=== PATIENT | female | born 1965 | race Caucasian/White ===

== ENCOUNTER 2022-12-09 16:34 | Inpatient (IN) | payer MEDICAID ==
[~2022-12-09] VITALS: Ht 157.5 cm; Wt 103.0 kg
[2022-12-09] MEDS ORDERED: ALBUTEROL SULF 2.5 MG/0.5ML(0.5%) NEB SOLN NEB ONE (17:00)
[2022-12-09] MEDS ORDERED: MAGNESIUM SULFATE 1GM/100ML 100 ML IV ONE (17:00)
[2022-12-09] MEDS ORDERED: IPRATROPIUM BROM 0.5 MG/2.5ML INH SOL NEB ONE (17:00)
[2022-12-09] MEDS ORDERED: methylPREDNISolone SOD SUCC 125 MG/2 ML VL IV ONE (17:00)
[2022-12-09 17:30] LABS: Basophils # (auto) 0 10 ^3/uL (0-0.2); Basophils % (auto) 0.6 % (0.0-2.0); Eosinophils # (auto) 0 10 ^3/uL (0-0.8); Hematocrit 46.2 % (36.0-46.0); Hemoglobin 15.2 g/dL (12.2-16.2); Lymphocytes # (auto) 0.4 10 ^3/uL (0.4-5.4); Lymphocytes % (auto) 6.1 % (10.0-50.0); Mean Corpuscular Hemoglobin 30.5 pg (28.0-32.0); Mean Corpuscular Hgb Conc. 32.9 g/dL (32.0-36.0); Mean Corpuscular Volume 92.5 fL (80.0-100.0); Monocytes # (auto) 0.6 10 ^3/uL (0-1.3); Monocytes % (auto) 10.3 % (0.0-12.0); Neutrophils # (auto) 5.2 10 ^3/uL (1.6-8.6); Red Cell Distribution Width 16.1 % (11.8-14.3); White Blood Cell 6.2 10^3/uL (4.4-10.8)
[2022-12-09 17:55] LABS: Albumin 3.5 g/dL (3.4-5.0); Magnesium 2.6 mg/dL (1.6-2.6); Potassium 3.8 mmol/L (3.5-5.1)
[2022-12-09 17:59] LABS: BUN/Creatinine Ratio 16.5; Bilirubin, Total 0.4 mg/dL (0.2-1.0); Total Protein 6.9 g/dL (6.4-8.2)
[2022-12-09] MEDS ORDERED: ACETAMINOPHEN 325 MG TAB PO ONE (19:15)
[2022-12-09] MEDS ORDERED: TEMAZEPAM 15 MG CAP PO PRN (19:30)
[2022-12-09] MEDS ORDERED: MAALOX PLUS or MAALOX 30 ML PO PRN (19:30)
[2022-12-09] MEDS ORDERED: NICOTINE 14 MG/24HR TOPICAL PATCH TD ONE (19:30)
[2022-12-09] MEDS ORDERED: DOCUSATE SOD 100 MG CAP PO PRN (19:30)
[2022-12-09] MEDS ORDERED: ONDANSETRON HCL 4 MG/2 ML VIAL IV PRN (19:30)
[2022-12-09 19:32] VITALS: BP 123/54
[2022-12-09] MEDS: cefTRIAXone 1GM/50ML D5W 50 ML IV SCH (20:25)
[2022-12-09] MEDS: SODIUM CHLORIDE 0.9% 1,000 ML IV SCH (20:25)
[2022-12-09 22:54] VITALS: BP 99/39
[2022-12-09] MEDS: methylPREDNISolone SOD SUCC 40 MG/ML VL IV SCH (23:42)
[2022-12-09] MEDS: AZITHROMYCIN 500MG/ 250ML 250 ML IV SCH (23:53)
[2022-12-10] MEDS ORDERED: SODIUM CHLORIDE 0.9% 500 ML IV ONE
[2022-12-10 00:12] VITALS: BP 99/50
[2022-12-10] MEDS: NOREPINEPHRINE 8 MG/250ML KIT 250 ML IV SCH (02:02)
[2022-12-10 02:08] VITALS: BP 74/37
[2022-12-10] MEDS: ALBUTEROL SULF 2.5 MG/0.5ML(0.5%) NEB SOLN NEB SCH ×3 (06:00→19:04)
[2022-12-10] MEDS ORDERED: ALBUTEROL MEDNEB 2.5 mg/3ml NEB ONE ×3 (06:03→17:48)
[2022-12-10 06:07] LABS: Basophils # (auto) 0 10 ^3/uL (0-0.2); Basophils % (auto) 0.1 % (0.0-2.0); Eosinophils # (auto) 0 10 ^3/uL (0-0.8); Hematocrit 48.1 % (36.0-46.0); Hemoglobin 15.7 g/dL (12.2-16.2); Lymphocytes # (auto) 0.2 10 ^3/uL (0.4-5.4); Lymphocytes % (auto) 1.8 % (10.0-50.0); Mean Corpuscular Hemoglobin 30.5 pg (28.0-32.0); Mean Corpuscular Hgb Conc. 32.5 g/dL (32.0-36.0); Mean Corpuscular Volume 93.9 fL (80.0-100.0); Monocytes # (auto) 0.4 10 ^3/uL (0-1.3); Monocytes % (auto) 4.1 % (0.0-12.0); Neutrophils # (auto) 8.8 10 ^3/uL (1.6-8.6); Red Blood Cells 5.13 10^6/uL (4.0-5.20); White Blood Cell 9.4 10^3/uL (4.4-10.8)
[2022-12-10] MEDS: IPRATROPIUM BROM 0.5 MG/2.5ML INH SOL NEB SCH ×3 (06:35→19:04)
[2022-12-10 06:54] LABS: Potassium 3.9 mmol/L (3.5-5.1)
[2022-12-10 07:03] LABS: Calcium 8.1 mg/dL (8.5-10.1)
[2022-12-10 09:03] LABS: Urine Bacteria FEW /hpf (None Seen); Urine Blood Negative /uL (Negative); Urine Hyaline Cast MANY /lpf (0 - 2); Urine Specific Gravity 1.018 (1.001-1.035); Urine WBC 7 /hpf (0 - 5)
[2022-12-10 09:04] LABS: Alcohol, Urine < 3.0 mg/dL (0-10); Amphetamine Screen, Urine POSITIVE (NEGATIVE); Barbiturate Scree,Urine NEGATIVE (NEGATIVE); Benzodiazephine Screen, Urine NEGATIVE (NEGATIVE); Cannabinoid Screen, Urine POSITIVE (NEGATIVE); Opiate Scree,Urine NEGATIVE (NEGATIVE); Phencyclidine Screen, Urine NEGATIVE (NEGATIVE)
[2022-12-10 09:12] LABS: Cocaine Screen, Urine NEGATIVE (NEGATIVE)
[2022-12-10] MEDS: methylPREDNISolone SOD SUCC 40 MG/ML VL IV SCH ×2 (10:42→21:48)
[2022-12-10] MEDS: cefTRIAXone 1GM/50ML D5W 50 ML IV SCH (10:43)
[2022-12-10] MEDS: AZITHROMYCIN 500MG/ 250ML 250 ML IV SCH (10:43)
[2022-12-10] MEDS: LORazepam 0.5 MG TAB PO PRN (11:51)
[2022-12-10] MEDS: SODIUM CHLORIDE 0.9% 1,000 ML IV SCH (12:10)
[2022-12-10] MEDS: ACETAMINOPHEN 325 MG TAB PO PRN (17:46)
[2022-12-10 22:45] VITALS: BP 108/63
[2022-12-11] VITALS (37 sets, daily range): BP systolic 93–136; BP diastolic 45–84
[2022-12-11] MEDS: NOREPINEPHRINE 8 MG/250ML KIT 250 ML IV SCH (01:30)
[2022-12-11] MEDS: SODIUM CHLORIDE 0.9% 1,000 ML IV SCH ×2 (02:58→23:36)
[2022-12-11] MEDS: LORazepam 0.5 MG TAB PO PRN ×3 (05:33→19:58)
[2022-12-11] MEDS: methylPREDNISolone SOD SUCC 40 MG/ML VL IV SCH ×3 (05:34→21:58)
[2022-12-11] MEDS ORDERED: ALBUTEROL MEDNEB 2.5 mg/3ml NEB ONE ×3 (06:05→18:10)
[2022-12-11] MEDS: IPRATROPIUM BROM 0.5 MG/2.5ML INH SOL NEB SCH ×3 (06:20→18:29)
[2022-12-11] MEDS: ALBUTEROL SULF 2.5 MG/0.5ML(0.5%) NEB SOLN NEB SCH ×3 (06:20→18:29)
[2022-12-11] MEDS: cefTRIAXone 1GM/50ML D5W 50 ML IV SCH (09:44)
[2022-12-11] MEDS: AZITHROMYCIN 500MG/ 250ML 250 ML IV SCH (09:44)
[2022-12-12] VITALS (14 sets, daily range): BP systolic 102–134; BP diastolic 53–79
[2022-12-12] MEDS: NOREPINEPHRINE 8 MG/250ML KIT 250 ML IV SCH (01:30)
[2022-12-12] MEDS: LORazepam 0.5 MG TAB PO PRN ×2 (05:41→17:57)
[2022-12-12] MEDS ORDERED: ALBUTEROL MEDNEB 2.5 mg/3ml NEB ONE ×3 (06:07→18:05)
[2022-12-12] MEDS: ALBUTEROL SULF 2.5 MG/0.5ML(0.5%) NEB SOLN NEB SCH ×3 (06:14→18:27)
[2022-12-12] MEDS: IPRATROPIUM BROM 0.5 MG/2.5ML INH SOL NEB SCH ×3 (06:14→18:27)
[2022-12-12] MEDS: ACETAMINOPHEN 325 MG TAB PO PRN (08:13)
[2022-12-12] MEDS: AZITHROMYCIN 500MG/ 250ML 250 ML IV SCH (09:19)
[2022-12-12] MEDS: cefTRIAXone 1GM/50ML D5W 50 ML IV SCH (09:19)
[2022-12-12] MEDS: methylPREDNISolone SOD SUCC 40 MG/ML VL IV SCH ×2 (14:00→22:15)
[2022-12-12] MEDS: SODIUM CHLORIDE 0.9% 1,000 ML IV SCH (14:10)
[2022-12-13] MEDS ORDERED: ALBUTEROL MEDNEB 2.5 mg/3ml NEB ONE ×4 (02:59→18:47)
[2022-12-13] MEDS: LORazepam 0.5 MG TAB PO PRN ×3 (03:12→17:55)
[2022-12-13] MEDS ORDERED: ALBUTEROL SULF 2.5 MG/0.5ML(0.5%) NEB SOLN NEB PRN (03:15)
[2022-12-13] MEDS ORDERED: IPRATROPIUM BROM 0.5 MG/2.5ML INH SOL NEB PRN (03:15)
[2022-12-13] MEDS: SODIUM CHLORIDE 0.9% 1,000 ML IV SCH ×2 (03:32→23:30)
[2022-12-13 05:00] VITALS: BP 147/78
[2022-12-13] MEDS: methylPREDNISolone SOD SUCC 40 MG/ML VL IV SCH ×3 (06:34→21:30)
[2022-12-13] MEDS: ALBUTEROL SULF 2.5 MG/0.5ML(0.5%) NEB SOLN NEB SCH ×3 (06:34→18:55)
[2022-12-13] MEDS: IPRATROPIUM BROM 0.5 MG/2.5ML INH SOL NEB SCH ×3 (06:34→18:55)
[2022-12-13 08:51] LABS: Basophils # (auto) 0 10 ^3/uL (0-0.2); Basophils % (auto) 0.1 % (0.0-2.0); Eosinophils # (auto) 0 10 ^3/uL (0-0.8); Hematocrit 42.3 % (36.0-46.0); Hemoglobin 13.5 g/dL (12.2-16.2); Lymphocytes # (auto) 0.2 10 ^3/uL (0.4-5.4); Lymphocytes % (auto) 7.8 % (10.0-50.0); Mean Corpuscular Volume 93.6 fL (80.0-100.0); Monocytes # (auto) 0.2 10 ^3/uL (0-1.3); Monocytes % (auto) 5.9 % (0.0-12.0); Neutrophils # (auto) 2.3 10 ^3/uL (1.6-8.6); Neutrophils % (auto) 86.2 % (37.0-80.0); Red Blood Cells 4.51 10^6/uL (4.0-5.20); Red Cell Distribution Width 15.4 % (11.8-14.3); White Blood Cell 2.7 10^3/uL (4.4-10.8)
[2022-12-13 09:00] VITALS: BP 134/90
[2022-12-13 09:06] LABS: BUN/Creatinine Ratio 29.3; Calcium 8.1 mg/dL (8.5-10.1); Magnesium 2.7 mg/dL (1.6-2.6); Potassium 4.3 mmol/L (3.5-5.1)
[2022-12-13] MEDS: cefTRIAXone 1GM/50ML D5W 50 ML IV SCH (09:39)
[2022-12-13] MEDS: AZITHROMYCIN 500MG/ 250ML 250 ML IV SCH (10:30)
[2022-12-13 13:00] VITALS: BP 158/88
[2022-12-13] MEDS ORDERED: NICOTINE 21MG/24 HR TOPICAL PATCH TD ONE (14:30)
[2022-12-13 16:52] VITALS: BP 159/94
[2022-12-13 22:00] VITALS: BP 119/54
[2022-12-14 05:00] VITALS: BP 140/69
[2022-12-14] MEDS ORDERED: ALBUTEROL MEDNEB 2.5 mg/3ml NEB ONE ×2 (05:45→11:40)
[2022-12-14] MEDS: methylPREDNISolone SOD SUCC 40 MG/ML VL IV SCH ×2 (05:49→14:36)
[2022-12-14] MEDS: IPRATROPIUM BROM 0.5 MG/2.5ML INH SOL NEB SCH ×2 (07:23→12:37)
[2022-12-14] MEDS: ALBUTEROL SULF 2.5 MG/0.5ML(0.5%) NEB SOLN NEB SCH ×2 (07:23→12:37)
[2022-12-14] MEDS ORDERED: LEV100T PO (07:58)
[2022-12-14] MEDS ORDERED: HYDR25TA4 PO (07:58)
[2022-12-14] MEDS ORDERED: LISI20TA28 PO (07:58)
[2022-12-14] MEDS ORDERED: LEVOTHYROXINE SODIUM 100 MCG TAB PO ONE (08:00)
[2022-12-14 08:58] VITALS: BP 139/71
[2022-12-14] MEDS: LORazepam 0.5 MG TAB PO PRN ×2 (09:48→16:00)
[2022-12-14] MEDS ORDERED: NICOTINE 21MG/24 HR TOPICAL PATCH TD SCH (10:00)
[2022-12-14] MEDS ORDERED: LISINOPRIL 20 MG TAB PO SCH (10:00)
[2022-12-14] MEDS: cefTRIAXone 1GM/50ML D5W 50 ML IV SCH (11:20)
[2022-12-14] MEDS: AZITHROMYCIN 500MG/ 250ML 250 ML IV SCH (12:00)
[2022-12-14 13:00] VITALS: BP 143/73
[2022-12-14] MEDS: SODIUM CHLORIDE 0.9% 1,000 ML IV SCH (16:10)
[2022-12-14 16:53] VITALS: BP 146/79
[2022-12-14] MEDS ORDERED: METH4PAK PO (17:00)
[2022-12-14] MEDS ORDERED: ALBUAER3 IN (17:00)
[2022-12-14] MEDS ORDERED: DOXY-338 PO (17:00)
[2022-12-14 18:15] VITALS: BP 146/79
[2022-12-15] MEDS ORDERED: LEVOTHYROXINE SODIUM 100 MCG TAB PO SCH (07:00)
== END 2022-12-14 18:38 | disposition home or self-care (01) | DRG 133 ==
LOC: ER 16:35 → OVERFLOW 19:41 → DOU IN ICU 12-10 23:31 → TELE-WESTW 12-12 10:45
PROVIDERS: ADMIT Hospitalist; ATTEND Internal Medicine
PROC: 5A09357 Assistance with Respiratory Ventilation, Less than 24 Consecutive Hours, Continuous Positive Airway Pressure (ICD-10-PCS; principal; 2022-12-10)
PROC: 5A09357 Assistance with Respiratory Ventilation, Less than 24 Consecutive Hours, Continuous Positive Airway Pressure (ICD-10-PCS; 2022-12-11)
PROC: 5A09357 Assistance with Respiratory Ventilation, Less than 24 Consecutive Hours, Continuous Positive Airway Pressure (ICD-10-PCS; 2022-12-12)
PROC: 5A09357 Assistance with Respiratory Ventilation, Less than 24 Consecutive Hours, Continuous Positive Airway Pressure (ICD-10-PCS; 2022-12-13)
PROC: 5A09357 Assistance with Respiratory Ventilation, Less than 24 Consecutive Hours, Continuous Positive Airway Pressure (ICD-10-PCS; 2022-12-14)
DX: J96.21 Acute and chronic respiratory failure with hypoxia (principal); J44.0 Chronic obstructive pulmonary disease with (acute) lower respiratory infection; I95.9 Hypotension, unspecified; J18.9 Pneumonia, unspecified organism; E87.1 Hypo-osmolality and hyponatremia; J44.1 Chronic obstructive pulmonary disease with (acute) exacerbation; J45.901 Unspecified asthma with (acute) exacerbation; J20.9 Acute bronchitis, unspecified; E03.9 Hypothyroidism, unspecified; Z20.822 Contact with and (suspected) exposure to COVID-19; I10 Essential (primary) hypertension; E66.9 Obesity, unspecified; F15.10 Other stimulant abuse, uncomplicated; J98.11 Atelectasis; F12.90 Cannabis use, unspecified, uncomplicated; Z90.49 Acquired absence of other specified parts of digestive tract; Z88.5 Allergy status to narcotic agent; Z88.6 Allergy status to analgesic agent; Z72.0 Tobacco use; Z68.41 Body mass index [BMI] 40.0-44.9, adult
CPT/HCPCS: 36415; 36600; 71045; 80048; 80053; 80307; 81001; 82805; 83605; 83735; 83880; 84484; 85025; 87081; 87426; 87804; 93005; 93306; 94640; 94660; 97110; 97116; 97163; 97530; G0378; J0696

== ENCOUNTER 2024-07-31 15:07 | Inpatient (IN) | payer MEDICAID ==
[~2024-07-31] VITALS: Ht 149.9 cm; Wt 100.6 kg
[~2024-07-31 15:07] MED LIST: ALBUAER3 IN; DOXY1CAP58 PO; HYDR25TA4 PO; LEVO-849 PO; LISI20TA56 PO; METH4PAK PO
--- NOTE | 2024-07-31 15:26 | ED.PDOC ---
SOB-HPI HPI Comments HPI: Poor Historian. History obtained from EMS and the patient. 59-year-old female presents to the emergency department by ambulance for evaluation of cough and shortness of breath progressively getting worse in the last three days. Patient pulse ox at home was in the high 80s per EMS. Patient states she is compliant with all her medications. She gave herself a breathing treatment before she goes to sleep. Patient also received a DuoNeb treatment in route by EMS. Vital signs were otherwise unremarkable per EMS. Past Medcial History: COPD on 2 L nasal cannula, CHF, hyperlipidemia, obesity Past Surgical History: Appendectomy, REVIEW OF SYSTEMS: CONSTITUTIONAL: Denies acute: fever, diaphoresis, chills, HEAD: Denies acute: headache, photophobia Eyes: Denies acute: Double vision, vision loss, eye pain, eye discharge. EARS: Denies acute: tinnitus, hearing loss, ear discharge, ear pain, THROAT: Denies acute: sore throat, swelling, difficulty swallowing , pain with swallowing, change in voice. NECK: Denies acute: neck pain, neck swelling, stiff neck. HEART: Denies acute : chest pain, palpitations, LUNGS: Denies acute: wheezing, hemoptysis ABDOMEN: Denies acute: abdominal pain, Nausea, Vomiting, diarrhea, melena , hematemesis, hematochezia SKIN: Denies acute: rash, redness, lesions, itchiness. EXTREMITIES: Denies acute: calf pain, numbness, tingling, weakness, denies pain in extremity. Denies acute: Low back pain. Neuro: Denies acute: focal neurological deficit, motor or sensory focal neurological deficit, tremors, seizure like activity, confusion, dizziness, change in mental status, loss of bowel or bladder function, cauda equina like symptoms. : Denies acute: dysuria, hematuria, flank pain, increase in urinary frequency. PSYCH: Denies acute: hallucination, suicidal ideation, homicidal ideation. FEMALE: Denies acute: abnormal vaginal bleeding, foul odor, unusual discharge. PHYSICAL EXAM: General: no acute distress, awake and alert. Head: normocephalic, atraumatic. Neck: supple, trachea is midline, no swelling. Throat: Normal phonation. Eyes:, no erythema, no purulent discharge, no proptosis, no icterus. Heart: regular rate, regular rhythm, no significant murmur appreciated. Lungs: no apparent respiratory distress, Minimal bilateral wheezing, no rhonchi, no crackles. No stridors Clear to auscultation bilaterally. Abdomen: non tender to palpation, non distended, soft, no guarding, no rebound, + bowel sounds. Morbidly obese. Neuro: Awake, Alert, oriented to name, self, situation, follows commands GCS=15. Speech is normal. Skin: no petechia, no purpura, no cyanosis, non-pale, not jaundice. Lower extremities: --trace bilateral - Pitting edema no deformity, no focal swelling, no calf TTP. Makes eye contact. moves all four extremities. Face: no apparent facial droop. Time Seen by MD: 15:12 Primary Care Provider: UNKNOWN Reviewed notes: Nurses Notes, Medications, Allergies Information Source: Patient, Emergency Med Personnel Past Medical History PAST MEDICAL HISTORY: Asthma, COPD, Depression, High Lipids, HTN, Thyroid Surgical History: Appendectomy, Family History Family History: Reviewed,noncontributory to illness Social History Smoker: Cigarettes Alcohol: Denies ETOH Use Drugs: Denies Drug Use Lives In: Home Was a procedure done? Was a procedure done?: No Differential Dx Differential Diagnosis: Other (DDx include ACS, unstable angina, anxiety, PE, pneumothroax, neoplasm, cardiac ischemia, COPD, asthma, CHF, pleural effusion, tobacco abuse, pneumonia, hypoxia, hypercapnia, anemia., infection/sepsis., pulmonary edema. Asthma, Cardiac tamponade, infection.) X-Ray, Labs, Meds, VS Vital Signs Date Time Temp Pulse Resp B/P (MAP) Pulse Ox O2 Delivery O2 Flow Rate FiO2 07/31/24 22:00 81 24 144/70 (94) 93 07/31/24 21:35 82 105/51 92 Facial BiPAP Mask 50 07/31/24 20:00 84 07/31/24 19:38 82 142/70 91 Facial BiPAP Mask 50 07/31/24 19:28 84 23 92 Bi-Pap+ 50 50 07/31/24 19:28 98.3 84 23 142/70 (94) 92 98.3 07/31/24 18:59 98.0 80 25 131/54 (79) 93 98.0 07/31/24 18:02 80 132/66 92 Facial BiPAP Mask 50 07/31/24 17:20 98.0 88 18 106/76 (86) 94 07/31/24 16:55 79 117/58 Facial BiPAP Mask 50 07/31/24 16:40 117/58 07/31/24 15:51 86 24 97 Nasal Cannula* 2 28 07/31/24 15:49 98.3 86 24 109/57 (74) 97 98.3 07/31/24 15:38 22 93 Nasal Cannula* 2 28 Lab Test 07/31/24 19:57 07/31/24 19:01 07/31/24 18:10 07/31/24 17:27 Range/Units Blood Gas Specimen Type Arterial Arterial Blood Gas Sample Site Left radial Left radial Blood Gas Patient Temperature 37.0 37.0 Arterial Blood Date Drawn [id number] Arterial Blood pH 7.353 7.346 L 7.350-7.450 Arterial Blood Partial Pressure CO2 86.7 *H 87.3 *H 32.0-45.0 mmHg Arterial Blood Partial Pressure O2 77.6 L 76.5 L 83.0-108.0 mmHg Arterial Blood HCO3 47.1 H 46.7 H 21.0-28.0 mmol/L Arterial Blood Oxygen Saturation 96.0 95.6 94.0-98.0 % Arterial Blood Base Excess 16.7 H 16.1 H -2.0-3.0 mmol/L Arterial Blood Oxyhemoglobin 91.0 L 91.0 L 94.0-98.0 % Arterial Blood Carboxyhemoglobin 4.7 H 4.4 H 0.5-1.5 % Arterial Blood Methemoglobin 0.5 0.4 0.0-1.5 % Dago Test Yes Yes Blood Gas Total Hemoglobin 14.70 14.70 12.0-16.0 g/dL Blood Gas Set Respiration Rate 12.0 12.0 Blood Gas Modality Mask - bipap Mask - bipap FiO2 % 50.0 50.0 Blood Gas EPAP 5 5 Blood Gas IPAP 18 15 Blood Gas Critical Value Read Back Yes Yes Blood Gas Notified Whom Dr. kory velasquez Blood Gas Notified Time [id number] Blood Gas Notified By Rehabilitation Construction Specialist yung brice Rehabilitation Construction Specialist yung brice Troponin I High Sensitivity 5 </=34 ng/L Urine Color Colorless Yellow Urine Clarity Clear Clear Urine pH 6.5 5.0-9.0 Urine Specific [place] 1.008 1.001-1.035 Urine Protein Negative Negative Urine Ketones Negative Negative Urine Blood Negative Negative /uL Urine Nitrite Negative Negative Urine Bilirubin Negative Negative Urine Urobilinogen Normal Negative mg/dL Urine Leukocyte Esterase Negative Negative /uL Urine RBC 1 0 - 4 /hpf Urine WBC <1 0 - 5 /hpf Urine Squamous Epithelial Cells None seen <5 /hpf Urine Bacteria None seen None Seen /hpf Urine Mucus Few None Seen Urine Glucose Normal Normal mg/dL Test 07/31/24 17:12 07/31/24 16:47 07/31/24 15:46 Range/Units Troponin I High Sensitivity 4 4 </=34 ng/L Thyroid Stimulating Hormone (TSH) 1.57 0.55-4.78 uIU/mL Blood Gas Specimen Type Arterial Blood Gas Sample Site Right radial Blood Gas Patient Temperature 37.0 Arterial Blood Date Drawn [id number] Arterial Blood pH 7.346 L 7.350-7.450 Arterial Blood Partial Pressure CO2 87.6 *H 32.0-45.0 mmHg Arterial Blood Partial Pressure O2 52.9 *L 83.0-108.0 mmHg Arterial Blood HCO3 46.8 H 21.0-28.0 mmol/L Arterial Blood Oxygen Saturation 88.3 L 94.0-98.0 % Arterial Blood Base Excess 16.4 H -2.0-3.0 mmol/L Arterial Blood Oxyhemoglobin 83.8 L 94.0-98.0 % Arterial Blood Carboxyhemoglobin 4.7 H 0.5-1.5 % Arterial Blood Methemoglobin 0.4 0.0-1.5 % Dago Test Yes Blood Gas Total Hemoglobin 14.30 12.0-16.0 g/dL Blood Gas Liter Flow 2.00 Blood Gas Modality Nasal cannula FiO2 % 28.0 Blood Gas Critical Value Read Back Yes Blood Gas Notified Whom jc Velasquez md Blood Gas Notified Time [id number] Blood Gas Notified By Refugio vicente rrt White Blood Count 7.3 4.4-10.8 10^3/uL Red Blood Count 4.54 4.0-5.20 10^6/uL Hemoglobin 13.8 12.2-16.2 g/dL Hematocrit 42.5 36.0-46.0 % Mean Corpuscular Volume 93.6 80.0-100.0 fL Mean Corpuscular Hemoglobin 30.4 28.0-32.0 pg Mean Corpuscular Hemoglobin Concent 32.5 32.0-36.0 g/dL Red Cell Distribution Width 14.3 11.8-14.3 % Platelet Count 178 140-450 10^3/uL Mean Platelet Volume 8.6 6.9-10.8 fL Neutrophils (%) (Auto) 79.0 37.0-80.0 % Lymphocytes (%) (Auto) 11.2 10.0-50.0 % Monocytes (%) (Auto) 6.7 0.0-12.0 % Eosinophils (%) (Auto) 2.7 0.0-7.0 % Basophils (%) (Auto) 0.4 0.0-2.0 % Neutrophils # (Auto) 5.7 1.6-8.6 10 ^3/uL Lymphocytes # (Auto) 0.8 0.4-5.4 10 ^3/uL Monocytes # (Auto) 0.5 0-1.3 10 ^3/uL Eosinophils # (Auto) 0.2 0-0.8 10 ^3/uL Basophils # (Auto) 0 0-0.2 10 ^3/uL Nucleated Red Blood Cells 0.1 % Sodium Level 139 136-145 mmol/L Potassium Level 3.8 3.5-5.1 mmol/L Chloride Level 95 L 98-107 mmol/L Carbon Dioxide Level > 40 *H 20-31 mmol/L Anion Gap 3.67361 L 5-15 Blood Urea Nitrogen 10 9-23 mg/dL Creatinine 0.79 0.550-1.02 mg/dL Glomerular Filtration Rate Calc 87 >90 mL/min BUN/Creatinine Ratio 12.7 10.0-20.0 Serum Glucose 86 74-106 mg/dL Lactic Acid Level 0.9 0.4-2.0 mmol/L Calcium Level 9.5 8.7-10.4 mg/dL Total Bilirubin 0.6 0.2-1.0 mg/dL Aspartate Amino Transferase (AST) 36 13-40 U/L Alanine Aminotransferase (ALT) 65 H 7-40 U/L Alkaline Phosphatase 124 H 46-116 U/L B-Type Natriuretic Peptide 40.62 0-100 pg/mL Total Protein 7.1 5.7-8.2 g/dL Albumin 4.4 3.2-4.8 g/dL Time of 1ST Reevaluation: 01:15 (Patient was reassessed and she is improving. Although her CO2 is elevated, patient is mentating well with stable vital signs. Patient continues to be on a BiPAP.) Reevaluation 1ST: Improved Patient Education/Counseling: Diagnosis, Treatment Family Education/Counseling: No Family Present Comments Patient presented with the above HPI.--dyspnea---workup was initiated. patient was found with the above mentioned diagnosis. Patient was given DuoNeb treatment, Solu-Medrol, Lasix. Patient was placed on a BiPAP. Patient ED course and VS have been stabilized. Patient has been reassessed in the ED and remained in a stable condition. Pertinent incidental findings were discussed with the patient and/or family. Patient/family voices understanding and is agreeable with plan. Patient has been observed in the ED adequate length of time to insure improvement/stability. patient was admitted to the medicine team for further evaluation and treatment of their presentation. Multiple ABGs were obtained. All the reports of any imaging studies that were ordered by myself were reviewed by myself. Departure 1 Departure Time of Disposition: 16:55 Impression: Primary Impression: Dyspnea Additional Impressions: Hypercapnia COPD exacerbation Disposition: ADMITTED INPATIENT Condition: Guarded Discharged With: Self Critical Care Note Critical Care Time?: Yes (45 min-critical care time only) Heart Score Heart Score: Heart Score Response (Comments) Value History Slightly Suspicious 0 EKG Normal 0 Age 45-64 1 Risk Factors >3 or Hx ASHD 2 Troponin Normal limit 0 Total 3 JOEY VELASQUEZ DO Jul 31, 2024 15:26
[2024-07-31] MEDS: ALBUTEROL SULF 2.5 MG/0.5ML(0.5%) NEB SOLN NEB ONE (15:38)
[2024-07-31] MEDS: IPRATROPIUM BROM 0.5 MG/2.5ML INH SOL NEB ONE (15:38)
[2024-07-31 15:51] VITALS: PULSE 86; RESP 24; O2SAT 97
[2024-07-31 16:02] LABS: Basophils # (auto) 0 10 ^3/uL (0-0.2); Basophils % (auto) 0.4 % (0.0-2.0); Eosinophils # (auto) 0.2 10 ^3/uL (0-0.8); Eosinophils % (auto) 2.7 % (0.0-7.0); Hematocrit 42.5 % (36.0-46.0); Hemoglobin 13.8 g/dL (12.2-16.2); Lymphocytes # (auto) 0.8 10 ^3/uL (0.4-5.4); Lymphocytes % (auto) 11.2 % (10.0-50.0); Mean Corpuscular Hemoglobin 30.4 pg (28.0-32.0); Mean Corpuscular Hgb Conc. 32.5 g/dL (32.0-36.0); Mean Corpuscular Volume 93.6 fL (80.0-100.0); Monocytes # (auto) 0.5 10 ^3/uL (0-1.3); Monocytes % (auto) 6.7 % (0.0-12.0); Neutrophils # (auto) 5.7 10 ^3/uL (1.6-8.6); Nucleated Red Blood Cells % 0.1 %; Platelet Count (auto) 178 10^3/uL (140-450); Red Blood Cells 4.54 10^6/uL (4.0-5.20); Red Cell Distribution Width 14.3 % (11.8-14.3); White Blood Cell 7.3 10^3/uL (4.4-10.8)
--- NOTE | 2024-07-31 16:21 | DVH ---
CHEST RADIOGRAPH Indication:sob Technique: Single frontal view of the chest was obtained Comparison: CHEST PORTABLE on DOS: 12/09/22, CXRP on DOS: 12/09/22 FINDINGS: Lines and Tubes: None Lungs: No focal consolidation. Left hemithorax interstitial prominence. Bilateral lower lung zone ray ear densities. Pleura: No effusion. No pneumothorax. Cardiomediastinal contours: Unremarkable Bones: No acute osseous abnormality. IMPRESSION: Bilateral lower lung zone atelectasis/ scarring with mild left hemithorax interstitial prominence.
[2024-07-31 16:24] LABS: Alanine Aminotransferase 65 U/L (7-40); Albumin 4.4 g/dL (3.2-4.8); Alkaline Phosphatase 124 U/L (46-116); Aspartate Aminotransferase 36 U/L (13-40); BUN/Creatinine Ratio 12.7 (10.0-20.0); Blood Urea Nitrogen 10 mg/dL (9-23); Calcium 9.5 mg/dL (8.7-10.4); Chloride 95 mmol/L (98-107); Glucose 86 mg/dL (74-106); Potassium 3.8 mmol/L (3.5-5.1); Sodium 139 mmol/L (136-145); Total Protein 7.1 g/dL (5.7-8.2)
[2024-07-31 16:25] LABS: Bilirubin, Total 0.6 mg/dL (0.2-1.0)
[2024-07-31 16:34] LABS: Anion Gap 3.99999 (5-15); Carbon Dioxide > 40 mmol/L (20-31)
[2024-07-31] MEDS: methylPREDNISolone SOD SUCC 125 MG/2 ML VL IV ONE (16:39)
[2024-07-31] MEDS: FUROSEMIDE 40 MG/4 ML VIAL IV ONE (16:40)
[2024-07-31 16:55] LABS: Base Excess 16.4 mmol/L (-2.0-3.0)
[2024-07-31 17:41] LABS: Urine Bacteria None Seen /hpf (None Seen)
[2024-07-31 18:02] VITALS: BP 132/66; PULSE 80; O2SAT 92
[2024-07-31 18:15] LABS: Urine Blood Negative /uL (Negative); Urine Clarity Clear (Clear); Urine Color Colorless (Yellow); Urine Mucus FEW (None Seen); Urine Protein, UAD Negative (Negative); Urine Specific Gravity 1.008 (1.001-1.035); Urine Urobilinogen Normal (Negative); Urine WBC <1 /hpf (0 - 5); Urine pH 6.5 (5.0-9.0)
[2024-07-31 18:16] LABS: Base Excess 16.1 mmol/L (-2.0-3.0)
[2024-07-31 19:28] VITALS: PULSE 84; RESP 23; O2SAT 92
[2024-07-31 19:38] VITALS: BP 142/70; PULSE 82; O2SAT 91
[2024-07-31 20:04] LABS: Base Excess 16.7 mmol/L (-2.0-3.0)
[2024-07-31 21:35] VITALS: BP 105/51; PULSE 82; O2SAT 92
[2024-07-31] MEDS ORDERED: IPRATROPIUM BROM 0.5 MG/2.5ML INH SOL NEB PRN (22:15)
[2024-07-31] MEDS ORDERED: DOCUSATE SOD 100 MG CAP PO PRN (22:15)
[2024-07-31] MEDS ORDERED: ALBUTEROL SULF 2.5 MG/0.5ML(0.5%) NEB SOLN NEB PRN (22:15)
[2024-07-31] MEDS ORDERED: ONDANSETRON HCL 4 MG/2 ML VIAL IV PRN (22:15)
--- NOTE | 2024-07-31 22:34 | DVHHP2 ---
History of Present Illness Reason for Visit: COPD with acute exacerbation History of Present Illness Patient is a 59-year-old female with multiple past medical history including COPD, CHF, hyperlipidemia and morbid obesity who presented to [facility] complaint shortness of breaths. Patient reports symptoms progressively get worse with cough, hypoxia with O2 saturation in the 80s, getting worse that prompted this visit. Patient was seen and evaluated in the ED, laboratory data shows WBC 7.3, platelets 178, sodium 139, potassium 3.8, BUN 10, creatinine 0.79, glucose 86, troponin four, AST 36, ALT 65, BNP 40.62, blood pressure 144/70, heart rate 82, temperature 98.3 F, O2 saturation 93% on BiPAP. Chest x- ray revealing bilateral lower lung zone atelectasis/scarring with mild left hemithorax interstitial prominence. Please see medication orders section in the computer. On my assessment, patient denied chest pain, no headache, no dizziness, no diaphoresis, currently on BiPAP, no nausea, no vomiting, no fever, no chills. Patient was admitted for further evaluation and medical management. Past Medical History Obesity, Asthma, COPD, Depression, High Lipids, HTN, Thyroid Past Surgical History Appendectomy, Family History Reviewed, noncontributory to the management of this case. Past Social History The patient lives at home, smokes cigarettes, denies alcohol or illicit drugs abuse. Review of Systems Constitutional: No: Fever, Chills, Sweats, Weakness, Malaise, Other Eyes: No: Pain, Vision change, Conjunctivae inflammation, Eyelid inflammation, Other, Redness ENT: No: Ear pain, Ear discharge, Nose pain, Nose discharge, Nose congestion, Mouth pain, Mouth swelling, Throat pain, Throat swelling, Other Respiratory: Cough, Shortness of breath, SOB with excertion, Other (SOB at rest); No: Dry, Wheezing, Hemoptysis, Pleuritic Pain, Sputum, Wheezing Cardiovascular: No: Chest Pain, Palpitations, Orthopnea, Paroxysmal Noc. Dyspnea, Edema, Lt Headedness, Other Gastrointestinal: No: Nausea, Vomiting, Abdominal Pain, Diarrhea, Constipation, Melena, Hematochezia, Other Genitourinary: No Dysuria, No Frequency, No Incontinence, No Hematuria, No Retention, No Other Musculoskeletal: No: other, neck pain, shoulder pain, arm pain, back pain, hand pain, leg pain, foot pain Skin: No: Rash, Lesions, Jaundice, Bruising, Other Neurological: No: Weakness, Numbness, Incoordination, Change in speech, Confusion, Seizures, Other Allergies: Coded Allergies: Aspirin (Verified Allergy, Unknown, 10/31/14) Bupropion (Verified Allergy, Unknown, 10/31/14) Codeine (Verified Allergy, Unknown, 10/31/14) RASH Ibuprofen (Verified Allergy, Unknown, 10/31/14) Morphine (Verified Allergy, Unknown, 03/06/14) "I HAVE AN ALLERGY TO MORPHINE IN PILL FORM" Uncoded Allergies: DARVOCET (Allergy, Unknown, 03/06/14) Medications Current Medications Medications Dose Ordered Sig/Jorge Route Start Time Stop Time Status Last Admin Dose Admin Methylprednisolone Sodium Succinate 40 mg Q8HR IV 08/01/24 06:00 Famotidine 20 mg Q12HR IV 08/01/24 10:00 Albuterol 2.5 mg Q4HPRN PRN NEB 07/31/24 22:15 Ipratropium [place] 0.5 mg Q4HPRN PRN NEB 07/31/24 22:15 Lisinopril 20 mg DAILY PO 08/01/24 10:00 Levothyroxine Sodium 100 mcg QAM@0600 PO 08/01/24 06:00 Hydralazine HCl 10 mg Q6HP PRN IV 07/31/24 22:15 Sodium Chloride 1,000 ml @ 60 mls/hr [id number] IV 07/31/24 22:15 Ondansetron HCl 4 mg Q4HP PRN IV 07/31/24 22:15 Docusate Sodium 100 mg BIDPRN PRN PO 07/31/24 22:15 Acetaminophen 650 mg Q6HP PRN PO 07/31/24 22:15 Exam Vital Signs Vital Signs Date Time Temp Pulse Resp B/P (MAP) Pulse Ox O2 Delivery O2 Flow Rate FiO2 07/31/24 22:00 81 24 144/70 (94) 93 07/31/24 19:38 Facial BiPAP Mask 50 07/31/24 19:28 98.3 98.3 07/31/24 15:51 2 General Appearance: Alert, Oriented X3, Cooperative, No acute distress HEENT: Atraumatic, EOMI, Mucous membr. moist/pink Respiratory: Normal air movement, Other (Diminished breath sounds) Cardiovascular: Regular rate, Normal S1, Normal S2, No murmurs Abdominal: Normal bowel sounds, Soft, No tenderness, No hepatospenomegaly, No masses Extremities: No clubbing, No cyanosis, No edema, Normal pulses, No tenderness/swelling Skin: No rashes, No breakdown, No significant lesion Neuro: Normal speech, Normal tone, Sensation intact, Cranial nerves 3-12 NL, Reflexes 2+, Other (Generalized weakness) Psych/Mental Status: Mental status NL, Mood NL Labs/Xrays Labs Test 07/31/24 19:57 07/31/24 19:01 07/31/24 17:27 07/31/24 17:12 Range/Units Blood Gas Specimen Type Arterial Blood Gas Sample Site Left radial Blood Gas Patient Temperature 37.0 Arterial Blood Date Drawn [id number] Arterial Blood pH 7.353 7.350-7.450 Arterial Blood Partial Pressure CO2 86.7 *H 32.0-45.0 mmHg Arterial Blood Partial Pressure O2 77.6 L 83.0-108.0 mmHg Arterial Blood HCO3 47.1 H 21.0-28.0 mmol/L Arterial Blood Oxygen Saturation 96.0 94.0-98.0 % Arterial Blood Base Excess 16.7 H -2.0-3.0 mmol/L Arterial Blood Oxyhemoglobin 91.0 L 94.0-98.0 % Arterial Blood Carboxyhemoglobin 4.7 H 0.5-1.5 % Arterial Blood Methemoglobin 0.5 0.0-1.5 % Dago Test Yes Blood Gas Total Hemoglobin 14.70 12.0-16.0 g/dL Blood Gas Set Respiration Rate 12.0 Blood Gas Modality Mask - bipap FiO2 % 50.0 Blood Gas EPAP 5 Blood Gas IPAP 18 Blood Gas Critical Value Read Back Yes Blood Gas Notified Whom Dr. velasquez Blood Gas Notified Time [id number] Blood Gas Notified By Parsa brice Troponin I High Sensitivity 5 </=34 ng/L Urine Color Colorless Yellow Urine Clarity Clear Clear Urine pH 6.5 5.0-9.0 Urine Specific [place] 1.008 1.001-1.035 Urine Protein Negative Negative Urine Ketones Negative Negative Urine Blood Negative Negative /uL Urine Nitrite Negative Negative Urine Bilirubin Negative Negative Urine Urobilinogen Normal Negative mg/dL Urine Leukocyte Esterase Negative Negative /uL Urine RBC 1 0 - 4 /hpf Urine WBC <1 0 - 5 /hpf Urine Squamous Epithelial Cells None seen <5 /hpf Urine Bacteria None seen None Seen /hpf Urine Mucus Few None Seen Urine Glucose Normal Normal mg/dL Test 07/31/24 16:47 07/31/24 15:46 Range/Units Blood Gas Liter Flow 2.00 White Blood Count 7.3 4.4-10.8 10^3/uL Red Blood Count 4.54 4.0-5.20 10^6/uL Hemoglobin 13.8 12.2-16.2 g/dL Hematocrit 42.5 36.0-46.0 % Mean Corpuscular Volume 93.6 80.0-100.0 fL Mean Corpuscular Hemoglobin 30.4 28.0-32.0 pg Mean Corpuscular Hemoglobin Concent 32.5 32.0-36.0 g/dL Red Cell Distribution Width 14.3 11.8-14.3 % Platelet Count 178 140-450 10^3/uL Mean Platelet Volume 8.6 6.9-10.8 fL Neutrophils (%) (Auto) 79.0 37.0-80.0 % Lymphocytes (%) (Auto) 11.2 10.0-50.0 % Monocytes (%) (Auto) 6.7 0.0-12.0 % Eosinophils (%) (Auto) 2.7 0.0-7.0 % Basophils (%) (Auto) 0.4 0.0-2.0 % Neutrophils # (Auto) 5.7 1.6-8.6 10 ^3/uL Lymphocytes # (Auto) 0.8 0.4-5.4 10 ^3/uL Monocytes # (Auto) 0.5 0-1.3 10 ^3/uL Eosinophils # (Auto) 0.2 0-0.8 10 ^3/uL Basophils # (Auto) 0 0-0.2 10 ^3/uL Nucleated Red Blood Cells 0.1 % Sodium Level 139 136-145 mmol/L Potassium Level 3.8 3.5-5.1 mmol/L Chloride Level 95 L 98-107 mmol/L Carbon Dioxide Level > 40 *H 20-31 mmol/L Anion Gap 3.95657 L 5-15 Blood Urea Nitrogen 10 9-23 mg/dL Creatinine 0.79 0.550-1.02 mg/dL Glomerular Filtration Rate Calc 87 >90 mL/min BUN/Creatinine Ratio 12.7 10.0-20.0 Serum Glucose 86 74-106 mg/dL Lactic Acid Level 0.9 0.4-2.0 mmol/L Calcium Level 9.5 8.7-10.4 mg/dL Total Bilirubin 0.6 0.2-1.0 mg/dL Aspartate Amino Transferase (AST) 36 13-40 U/L Alanine Aminotransferase (ALT) 65 H 7-40 U/L Alkaline Phosphatase 124 H 46-116 U/L B-Type Natriuretic Peptide 40.62 0-100 pg/mL Total Protein 7.1 5.7-8.2 g/dL Albumin 4.4 3.2-4.8 g/dL PATIENT: CARMELO HARDIN ACCT: [id number] UNIT: [id number] : 1965 LOC: ER ROOM / BED: / AGE / SEX: 59 / F ADM STATUS: REG ER SERVICE [id number] ORDERING PHYSICIAN: JOEY VELASQUEZ DO PROCEDURE(s): CXRP - CHEST PORTABLE REASON: sob ORDER NUMBER(s): [id number], ACCESSION NUMBER(s): [id number] CHEST RADIOGRAPH Indication:sob Technique: Single frontal view of the chest was obtained Comparison: CHEST PORTABLE on DOS: 12/09/22, CXRP on DOS: 12/09/22 FINDINGS: Lines and Tubes: None Lungs: No focal consolidation. Left hemithorax interstitial prominence. Bilateral lower lung zone linear densities. Pleura: No effusion. No pneumothorax. Cardiomediastinal contours: Unremarkable Bones: No acute osseous abnormality. IMPRESSION: Bilateral lower lung zone atelectasis/ scarring with mild left hemithorax interstitial prominence. Assessment/Plan Assessment/Plan Dyspnea Generalized weakness Hypercapnia COPD with acute exacerbation Plan 1. Admit to telemetry unit 2. Breathing treatment 3. Pain control management 4. Management of fluids and electrolytes 5. Consultation for hospitalist 6. Diagnostic tests chest x-ray 7. DVT prophylaxis-on aspirin 8. Repeat labs CBC, CMP in a.m. 9. Continue with current medical management 10. Treatment plan discussed with patient and RN. Patient verbalized understanding. Plan discussed with: Patient, Other (RN) My Orders Orders - OKPAN,AZUCENA O DNP Procedure Category Date Status Time Methylprednisolone PHA 08/01/24 In Process Sod Succ (Solu Medrol 06:00 Famotidine Injection PHA 08/01/24 In Process (Pepcid Injection) 10:00 Albuterol Medneb PHA 07/31/24 In Process (Ventolin Medneb) 22:15 Ipratropium Medneb PHA 07/31/24 In Process (Atrovent Medneb) 22:15 Lisinopril Tablet PHA 08/01/24 In Process (Zestril Tablet) 10:00 Levothyroxine Tablet PHA 08/01/24 In Process (Synthroid Tablet) 06:00 Thyroid Stimulating LAB 07/31/24 In Process Hormone 22:12 Hydralazine Injection PHA 07/31/24 In Process (Apresoline Inject 22:15 Allergies ZULEIKA 07/31/24 In Process 22:12 Code Status CODE 07/31/24 Transmitted 22:12 Sodium Chloride 0.9% PHA 07/31/24 In Process 22:15 Oxygen Per Hour RT 07/31/24 Transmitted 22:12 Ondansetron Hcl PHA 07/31/24 In Process (Zofran) 22:15 Docusate Sodium PHA 07/31/24 In Process Capsule (Colace 22:15 Complete Blood Count LAB 08/01/24 Verified 04:00 Comprehensive LAB 08/01/24 Verified Metabolic Panel 04:00 Cardiac DIET 08/01/24 Transmitted Diet-2gna,Lofat,Lochol Breakfast Condition: Serious ZULEIKA 07/31/24 In Process 22:12 Acetaminophen Tablet PHA 07/31/24 In Process (Tylenol Tablet) 22:15 Bedrest With Bathroom ZULEIKA 07/31/24 In Process Privileg 22:12 Sequential ZULEIKA 07/31/24 In Process Compression Device Admit ADMIT 07/31/24 Verified 22:33 Nitroglycerin PHA 07/31/24 Verified Sublingual (Ntrostat 22:45 Notify Of Changes ZULEIKA 07/31/24 Verified From Base 22:33 Visual Journalist For ZULEIKA 07/31/24 Verified 24 Hours 22:33 Emergency Dysrhythmia ZULEIKA 07/31/24 Verified Protocol 22:33 Rhythm Strips Once ZULEIKA 07/31/24 Verified Every Shift 22:33 Oxygen By Nasal RT 07/31/24 Verified Cannula 22:33 Problem List: (1) Dyspnea (2) Generalized weakness (3) Hypercapnia (4) COPD with acute exacerbation Date of Service: Jul 31, 2024 Billing Provider: AZUCENA CAZARES DNP Common Visit Codes: [id number] INP/OBS CARE (HIGH) AZUCENA CAZARES DNP Jul 31, 2024 22:34
[2024-07-31] MEDS ORDERED: NITROGLYCERIN 0.4 MG SL TAB SL PRN (22:45)
[2024-07-31] MEDS: SODIUM CHLORIDE 0.9% 1,000 ML IV SCH (22:45)
[2024-07-31 23:15] VITALS: BP 144/70; PULSE 81; RESP 18; O2SAT 93
[2024-08-01] VITALS (39 sets, daily range): BP systolic 85–139; BP diastolic 45–91; PULSE 83–101; RESP 20–24; TEMP 98.4–99.9; O2SAT 91–100
[2024-08-01] MEDS: methylPREDNISolone SOD SUCC 40 MG/ML VL IV SCH (05:56)
[2024-08-01] MEDS: LEVOTHYROXINE SODIUM 100 MCG TAB PO SCH (05:56)
[2024-08-01 06:12] LABS: Hematocrit 43.8 % (36.0-46.0); Hemoglobin 14.3 g/dL (12.2-16.2); Mean Corpuscular Hemoglobin 30.8 pg (28.0-32.0); Mean Corpuscular Hgb Conc. 32.6 g/dL (32.0-36.0); Mean Corpuscular Volume 94.3 fL (80.0-100.0); Platelet Count (auto) 197 10^3/uL (140-450); Red Blood Cells 4.64 10^6/uL (4.0-5.20)
[2024-08-01 06:16] LABS: Band Neutrophils % (manual) 0; Basophils % (manual) 0 (0.0-2.0); Blast Cells 0; Eosinophils % (manual) 0 (0-7); Metamyelocytes % 0; Myelocytes % 0; Promyelocytes % 0; Reactive Lymphocytes 0
[2024-08-01 06:17] LABS: Alanine Aminotransferase 50 U/L (7-40); Albumin 4.5 g/dL (3.2-4.8); Alkaline Phosphatase 121 U/L (46-116); Anion Gap 5 (5-15); Aspartate Aminotransferase 21 U/L (13-40); BUN/Creatinine Ratio 17.8 (10.0-20.0); Blood Urea Nitrogen 13 mg/dL (9-23); Calcium 9.5 mg/dL (8.7-10.4); Carbon Dioxide 39 mmol/L (20-31); Chloride 95 mmol/L (98-107); Glucose 138 mg/dL (74-106); Potassium 4.3 mmol/L (3.5-5.1); Sodium 139 mmol/L (136-145)
[2024-08-01 06:18] LABS: Bilirubin, Total 0.5 mg/dL (0.2-1.0); Total Protein 7.3 g/dL (5.7-8.2)
[2024-08-01 06:47] LABS: Lymphocytes % (manual) 4 (10.0-50.0); Monocytes % (manual) 2 (0-12); Platelet Estimate Adequate
[2024-08-01] MEDS: LISINOPRIL 20 MG TAB PO SCH (10:00)
[2024-08-01] MEDS: FAMOTIDINE (10MG/ML) 2ML VL IV SCH (10:00)
[2024-08-01 11:21] LABS: Base Excess 19.9 mmol/L (-2.0-3.0)
[2024-08-01] MEDS ORDERED: ETOMIDATE (2MG/ML) 20ML VIAL IV ONE (13:30)
[2024-08-01] MEDS ORDERED: ROCURONIUM 10MG/ML 10ML VIAL IV ONE (13:30)
[2024-08-01] MEDS: fentaNYL Drip 2500mCg/250mlNS 250 ML IV SCH (13:30)
[2024-08-01] MEDS: MIDAZOLAM DRIP 50 mg/50mL 50 ML IV SCH (13:30)
--- NOTE | 2024-08-01 13:53 | DVHPN2 ---
Reviewed: Care Plan, H&P, Labs, Medications, Previous Orders, Radiology Changes from previous H/P or p: No Changes Eyes: No Pain, No Vision change, No Conjunctivae inflammation, No Eyelid inflammation, No Other, No Redness ENT: No Ear pain, No Ear discharge, No Nose pain, No Nose discharge, No Nose congestion, No Mouth pain, No Mouth swelling, No Throat pain, No Throat swelling, No Other Cardiovascular: No Chest Pain, No Palpitations, No Orthopnea, No Paroxysmal Noc. Dyspnea, No Edema, No Lt Headedness, No Other Respiratory: Cough, Shortness of breath, SOB with excertion, Other Gastrointestinal: No Nausea, No Vomiting, No Abdominal Pain, No Diarrhea, No Constipation, No Melena, No Hematochezia, No Other Genitourinary: No Dysuria, No Frequency, No Incontinence, No Hematuria, No Retention, No Other Musculoskeletal: No other, No neck pain, No shoulder pain, No arm pain, No back pain, No hand pain, No leg pain, No foot pain Skin: No Rash, No Lesions, No Jaundice, No Bruising, No Other Objective Vitals Vital Signs Date Time Temp Pulse Resp B/P (MAP) Pulse Ox O2 Delivery O2 Flow Rate FiO2 08/01/24 11:30 87 97 Facial BiPAP Mask 50 08/01/24 10:00 21 134/83 (100) 07/31/24 19:28 98.3 98.3 07/31/24 15:51 2 Intake/Output Intake and Output 08/01/24 07:00 Output Total 700 ml Balance -700 ml Output Urine Total 700 ml Medications Current Medications Medications Dose Ordered Sig/Jorge Route Start Time Stop Time Status Last Admin Dose Admin Methylprednisolone Sodium Succinate 40 mg Q8HR IV 08/01/24 06:00 08/01/24 05:56 40 MG Famotidine 20 mg Q12HR IV 08/01/24 10:00 08/01/24 10:00 20 MG Albuterol 2.5 mg Q4HPRN PRN NEB 07/31/24 22:15 Ipratropium [place] 0.5 mg Q4HPRN PRN NEB 07/31/24 22:15 Lisinopril 20 mg DAILY PO 08/01/24 10:00 08/01/24 10:00 20 MG Levothyroxine Sodium 100 mcg QAM@0600 PO 08/01/24 06:00 08/01/24 05:56 100 MCG Hydralazine HCl 10 mg Q6HP PRN IV 07/31/24 22:15 Sodium Chloride 1,000 ml @ 60 mls/hr [id number] IV 07/31/24 22:15 07/31/24 22:45 60 MLS/HR Ondansetron HCl 4 mg Q4HP PRN IV 07/31/24 22:15 Docusate Sodium 100 mg BIDPRN PRN PO 07/31/24 22:15 Acetaminophen 650 mg Q6HP PRN PO 07/31/24 22:15 Nitroglycerin 0.4 mg Q5MINP PRN SL 07/31/24 22:45 Midazolam HCl 50 ml @ 1 mls/hr Q24H IV 08/01/24 13:30 Fentanyl Citrate 250 ml @ 2.5 mls/hr Q24H IV 08/01/24 13:30 Laboratory Results Laboratory Tests 08/01/24 04:57 Chemistry Test 07/31/24 15:46 08/01/24 04:57 Albumin 4.4 g/dL (3.2-4.8) 4.5 g/dL (3.2-4.8) Calcium Level 9.5 mg/dL (8.7-10.4) 9.5 mg/dL (8.7-10.4) Total Protein 7.1 g/dL (5.7-8.2) 7.3 g/dL (5.7-8.2) Cardiac Markers Test 07/31/24 15:46 B-Type Natriuretic Peptide 40.62 pg/mL (0-100) LFT Test 07/31/24 15:46 08/01/24 04:57 Alanine Aminotransferase (ALT) 65 U/L (7-40) H 50 U/L (7-40) H Alkaline Phosphatase 124 U/L (46-116) H 121 U/L (46-116) H Aspartate Amino Transferase (AST) 36 U/L (13-40) 21 U/L (13-40) Total Bilirubin 0.6 mg/dL (0.2-1.0) 0.5 mg/dL (0.2-1.0) HgA1c, TSH Test 07/31/24 17:12 Thyroid Stimulating Hormone (TSH) 1.57 uIU/mL (0.55-4.78) Urinalysis Test 07/31/24 17:27 Urine Color Colorless (Yellow) Urine Clarity Clear (Clear) Urine pH 6.5 (5.0-9.0) Urine Specific [place] 1.008 (1.001-1.035) Urine Protein Negative (Negative) Urine Ketones Negative (Negative) Urine Blood Negative /uL (Negative) Urine Nitrite Negative (Negative) Urine Bilirubin Negative (Negative) Urine Urobilinogen Normal mg/dL (Negative) Urine Leukocyte Esterase Negative /uL (Negative) Urine RBC 1 /hpf (0 - 4) Urine WBC <1 /hpf (0 - 5) Urine Squamous Epithelial Cells None seen /hpf (<5) Urine Bacteria None seen /hpf (None Seen) Urine Mucus Few (None Seen) Urine Glucose Normal mg/dL (Normal) Blood Gas Results Test 07/31/24 16:47 07/31/24 18:10 07/31/24 19:57 08/01/24 11:05 Arterial Blood pH 7.346 (7.350-7.450) 7.346 (7.350-7.450) 7.353 (7.350-7.450) 7.249 (7.350-7.450) FiO2 % 28.0 50.0 50.0 65.0 Labs and/or images reviewed: Labs reviewed by me, Image(s) reviewed by me Assessment/Plan Assessment/Plan Acute severe hypoxic hypercarbic respiratory failure: Oxygen by BiPAP on 50 percent, consult for Dr. Lopez for possible intubation Acute metabolic encephalopathy Possible bilateral community-acquired pneumonia: Zosyn Acute COPD exacerbation: Albuterol Atrovent Solu-Medrol History of asthma Hypertension Hypercholesterolemia Hypothyroidism History of depression Morbid obesity Anxiety Time spent 70 minutes Patient is full code Advanced care planning 25 minutes Patient was advised that she may need intubation if her condition gets wporse D-dimer ordered ICU admission Patient seen in bed # 8.in ER Patient's sister at the bedside We will check flu test and COVID test Plan discussed with: Patient My Orders Orders - BRONWYN AMARO MD Procedure Category Date Status Time Abg W/ Co-Ox RT 08/01/24 Logged 11:08 D-Dimer LAB 08/01/24 Logged 13:33 *Consult CONS 08/01/24 Transmitted / 13:33 Date of Service: Aug 01, 2024 Billing Provider: BRONWYN AMARO MD Common Visit Codes: [id number] CARE 30-74 MIN BRONWYN AMARO MD Aug 01, 2024 13:53
[2024-08-01] MEDS: PIPERACILLIN-TAZOB 3.375GM 100 ML IV SCH (14:00)
[2024-08-01] MEDS: MIDAZOLAM DRIP 50 mg/50mL 0 ML IV ONE (14:14)
[2024-08-01 15:20] LABS: Base Excess 15.7 mmol/L (-2.0-3.0)
[2024-08-01 15:56] LABS: Base Excess 13.3 mmol/L (-2.0-3.0)
[2024-08-01] MEDS: ALBUTEROL SULF 2.5 MG/0.5ML(0.5%) NEB SOLN NEB ONE (16:15)
[2024-08-01] MEDS: ETOMIDATE (2MG/ML) 20ML VIAL IV ONE (16:43)
[2024-08-01] MEDS: ROCURONIUM 10MG/ML 10ML VIAL IV ONE (16:43)
--- NOTE | 2024-08-01 17:00 | DVHNC2 ---
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 Indication: Hypotension, CVP monitoring Room prepared for procedure: Yes Per Diem Interpreter performed hand hygien: Yes Maximal sterile barrier precau: Mask/Eye shield, Sterile gown Skin Preparation: Chlorhexidine gluconate, Providine iodine Skin preparation completely dr: Yes Insertion site: Right, Internal jugular Central line catheter type: Far-[id number]-[id number] dialysis Number of lumens: 3 Antiseptic ointment applied to: Yes Post Assessment: Chest X-Ray Date of Service: Aug 01, 2024 Billing Provider: MAGDA URBANO MD Common Visit Codes: [id number] INP/OBS CARE (HIGH) Secondary Visit Codes: [id number] STANDBY SERVICE Consultation Codes: [id number] CONSULT <45MIN Procedure Codes: [id number]-[id number] NON-TUNNEL CV CATH MAGDA URBANO MD Aug 01, 2024 17:00
--- NOTE | 2024-08-01 17:26 | DVH ---
EXAM: XY CHEST XRAY 1 VIEW CLINICAL HISTORY: S/P INTUBATION TECHNIQUE: Single APview of the chest WID: COMPARISON: XY CHEST PORTABLE on DOS: 07/31/24 FINDINGS: Lines and tubes: Endotracheal tube projects 7.1 cm above the ale. Right IJ central venous cathete r projects over the proximal to mid SVC. Chest: The heart size and pulmonary vasculature is within normal limits. No pleural effusion, pneumothorax, or consolidation. The osseous structures are grossly intact. Multilevel thoracic spondylosis IMPRESSION: 1. Endotracheal tube projects 7.1 cm above the ale . 2. Right IJ central venous catheter projects over the proximal SVC. No pneumothorax. 3. No acute cardiopulmonary abnormality.
[2024-08-01] MEDS: PROPOFOL 100 ML IV SCH (18:15)
[2024-08-01] MEDS: PROPOFOL 100 ML IV ONE (18:16)
[2024-08-01 19:45] LABS: Base Excess 8.7 mmol/L (-2.0-3.0)
[2024-08-01] MEDS ORDERED: ATOR10TA52 PO (19:47)
[2024-08-01] MEDS ORDERED: FURO40TA4 PO (19:47)
[2024-08-01] MEDS: IPRATROPIUM BROM 0.5 MG/2.5ML INH SOL NEB SCH (22:02)
[2024-08-01] MEDS: ALBUTEROL SULF 2.5 MG/0.5ML(0.5%) NEB SOLN NEB SCH (22:02)
[2024-08-02] VITALS (109 sets, daily range): BP systolic 83–141; BP diastolic 27–65; PULSE 66–91; RESP 16–25; TEMP 98.4–100.6; O2SAT 80–100
[2024-08-02] MEDS: NOREPINEPHRINE 8 MG/250ML KIT 250 ML IV ONE (01:12)
[2024-08-02] MEDS: NOREPINEPHRINE 8 MG/250ML KIT 250 ML IV SCH (01:13)
[2024-08-02] MEDS: ACETAMINOPHEN 325 MG TAB PO PRN (02:26)
[2024-08-02] MEDS: ALBUTEROL SULF 2.5 MG/0.5ML(0.5%) NEB SOLN NEB PRN (02:47)
[2024-08-02 03:48] LABS: Basophils # (auto) 0 10 ^3/uL (0-0.2); Basophils % (auto) 0.1 % (0.0-2.0); Eosinophils # (auto) 0 10 ^3/uL (0-0.8); Hematocrit 42.3 % (36.0-46.0); Hemoglobin 13.8 g/dL (12.2-16.2); Lymphocytes # (auto) 0.5 10 ^3/uL (0.4-5.4); Lymphocytes % (auto) 4.6 % (10.0-50.0); Mean Corpuscular Hemoglobin 30.6 pg (28.0-32.0); Mean Corpuscular Hgb Conc. 32.7 g/dL (32.0-36.0); Mean Corpuscular Volume 93.6 fL (80.0-100.0); Monocytes # (auto) 0.7 10 ^3/uL (0-1.3); Monocytes % (auto) 5.5 % (0.0-12.0); Neutrophils # (auto) 10.7 10 ^3/uL (1.6-8.6); Neutrophils % (auto) 89.8 % (37.0-80.0); Platelet Count (auto) 242 10^3/uL (140-450); Red Blood Cells 4.52 10^6/uL (4.0-5.20); White Blood Cell 11.9 10^3/uL (4.4-10.8)
[2024-08-02 03:51] LABS: Chloride 97 mmol/L (98-107); Potassium 4.1 mmol/L (3.5-5.1); Sodium 141 mmol/L (136-145)
[2024-08-02 03:52] LABS: Calcium 9.9 mg/dL (8.7-10.4)
[2024-08-02 03:57] LABS: Glucose 139 mg/dL (74-106)
[2024-08-02 03:58] LABS: Magnesium 2.2 mg/dL (1.6-2.6)
[2024-08-02 04:14] LABS: Anion Gap 3.99999 (5-15); Carbon Dioxide > 40 mmol/L (20-31)
[2024-08-02 04:44] LABS: BUN/Creatinine Ratio 27.6 (10.0-20.0); Blood Urea Nitrogen 24 mg/dL (9-23)
--- NOTE | 2024-08-02 06:00 | DVH ---
CHEST RADIOGRAPH Indication:INTUBATED Technique: Single frontal view of the chest was obtained COMPARISON: XY CHEST XRAY 1 VIEW on DOS: 08/01/24, XY CHEST PORTABLE on DOS: 07/31/24, CHEST PORTABLE o n DOS: 12/09/22 FINDINGS: Lines and Tubes: Endotracheal tube, enteric catheter right central venous catheter in satisfactory po sition. Lungs: Mild increased interstitial prominence, unchanged. Pleura: No effusion. No pneumothorax. Cardiomediastinal contours: Unremarkable Bones: Unremarkable IMPRESSION: Lines and tubes in satisfactory position. No significant interval change.
[2024-08-02 07:12] LABS: Base Excess 11.9 mmol/L (-2.0-3.0)
--- NOTE | 2024-08-02 08:30 | DVHPN2 ---
Reviewed: Care Plan, H&P, Labs, Medications, Previous Orders, Radiology Changes from previous H/P or p: No Changes Eyes: No Pain, No Vision change, No Conjunctivae inflammation, No Eyelid inflammation, No Other, No Redness ENT: No Ear pain, No Ear discharge, No Nose pain, No Nose discharge, No Nose congestion, No Mouth pain, No Mouth swelling, No Throat pain, No Throat swelling, No Other Cardiovascular: No Chest Pain, No Palpitations, No Orthopnea, No Paroxysmal Noc. Dyspnea, No Edema, No Lt Headedness, No Other Respiratory: Cough, Shortness of breath, SOB with excertion, Other Gastrointestinal: No Nausea, No Vomiting, No Abdominal Pain, No Diarrhea, No Constipation, No Melena, No Hematochezia, No Other Genitourinary: No Dysuria, No Frequency, No Incontinence, No Hematuria, No Retention, No Other Musculoskeletal: No other, No neck pain, No shoulder pain, No arm pain, No back pain, No hand pain, No leg pain, No foot pain Skin: No Rash, No Lesions, No Jaundice, No Bruising, No Other Objective Vitals Vital Signs Date Time Temp Pulse Resp B/P (MAP) Pulse Ox O2 Delivery O2 Flow Rate FiO2 08/02/24 08:00 87 08/02/24 07:41 24 94 Mechanical Ventilator+ 40 40 08/02/24 07:30 100.0 108/47 (67) 212.0 08/01/24 15:23 10 Intake/Output Intake and Output 08/02/24 07:00 Intake Total 2043.26 ml Output Total 250 ml Balance 1793.26 ml Intake IV Total 2043.26 ml Output Urine Total 250 ml Medications Current Medications Medications Dose Ordered Sig/Jorge Route Start Time Stop Time Status Last Admin Dose Admin Methylprednisolone Sodium Succinate 40 mg Q8HR IV 08/01/24 06:00 08/02/24 06:02 40 MG Famotidine 20 mg Q12HR IV 08/01/24 10:00 08/01/24 21:45 20 MG Lisinopril 20 mg DAILY PO 08/01/24 10:00 08/01/24 10:00 20 MG Levothyroxine Sodium 100 mcg QAM@0600 PO 08/01/24 06:00 08/02/24 06:02 100 MCG Hydralazine HCl 10 mg Q6HP PRN IV 07/31/24 22:15 Sodium Chloride 1,000 ml @ 60 mls/hr [id number] IV 07/31/24 22:15 08/01/24 22:01 60 MLS/HR Ondansetron HCl 4 mg Q4HP PRN IV 07/31/24 22:15 Docusate Sodium 100 mg BIDPRN PRN PO 07/31/24 22:15 Acetaminophen 650 mg Q6HP PRN PO 07/31/24 22:15 08/02/24 02:26 650 MG Nitroglycerin 0.4 mg Q5MINP PRN SL 07/31/24 22:45 Midazolam HCl 50 ml @ 1 mls/hr Q24H IV 08/01/24 13:30 08/02/24 07:23 15 MLS/HR Fentanyl Citrate 250 ml @ 2.5 mls/hr Q24H IV 08/01/24 13:30 08/02/24 06:04 35 MLS/HR Piperacillin Sod/ Tazobactam Sod 100 ml @ 25 mls/hr Q8HR IV 08/01/24 14:00 08/02/24 06:02 25 MLS/HR Propofol 100 ml @ 3.09 mls/hr Q24H IV 08/01/24 18:15 08/01/24 18:15 3.09 MLS/HR Albuterol 2.5 mg Q4HR NEB 08/01/24 22:00 08/02/24 06:12 2.5 MG Ipratropium [place] 0.5 mg Q4HR NEB 08/01/24 22:00 08/02/24 06:12 0.5 MG Albuterol 10 mg Q2HPRN PRN NEB 08/01/24 21:30 08/02/24 02:47 10 MG Norepinephrine Bitartrate 250 ml @ 3.75 mls/hr Q24H IV 08/02/24 01:15 08/02/24 01:13 3.75 MLS/HR Laboratory Results Laboratory Tests 08/02/24 03:13 Chemistry Test 08/02/24 03:13 Calcium Level 9.9 mg/dL (8.7-10.4) Magnesium Level 2.2 mg/dL (1.6-2.6) Coagulation Test 08/01/24 13:57 D-Dimer, Quantitative 0.43 mg/L FEU (0.0-0.49) Urinalysis Test 07/31/24 17:27 Urine Color Colorless (Yellow) Urine Clarity Clear (Clear) Urine pH 6.5 (5.0-9.0) Urine Specific [place] 1.008 (1.001-1.035) Urine Protein Negative (Negative) Urine Ketones Negative (Negative) Urine Blood Negative /uL (Negative) Urine Nitrite Negative (Negative) Urine Bilirubin Negative (Negative) Urine Urobilinogen Normal mg/dL (Negative) Urine Leukocyte Esterase Negative /uL (Negative) Urine RBC 1 /hpf (0 - 4) Urine WBC <1 /hpf (0 - 5) Urine Squamous Epithelial Cells None seen /hpf (<5) Urine Bacteria None seen /hpf (None Seen) Urine Mucus Few (None Seen) Urine Glucose Normal mg/dL (Normal) Blood Gas Results Test 08/01/24 11:05 08/01/24 13:27 08/01/24 15:10 08/01/24 19:20 Arterial Blood pH 7.249 (7.350-7.450) 7.266 (7.350-7.450) 7.280 (7.350-7.450) 7.344 (7.350-7.450) FiO2 % 65.0 50.0 50.0 65.0 Test 08/02/24 07:00 Arterial Blood pH 7.396 (7.350-7.450) FiO2 % 40.0 Labs and/or images reviewed: Labs reviewed by me, Image(s) reviewed by me Assessment/Plan Assessment/Plan Acute severe hypoxic hypercarbic respiratory failure: Status post intubated by Dr. Lopez on 08/01/2024, continue pressors and sedation, Dr. Lopez following Acute metabolic encephalopathy Bilateral community-acquired pneumonia: Continue Zosyn Acute COPD exacerbation: Albuterol Atrovent Solu-Medrol History of asthma Hypertension Hypercholesterolemia Hypothyroidism History of depression Morbid obesity Anxiety Time spent 68 minutes Patient is full code Advanced care planning 25 minutes D-dimer normal Flu test pending COVID test pending Condition guarded Patient seen in ICU Plan discussed with: Patient My Orders Orders - BRONWYN AMARO MD Procedure Category Date Status Time Abg W/ Co-Ox RT 08/01/24 Logged 11:08 *Consult CONS 08/01/24 Transmitted / 13:33 Piperacillin-Tazob PHA 08/01/24 In Process 3.375gm (Zosyn 3.375g 14:00 Covid19 Antigen Liset LAB 08/01/24 Logged Rapid Influenza A&B LAB 08/01/24 Logged 13:53 Communication Order ORDERS 08/01/24 Transmitted 14:36 Insert Midline ORDERS 08/01/24 Transmitted 16:29 Communication Order ORDERS 08/01/24 Transmitted 17:02 Communication Order ORDERS 08/01/24 Transmitted 17:03 Communication Order ORDERS 08/01/24 Transmitted 17:28 Propofol (Diprivan) PHA 08/01/24 In Process 18:15 Rass Sedation Scale ZULEIKA 08/01/24 In Process 18:09 Mrsa Screen KEELY 08/01/24 In Process 18:34 Urine Bacterial KEELY 08/01/24 In Process Culture 22:19 Blood Culture KEELY 08/02/24 In Process 01:15 Date of Service: Aug 02, 2024 Billing Provider: BRONWYN AMARO MD Common Visit Codes: [id number] CARE 30-74 MIN BRONWYN AMARO MD Aug 02, 2024 08:30
[2024-08-02] MEDS: ENOXAPARIN SOD 40 MG/0.4 ML SYRINGE SC SCH (09:34)
[2024-08-02 11:52] LABS: Rapid Influenza A Negative (Negative); Rapid Influenza B Negative (Negative)
[2024-08-02 11:53] LABS: COVID19 ANTIGEN SOFIA FIA NEGATIVE (NEGATIVE)
--- NOTE | 2024-08-02 18:19 | DVHINCON2 ---
Date of service: Aug 01, 2024 Referring Physician Mayank Lino NP Reason for Consultation Acute on chronic hypercarbic respiratory failure requiring mechanical ventilator and COPD exacerbation History of Present Illness Patient is a 59-year-old woman with multiple past medical history including COPD, CHF, hypertension, hyperlipidemia and morbid obesity who presented to the hospital on 07/31/24 with c/o shortness of breath. Patient reported symptoms progressively got worse with cough, hypoxia with O2 saturation in the 80s prompting visit to ED. Workup in ED showed WBC 7.3, platelets 178, sodium 139, potassium 3.8, BUN 10, creatinine 0.79, glucose 86, troponin four, AST 36, ALT 65, BNP 40.62. O2 saturation of 93% on BiPAP. Chest x-ray revealing bilateral lower lung zone atelectasis/scarring with mild left hemithorax interstitial prominence. Patient was admitted for further care. Pulmonary consultation is requested for evaluation and management of acute on chronic hypercarbic respiratory failure requiring mechanical ventilator and COPD exacerbation. Review of Systems: 14-point review of systems negative unless otherwise noted above. Past Medical History: Obesity, asthma, COPD, CHF, depression, hyperlipidemia, hypertension, thyroid Past Surgical History: Appendectomy, Medications: Reviewed. Allergies: Amoxicillin Aspirin Bupropion Codeine Ibuprofen Morphine Penicillins Darvocet Family History: No family history of premature CAD. No family history of lung disorders. Social History: Patient is a smoker. Denies alcohol or illicit drug use. Family History: Patient reports no known family medical history. Allergies: Coded Allergies: Amoxicillin (Verified Allergy, Unknown, 08/02/24) allergy, per the family. Aspirin (Verified Allergy, Unknown, 10/31/14) Bupropion (Verified Allergy, Unknown, 10/31/14) Codeine (Verified Allergy, Unknown, 10/31/14) RASH Ibuprofen (Verified Allergy, Unknown, 10/31/14) Morphine (Verified Allergy, Unknown, 03/06/14) "I HAVE AN ALLERGY TO MORPHINE IN PILL FORM" Penicillins (Verified Allergy, Unknown, 08/02/24) allergy, per the family. Uncoded Allergies: DARVOCET (Allergy, Unknown, 03/06/14) Home Meds Active Scripts Methylprednisolone (Medrol Dosepak) 4 Mg Miguelangel, 4 MG PO UD, #21 TAB UAD Prov:ARIEL REINA MD 12/14/22 Doxycycline (Monohydrate) (Doxycycline) 100 Mg Cap, 100 MG PO BID for 7 Days, #14 CAP Prov:ARIEL REINA MD 12/14/22 Albuterol Sulfate (VENTOLIN MDI) 90 Mcg Ih, 90 MCG IN Q6HPRN PRN, #1 INH Prov:ARIEL REINA MD 12/14/22 Reported Medications Celecoxib (Celebrex) 100 Mg Cap, 40 MG PO DAILY, % 08/02/24 Aripiprazole (Abilify) 20 Mg Tab, 20 MG PO DAILY, TAB 08/02/24 Furosemide (Furosemide) 40 Mg Tab, 40 MG PO 08/01/24 Atorvastatin Calcium (ATORVASTATIN CALCIUM) 10 Mg Tab, 1 TAB PO DAILY, TAB 08/01/24 Hydrochlorothiazide (Hydrochlorothiazide) 25 Mg Tab, 1 TAB PO DAILY, #30 TAB 5 Refills 12/14/22 Lisinopril (Lisinopril) 20 Mg Tab, 1 TAB PO DAILY, #30 TAB 5 Refills 12/14/22 Levothyroxine Sodium (SYNTHROID TABLET) 100 Mcg Tb, 1 TAB PO DAILY, #30 TAB 5 Refills 12/14/22 Current Medications Current Medications Medications (Trade) Dose Ordered Sig/Jorge Route PRN Reason Start Time Stop Time Status Last Admin Albuterol (Ventolin Medneb) 2.5 mg Q4HR NEB 08/01/24 22:00 08/02/24 18:00 Ipratropium [place] (Atrovent Medneb) 0.5 mg Q4HR NEB 08/01/24 22:00 08/02/24 18:00 Albuterol (Ventolin Medneb) 10 mg Q2HPRN PRN NEB SHORTNESS OF BREATH 08/01/24 21:30 08/02/24 02:47 Norepinephrine Bitartrate 250 ml @ 3.75 mls/hr Q24H IV 08/02/24 01:15 08/02/24 01:13 Enoxaparin Sodium (Lovenox) 40 mg DAILY SC 08/02/24 10:00 08/02/24 09:34 Mupirocin (Bactroban 2% Ointment) 1 applic BID EACHNOSTRI 08/02/24 22:00 08/07/24 21:59 Citalopram Hydrobromide (CeleXA TABLET) 40 mg DAILY PO 08/02/24 22:00 Vital Signs Vital Signs Date Time Temp Pulse Resp B/P (MAP) Pulse Ox O2 Delivery O2 Flow Rate FiO2 08/02/24 18:10 82 24 86/35 (52) 93 40 08/02/24 17:45 Mechanical Ventilator+ 08/02/24 17:45 99.5 211.1 08/01/24 15:23 10 Physical Exam Gen.: Patient lying in bed in medical ICU. Sedated, intubated on mechanical ventilator. Head: Normocephalic, atraumatic. Eyes: PERRLA. Ears: Normal external anatomy. Throat: Endotracheal tube and orogastric tube in place. Neck: Supple, trachea midline. Chest: Transmitted breath sounds bilaterally. Decreased air entry bilaterally. No wheezing. Bibasilar crackles. Cardiovascular: Positive S1, positive S2. Regular rate and rhythm. Abdomen: Positive bowel sounds in all 4 quadrants. Soft, nontender, nondistended. : Lima in place. Normal external genitalia. Rectal: Deferred. Skin: Warm, dry. Intact. Extremities: 2+ radial pulses bilaterally. No lower extremity edema. Neuro: Sedated. Labs/Diagnostic Data Labs Test 08/02/24 11:11 08/02/24 07:00 08/02/24 03:13 08/01/24 15:10 Range/Units Influenza Type A Antigen Negative Negative Influenza Type B Antigen Negative Negative SARS-CoV-2 Antigen (Rapid) Negative NEGATIVE Blood Gas Specimen Type Arterial Blood Gas Sample Site Right radial Blood Gas Patient Temperature 37.0 Arterial Blood Date Drawn [id number] Arterial Blood pH 7.396 7.350-7.450 Arterial Blood Partial Pressure CO2 66.4 *H 32.0-45.0 mmHg Arterial Blood Partial Pressure O2 63.5 L 83.0-108.0 mmHg Arterial Blood HCO3 39.8 H 21.0-28.0 mmol/L Arterial Blood Oxygen Saturation 92.5 L 94.0-98.0 % Arterial Blood Base Excess 11.9 H -2.0-3.0 mmol/L Arterial Blood Oxyhemoglobin 91.2 L 94.0-98.0 % Arterial Blood Carboxyhemoglobin 1.3 0.5-1.5 % Arterial Blood Methemoglobin 0.1 0.0-1.5 % Dago Test Modified Blood Gas Total Hemoglobin 14.40 12.0-16.0 g/dL Blood Gas Set Respiration Rate 24.0 Blood Gas Modality Vent - ac FiO2 % 40.0 Blood Gas Tidal Volume 400.0 Blood Gas PEEP or CPAP 8.0 Blood Gas Critical Value Read Back Yes Blood Gas Notified Whom Dr. zelaya Blood Gas Notified Time [id number] Blood Gas Notified By Kel garcia rrt White Blood Count 11.9 #H 4.4-10.8 10^3/uL Red Blood Count 4.52 4.0-5.20 10^6/uL Hemoglobin 13.8 12.2-16.2 g/dL Hematocrit 42.3 36.0-46.0 % Mean Corpuscular Volume 93.6 80.0-100.0 fL Mean Corpuscular Hemoglobin 30.6 28.0-32.0 pg Mean Corpuscular Hemoglobin Concent 32.7 32.0-36.0 g/dL Red Cell Distribution Width 14.0 11.8-14.3 % Platelet Count 242 140-450 10^3/uL Mean Platelet Volume 8.9 6.9-10.8 fL Neutrophils (%) (Auto) 89.8 H 37.0-80.0 % Lymphocytes (%) (Auto) 4.6 L 10.0-50.0 % Monocytes (%) (Auto) 5.5 0.0-12.0 % Eosinophils (%) (Auto) 0.0 0.0-7.0 % Basophils (%) (Auto) 0.1 0.0-2.0 % Neutrophils # (Auto) 10.7 H 1.6-8.6 10 ^3/uL Lymphocytes # (Auto) 0.5 0.4-5.4 10 ^3/uL Monocytes # (Auto) 0.7 0-1.3 10 ^3/uL Eosinophils # (Auto) 0 0-0.8 10 ^3/uL Basophils # (Auto) 0 0-0.2 10 ^3/uL Nucleated Red Blood Cells 0.0 % Sodium Level 141 136-145 mmol/L Potassium Level 4.1 3.5-5.1 mmol/L Chloride Level 97 L 98-107 mmol/L Carbon Dioxide Level > 40 *H 20-31 mmol/L Anion Gap 3.21783 L 5-15 Blood Urea Nitrogen 24 #H 9-23 mg/dL Creatinine 0.87 0.550-1.02 mg/dL Glomerular Filtration Rate Calc 77 >90 mL/min BUN/Creatinine Ratio 27.6 H 10.0-20.0 Serum Glucose 139 H 74-106 mg/dL Calcium Level 9.9 8.7-10.4 mg/dL Magnesium Level 2.2 1.6-2.6 mg/dL Blood Gas Spontaneous Rate 32 Blood Gas EPAP 5 Blood Gas IPAP 24 Test 08/01/24 13:57 08/01/24 04:57 07/31/24 19:01 07/31/24 17:27 Range/Units D-Dimer, Quantitative 0.43 0.0-0.49 mg/L FEU Differential Total Cells Counted 100.0 100 Neutrophils % (Manual) 94 H 37.0-80.0 Band Neutrophils % (Manual) 0 Lymphocytes % (Manual) 4 L 10.0-50.0 Monocytes % (Manual) 2 0-12 Eosinophils % (Manual) 0 0-7 Basophils % (Manual) 0 0.0-2.0 Metamyelocytes % (manual) 0 Myelocytes % (Manual) 0 Promyelocytes % (Manual) 0 Blast Cells % (Manual) 0 Reactive Lymphocytes 0 Platelet Estimate Adequate Total Bilirubin 0.5 0.2-1.0 mg/dL Aspartate Amino Transferase (AST) 21 13-40 U/L Alanine Aminotransferase (ALT) 50 H 7-40 U/L Alkaline Phosphatase 121 H 46-116 U/L Total Protein 7.3 5.7-8.2 g/dL Albumin 4.5 3.2-4.8 g/dL Troponin I High Sensitivity 5 </=34 ng/L Urine Color Colorless Yellow Urine Clarity Clear Clear Urine pH 6.5 5.0-9.0 Urine Specific [place] 1.008 1.001-1.035 Urine Protein Negative Negative Urine Ketones Negative Negative Urine Blood Negative Negative /uL Urine Nitrite Negative Negative Urine Bilirubin Negative Negative Urine Urobilinogen Normal Negative mg/dL Urine Leukocyte Esterase Negative Negative /uL Urine RBC 1 0 - 4 /hpf Urine WBC <1 0 - 5 /hpf Urine Squamous Epithelial Cells None seen <5 /hpf Urine Bacteria None seen None Seen /hpf Urine Mucus Few None Seen Urine Glucose Normal Normal mg/dL Test 07/31/24 17:12 07/31/24 16:47 07/31/24 15:46 Range/Units Thyroid Stimulating Hormone (TSH) 1.57 0.55-4.78 uIU/mL Blood Gas Liter Flow 2.00 Lactic Acid Level 0.9 0.4-2.0 mmol/L B-Type Natriuretic Peptide 40.62 0-100 pg/mL Microbiology Date/Time Source Procedure Growth Status 08/01/24 16:00 Sputum Gram Stain - Final Resulted 08/01/24 16:00 Sputum Respiratory Culture - Preliminary Resulted 08/01/24 00:00 Nose MRSA Screen - Final Methicillin Resistant S.aureus Complete Assessment Impression: Acute on chronic hypercarbic respiratory failure On mechanical ventilator COPD exacerbation Morbid obesity, BMI 50.9 Atelectasis Plan: S/p intubation on mechanical ventilator. CXR image and report reviewed. Devices in place. No pleural effusion, pneumothorax.or consolidation. ABG reviewed. Acidemia due to CO2 retention AC mode: RR 20, Vt 450, Peep 8, Fio2 100% Titrate FIO2 to keep O2 saturation above 90%. VAP bundle. Daily ABG and CXR while intubated Sedated for ventilator synchrony Bronchodilators. Antibiotics. F/u cultures. IV steroids Pressors as necessary for hemodynamic support Titrate to keep mean arterial pressure greater than 65 mmHg. Monitor renal function Monitor electrolytes. Supplement as necessary. Monitor ins and outs. Maintain euvolemia. GI prophylaxis. DVT prophylaxis. Prognosis: Poor given patient's multiple co-morbidities. Condition: Critical Rest of plan per hospitalist and other consultants. A total of 36 minutes of critical care time was spent reviewing the patient record, examining the patient, making a diagnostic and therapeutic plan, discussing this plan with the medical personnel, following up on diagnostic studies and following the patient for clinical stability excluding any and all procedures. At least 50% of this time was spent in direct, [id number] contact. Thank you, Mayank Lino NP, for allowing me to participate in this patient's care. Further recommendations will depend on the patient's clinical course. Please do not hesitate to contact me if you have any questions or concerns. This medical document was created using an electronic medical record system with [employer] system. Although these documentations are being carefully reviewed, there may still be some phonetic and typographical changes. The errors are purely typographical, due to imperfection on the software program, and do not reflect any compromise in the patient's medical care. Plan discussed with: Patient, Daughter, Other (TEE Brown MD) VIVIANE ARRIAGA MD Aug 02, 2024 18:19
[2024-08-02] MEDS ORDERED: ARIP20TA4 PO (18:36)
[2024-08-02] MEDS ORDERED: CELE100C82 PO (18:36)
[2024-08-02] MEDS: ROCURONIUM 10MG/ML 10ML VIAL IV ONE (20:30)
--- NOTE | 2024-08-02 21:15 | DVHPN2 ---
Progress Note - Dictate Date Seen: Aug 02, 2024 Medical Necessity Reason Pt with a Central, PICC or Fol: No Subjective Patient seen and examined at bedside. Sedated, intubated on mechanical ventilator. Overnight events reviewed. vital signs Vital Sign Date Time Temp Pulse Resp B/P (MAP) Pulse Ox O2 Delivery O2 Flow Rate FiO2 08/02/24 20:45 99.3 73 24 121/50 (73) 97 210.7 08/02/24 20:08 40 08/02/24 20:00 Mechanical Ventilator+ 08/01/24 15:23 10 Total Intake and Output 08/01/24 08/01/24 08/02/24 15:00 23:00 07:00 Intake Total 1093.54 ml 974.72 ml Output Total 250 ml Balance 1093.54 ml 724.72 ml medications Current Medications Medications Dose Ordered Sig/Jorge Route Start Time Stop Time Status Last Admin Dose Admin Methylprednisolone Sodium Succinate 40 mg Q8HR IV 08/01/24 06:00 08/02/24 14:04 40 MG Famotidine 20 mg Q12HR IV 08/01/24 10:00 08/02/24 09:34 20 MG Lisinopril 20 mg DAILY PO 08/01/24 10:00 08/01/24 10:00 20 MG Levothyroxine Sodium 100 mcg QAM@0600 PO 08/01/24 06:00 08/02/24 06:02 100 MCG Hydralazine HCl 10 mg Q6HP PRN IV 07/31/24 22:15 Sodium Chloride 1,000 ml @ 60 mls/hr [id number] IV 07/31/24 22:15 08/01/24 22:01 60 MLS/HR Ondansetron HCl 4 mg Q4HP PRN IV 07/31/24 22:15 Docusate Sodium 100 mg BIDPRN PRN PO 07/31/24 22:15 Acetaminophen 650 mg Q6HP PRN PO 07/31/24 22:15 08/02/24 08:35 650 MG Nitroglycerin 0.4 mg Q5MINP PRN SL 07/31/24 22:45 Midazolam HCl 50 ml @ 1 mls/hr Q24H IV 08/01/24 13:30 08/02/24 20:34 15 MLS/HR Fentanyl Citrate 250 ml @ 2.5 mls/hr Q24H IV 08/01/24 13:30 08/02/24 20:35 2.5 MLS/HR Piperacillin Sod/ Tazobactam Sod 100 ml @ 25 mls/hr Q8HR IV 08/01/24 14:00 08/02/24 14:04 25 MLS/HR Propofol 100 ml @ 3.09 mls/hr Q24H IV 08/01/24 18:15 08/02/24 14:19 3.09 MLS/HR Albuterol 2.5 mg Q4HR NEB 08/01/24 22:00 08/02/24 18:00 2.5 MG Ipratropium [place] 0.5 mg Q4HR NEB 08/01/24 22:00 08/02/24 18:00 0.5 MG Albuterol 10 mg Q2HPRN PRN NEB 08/01/24 21:30 08/02/24 20:28 10 MG Norepinephrine Bitartrate 250 ml @ 3.75 mls/hr Q24H IV 08/02/24 01:15 08/02/24 01:13 3.75 MLS/HR Enoxaparin Sodium 40 mg DAILY SC 08/02/24 10:00 08/02/24 09:34 40 MG Mupirocin 1 applic BID EACHNOSTRI 08/02/24 22:00 08/07/24 21:59 Citalopram Hydrobromide 40 mg DAILY PO 08/02/24 22:00 objective Gen.: Patient lying in bed in medical ICU. Sedated, intubated on mechanical ventilator. Head: Normocephalic, atraumatic. Eyes: PERRLA. Ears: Normal external anatomy. Throat: Endotracheal tube and orogastric tube in place. Neck: Supple, trachea midline. Chest: Transmitted breath sounds bilaterally. Decreased air entry bilaterally. No wheezing. Bibasilar crackles. Cardiovascular: Positive S1, positive S2. Regular rate and rhythm. Abdomen: Positive bowel sounds in all 4 quadrants. Soft, nontender, nondistended. : Lima in place. Normal external genitalia. Rectal: Deferred. Skin: Warm, dry. Intact. Extremities: 2+ radial pulses bilaterally. No lower extremity edema. Neuro: Sedated. laboratory and microbiology Laboratory Tests 08/02/24 03:13 Test 08/02/24 03:13 Range/Units Serum Glucose 139 H 74-106 mg/dL Assessment/Plan Impression: Acute on chronic hypercarbic respiratory failure On mechanical ventilator COPD exacerbation Morbid obesity, BMI 50.9 Atelectasis Events: Remains on vent support Sedated on Versed, Fentanyl, Propofol. Wheezing bilaterally, improving slowly On pressors for hemodynamic support On Levophed 2 mcg/min Titrate to keep mean arterial pressure greater than 65 mmHg. Taper sedation as tolerated CPAP trial in AM - PS 8, PEEP of 5. Labs and imaging reviewed. Rest of plan as noted below. Plan: S/p intubation on mechanical ventilator. CXR image and report reviewed. Devices in place. No pleural effusion, pneumothorax.or consolidation. ABG reviewed. Titrate FIO2 to keep O2 saturation above 90%. VAP bundle. Daily ABG and CXR while intubated Sedated for ventilator synchrony Bronchodilators. Antibiotics. F/u cultures. IV steroids Pressors as necessary for hemodynamic support Titrate to keep mean arterial pressure greater than 65 mmHg. Monitor renal function Monitor electrolytes. Supplement as necessary. Monitor ins and outs. Maintain euvolemia. GI prophylaxis. DVT prophylaxis. Prognosis: Poor given patient's multiple co-morbidities. Condition: Critical Rest of plan per hospitalist and other consultants. A total of 35 minutes of critical care time was spent reviewing the patient record, examining the patient, making a diagnostic and therapeutic plan, discussing this plan with the medical personnel, following up on diagnostic studies and following the patient for clinical stability excluding any and all procedures. At least 50% of this time was spent in direct, [id number] contact. Thank you, Mayank Lino NP, for allowing me to participate in this patient's care. Further recommendations will depend on the patient's clinical course. Please do not hesitate to contact me if you have any questions or concerns. This medical document was created using an electronic medical record system with [employer] dictation system. Although these documentations are being carefully reviewed, there may still be some phonetic and typographical changes. The errors are purely typographical, due to imperfection on the software program, and do not reflect any compromise in the patient's medical care. Plan discussed with: Other (TEE Brown) Critical Care Time(min): 35 VIVIANE ARRIAGA MD Aug 02, 2024 21:15
[2024-08-02 21:44] LABS: Base Excess 11.2 mmol/L (-2.0-3.0)
--- NOTE | 2024-08-02 21:48 | DVH ---
CHEST RADIOGRAPH Indication:LOW VOLUMES/VENTILATOR COMPLIANCE Technique: Single frontal view of the chest was obtained Comparison: XY CHEST PORTABLE on DOS: 08/02/24, XY CHEST XRAY 1 VIEW on DOS: 08/01/24, XY CHEST PORTABL E on DOS: 07/31/24, CHEST PORTABLE on DOS: 12/09/22, CXRP on DOS: 12/09/22 FINDINGS: Lines and Tubes: Endotracheal tube terminates 5.3 cm above the ale. Right IJ approach central michael ous catheter terminating over the proximal to mid SVC. Enteric tube is noted with the tip and side p ort not clearly visualized. Lungs: No focal consolidation. Mild diffuse interstitial prominence. Pleura: No effusion. No pneumothorax. Cardiomediastinal contours: Unremarkable Bones: No acute osseous abnormality. IMPRESSION: Endotracheal tube and right IJ approach central venous catheter in satisfactory position. Enteric tu be is visualized coursing below the diaphragm with the tip and side port not included in the image. No significant interval change in the mild interstitial prominence.
[2024-08-02] MEDS: MUPIROCIN 2% OINT 15gm or 22gm FOR MRSA NARES EACHNOSTRI SCH (22:39)
[2024-08-02] MEDS: CITALOPRAM HYDROBR 20 MG TAB PO SCH (22:44)
[2024-08-02 23:11] LABS: Base Excess 10.6 mmol/L (-2.0-3.0)
[2024-08-03] VITALS (113 sets, daily range): BP systolic 88–150; BP diastolic 42–74; PULSE 52–97; RESP 17–22; TEMP 97.3–98.4; O2SAT 92–100
[2024-08-03 04:21] LABS: Basophils # (auto) 0 10 ^3/uL (0-0.2); Eosinophils # (auto) 0 10 ^3/uL (0-0.8); Hematocrit 41.2 % (36.0-46.0); Hemoglobin 13.3 g/dL (12.2-16.2); Lymphocytes # (auto) 0.3 10 ^3/uL (0.4-5.4); Lymphocytes % (auto) 1.5 % (10.0-50.0); Mean Corpuscular Hgb Conc. 32.2 g/dL (32.0-36.0); Monocytes # (auto) 0.8 10 ^3/uL (0-1.3); Monocytes % (auto) 4.9 % (0.0-12.0); Neutrophils # (auto) 15.5 10 ^3/uL (1.6-8.6); Neutrophils % (auto) 93.6 % (37.0-80.0); Platelet Count (auto) 225 10^3/uL (140-450); Red Blood Cells 4.42 10^6/uL (4.0-5.20); Red Cell Distribution Width 14.5 % (11.8-14.3); White Blood Cell 16.6 10^3/uL (4.4-10.8)
[2024-08-03 04:36] LABS: Alanine Aminotransferase 26 U/L (7-40); Albumin 4.2 g/dL (3.2-4.8); Alkaline Phosphatase 93 U/L (46-116); Anion Gap 7 (5-15); Aspartate Aminotransferase 11 U/L (13-40); BUN/Creatinine Ratio 27.1 (10.0-20.0); Bilirubin, Total 0.4 mg/dL (0.2-1.0); Blood Urea Nitrogen 29 mg/dL (9-23); Calcium 9.5 mg/dL (8.7-10.4); Carbon Dioxide 35 mmol/L (20-31); Chloride 98 mmol/L (98-107); Glucose 168 mg/dL (74-106); Potassium 3.5 mmol/L (3.5-5.1); Sodium 140 mmol/L (136-145); Total Protein 6.8 g/dL (5.7-8.2)
--- NOTE | 2024-08-03 05:23 | DVH ---
CHEST RADIOGRAPH Indication:INTUBATED Technique: Single frontal view of the chest was obtained COMPARISON: XY CHEST PORTABLE on DOS: 08/02/24, XY CHEST PORTABLE on DOS: 08/02/24, XY CHEST XRAY 1 VIE W on DOS: 08/01/24 FINDINGS: Lines and Tubes: Endotracheal tube, enteric catheter and right central venous catheter in satisfactor y position. Lungs: Diffuse increased interstitial prominence. Pleura: No effusion. No pneumothorax. Cardiomediastinal contours: Unremarkable Bones: Unremarkable IMPRESSION: Lines and tubes in satisfactory position. No significant interval change.
[2024-08-03 07:24] LABS: Base Excess 11.8 mmol/L (-2.0-3.0)
--- NOTE | 2024-08-03 08:41 | DVHPN2 ---
Reviewed: Care Plan, H&P, Labs, Medications, Previous Orders, Radiology Changes from previous H/P or p: No Changes Eyes: No Pain, No Vision change, No Conjunctivae inflammation, No Eyelid inflammation, No Other, No Redness ENT: No Ear pain, No Ear discharge, No Nose pain, No Nose discharge, No Nose congestion, No Mouth pain, No Mouth swelling, No Throat pain, No Throat swelling, No Other Cardiovascular: No Chest Pain, No Palpitations, No Orthopnea, No Paroxysmal Noc. Dyspnea, No Edema, No Lt Headedness, No Other Respiratory: Cough, Shortness of breath, SOB with excertion, Other Gastrointestinal: No Nausea, No Vomiting, No Abdominal Pain, No Diarrhea, No Constipation, No Melena, No Hematochezia, No Other Genitourinary: No Dysuria, No Frequency, No Incontinence, No Hematuria, No Retention, No Other Musculoskeletal: No other, No neck pain, No shoulder pain, No arm pain, No back pain, No hand pain, No leg pain, No foot pain Skin: No Rash, No Lesions, No Jaundice, No Bruising, No Other Objective Vitals Vital Signs Date Time Temp Pulse Resp B/P (MAP) Pulse Ox O2 Delivery O2 Flow Rate FiO2 08/03/24 08:15 97.5 66 20 128/55 (79) 96 97.5 08/03/24 08:00 Mechanical Ventilator+ 40 40 08/01/24 15:23 10 Intake/Output Intake and Output 08/03/24 07:00 Intake Total 3226.57 ml Output Total 1075 ml Balance 2151.57 ml Intake Oral 60 ml IV Total 3166.57 ml Output Urine Total 1075 ml Medications Current Medications Medications Dose Ordered Sig/Jorge Route Start Time Stop Time Status Last Admin Dose Admin Methylprednisolone Sodium Succinate 40 mg Q8HR IV 08/01/24 06:00 08/03/24 05:21 40 MG Famotidine 20 mg Q12HR IV 08/01/24 10:00 08/02/24 22:38 20 MG Lisinopril 20 mg DAILY PO 08/01/24 10:00 08/01/24 10:00 20 MG Levothyroxine Sodium 100 mcg QAM@0600 PO 08/01/24 06:00 08/03/24 05:21 100 MCG Hydralazine HCl 10 mg Q6HP PRN IV 07/31/24 22:15 Sodium Chloride 1,000 ml @ 60 mls/hr [id number] IV 07/31/24 22:15 08/03/24 02:11 60 MLS/HR Ondansetron HCl 4 mg Q4HP PRN IV 07/31/24 22:15 Docusate Sodium 100 mg BIDPRN PRN PO 07/31/24 22:15 Acetaminophen 650 mg Q6HP PRN PO 07/31/24 22:15 08/02/24 08:35 650 MG Nitroglycerin 0.4 mg Q5MINP PRN SL 07/31/24 22:45 Midazolam HCl 50 ml @ 1 mls/hr Q24H IV 08/01/24 13:30 08/03/24 07:16 15 MLS/HR Fentanyl Citrate 250 ml @ 2.5 mls/hr Q24H IV 08/01/24 13:30 08/03/24 03:46 35 MLS/HR Piperacillin Sod/ Tazobactam Sod 100 ml @ 25 mls/hr Q8HR IV 08/01/24 14:00 08/03/24 05:21 25 MLS/HR Propofol 100 ml @ 3.09 mls/hr Q24H IV 08/01/24 18:15 08/03/24 08:05 30.9 MLS/HR Albuterol 2.5 mg Q4HR NEB 08/01/24 22:00 08/03/24 06:10 2.5 MG Ipratropium [place] 0.5 mg Q4HR NEB 08/01/24 22:00 08/03/24 06:10 0.5 MG Albuterol 10 mg Q2HPRN PRN NEB 08/01/24 21:30 08/03/24 01:59 10 MG Norepinephrine Bitartrate 250 ml @ 3.75 mls/hr Q24H IV 08/02/24 01:15 08/02/24 01:13 3.75 MLS/HR Enoxaparin Sodium 40 mg DAILY SC 08/02/24 10:00 08/02/24 09:34 40 MG Mupirocin 1 applic BID EACHNOSTRI 08/02/24 22:00 08/07/24 21:59 08/02/24 22:39 1 APPLIC Citalopram Hydrobromide 40 mg DAILY PO 08/02/24 22:00 08/02/24 22:44 40 MG Laboratory Results Laboratory Tests 08/03/24 03:24 Chemistry Test 08/03/24 03:24 Albumin 4.2 g/dL (3.2-4.8) Calcium Level 9.5 mg/dL (8.7-10.4) Total Protein 6.8 g/dL (5.7-8.2) LFT Test 08/03/24 03:24 Alanine Aminotransferase (ALT) 26 U/L (7-40) Alkaline Phosphatase 93 U/L (46-116) Aspartate Amino Transferase (AST) 11 U/L (13-40) L Total Bilirubin 0.4 mg/dL (0.2-1.0) Urinalysis Test 07/31/24 17:27 Urine Color Colorless (Yellow) Urine Clarity Clear (Clear) Urine pH 6.5 (5.0-9.0) Urine Specific [place] 1.008 (1.001-1.035) Urine Protein Negative (Negative) Urine Ketones Negative (Negative) Urine Blood Negative /uL (Negative) Urine Nitrite Negative (Negative) Urine Bilirubin Negative (Negative) Urine Urobilinogen Normal mg/dL (Negative) Urine Leukocyte Esterase Negative /uL (Negative) Urine RBC 1 /hpf (0 - 4) Urine WBC <1 /hpf (0 - 5) Urine Squamous Epithelial Cells None seen /hpf (<5) Urine Bacteria None seen /hpf (None Seen) Urine Mucus Few (None Seen) Urine Glucose Normal mg/dL (Normal) Blood Gas Results Test 08/02/24 21:32 08/02/24 23:00 08/03/24 07:11 Arterial Blood pH 7.399 (7.350-7.450) 7.443 (7.350-7.450) 7.461 (7.350-7.450) FiO2 % 40.0 40.0 40.0 Microbiology Microbiology Date/Time Source Procedure Growth Status 08/02/24 01:04 Blood Blood Culture - Preliminary NO GROWTH AFTER 24 HOURS OF INCUBATION. Resulted 08/01/24 16:00 Sputum Gram Stain - Final Resulted 08/01/24 16:00 Sputum Respiratory Culture - Preliminary Resulted 08/01/24 00:00 Nose MRSA Screen - Final Methicillin Resistant S.aureus Complete Labs and/or images reviewed: Labs reviewed by me, Image(s) reviewed by me Assessment/Plan Assessment/Plan Acute severe hypoxic hypercarbic respiratory failure: Status post intubated by Dr. Lopez on 08/01/2024, 40 percent FiO2 continue pressors and sedation, Dr. Lopez following Septic shock secondary to pneumonia, WBC increasing, add vancomycin to Zosyn Acute metabolic encephalopathy Bilateral community-acquired pneumonia: Continue Zosyn, add vancomycin Acute COPD exacerbation: Albuterol Atrovent Solu-Medrol History of asthma Hypertension Hypercholesterolemia Hypothyroidism History of depression Morbid obesity MRSA screen positive: Bactroban nasal ointment Anxiety Time spent 69 minutes Patient is full code Advanced care planning 25 minutes D-dimer normal Flu test negative COVID test negative Condition guarded Patient seen in ICU Plan discussed with: Patient My Orders Orders - BRONWYN AMARO MD Procedure Category Date Status Time Enoxaparin Sodium PHA 08/02/24 In Process (Lovenox) 10:00 Complete Blood Count LAB 08/04/24 Verified 05:00 Complete Blood Count LAB 08/05/24 Verified 05:00 Complete Blood Count LAB 08/06/24 Verified 05:00 Complete Blood Count LAB 08/07/24 Verified 05:00 Comprehensive LAB 08/04/24 Verified Metabolic Panel 05:00 Comprehensive LAB 08/05/24 Verified Metabolic Panel 05:00 Comprehensive LAB 08/06/24 Verified Metabolic Panel 05:00 Comprehensive LAB 08/07/24 Verified Metabolic Panel 05:00 Mupirocin 2% Oint PHA 08/02/24 In Process Mrsa Nares (Bactroban 22:00 Citalopram Tablet PHA 08/02/24 In Process (Celexa Tablet) 22:00 Date of Service: Aug 03, 2024 Billing Provider: BRONWYN AMARO MD Common Visit Codes: [id number] CARE 30-74 MIN BRONWYN AMARO MD Aug 03, 2024 08:41
[2024-08-03] MEDS ORDERED: VANCOMYCIN PER PHARMACY 0 MG IV SCH (08:45)
[2024-08-03] MEDS: VANCOMYCIN 1GM/200ML PREMIX 200 ML IV SCH (10:02)
--- NOTE | 2024-08-03 12:52 | DVHNC2 ---
Procedure - Procedure: Endotracheal Intubation INDICATION: Acute respiratory failure, accessory muscle usage Physician: Viviane Lopez MD Date 08/01/24 CONSENT: Emergent procedure. Implied. PROCEDURE SUMMARY: A time out was performed. My hands were washed immediately prior to the procedure. I wore a surgical cap, mask with protective eyewear, gown and gloves throughout the procedure. The patient was placed on a site monitor including continuous pulse oximetry. The patient received 16 mg Etomidate and 50mg rocuronium for induction. Cricoid pressure was maintained from time induction agent was given to time of cuff balloon inflation. Using a MAC 4 GlideScope and a size 8.0 endotracheal tube with stylet, the patient was intubated on the 1 attempt. The stylet was removed and cuff balloon was inflated. Appropriate endotracheal tube position was confirmed by direct visualization of vocal cord passage, fogging of the tube, CO2 colorimetric indicator and symmetric breath sounds. The tube was secured at 21 cm at the lips. Post intubation chest x-ray is demonstrates the ETT in place above the ale. CPT Code: 37404 VIVIANE LOPEZ MD Aug 03, 2024 12:52
--- NOTE | 2024-08-03 12:59 | DVHPN2 ---
Progress Note - Dictate Date Seen: Aug 03, 2024 Medical Necessity Reason Pt with a Central, PICC or Fol: Yes The following are medically ne: Central Line, Santiago Catheter Reason for santiago catheter: Strict I&O Subjective Patient seen and examined at bedside. Sedated, intubated on mechanical ventilator. Overnight events reviewed. vital signs Vital Sign Date Time Temp Pulse Resp B/P (MAP) Pulse Ox O2 Delivery O2 Flow Rate FiO2 08/03/24 12:25 97/42 08/03/24 12:00 40 08/03/24 12:00 20 94 Mechanical Ventilator+ 08/03/24 12:00 62 08/03/24 08:15 97.5 97.5 08/01/24 15:23 10 Total Intake and Output 08/02/24 08/02/24 08/03/24 15:00 23:00 07:00 Intake Total 1000.97 ml 915.90 ml 1309.70 ml Output Total 325 ml 750 ml Balance 1000.97 ml 590.90 ml 559.70 ml medications Current Medications Medications Dose Ordered Sig/Jorge Route Start Time Stop Time Status Last Admin Dose Admin Methylprednisolone Sodium Succinate 40 mg Q8HR IV 08/01/24 06:00 08/03/24 05:21 40 MG Famotidine 20 mg Q12HR IV 08/01/24 10:00 08/03/24 10:01 20 MG Lisinopril 20 mg DAILY PO 08/01/24 10:00 08/03/24 10:10 20 MG Levothyroxine Sodium 100 mcg QAM@0600 PO 08/01/24 06:00 08/03/24 05:21 100 MCG Hydralazine HCl 10 mg Q6HP PRN IV 07/31/24 22:15 Sodium Chloride 1,000 ml @ 60 mls/hr [id number] IV 07/31/24 22:15 08/03/24 02:11 60 MLS/HR Ondansetron HCl 4 mg Q4HP PRN IV 07/31/24 22:15 Docusate Sodium 100 mg BIDPRN PRN PO 07/31/24 22:15 Acetaminophen 650 mg Q6HP PRN PO 07/31/24 22:15 08/02/24 08:35 650 MG Nitroglycerin 0.4 mg Q5MINP PRN SL 07/31/24 22:45 Midazolam HCl 50 ml @ 1 mls/hr Q24H IV 08/01/24 13:30 08/03/24 07:16 15 MLS/HR Fentanyl Citrate 250 ml @ 2.5 mls/hr Q24H IV 08/01/24 13:30 08/03/24 11:25 35 MLS/HR Piperacillin Sod/ Tazobactam Sod 100 ml @ 25 mls/hr Q8HR IV 08/01/24 14:00 08/03/24 05:21 25 MLS/HR Propofol 100 ml @ 3.09 mls/hr Q24H IV 08/01/24 18:15 08/03/24 08:05 30.9 MLS/HR Albuterol 2.5 mg Q4HR NEB 08/01/24 22:00 08/03/24 10:14 2.5 MG Ipratropium [place] 0.5 mg Q4HR NEB 08/01/24 22:00 08/03/24 10:14 0.5 MG Albuterol 10 mg Q2HPRN PRN NEB 08/01/24 21:30 08/03/24 01:59 10 MG Norepinephrine Bitartrate 250 ml @ 3.75 mls/hr Q24H IV 08/02/24 01:15 08/02/24 01:13 3.75 MLS/HR Enoxaparin Sodium 40 mg DAILY SC 08/02/24 10:00 08/03/24 10:02 40 MG Mupirocin 1 applic BID EACHNOSTRI 08/02/24 22:00 08/07/24 21:59 08/03/24 10:02 1 APPLIC Citalopram Hydrobromide 40 mg DAILY PO 08/02/24 22:00 08/03/24 09:59 40 MG Vancomycin HCl 0 ml @ 0 mls/hr UD IV 08/03/24 08:45 objective Gen.: Patient lying in bed in medical ICU. Sedated, intubated on mechanical ventilator. Head: Normocephalic, atraumatic. Eyes: PERRLA. Ears: Normal external anatomy. Throat: Endotracheal tube and orogastric tube in place. Neck: Supple, trachea midline. Chest: Transmitted breath sounds bilaterally. Decreased air entry bilaterally. No wheezing. Bibasilar crackles. Cardiovascular: Positive S1, positive S2. Regular rate and rhythm. Abdomen: Positive bowel sounds in all 4 quadrants. Soft, nontender, nondistended. : Santiago in place. Normal external genitalia. Rectal: Deferred. Skin: Warm, dry. Intact. Extremities: 2+ radial pulses bilaterally. No lower extremity edema. Neuro: Sedated. laboratory and microbiology Laboratory Tests 08/03/24 03:24 Test 08/03/24 03:24 Range/Units Serum Glucose 168 H 74-106 mg/dL Assessment/Plan Impression: Acute on chronic hypercarbic respiratory failure On mechanical ventilator COPD exacerbation Morbid obesity, BMI 50.9 Atelectasis Events: Remains on vent support ABG reviewed. Alkalemia due to metabolic alkalosis. We will decrease respiratory rate to 18 breaths per minute. Wheezing bilaterally. Slowly improving. Continue IV steroids, bronchodilators. Sedated on Versed, Fentanyl, Propofol. Leukocytosis, trending up. Possibly reactive due to steroids. Blood cultures no growth after 24 hours. Continue abx, started vancomycin Creamy viscous secretions via ET tube. Obtain consent for bronchoscopy with bronchoalveolar lavage. Start micafungin for coverage. Will de-escalate as cultures become available. Remains On pressors for hemodynamic support Titrate to keep mean arterial pressure greater than 65 mmHg. Overnight events reviewed. Patient desaturated with turning. We will continue to monitor closely. If remains stable, we will consider CPAP trial in the morning. Labs and imaging reviewed. Rest of plan as noted below. Plan: S/p intubation on mechanical ventilator. CXR image and report reviewed. Devices in place. No pleural effusion, pneumothorax.or consolidation. ABG reviewed. Titrate FIO2 to keep O2 saturation above 90%. VAP bundle. Daily ABG and CXR while intubated Sedated for ventilator synchrony Bronchodilators. Antibiotics. F/u cultures. IV steroids Pressors as necessary for hemodynamic support Titrate to keep mean arterial pressure greater than 65 mmHg. Monitor renal function Monitor electrolytes. Supplement as necessary. Monitor ins and outs. Maintain euvolemia. GI prophylaxis. DVT prophylaxis. Prognosis: Poor given patient's multiple co-morbidities. Condition: Critical Rest of plan per hospitalist and other consultants. A total of 35 minutes of critical care time was spent reviewing the patient record, examining the patient, making a diagnostic and therapeutic plan, discussing this plan with the medical personnel, following up on diagnostic studies and following the patient for clinical stability excluding any and all procedures. At least 50% of this time was spent in direct, [id number] contact. Thank you, Mayank Lino NP, for allowing me to participate in this patient's care. Further recommendations will depend on the patient's clinical course. Please do not hesitate to contact me if you have any questions or concerns. This medical document was created using an electronic medical record system with [employer] computerized dictation system. Although these documentations are being carefully reviewed, there may still be some phonetic and typographical changes. The errors are purely typographical, due to imperfection on the software program, and do not reflect any compromise in the patient's medical care. Plan discussed with: Other (RN Ayse, RT, MD) Critical Care Time(min): 35 VIVIANE ARRIAGA MD Aug 03, 2024 12:59
[2024-08-03] MEDS: MICAFUNGIN SODIUM 100 MG in SODIUM CHL 0.9% 100 ML IV ONE (14:33)
[2024-08-03] MEDS: VANCOMYCIN 1.25GM/250ML 250 ML IV SCH (23:31)
[2024-08-04] VITALS (108 sets, daily range): BP systolic 85–143; BP diastolic 34–62; PULSE 56–76; RESP 11–22; TEMP 97.5–99.3; O2SAT 95–100
[2024-08-04 03:46] LABS: Basophils # (auto) 0 10 ^3/uL (0-0.2); Eosinophils # (auto) 0 10 ^3/uL (0-0.8); Hematocrit 40.2 % (36.0-46.0); Hemoglobin 12.8 g/dL (12.2-16.2); Lymphocytes # (auto) 0.2 10 ^3/uL (0.4-5.4); Lymphocytes % (auto) 1.5 % (10.0-50.0); Mean Corpuscular Hemoglobin 29.8 pg (28.0-32.0); Mean Corpuscular Hgb Conc. 31.7 g/dL (32.0-36.0); Mean Corpuscular Volume 93.8 fL (80.0-100.0); Monocytes # (auto) 0.8 10 ^3/uL (0-1.3); Monocytes % (auto) 5.4 % (0.0-12.0); Neutrophils # (auto) 13.8 10 ^3/uL (1.6-8.6); Neutrophils % (auto) 93.1 % (37.0-80.0); Nucleated Red Blood Cells % 0.1 %; Platelet Count (auto) 219 10^3/uL (140-450); Red Blood Cells 4.29 10^6/uL (4.0-5.20); Red Cell Distribution Width 15.2 % (11.8-14.3); White Blood Cell 14.8 10^3/uL (4.4-10.8)
[2024-08-04 04:15] LABS: Alanine Aminotransferase 19 U/L (7-40); Alkaline Phosphatase 75 U/L (46-116); Anion Gap 6 (5-15); Carbon Dioxide 34 mmol/L (20-31); Chloride 105 mmol/L (98-107); Potassium 3.7 mmol/L (3.5-5.1)
[2024-08-04 04:16] LABS: BUN/Creatinine Ratio 23.3 (10.0-20.0); Blood Urea Nitrogen 20 mg/dL (9-23); Glucose 119 mg/dL (74-106)
[2024-08-04 04:18] LABS: Albumin 3.9 g/dL (3.2-4.8); Aspartate Aminotransferase < 8 U/L (13-40); Bilirubin, Total 0.2 mg/dL (0.2-1.0); Total Protein 6.2 g/dL (5.7-8.2)
--- NOTE | 2024-08-04 04:41 | DVH ---
CHEST RADIOGRAPH Indication:INTUBATED Technique: Single frontal view of the chest was obtained COMPARISON: XY CHEST PORTABLE on DOS: 08/03/24, XY CHEST PORTABLE on DOS: 08/02/24, XY CHEST PORTABLE o n DOS: 08/02/24, XY CHEST PORTABLE on DOS: 08/03/24 FINDINGS: Lines and Tubes: Endotracheal tube, enteric catheter and right central venous catheter in satisfactor y position. Lungs: Diffuse increased interstitial prominence. Pleura: No effusion. No pneumothorax. Cardiomediastinal contours: Unremarkable Bones: Unremarkable IMPRESSION: Lines and tubes in satisfactory position. No significant interval change.
[2024-08-04 04:46] LABS: Sodium 145 mmol/L (136-145)
--- NOTE | 2024-08-04 06:49 | DVHNC2 ---
Procedure - Bronchoscopy procedure note: Indications: Bilateral lower lobe atelectasis, Possible mucous plugging. Copious secretions via ET tube. Medicines: See [employer] notes. Complications: None Procedure: Patient medications and allergies reviewed. The risks and benefits of the procedure and the sedation options and risk were discussed with the patient's healthcare proxy. All questions were answered and informed consent was obtained. Patient identification and proposed procedure were verified prior to the procedure by the physician, and a nurse, and the respiratory therapist in ICU room. The heart rate, respiratory rate, oxygen saturations, blood pressure, adequacy of pulmonary ventilation, and response to care were monitored throughout the procedure. The physical status of the patient was reassessed after the procedure. After obtaining informed consent, the bronchoscope was introduced through the endotracheal tube and advanced into the trachea bronchial tree of both lungs. The procedure was accomplished without difficulty. The patient tolerated the procedure well. Findings: The trachea is in normal caliber. The ale is sharp. 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 The tracheobronchial tree of the right lung was examined to at least the first subsegmental level. The bronchial mucosa and anatomy in the right lung are normal. There are no endobronchial lesions. There was copious frothy whitish secretions from right main stem bronchus onward throughout R1-R10. Right middle lobe (RML) Bronchoalveolar lavage (BAL) obtained. RML BAL sent for gram stain and culture, and fungal culture. The left upper lobe, lingula, and left lower lobe were examined to at least the first subsegmental level. Bronchial mucosa and anatomy in the left upper lobe and lingula are normal. There were no endobronchial lesions. There was copious whitish secretions from left main stem bronchus onward throughout L1-L10. Mucous plugging removed from L1-L10. There was no active bleeding at the completion of the procedure. Estimated blood loss: Less than 5 mL. Impression: Bilateral lower lobe atelectasis due to mucous plugging Mucous plugging from L1-L10 and R1-R10 RML BAL performed Recommendation: Follow-up RML BAL results. Procedure codes: 01079, bronchoscopy, rigid and flexible, including fluoroscopic guidance, one performed; with bronchial endobronchial broncho-alveolar lavage, single or multiple sites VIVIANE ARRIAGA MD Aug 04, 2024 06:49
[2024-08-04 08:17] LABS: Base Excess 1.2 mmol/L (-2.0-3.0)
--- NOTE | 2024-08-04 09:15 | DVHPN2 ---
Reviewed: Care Plan, H&P, Labs, Medications, Previous Orders, Radiology Changes from previous H/P or p: No Changes Eyes: No Pain, No Vision change, No Conjunctivae inflammation, No Eyelid inflammation, No Other, No Redness ENT: No Ear pain, No Ear discharge, No Nose pain, No Nose discharge, No Nose congestion, No Mouth pain, No Mouth swelling, No Throat pain, No Throat swelling, No Other Cardiovascular: No Chest Pain, No Palpitations, No Orthopnea, No Paroxysmal Noc. Dyspnea, No Edema, No Lt Headedness, No Other Respiratory: Cough, Shortness of breath, SOB with excertion, Other Gastrointestinal: No Nausea, No Vomiting, No Abdominal Pain, No Diarrhea, No Constipation, No Melena, No Hematochezia, No Other Genitourinary: No Dysuria, No Frequency, No Incontinence, No Hematuria, No Retention, No Other Musculoskeletal: No other, No neck pain, No shoulder pain, No arm pain, No back pain, No hand pain, No leg pain, No foot pain Skin: No Rash, No Lesions, No Jaundice, No Bruising, No Other Objective Vitals Vital Signs Date Time Temp Pulse Resp B/P (MAP) Pulse Ox O2 Delivery O2 Flow Rate FiO2 08/04/24 08:18 71 18 107/45 (65) 95 40 08/04/24 07:15 98.4 209.1 08/04/24 06:00 Mechanical Ventilator+ Intake/Output Intake and Output 08/04/24 07:00 Intake Total 4259.45 ml Output Total 2125 ml Balance 2134.45 ml Intake Oral 70 ml IV Total 4189.45 ml Output Urine Total 2125 ml Medications Current Medications Medications Dose Ordered Sig/Jorge Route Start Time Stop Time Status Last Admin Dose Admin Methylprednisolone Sodium Succinate 40 mg Q8HR IV 08/01/24 06:00 08/04/24 05:34 40 MG Famotidine 20 mg Q12HR IV 08/01/24 10:00 08/03/24 21:15 20 MG Lisinopril 20 mg DAILY PO 08/01/24 10:00 08/03/24 10:10 20 MG Levothyroxine Sodium 100 mcg QAM@0600 PO 08/01/24 06:00 08/04/24 05:34 100 MCG Hydralazine HCl 10 mg Q6HP PRN IV 07/31/24 22:15 Sodium Chloride 1,000 ml @ 60 mls/hr [id number] IV 07/31/24 22:15 08/04/24 02:32 60 MLS/HR Ondansetron HCl 4 mg Q4HP PRN IV 07/31/24 22:15 Docusate Sodium 100 mg BIDPRN PRN PO 07/31/24 22:15 Acetaminophen 650 mg Q6HP PRN PO 07/31/24 22:15 08/02/24 08:35 650 MG Nitroglycerin 0.4 mg Q5MINP PRN SL 07/31/24 22:45 Midazolam HCl 50 ml @ 1 mls/hr Q24H IV 08/01/24 13:30 08/04/24 07:09 14 MLS/HR Fentanyl Citrate 250 ml @ 2.5 mls/hr Q24H IV 08/01/24 13:30 08/04/24 06:46 35 MLS/HR Piperacillin Sod/ Tazobactam Sod 100 ml @ 25 mls/hr Q8HR IV 08/01/24 14:00 08/04/24 05:34 25 MLS/HR Propofol 100 ml @ 3.09 mls/hr Q24H IV 08/01/24 18:15 08/04/24 07:37 30.9 MLS/HR Albuterol 2.5 mg Q4HR NEB 08/01/24 22:00 08/04/24 06:03 2.5 MG Ipratropium [place] 0.5 mg Q4HR NEB 08/01/24 22:00 08/04/24 06:03 0.5 MG Albuterol 10 mg Q2HPRN PRN NEB 08/01/24 21:30 08/03/24 01:59 10 MG Norepinephrine Bitartrate 250 ml @ 3.75 mls/hr Q24H IV 08/02/24 01:15 08/03/24 17:04 3.75 MLS/HR Enoxaparin Sodium 40 mg DAILY SC 08/02/24 10:00 08/03/24 10:02 40 MG Mupirocin 1 applic BID EACHNOSTRI 08/02/24 22:00 08/07/24 21:59 08/03/24 21:15 1 APPLIC Citalopram Hydrobromide 40 mg DAILY PO 08/02/24 22:00 08/03/24 09:59 40 MG Vancomycin HCl 0 ml @ 0 mls/hr UD IV 08/03/24 08:45 Micafungin Sodium 100 mg/Sodium Chloride 100 ml @ 100 mls/hr DAILY IV 08/04/24 10:00 Vancomycin HCl 250 ml @ 200 mls/hr Q14H IV 08/04/24 00:00 08/03/24 23:31 200 MLS/HR Laboratory Results Laboratory Tests 08/04/24 03:09 Chemistry Test 08/04/24 03:09 Albumin 3.9 g/dL (3.2-4.8) Calcium Level 9.0 mg/dL (8.7-10.4) Total Protein 6.2 g/dL (5.7-8.2) LFT Test 08/04/24 03:09 Alanine Aminotransferase (ALT) 19 U/L (7-40) Alkaline Phosphatase 75 U/L (46-116) Aspartate Amino Transferase (AST) < 8 U/L (13-40) L Total Bilirubin 0.2 mg/dL (0.2-1.0) Urinalysis Test 07/31/24 17:27 Urine Color Colorless (Yellow) Urine Clarity Clear (Clear) Urine pH 6.5 (5.0-9.0) Urine Specific [place] 1.008 (1.001-1.035) Urine Protein Negative (Negative) Urine Ketones Negative (Negative) Urine Blood Negative /uL (Negative) Urine Nitrite Negative (Negative) Urine Bilirubin Negative (Negative) Urine Urobilinogen Normal mg/dL (Negative) Urine Leukocyte Esterase Negative /uL (Negative) Urine RBC 1 /hpf (0 - 4) Urine WBC <1 /hpf (0 - 5) Urine Squamous Epithelial Cells None seen /hpf (<5) Urine Bacteria None seen /hpf (None Seen) Urine Mucus Few (None Seen) Urine Glucose Normal mg/dL (Normal) Blood Gas Results Test 08/04/24 08:09 Arterial Blood pH 7.318 (7.350-7.450) FiO2 % 40.0 Microbiology Microbiology Date/Time Source Procedure Growth Status 08/04/24 06:48 Other Pending Resulted 08/04/24 06:48 Other Pending Resulted 08/04/24 06:48 Other Pending Resulted 08/04/24 06:48 Other Pending Resulted 08/04/24 06:48 Other - Final See Separate Report... Resulted 08/02/24 01:04 Blood Blood Culture - Preliminary NO GROWTH AFTER 48 HOURS OF INCUBATION. Resulted 08/01/24 20:15 Urine - Catheterized Urine Culture - Preliminary Resulted 08/01/24 16:00 Sputum Gram Stain - Final Resulted 08/01/24 16:00 Sputum Respiratory Culture - Preliminary Resulted Labs and/or images reviewed: Labs reviewed by me, Image(s) reviewed by me Assessment/Plan Assessment/Plan Acute severe hypoxic hypercarbic respiratory failure: Status post intubated by Dr. Lopez on 08/01/2024, 40 % FiO2 continue pressors and sedation, Dr. Lopez following Septic shock secondary to pneumonia, WBC increasing, add vancomycin to Zosyn Acute metabolic encephalopathy Bilateral community-acquired pneumonia: Continue Zosyn, add vancomycin Acute COPD exacerbation: Albuterol Atrovent Solu-Medrol History of asthma Hypertension Hypercholesterolemia Hypothyroidism History of depression Morbid obesity MRSA screen positive: Bactroban nasal ointment Anxiety Time spent 66 minutes Patient is full code Advanced care planning 25 minutes D-dimer normal Flu test negative COVID test negative Condition guarded Patient seen in ICU Plan discussed with: Patient My Orders Orders - BRONWYN AMARO MD Procedure Category Date Status Time Vancomycin PHA 08/04/24 In Process 1.25gm/250ml 00:00 Vancomycin Per ZULEIKA 08/05/24 In Process Pharmacy [facility] 04:00 Vancomycin,Trough LAB 08/05/24 Verified 03:00 Date of Service: Aug 04, 2024 Billing Provider: BRONWYN AMARO MD Common Visit Codes: [id number] CARE 30-74 MIN BRONWYN AMARO MD Aug 04, 2024 09:15
[2024-08-04] MEDS: MICAFUNGIN SODIUM 100 MG in SODIUM CHL 0.9% 100 ML IV SCH (09:47)
--- NOTE | 2024-08-04 19:30 | DVHPN2 ---
Progress Note - Dictate Date Seen: Aug 04, 2024 Medical Necessity Reason Pt with a Central, PICC or Fol: Yes The following are medically ne: Central Line, Santiago Catheter Reason for santiago catheter: Strict I&O Subjective Patient seen and examined at bedside. Sedated, intubated on mechanical ventilator. Overnight events reviewed. vital signs Vital Sign Date Time Temp Pulse Resp B/P (MAP) Pulse Ox O2 Delivery O2 Flow Rate FiO2 08/04/24 18:45 98.6 68 18 122/52 (75) 96 209.5 08/04/24 18:15 35 08/04/24 18:00 Mechanical Ventilator+ Total Intake and Output 08/03/24 08/03/24 08/04/24 15:00 23:00 07:00 Intake Total 1567.95 ml 1305.30 ml 1386.20 ml Output Total 925 ml 1200 ml Balance 1567.95 ml 380.30 ml 186.20 ml medications Current Medications Medications Dose Ordered Sig/Jorge Route Start Time Stop Time Status Last Admin Dose Admin Methylprednisolone Sodium Succinate 40 mg Q8HR IV 08/01/24 06:00 08/04/24 13:22 40 MG Famotidine 20 mg Q12HR IV 08/01/24 10:00 08/04/24 09:48 20 MG Lisinopril 20 mg DAILY PO 08/01/24 10:00 08/03/24 10:10 20 MG Levothyroxine Sodium 100 mcg QAM@0600 PO 08/01/24 06:00 08/04/24 05:34 100 MCG Hydralazine HCl 10 mg Q6HP PRN IV 07/31/24 22:15 Sodium Chloride 1,000 ml @ 60 mls/hr [id number] IV 07/31/24 22:15 08/04/24 02:32 60 MLS/HR Ondansetron HCl 4 mg Q4HP PRN IV 07/31/24 22:15 Docusate Sodium 100 mg BIDPRN PRN PO 07/31/24 22:15 Acetaminophen 650 mg Q6HP PRN PO 07/31/24 22:15 08/02/24 08:35 650 MG Nitroglycerin 0.4 mg Q5MINP PRN SL 07/31/24 22:45 Midazolam HCl 50 ml @ 1 mls/hr Q24H IV 08/01/24 13:30 08/04/24 18:02 14 MLS/HR Fentanyl Citrate 250 ml @ 2.5 mls/hr Q24H IV 08/01/24 13:30 08/04/24 15:54 35 MLS/HR Piperacillin Sod/ Tazobactam Sod 100 ml @ 25 mls/hr Q8HR IV 08/01/24 14:00 08/04/24 13:22 25 MLS/HR Propofol 100 ml @ 3.09 mls/hr Q24H IV 08/01/24 18:15 08/04/24 15:58 30.9 MLS/HR Albuterol 2.5 mg Q4HR NEB 08/01/24 22:00 08/04/24 18:15 2.5 MG Ipratropium [place] 0.5 mg Q4HR NEB 08/01/24 22:00 08/04/24 18:15 0.5 MG Albuterol 10 mg Q2HPRN PRN NEB 08/01/24 21:30 08/03/24 01:59 10 MG Norepinephrine Bitartrate 250 ml @ 3.75 mls/hr Q24H IV 08/02/24 01:15 08/03/24 17:04 3.75 MLS/HR Enoxaparin Sodium 40 mg DAILY SC 08/02/24 10:00 08/04/24 09:48 40 MG Mupirocin 1 applic BID EACHNOSTRI 08/02/24 22:00 08/07/24 21:59 08/04/24 09:59 1 APPLIC Citalopram Hydrobromide 40 mg DAILY PO 08/02/24 22:00 08/04/24 09:49 40 MG Vancomycin HCl 0 ml @ 0 mls/hr UD IV 08/03/24 08:45 Micafungin Sodium 100 mg/Sodium Chloride 100 ml @ 100 mls/hr DAILY IV 08/04/24 10:00 08/04/24 09:47 100 MLS/HR Vancomycin HCl 250 ml @ 200 mls/hr Q14H IV 08/04/24 00:00 08/04/24 14:10 200 MLS/HR objective Gen.: Patient lying in bed in medical ICU. Sedated, intubated on mechanical ventilator. Head: Normocephalic, atraumatic. Eyes: PERRLA. Ears: Normal external anatomy. Throat: Endotracheal tube and orogastric tube in place. Neck: Supple, trachea midline. Chest: Transmitted breath sounds bilaterally. Decreased air entry bilaterally. No wheezing. Bibasilar crackles. Cardiovascular: Positive S1, positive S2. Regular rate and rhythm. Abdomen: Positive bowel sounds in all 4 quadrants. Soft, nontender, nondistended. : Santiago in place. Normal external genitalia. Rectal: Deferred. Skin: Warm, dry. Intact. Extremities: 2+ radial pulses bilaterally. No lower extremity edema. Neuro: Sedated. laboratory and microbiology Laboratory Tests 08/04/24 03:09 Test 08/04/24 03:09 Range/Units Serum Glucose 119 H 74-106 mg/dL Assessment/Plan Impression: Acute on chronic hypercarbic respiratory failure On mechanical ventilator COPD exacerbation Morbid obesity, BMI 51.9 Atelectasis Events: Remains on vent support Vent settings; AC mode with RR 18, VT 450, PEEP of 8, FiO2 40% Reduce tidal volume to 400 mL. Sedated on Versed, Fentanyl, Propofol. ABG reviewed, notable for acidemia. Continue IV steroids, bronchodilators. Leukocytosis possibly reactive due to steroids., trending down - 14.8 K. Blood cultures no growth after 48 hours. Continue abx, vancomycin Creamy viscous secretions via ET tube. Patient is s/p bronchoscopy with bronchoalveolar lavage. Continue micafungin Remains on pressors for hemodynamic support On Levophed 4 mcg/min Titrate to keep mean arterial pressure greater than 65 mmHg. Patient desaturated with turning. We will continue to monitor closely. If remains stable, we will consider CPAP trial in the morning. Labs and imaging reviewed. Rest of plan as noted below. Plan: S/p intubation on mechanical ventilator. CXR image and report reviewed. Devices in place. No pleural effusion, pneumothorax.or consolidation. ABG reviewed. Titrate FIO2 to keep O2 saturation above 90%. VAP bundle. Daily ABG and CXR while intubated Sedated for ventilator synchrony Vent settings; AC mode with RR 18, VT 400, PEEP of 8, FiO2 40% Bronchodilators. Antibiotics. F/u cultures. IV steroids Pressors as necessary for hemodynamic support Titrate to keep mean arterial pressure greater than 65 mmHg. Monitor renal function Monitor electrolytes. Supplement as necessary. Monitor ins and outs. Maintain euvolemia. GI prophylaxis. DVT prophylaxis. Prognosis: Poor given patient's multiple co-morbidities. Condition: Critical Rest of plan per hospitalist and other consultants. A total of 35 minutes of critical care time was spent reviewing the patient record, examining the patient, making a diagnostic and therapeutic plan, discussing this plan with the medical personnel, following up on diagnostic studies and following the patient for clinical stability excluding any and all procedures. At least 50% of this time was spent in direct, [id number] contact. Thank you, Mayank Lino NP, for allowing me to participate in this patient's care. Further recommendations will depend on the patient's clinical course. Please do not hesitate to contact me if you have any questions or concerns. This medical document was created using an electronic medical record system with [employer] dictation system. Although these documentations are being carefully reviewed, there may still be some phonetic and typographical changes. The errors are purely typographical, due to imperfection on the software program, and do not reflect any compromise in the patient's medical care. Dietary Evaluation Review Comments: 1) If pt remain on vent, a TPN with clinimix plus a TPN per pharmacy to reach75% of her energy and protein needs, 2) If on TF, a combination of Clinimix plus jevity @30ml/hr will meet her goal 3) If pt can accept PO intake without swallowing difficulties after a ST eval, advance diet to cardiac 2 gNa, Lofat Lo Chol diet. 4) Monitor intake to meet 65-75% of her energy needs. Expected Outcomes/Goals: Gradual weight loss. Plan discussed with: Other (TEE Parsons) Critical Care Time(min): 35 VIVIANE ARRIAGA MD Aug 04, 2024 19:30
[2024-08-05] VITALS (108 sets, daily range): BP systolic 97–161; BP diastolic 36–79; PULSE 53–79; RESP 9–20; TEMP 97.3–98.8; O2SAT 90–100
[2024-08-05 03:46] LABS: Basophils # (auto) 0.1 10 ^3/uL (0-0.2); Basophils % (auto) 0.3 % (0.0-2.0); Eosinophils # (auto) 0 10 ^3/uL (0-0.8); Hematocrit 43.3 % (36.0-46.0); Hemoglobin 13.7 g/dL (12.2-16.2); Lymphocytes # (auto) 0.2 10 ^3/uL (0.4-5.4); Lymphocytes % (auto) 1.4 % (10.0-50.0); Mean Corpuscular Hemoglobin 29.9 pg (28.0-32.0); Mean Corpuscular Hgb Conc. 31.6 g/dL (32.0-36.0); Mean Corpuscular Volume 94.4 fL (80.0-100.0); Monocytes # (auto) 0.6 10 ^3/uL (0-1.3); Monocytes % (auto) 3.7 % (0.0-12.0); Neutrophils # (auto) 14.7 10 ^3/uL (1.6-8.6); Neutrophils % (auto) 94.6 % (37.0-80.0); Nucleated Red Blood Cells % 0.1 %; Platelet Count (auto) 204 10^3/uL (140-450); Red Blood Cells 4.58 10^6/uL (4.0-5.20); Red Cell Distribution Width 15.4 % (11.8-14.3); White Blood Cell 15.6 10^3/uL (4.4-10.8)
--- NOTE | 2024-08-05 05:18 | DVH ---
CHEST RADIOGRAPH Indication:INTUBATED Technique: Single frontal view of the chest was obtained Comparison: XY CHEST PORTABLE on DOS: 08/04/24, XY CHEST PORTABLE on DOS: 08/03/24, XY CHEST PORTABLE o n DOS: 08/02/24, XY CHEST PORTABLE on DOS: 08/02/24, XY CHEST XRAY 1 VIEW on DOS: 08/01/24, XY CHEST POR TABLE on DOS: 08/04/24 FINDINGS: Lines and Tubes: Endotracheal tube, enteric catheter and right central venous catheter in satisfactor y position. Lungs: Diffuse increased interstitial prominence. Pleura: No effusion. No pneumothorax. Cardiomediastinal contours: Unremarkable Bones: Unremarkable IMPRESSION: Lines and tubes in satisfactory position. No significant interval change.
[2024-08-05 06:50] LABS: Base Excess 5.8 mmol/L (-2.0-3.0)
--- NOTE | 2024-08-05 08:38 | DVHPN2 ---
Reviewed: Care Plan, H&P, Labs, Medications, Previous Orders, Radiology Changes from previous H/P or p: No Changes Eyes: No Pain, No Vision change, No Conjunctivae inflammation, No Eyelid inflammation, No Other, No Redness ENT: No Ear pain, No Ear discharge, No Nose pain, No Nose discharge, No Nose congestion, No Mouth pain, No Mouth swelling, No Throat pain, No Throat swelling, No Other Cardiovascular: No Chest Pain, No Palpitations, No Orthopnea, No Paroxysmal Noc. Dyspnea, No Edema, No Lt Headedness, No Other Respiratory: Cough, Shortness of breath, SOB with excertion, Other Gastrointestinal: No Nausea, No Vomiting, No Abdominal Pain, No Diarrhea, No Constipation, No Melena, No Hematochezia, No Other Genitourinary: No Dysuria, No Frequency, No Incontinence, No Hematuria, No Retention, No Other Musculoskeletal: No other, No neck pain, No shoulder pain, No arm pain, No back pain, No hand pain, No leg pain, No foot pain Skin: No Rash, No Lesions, No Jaundice, No Bruising, No Other Objective Vitals Vital Signs Date Time Temp Pulse Resp B/P (MAP) Pulse Ox O2 Delivery O2 Flow Rate FiO2 08/05/24 08:30 97.5 56 18 124/60 (81) 98 207.5 08/05/24 08:09 30 08/05/24 08:00 Mechanical Ventilator+ Intake/Output Intake and Output 08/05/24 06:59 Intake Total 4100.69 ml Output Total 1525 ml Balance 2575.69 ml Intake Oral 120 ml IV Total 3980.69 ml Output Urine Total 1525 ml Medications Current Medications Medications Dose Ordered Sig/Jorge Route Start Time Stop Time Status Last Admin Dose Admin Methylprednisolone Sodium Succinate 40 mg Q8HR IV 08/01/24 06:00 08/05/24 05:41 40 MG Famotidine 20 mg Q12HR IV 08/01/24 10:08/04/24 21:41 20 MG Lisinopril 20 mg DAILY PO 08/01/24 10:00 08/03/24 10:10 20 MG Levothyroxine Sodium 100 mcg QAM@0600 PO 08/01/24 06:00 08/05/24 05:42 100 MCG Hydralazine HCl 10 mg Q6HP PRN IV 07/31/24 22:15 Sodium Chloride 1,000 ml @ 60 mls/hr [id number] IV 07/31/24 22:15 08/05/24 03:32 60 MLS/HR Ondansetron HCl 4 mg Q4HP PRN IV 07/31/24 22:15 Docusate Sodium 100 mg BIDPRN PRN PO 07/31/24 22:15 Acetaminophen 650 mg Q6HP PRN PO 07/31/24 22:15 08/02/24 08:35 650 MG Nitroglycerin 0.4 mg Q5MINP PRN SL 07/31/24 22:45 Midazolam HCl 50 ml @ 1 mls/hr Q24H IV 08/01/24 13:30 08/05/24 05:58 14 MLS/HR Fentanyl Citrate 250 ml @ 2.5 mls/hr Q24H IV 08/01/24 13:30 08/05/24 06:00 35 MLS/HR Piperacillin Sod/ Tazobactam Sod 100 ml @ 25 mls/hr Q8HR IV 08/01/24 14:00 08/05/24 05:42 25 MLS/HR Propofol 100 ml @ 3.09 mls/hr Q24H IV 08/01/24 18:15 08/05/24 07:43 18.54 MLS/HR Albuterol 2.5 mg Q4HR NEB 08/01/24 22:00 08/05/24 06:02 2.5 MG Ipratropium [place] 0.5 mg Q4HR NEB 08/01/24 22:00 08/05/24 06:02 0.5 MG Albuterol 10 mg Q2HPRN PRN NEB 08/01/24 21:30 08/03/24 01:59 10 MG Norepinephrine Bitartrate 250 ml @ 3.75 mls/hr Q24H IV 08/02/24 01:15 08/05/24 05:42 3.75 MLS/HR Enoxaparin Sodium 40 mg DAILY SC 08/02/24 10:00 08/04/24 09:48 40 MG Mupirocin 1 applic BID EACHNOSTRI 08/02/24 22:00 08/07/24 21:59 08/04/24 21:39 1 APPLIC Citalopram Hydrobromide 40 mg DAILY PO 08/02/24 22:00 08/04/24 09:49 40 MG Vancomycin HCl 0 ml @ 0 mls/hr UD IV 08/03/24 08:45 Micafungin Sodium 100 mg/Sodium Chloride 100 ml @ 100 mls/hr DAILY IV 08/04/24 10:00 08/04/24 09:47 100 MLS/HR Vancomycin HCl 250 ml @ 200 mls/hr Q14H IV 08/04/24 00:00 08/05/24 04:19 200 MLS/HR Laboratory Results Laboratory Tests 08/04/24 03:09 08/05/24 03:22 Urinalysis Test 07/31/24 17:27 Urine Color Colorless (Yellow) Urine Clarity Clear (Clear) Urine pH 6.5 (5.0-9.0) Urine Specific [place] 1.008 (1.001-1.035) Urine Protein Negative (Negative) Urine Ketones Negative (Negative) Urine Blood Negative /uL (Negative) Urine Nitrite Negative (Negative) Urine Bilirubin Negative (Negative) Urine Urobilinogen Normal mg/dL (Negative) Urine Leukocyte Esterase Negative /uL (Negative) Urine RBC 1 /hpf (0 - 4) Urine WBC <1 /hpf (0 - 5) Urine Squamous Epithelial Cells None seen /hpf (<5) Urine Bacteria None seen /hpf (None Seen) Urine Mucus Few (None Seen) Urine Glucose Normal mg/dL (Normal) Blood Gas Results Test 08/05/24 06:42 Arterial Blood pH 7.340 (7.350-7.450) FiO2 % 30.0 Microbiology Microbiology Date/Time Source Procedure Growth Status 08/04/24 06:48 Other Pending Resulted 08/04/24 06:48 Other Pending Resulted 08/04/24 06:48 Other Pending Resulted 08/04/24 06:48 Other Pending Resulted 08/04/24 06:48 Other - Final See Separate Report... Resulted 08/02/24 01:04 Blood Blood Culture - Preliminary NO GROWTH AFTER 72 HOURS OF INCUBATION. Resulted 08/01/24 20:15 Urine - Catheterized Urine Culture - Final Complete 08/01/24 16:00 Sputum Gram Stain - Final Complete 08/01/24 16:00 Respiratory Culture - Final Methicillin Resistant S.aureus Complete Labs and/or images reviewed: Labs reviewed by me, Image(s) reviewed by me Assessment/Plan Assessment/Plan Acute severe hypoxic hypercarbic respiratory failure: Status post intubated by Dr. Lopez on 08/01/2024, 40 % FiO2 continue pressors and sedation, Dr. Lopez following Septic shock secondary to pneumonia, Acute metabolic encephalopathy Bilateral community-acquired pneumonia: Sputum cultures growing MRSA Continue Zosyn, vancomycin, micafungin added by Dr. Lopez Acute COPD exacerbation: Albuterol Atrovent Solu-Medrol History of asthma Hypertension Hypercholesterolemia Hypothyroidism History of depression Morbid obesity MRSA screen positive: Bactroban nasal ointment Anxiety Time spent 68 minutes Patient is full code Advanced care planning 25 minutes D-dimer normal Flu test negative COVID test negative Condition guarded Patient seen in ICU Plan discussed with: Patient My Orders Orders - BRONWYN AMARO MD Procedure Category Date Status Time * Dietary Consult CONS 08/04/24 Transmitted 09:21 Date of Service: Aug 05, 2024 Billing Provider: BRONWYN AMARO MD Common Visit Codes: 49283-[id number] CARE 30-74 MIN BRONWYN AMARO MD Aug 05, 2024 08:38
[2024-08-05 09:25] LABS: Alanine Aminotransferase 38 U/L (7-40); Albumin 4.1 g/dL (3.2-4.8); Alkaline Phosphatase 74 U/L (46-116); Anion Gap 8 (5-15); Aspartate Aminotransferase 22 U/L (13-40); BUN/Creatinine Ratio 26.9 (10.0-20.0); Blood Urea Nitrogen 21 mg/dL (9-23); Calcium 9.1 mg/dL (8.7-10.4); Carbon Dioxide 31 mmol/L (20-31); Chloride 107 mmol/L (98-107); Glucose 136 mg/dL (74-106); Potassium 4.2 mmol/L (3.5-5.1); Sodium 146 mmol/L (136-145)
[2024-08-05 09:26] LABS: Bilirubin, Total 0.3 mg/dL (0.2-1.0); Total Protein 6.7 g/dL (5.7-8.2)
[2024-08-05] MEDS: ACETYLCYSTEINE 20%(200MG/ML) SOL 4ML NEB SCH (13:56)
--- NOTE | 2024-08-05 19:14 | DVHPN2 ---
Progress Note - Dictate Date Seen: Aug 05, 2024 Medical Necessity Reason Pt with a Central, PICC or Fol: Yes The following are medically ne: Central Line, Santiago Catheter Reason for santiago catheter: Strict I&O Subjective Patient seen and examined at bedside. Sedated, intubated on mechanical ventilator. Overnight events reviewed. vital signs Vital Sign Date Time Temp Pulse Resp B/P (MAP) Pulse Ox O2 Delivery O2 Flow Rate FiO2 08/05/24 18:45 98.8 56 10 119/56 (77) 97 209.8 08/05/24 18:00 Mechanical Ventilator+ 30 30 Total Intake and Output 08/04/24 08/04/24 08/05/24 14:59 22:59 06:59 Intake Total 1151.2 ml 1545.20 ml 1404.29 ml Output Total 825 ml 700 ml Balance 1151.2 ml 720.20 ml 704.29 ml medications Current Medications Medications Dose Ordered Sig/Jorge Route Start Time Stop Time Status Last Admin Dose Admin Methylprednisolone Sodium Succinate 40 mg Q8HR IV 08/01/24 06:00 08/05/24 14:00 40 MG Famotidine 20 mg Q12HR IV 08/01/24 10:00 08/05/24 10:02 20 MG Lisinopril 20 mg DAILY PO 08/01/24 10:00 08/03/24 10:10 20 MG Levothyroxine Sodium 100 mcg QAM@0600 PO 08/01/24 06:00 08/05/24 05:42 100 MCG Hydralazine HCl 10 mg Q6HP PRN IV 07/31/24 22:15 Sodium Chloride 1,000 ml @ 60 mls/hr [id number] IV 07/31/24 22:15 08/05/24 03:32 60 MLS/HR Ondansetron HCl 4 mg Q4HP PRN IV 07/31/24 22:15 Docusate Sodium 100 mg BIDPRN PRN PO 07/31/24 22:15 Acetaminophen 650 mg Q6HP PRN PO 07/31/24 22:15 08/02/24 08:35 650 MG Nitroglycerin 0.4 mg Q5MINP PRN SL 07/31/24 22:45 Midazolam HCl 50 ml @ 1 mls/hr Q24H IV 08/01/24 13:30 08/05/24 17:37 12 MLS/HR Fentanyl Citrate 250 ml @ 2.5 mls/hr Q24H IV 08/01/24 13:30 08/05/24 13:41 35 MLS/HR Piperacillin Sod/ Tazobactam Sod 100 ml @ 25 mls/hr Q8HR IV 08/01/24 14:00 08/05/24 14:00 25 MLS/HR Propofol 100 ml @ 3.09 mls/hr Q24H IV 08/01/24 18:15 08/05/24 07:43 18.54 MLS/HR Albuterol 2.5 mg Q4HR NEB 08/01/24 22:00 08/05/24 19:04 2.5 MG Ipratropium [place] 0.5 mg Q4HR NEB 08/01/24 22:00 08/05/24 19:03 0.5 MG Albuterol 10 mg Q2HPRN PRN NEB 08/01/24 21:30 08/03/24 01:59 10 MG Norepinephrine Bitartrate 250 ml @ 3.75 mls/hr Q24H IV 08/02/24 01:15 08/05/24 05:42 3.75 MLS/HR Enoxaparin Sodium 40 mg DAILY SC 08/02/24 10:00 08/05/24 10:02 40 MG Mupirocin 1 applic BID EACHNOSTRI 08/02/24 22:00 08/07/24 21:59 08/05/24 10:04 1 APPLIC Citalopram Hydrobromide 40 mg DAILY PO 08/02/24 22:00 08/05/24 10:03 40 MG Vancomycin HCl 0 ml @ 0 mls/hr UD IV 08/03/24 08:45 Micafungin Sodium 100 mg/Sodium Chloride 100 ml @ 100 mls/hr DAILY IV 08/04/24 10:00 08/05/24 10:03 100 MLS/HR Vancomycin HCl 250 ml @ 200 mls/hr Q14H IV 08/04/24 00:00 08/05/24 18:00 200 MLS/HR Acetylcysteine 200 mg Q8HR NEB 08/05/24 14:00 08/08/24 13:59 08/05/24 13:56 200 MG objective Gen.: Patient lying in bed in medical ICU. Sedated, intubated on mechanical ventilator. Head: Normocephalic, atraumatic. Eyes: PERRLA. Ears: Normal external anatomy. Throat: Endotracheal tube and orogastric tube in place. Neck: Supple, trachea midline. Chest: Transmitted breath sounds bilaterally. Decreased air entry bilaterally. No wheezing. Bibasilar crackles. Cardiovascular: Positive S1, positive S2. Regular rate and rhythm. Abdomen: Positive bowel sounds in all 4 quadrants. Soft, nontender, nondistended. : Santiago in place. Normal external genitalia. Rectal: Deferred. Skin: Warm, dry. Intact. Extremities: 2+ radial pulses bilaterally. No lower extremity edema. Neuro: Sedated. laboratory and microbiology Laboratory Tests 08/05/24 03:22 08/05/24 03:11 Test 08/05/24 03:11 Range/Units Serum Glucose 136 H 74-106 mg/dL Assessment/Plan Impression: Acute on chronic hypercarbic respiratory failure On mechanical ventilator COPD exacerbation Morbid obesity, BMI 51.9 Atelectasis Events: Remains on vent support Vent settings; AC mode with RR 18, VT 400, PEEP of 8, FiO2 30% ABG reviewed, slight acidemia d/t CO2 retention. Sedated on Versed, Fentanyl, Propofol. WBC of 15.6 K CXR reviewed, demonstrated devices in place. Diffuse interstitial opacities. No pleural effusion. No pneumothorax. Blood cultures no growth after 72 hours. Sputum grew MRSA Awaiting fungal cultures. Continue antibiotics/antifungal Continue IV steroids, bronchodilators. Start Mucomyst Remains on pressors for hemodynamic support On Levophed Titrate to keep mean arterial pressure greater than 65 mmHg. Taper sedation OK to use Precedex. CPAP once awake. CPAP with PS 8, PEEP of 5. OK to increase PS to max 20 cmH2O to achieve VT between 400-450 mL. Patient is s/p bronchoscopy with bronchoalveolar lavage. Labs and imaging reviewed. Rest of plan as noted below. Plan: S/p intubation on mechanical ventilator. CXR image and report reviewed. Devices in place. No pleural effusion, pneumothorax.or consolidation. ABG reviewed. Titrate FIO2 to keep O2 saturation above 90%. VAP bundle. Daily ABG and CXR while intubated Sedated for ventilator synchrony Vent settings; AC mode with RR 18, VT 400, PEEP of 8, FiO2 30% Bronchodilators. Antibiotics. F/u cultures. IV steroids Pressors as necessary for hemodynamic support Titrate to keep mean arterial pressure greater than 65 mmHg. Monitor renal function Monitor electrolytes. Supplement as necessary. Monitor ins and outs. Maintain euvolemia. GI prophylaxis. DVT prophylaxis. Prognosis: Poor given patient's multiple co-morbidities. Condition: Critical Rest of plan per hospitalist and other consultants. A total of 35 minutes of critical care time was spent reviewing the patient record, examining the patient, making a diagnostic and therapeutic plan, discussing this plan with the medical personnel, following up on diagnostic studies and following the patient for clinical stability excluding any and all procedures. At least 50% of this time was spent in direct, [id number] contact. Thank you, Mayank Lino NP, for allowing me to participate in this patient's care. Further recommendations will depend on the patient's clinical course. Please do not hesitate to contact me if you have any questions or concerns. This medical document was created using an electronic medical record system with [employer] dictation system. Although these documentations are being carefully reviewed, there may still be some phonetic and typographical changes. The errors are purely typographical, due to imperfection on the software program, and do not reflect any compromise in the patient's medical care. Dietary Evaluation Review Comments: 1) If pt remain on vent, a TPN with clinimix plus a TPN per pharmacy to reach75% of her energy and protein needs, 2) If on TF, a combination of Clinimix plus jevity @30ml/hr will meet her goal 3) If pt can accept PO intake without swallowing difficulties after a ST eval, advance diet to cardiac 2 gNa, Lofat Lo Chol diet. 4) Monitor intake to meet 65-75% of her energy needs. Expected Outcomes/Goals: Gradual weight loss. Plan discussed with: Other (TEE Tavera) Critical Care Time(min): 35 VIVIANE ARRIAGA MD Aug 05, 2024 19:14
[2024-08-06] VITALS (108 sets, daily range): BP systolic 93–145; BP diastolic 42–76; PULSE 54–91; RESP 17–19; TEMP 98.4–99; O2SAT 88–100
--- NOTE | 2024-08-06 04:41 | DVH ---
CHEST RADIOGRAPH Indication:COPD EXACERBATION Technique: Single frontal view of the chest was obtained Comparison: XY CHEST PORTABLE on DOS: 08/05/24 FINDINGS: Lines and Tubes: The endotracheal tube terminates 5.6 cm above the ale. The right central venous c atheter and nasogastric tube is unchanged. Lungs: Pulmonary vascular congestion. Pleura: No effusion. No pneumothorax. Cardiomediastinal contours: Stable. Bones: No acute osseous abnormality. IMPRESSION: 1. Pulmonary vascular congestion.
[2024-08-06 07:39] LABS: Basophils # (auto) 0 10 ^3/uL (0-0.2); Eosinophils # (auto) 0 10 ^3/uL (0-0.8); Hematocrit 41.3 % (36.0-46.0); Hemoglobin 13.4 g/dL (12.2-16.2); Lymphocytes # (auto) 0.2 10 ^3/uL (0.4-5.4); Lymphocytes % (auto) 2.1 % (10.0-50.0); Mean Corpuscular Hemoglobin 30.8 pg (28.0-32.0); Mean Corpuscular Hgb Conc. 32.4 g/dL (32.0-36.0); Mean Corpuscular Volume 94.8 fL (80.0-100.0); Monocytes # (auto) 0.6 10 ^3/uL (0-1.3); Monocytes % (auto) 5.1 % (0.0-12.0); Neutrophils # (auto) 10.2 10 ^3/uL (1.6-8.6); Neutrophils % (auto) 92.8 % (37.0-80.0); Platelet Count (auto) 207 10^3/uL (140-450); Red Blood Cells 4.36 10^6/uL (4.0-5.20)
[2024-08-06 07:50] LABS: Alanine Aminotransferase 124 U/L (7-40); Alkaline Phosphatase 67 U/L (46-116); Calcium 9.1 mg/dL (8.7-10.4); Carbon Dioxide 35 mmol/L (20-31); Chloride 108 mmol/L (98-107); Glucose 124 mg/dL (74-106)
[2024-08-06 07:51] LABS: Anion Gap 4 (5-15); Aspartate Aminotransferase 73 U/L (13-40); BUN/Creatinine Ratio 36.8 (10.0-20.0); Bilirubin, Total 0.4 mg/dL (0.2-1.0); Blood Urea Nitrogen 28 mg/dL (9-23); Potassium 4.7 mmol/L (3.5-5.1); Sodium 147 mmol/L (136-145); Total Protein 6.4 g/dL (5.7-8.2)
[2024-08-06 08:09] LABS: Base Excess 5.4 mmol/L (-2.0-3.0)
--- NOTE | 2024-08-06 08:41 | DVHPN2 ---
Reviewed: Care Plan, H&P, Labs, Medications, Previous Orders, Radiology Changes from previous H/P or p: No Changes Eyes: No Pain, No Vision change, No Conjunctivae inflammation, No Eyelid inflammation, No Other, No Redness ENT: No Ear pain, No Ear discharge, No Nose pain, No Nose discharge, No Nose congestion, No Mouth pain, No Mouth swelling, No Throat pain, No Throat swelling, No Other Cardiovascular: No Chest Pain, No Palpitations, No Orthopnea, No Paroxysmal Noc. Dyspnea, No Edema, No Lt Headedness, No Other Respiratory: Cough, Shortness of breath, SOB with excertion, Other Gastrointestinal: No Nausea, No Vomiting, No Abdominal Pain, No Diarrhea, No Constipation, No Melena, No Hematochezia, No Other Genitourinary: No Dysuria, No Frequency, No Incontinence, No Hematuria, No Retention, No Other Musculoskeletal: No other, No neck pain, No shoulder pain, No arm pain, No back pain, No hand pain, No leg pain, No foot pain Skin: No Rash, No Lesions, No Jaundice, No Bruising, No Other Objective Vitals Vital Signs Date Time Temp Pulse Resp B/P (MAP) Pulse Ox O2 Delivery O2 Flow Rate FiO2 08/06/24 08:28 97/49 08/06/24 07:47 91 18 99 30 08/06/24 06:45 98.8 209.8 08/06/24 06:00 Mechanical Ventilator+ Intake/Output Intake and Output 08/06/24 07:00 Intake Total 3283.14 ml Output Total 1150 ml Balance 2133.14 ml Intake Oral 150 ml IV Total 3133.14 ml Output Urine Total 1150 ml Medications Current Medications Medications Dose Ordered Sig/Jorge Route Start Time Stop Time Status Last Admin Dose Admin Methylprednisolone Sodium Succinate 40 mg Q8HR IV 08/01/24 06:00 08/06/24 05:06 40 MG Famotidine 20 mg Q12HR IV 08/01/24 10:00 08/05/24 21:28 20 MG Lisinopril 20 mg DAILY PO 08/01/24 10:00 08/03/24 10:10 20 MG Levothyroxine Sodium 100 mcg QAM@0600 PO 08/01/24 06:00 08/06/24 05:06 100 MCG Hydralazine HCl 10 mg Q6HP PRN IV 07/31/24 22:15 Sodium Chloride 1,000 ml @ 60 mls/hr [id number] IV 07/31/24 22:15 08/05/24 03:32 60 MLS/HR Ondansetron HCl 4 mg Q4HP PRN IV 07/31/24 22:15 Docusate Sodium 100 mg BIDPRN PRN PO 07/31/24 22:15 Acetaminophen 650 mg Q6HP PRN PO 07/31/24 22:15 08/02/24 08:35 650 MG Nitroglycerin 0.4 mg Q5MINP PRN SL 07/31/24 22:45 Midazolam HCl 50 ml @ 1 mls/hr Q24H IV 08/01/24 13:30 08/06/24 08:28 12 MLS/HR Fentanyl Citrate 250 ml @ 2.5 mls/hr Q24H IV 08/01/24 13:30 08/06/24 04:57 30 MLS/HR Piperacillin Sod/ Tazobactam Sod 100 ml @ 25 mls/hr Q8HR IV 08/01/24 14:00 08/06/24 05:05 25 MLS/HR Propofol 100 ml @ 3.09 mls/hr Q24H IV 08/01/24 18:15 08/05/24 21:59 6.18 MLS/HR Albuterol 2.5 mg Q4HR NEB 08/01/24 22:00 08/06/24 02:32 2.5 MG Ipratropium [place] 0.5 mg Q4HR NEB 08/01/24 22:00 08/06/24 02:32 0.5 MG Albuterol 10 mg Q2HPRN PRN NEB 08/01/24 21:30 08/03/24 01:59 10 MG Norepinephrine Bitartrate 250 ml @ 3.75 mls/hr Q24H IV 08/02/24 01:15 08/05/24 05:42 3.75 MLS/HR Enoxaparin Sodium 40 mg DAILY SC 08/02/24 10:00 08/05/24 10:02 40 MG Mupirocin 1 applic BID EACHNOSTRI 08/02/24 22:00 08/07/24 21:59 08/05/24 21:28 1 APPLIC Citalopram Hydrobromide 40 mg DAILY PO 08/02/24 22:00 08/05/24 10:03 40 MG Vancomycin HCl 0 ml @ 0 mls/hr UD IV 08/03/24 08:45 Micafungin Sodium 100 mg/Sodium Chloride 100 ml @ 100 mls/hr DAILY IV 08/04/24 10:00 08/05/24 10:03 100 MLS/HR Vancomycin HCl 250 ml @ 200 mls/hr Q14H IV 08/04/24 00:00 08/06/24 07:37 200 MLS/HR Acetylcysteine 200 mg Q8HR NEB 08/05/24 14:00 08/08/24 13:59 08/05/24 22:44 200 MG Laboratory Results Laboratory Tests 08/06/24 06:50 Chemistry Test 08/06/24 06:50 Albumin 4.0 g/dL (3.2-4.8) Calcium Level 9.1 mg/dL (8.7-10.4) Total Protein 6.4 g/dL (5.7-8.2) LFT Test 08/06/24 06:50 Alanine Aminotransferase (ALT) 124 U/L (7-40) H Alkaline Phosphatase 67 U/L (46-116) Aspartate Amino Transferase (AST) 73 U/L (13-40) H Total Bilirubin 0.4 mg/dL (0.2-1.0) Urinalysis Test 07/31/24 17:27 Urine Color Colorless (Yellow) Urine Clarity Clear (Clear) Urine pH 6.5 (5.0-9.0) Urine Specific [place] 1.008 (1.001-1.035) Urine Protein Negative (Negative) Urine Ketones Negative (Negative) Urine Blood Negative /uL (Negative) Urine Nitrite Negative (Negative) Urine Bilirubin Negative (Negative) Urine Urobilinogen Normal mg/dL (Negative) Urine Leukocyte Esterase Negative /uL (Negative) Urine RBC 1 /hpf (0 - 4) Urine WBC <1 /hpf (0 - 5) Urine Squamous Epithelial Cells None seen /hpf (<5) Urine Bacteria None seen /hpf (None Seen) Urine Mucus Few (None Seen) Urine Glucose Normal mg/dL (Normal) Blood Gas Results Test 08/06/24 07:29 Arterial Blood pH 7.338 (7.350-7.450) FiO2 % 30.0 Microbiology Microbiology Date/Time Source Procedure Growth Status 08/04/24 06:48 Other Pending Resulted 08/04/24 06:48 Other Pending Resulted 08/04/24 06:48 Other Pending Resulted 08/04/24 06:48 Other Pending Resulted 08/04/24 06:48 Other - Final See Separate Report... Resulted 08/04/24 06:48 Sputum Gram Stain Pending Resulted 08/04/24 06:48 Sputum Respiratory Culture - Preliminary Resulted 08/02/24 01:04 Blood Blood Culture - Preliminary NO GROWTH AFTER 72 HOURS OF INCUBATION. Resulted 08/01/24 20:15 Urine - Catheterized Urine Culture - Final Complete Labs and/or images reviewed: Labs reviewed by me, Image(s) reviewed by me Assessment/Plan Assessment/Plan Acute severe hypoxic hypercarbic respiratory failure: Status post intubated by Dr. Lopez on 08/01/2024, 40 % FiO2 continue pressors and sedation, Dr. Lopez following Septic shock secondary to pneumonia, Acute metabolic encephalopathy Bilateral community-acquired pneumonia: Sputum cultures growing MRSA Continue Zosyn, vancomycin, micafungin added by Dr. Lopez Acute COPD exacerbation: Albuterol Atrovent Solu-Medrol History of asthma Hypertension Hypercholesterolemia Hypothyroidism History of depression Morbid obesity MRSA screen positive: Bactroban nasal ointment Anxiety Time spent 70 minutes Patient is full code D-dimer normal Flu test negative COVID test negative Condition guarded Patient seen in ICU Continue current management Plan discussed with: Patient Date of Service: Aug 06, 2024 Billing Provider: BRONWYN AMARO MD Common Visit Codes: [id number] CARE 30-74 MIN BRONWYN AMARO MD Aug 06, 2024 08:41
[2024-08-06] MEDS: NOREPINEPHRINE 8 MG/250ML KIT 250 ML IV SCH (10:15)
--- NOTE | 2024-08-06 20:19 | DVHPN2 ---
Progress Note - Dictate Date Seen: Aug 06, 2024 Medical Necessity Reason Pt with a Central, PICC or Fol: Yes The following are medically ne: Central Line, Santiago Catheter Reason for santiago catheter: Strict I&O Subjective Patient seen and examined at bedside. Sedated, intubated on mechanical ventilator. Overnight events reviewed. vital signs Vital Sign Date Time Temp Pulse Resp B/P (MAP) Pulse Ox O2 Delivery O2 Flow Rate FiO2 08/06/24 20:09 56 18 133/68 (89) 91 30 08/06/24 19:00 99.0 210.2 08/06/24 18:00 Mechanical Ventilator+ Total Intake and Output 08/05/24 08/05/24 08/06/24 15:00 23:00 07:00 Intake Total 1192.99 ml 1116.64 ml 1085.44 ml Output Total 625 ml 525 ml Balance 1192.99 ml 491.64 ml 560.44 ml medications Current Medications Medications Dose Ordered Sig/Jorge Route Start Time Stop Time Status Last Admin Dose Admin Methylprednisolone Sodium Succinate 40 mg Q8HR IV 08/01/24 06:00 08/06/24 13:10 40 MG Famotidine 20 mg Q12HR IV 08/01/24 10:00 08/06/24 09:39 20 MG Lisinopril 20 mg DAILY PO 08/01/24 10:00 08/03/24 10:10 20 MG Levothyroxine Sodium 100 mcg QAM@0600 PO 08/01/24 06:00 08/06/24 05:06 100 MCG Hydralazine HCl 10 mg Q6HP PRN IV 07/31/24 22:15 Sodium Chloride 1,000 ml @ 60 mls/hr [id number] IV 07/31/24 22:15 08/05/24 03:32 60 MLS/HR Ondansetron HCl 4 mg Q4HP PRN IV 07/31/24 22:15 Docusate Sodium 100 mg BIDPRN PRN PO 07/31/24 22:15 Acetaminophen 650 mg Q6HP PRN PO 07/31/24 22:15 08/02/24 08:35 650 MG Nitroglycerin 0.4 mg Q5MINP PRN SL 07/31/24 22:45 Midazolam HCl 50 ml @ 1 mls/hr Q24H IV 08/01/24 13:30 08/06/24 18:39 7 MLS/HR Fentanyl Citrate 250 ml @ 2.5 mls/hr Q24H IV 08/01/24 13:30 08/06/24 13:32 27.5 MLS/HR Piperacillin Sod/ Tazobactam Sod 100 ml @ 25 mls/hr Q8HR IV 08/01/24 14:00 08/06/24 13:11 25 MLS/HR Propofol 100 ml @ 3.09 mls/hr Q24H IV 08/01/24 18:15 08/06/24 16:52 6.18 MLS/HR Albuterol 2.5 mg Q4HR NEB 08/01/24 22:00 08/06/24 18:11 2.5 MG Ipratropium [place] 0.5 mg Q4HR NEB 08/01/24 22:00 08/06/24 18:11 0.5 MG Albuterol 10 mg Q2HPRN PRN NEB 08/01/24 21:30 08/03/24 01:59 10 MG Enoxaparin Sodium 40 mg DAILY SC 08/02/24 10:00 08/06/24 09:40 40 MG Mupirocin 1 applic BID EACHNOSTRI 08/02/24 22:00 08/07/24 21:59 08/05/24 21:28 1 APPLIC Citalopram Hydrobromide 40 mg DAILY PO 08/02/24 22:00 08/06/24 09:39 40 MG Vancomycin HCl 0 ml @ 0 mls/hr UD IV 08/03/24 08:45 Micafungin Sodium 100 mg/Sodium Chloride 100 ml @ 100 mls/hr DAILY IV 08/04/24 10:00 08/06/24 09:40 100 MLS/HR Vancomycin HCl 250 ml @ 200 mls/hr Q14H IV 08/04/24 00:00 08/06/24 07:37 200 MLS/HR Acetylcysteine 200 mg Q8HR NEB 08/05/24 14:00 08/08/24 13:59 08/06/24 14:35 200 MG Norepinephrine Bitartrate 250 ml @ 1.875 mls/ hr Q24H IV 08/06/24 10:15 objective Gen.: Patient lying in bed in medical ICU. Sedated, intubated on mechanical ventilator. Head: Normocephalic, atraumatic. Eyes: PERRLA. Ears: Normal external anatomy. Throat: Endotracheal tube and orogastric tube in place. Neck: Supple, trachea midline. Chest: Transmitted breath sounds bilaterally. Decreased air entry bilaterally. No wheezing. Bibasilar crackles. Cardiovascular: Positive S1, positive S2. Regular rate and rhythm. Abdomen: Positive bowel sounds in all 4 quadrants. Soft, nontender, nondistended. : Santiago in place. Normal external genitalia. Rectal: Deferred. Skin: Warm, dry. Intact. Extremities: 2+ radial pulses bilaterally. No lower extremity edema. Neuro: Sedated. laboratory and microbiology Laboratory Tests 08/06/24 06:50 Test 08/06/24 06:50 Range/Units Serum Glucose 124 H 74-106 mg/dL Assessment/Plan Impression: Acute on chronic hypercarbic respiratory failure On mechanical ventilator COPD exacerbation Morbid obesity, BMI 51.9 Atelectasis Events: Remains on vent support Vent settings; AC mode with RR 18, VT 400, PEEP of 8, FiO2 30% ABG reviewed, slight acidemia d/t CO2 retention. Sedated on Versed, Fentanyl, Propofol. WBC of 15.6 K CXR reviewed, demonstrated devices in place. Pulmonary vascular congestion. No pleural effusion. No pneumothorax. Continue antibiotics/antifungal Continue IV steroids, bronchodilators. Mucomyst Remains on pressors for hemodynamic support On Levophed 1 mcg/min. Titrate to keep mean arterial pressure greater than 65 mmHg. Taper sedation OK to use Precedex. CPAP once awake. CPAP with PS 8, PEEP of 5. OK to increase PS to max 20 cmH2O to achieve VT between 400-450 mL. Patient is s/p bronchoscopy with bronchoalveolar lavage. Labs and imaging reviewed. Rest of plan as noted below. Plan: S/p intubation on mechanical ventilator. CXR image and report reviewed. Devices in place. No pleural effusion, pneumothorax.or consolidation. ABG reviewed. Titrate FIO2 to keep O2 saturation above 90%. VAP bundle. Daily ABG and CXR while intubated Sedated for ventilator synchrony Vent settings; AC mode with RR 18, VT 400, PEEP of 8, FiO2 30% Bronchodilators. Antibiotics. F/u cultures. Blood cultures show no growth after 72 hours. Sputum grew MRSA Awaiting fungal cultures. IV steroids Pressors as necessary for hemodynamic support Titrate to keep mean arterial pressure greater than 65 mmHg. Monitor renal function Monitor electrolytes. Supplement as necessary. Monitor ins and outs. Maintain euvolemia. GI prophylaxis. DVT prophylaxis. Prognosis: Poor given patient's multiple co-morbidities. Condition: Critical Rest of plan per hospitalist and other consultants. A total of 35 minutes of critical care time was spent reviewing the patient record, examining the patient, making a diagnostic and therapeutic plan, discussing this plan with the medical personnel, following up on diagnostic studies and following the patient for clinical stability excluding any and all procedures. At least 50% of this time was spent in direct, [id number] contact. Thank you, Mayank Lino NP, for allowing me to participate in this patient's care. Further recommendations will depend on the patient's clinical course. Please do not hesitate to contact me if you have any questions or concerns. This medical document was created using an electronic medical record system with [email or web address] dictation system. Although these documentations are being carefully reviewed, there may still be some phonetic and typographical changes. The errors are purely typographical, due to imperfection on the software program, and do not reflect any compromise in the patient's medical care. Dietary Evaluation Review Comments: 1) If pt remain on vent, a TPN with clinimix plus a TPN per pharmacy to reach75% of her energy and protein needs, 2) If on TF, a combination of Clinimix plus jevity @30ml/hr will meet her goal 3) If pt can accept PO intake without swallowing difficulties after a ST eval, advance diet to cardiac 2 gNa, Lofat Lo Chol diet. 4) Monitor intake to meet 65-75% of her energy needs. Expected Outcomes/Goals: Gradual weight loss. Plan discussed with: Other (TEE Titus) Critical Care Time(min): 35 VIVIANE ARRIAGA MD Aug 06, 2024 20:19
[2024-08-07] VITALS (107 sets, daily range): BP systolic 103–152; BP diastolic 39–83; PULSE 54–76; RESP 11–21; TEMP 97.7–98.8; O2SAT 70–100
[2024-08-07 04:03] LABS: Basophils # (auto) 0 10 ^3/uL (0-0.2); Basophils % (auto) 0.1 % (0.0-2.0); Eosinophils # (auto) 0 10 ^3/uL (0-0.8); Eosinophils % (auto) 0.1 % (0.0-7.0); Hematocrit 39.9 % (36.0-46.0); Hemoglobin 12.8 g/dL (12.2-16.2); Lymphocytes # (auto) 0.2 10 ^3/uL (0.4-5.4); Lymphocytes % (auto) 2.4 % (10.0-50.0); Mean Corpuscular Hemoglobin 30.4 pg (28.0-32.0); Mean Corpuscular Hgb Conc. 32.1 g/dL (32.0-36.0); Mean Corpuscular Volume 94.7 fL (80.0-100.0); Monocytes # (auto) 0.4 10 ^3/uL (0-1.3); Monocytes % (auto) 5.6 % (0.0-12.0); Neutrophils # (auto) 6.4 10 ^3/uL (1.6-8.6); Neutrophils % (auto) 91.8 % (37.0-80.0); Platelet Count (auto) 171 10^3/uL (140-450); Red Blood Cells 4.21 10^6/uL (4.0-5.20); Red Cell Distribution Width 15.5 % (11.8-14.3); White Blood Cell 6.9 10^3/uL (4.4-10.8)
[2024-08-07 04:25] LABS: Alanine Aminotransferase 264 U/L (7-40); Albumin 3.6 g/dL (3.2-4.8); Alkaline Phosphatase 60 U/L (46-116); Anion Gap 4 (5-15); Aspartate Aminotransferase 142 U/L (13-40); Bilirubin, Total 0.5 mg/dL (0.2-1.0); Blood Urea Nitrogen 34 mg/dL (9-23); Calcium 8.9 mg/dL (8.7-10.4); Carbon Dioxide 34 mmol/L (20-31); Chloride 109 mmol/L (98-107); Glucose 112 mg/dL (74-106); Potassium 4.7 mmol/L (3.5-5.1); Sodium 147 mmol/L (136-145); Total Protein 5.9 g/dL (5.7-8.2)
--- NOTE | 2024-08-07 06:04 | DVH ---
CHEST RADIOGRAPH Indication:intubated Technique: Single frontal view of the chest was obtained Comparison: XY CHEST PORTABLE on DOS: 08/06/24 FINDINGS: Lines and Tubes: Right central venous catheter terminates in the superior vena cava. Endotracheal tu be terminates 4.4 cm above the ale. The enteric tube courses below the left hemidiaphragm and the tip extends outside the field of view. Lungs: Pulmonary vascular congestion is unchanged. Pleura: No effusion. No pneumothorax. Cardiomediastinal contours: Unremarkable Bones: No acute osseous abnormality. IMPRESSION: 1. No significant interval change.
[2024-08-07 08:53] LABS: Base Excess 4.7 mmol/L (-2.0-3.0)
--- NOTE | 2024-08-07 08:55 | DVHPN2 ---
Reviewed: Care Plan, H&P, Labs, Medications, Previous Orders, Radiology Changes from previous H/P or p: No Changes Eyes: No Pain, No Vision change, No Conjunctivae inflammation, No Eyelid inflammation, No Other, No Redness ENT: No Ear pain, No Ear discharge, No Nose pain, No Nose discharge, No Nose congestion, No Mouth pain, No Mouth swelling, No Throat pain, No Throat swelling, No Other Cardiovascular: No Chest Pain, No Palpitations, No Orthopnea, No Paroxysmal Noc. Dyspnea, No Edema, No Lt Headedness, No Other Respiratory: Cough, Shortness of breath, SOB with excertion, Other Gastrointestinal: No Nausea, No Vomiting, No Abdominal Pain, No Diarrhea, No Constipation, No Melena, No Hematochezia, No Other Genitourinary: No Dysuria, No Frequency, No Incontinence, No Hematuria, No Retention, No Other Musculoskeletal: No other, No neck pain, No shoulder pain, No arm pain, No back pain, No hand pain, No leg pain, No foot pain Skin: No Rash, No Lesions, No Jaundice, No Bruising, No Other Objective Vitals Vital Signs Date Time Temp Pulse Resp B/P (MAP) Pulse Ox O2 Delivery O2 Flow Rate FiO2 08/07/24 08:34 57 18 112/59 (76) 99 30 08/07/24 08:00 Mechanical Ventilator+ 08/07/24 04:30 97.9 208.2 Intake/Output Intake and Output 08/07/24 07:00 Intake Total 3169.39 ml Output Total 500 ml Balance 2669.39 ml Intake Oral 80 ml IV Total 3089.39 ml Output Urine Total 500 ml Medications Current Medications Medications Dose Ordered Sig/Jorge Route Start Time Stop Time Status Last Admin Dose Admin Methylprednisolone Sodium Succinate 40 mg Q8HR IV 08/01/24 06:00 08/07/24 05:30 40 MG Famotidine 20 mg Q12HR IV 08/01/24 10:00 08/06/24 21:09 20 MG Lisinopril 20 mg DAILY PO 08/01/24 10:00 08/03/24 10:10 20 MG Levothyroxine Sodium 100 mcg QAM@0600 PO 08/01/24 06:00 08/07/24 05:29 100 MCG Hydralazine HCl 10 mg Q6HP PRN IV 07/31/24 22:15 Sodium Chloride 1,000 ml @ 60 mls/hr [id number] IV 07/31/24 22:15 08/07/24 02:04 60 MLS/HR Ondansetron HCl 4 mg Q4HP PRN IV 07/31/24 22:15 Docusate Sodium 100 mg BIDPRN PRN PO 07/31/24 22:15 Acetaminophen 650 mg Q6HP PRN PO 07/31/24 22:15 08/02/24 08:35 650 MG Nitroglycerin 0.4 mg Q5MINP PRN SL 07/31/24 22:45 Midazolam HCl 50 ml @ 1 mls/hr Q24H IV 08/01/24 13:30 08/07/24 07:41 7 MLS/HR Fentanyl Citrate 250 ml @ 2.5 mls/hr Q24H IV 08/01/24 13:30 08/07/24 07:38 22.5 MLS/HR Piperacillin Sod/ Tazobactam Sod 100 ml @ 25 mls/hr Q8HR IV 08/01/24 14:00 08/07/24 05:29 25 MLS/HR Propofol 100 ml @ 3.09 mls/hr Q24H IV 08/01/24 18:15 08/07/24 05:38 6.18 MLS/HR Albuterol 2.5 mg Q4HR NEB 08/01/24 22:00 08/07/24 02:15 2.5 MG Ipratropium [place] 0.5 mg Q4HR NEB 08/01/24 22:00 08/07/24 02:15 0.5 MG Albuterol 10 mg Q2HPRN PRN NEB 08/01/24 21:30 08/03/24 01:59 10 MG Enoxaparin Sodium 40 mg DAILY SC 08/02/24 10:00 08/06/24 09:40 40 MG Mupirocin 1 applic BID EACHNOSTRI 08/02/24 22:00 08/07/24 21:59 08/06/24 21:09 1 APPLIC Citalopram Hydrobromide 40 mg DAILY PO 08/02/24 22:00 08/06/24 09:39 40 MG Vancomycin HCl 0 ml @ 0 mls/hr UD IV 08/03/24 08:45 Micafungin Sodium 100 mg/Sodium Chloride 100 ml @ 100 mls/hr DAILY IV 08/04/24 10:00 08/06/24 09:40 100 MLS/HR Vancomycin HCl 250 ml @ 200 mls/hr Q14H IV 08/04/24 00:00 08/06/24 23:57 200 MLS/HR Acetylcysteine 200 mg Q8HR NEB 08/05/24 14:00 08/08/24 13:59 08/06/24 22:04 200 MG Norepinephrine Bitartrate 250 ml @ 1.875 mls/ hr Q24H IV 08/06/24 10:15 Laboratory Results Laboratory Tests 08/07/24 03:25 Chemistry Test 08/07/24 03:25 Albumin 3.6 g/dL (3.2-4.8) Calcium Level 8.9 mg/dL (8.7-10.4) Total Protein 5.9 g/dL (5.7-8.2) LFT Test 08/07/24 03:25 Alanine Aminotransferase (ALT) 264 U/L (7-40) H Alkaline Phosphatase 60 U/L (46-116) Aspartate Amino Transferase (AST) 142 U/L (13-40) H Total Bilirubin 0.5 mg/dL (0.2-1.0) Urinalysis Test 07/31/24 17:27 Urine Color Colorless (Yellow) Urine Clarity Clear (Clear) Urine pH 6.5 (5.0-9.0) Urine Specific [place] 1.008 (1.001-1.035) Urine Protein Negative (Negative) Urine Ketones Negative (Negative) Urine Blood Negative /uL (Negative) Urine Nitrite Negative (Negative) Urine Bilirubin Negative (Negative) Urine Urobilinogen Normal mg/dL (Negative) Urine Leukocyte Esterase Negative /uL (Negative) Urine RBC 1 /hpf (0 - 4) Urine WBC <1 /hpf (0 - 5) Urine Squamous Epithelial Cells None seen /hpf (<5) Urine Bacteria None seen /hpf (None Seen) Urine Mucus Few (None Seen) Urine Glucose Normal mg/dL (Normal) Blood Gas Results Test 08/07/24 08:12 Arterial Blood pH 7.310 (7.350-7.450) FiO2 % 30.0 Microbiology Microbiology Date/Time Source Procedure Growth Status 08/04/24 06:48 Other Pending Resulted 08/04/24 06:48 Other Pending Resulted 08/04/24 06:48 Other Pending Resulted 08/04/24 06:48 Other Pending Resulted 08/04/24 06:48 Other - Final See Separate Report... Resulted 08/04/24 06:48 Sputum Gram Stain - Final Complete 08/04/24 06:48 Respiratory Culture - Final Methicillin Resistant S.aureus Complete 08/02/24 01:04 Blood Blood Culture - Final NO GROWTH AFTER 5 DAYS OF INCUBATION. Complete 08/01/24 20:15 Urine - Catheterized Urine Culture - Final Complete Labs and/or images reviewed: Labs reviewed by me, Image(s) reviewed by me Assessment/Plan Assessment/Plan Acute severe hypoxic hypercarbic respiratory failure: Status post intubated by Dr. Lopez on 08/01/2024, 30 % FiO2 continue pressors and sedation, Dr. Lopez following Septic shock secondary to pneumonia, Acute metabolic encephalopathy Bilateral community-acquired pneumonia: Sputum cultures growing MRSA Continue Zosyn, vancomycin, micafungin added by Dr. Lopez Acute COPD exacerbation: Albuterol Atrovent Solu-Medrol History of asthma Hypertension Hypercholesterolemia Hypothyroidism History of depression Morbid obesity MRSA screen positive: Bactroban nasal ointment Anxiety Time spent 65 minutes Patient is full code D-dimer normal Flu test negative COVID test negative Condition guarded Patient seen in ICU Continue current management Possible weaning trial today Plan discussed with: Patient My Orders Orders - BRONWYN AMARO MD Procedure Category Date Status Time Norepinephrine 8 PHA 08/06/24 In Process Mg/250ml Kit 10:15 Communication Order ORDERS 08/06/24 Transmitted 10:15 Date of Service: Aug 07, 2024 Billing Provider: BRONWYN AMARO MD Common Visit Codes: [id number] CARE 30-74 MIN BRONWYN AMARO MD Aug 07, 2024 08:55
[2024-08-07] MEDS: InsuLIN REG 1unit/0.01ml Soln (100units/ml) SC SCH (18:00)
[2024-08-07] MEDS: ACCU-CHEK COMFORT CURVE STRIP VI SCH (18:12)
[2024-08-07] MEDS ORDERED: CLINIMIX PER PHARMACY 0 ML IV SCH (20:00)
[2024-08-07] MEDS: AMINO ACID INFUSION IN D10W 1,000 ML IV SCH (20:35)
--- NOTE | 2024-08-07 22:10 | DVHPN2 ---
Progress Note - Dictate Date Seen: Aug 07, 2024 Medical Necessity Reason Pt with a Central, PICC or Fol: Yes The following are medically ne: Central Line, Santiago Catheter Reason for santiago catheter: Strict I&O Subjective Patient seen and examined at bedside. Sedated, intubated on mechanical ventilator. Overnight events reviewed. vital signs Vital Sign Date Time Temp Pulse Resp B/P (MAP) Pulse Ox O2 Delivery O2 Flow Rate FiO2 08/07/24 20:46 98.2 72 18 138/62 (87) 96 208.8 08/07/24 20:08 30 08/07/24 20:00 Mechanical Ventilator+ Total Intake and Output 08/06/24 08/06/24 08/07/24 15:00 23:00 07:00 Intake Total 1249.19 ml 880.44 ml 1195.44 ml Output Total 700 ml 500 ml Balance 1249.19 ml 180.44 ml 695.44 ml medications Current Medications Medications Dose Ordered Sig/Jorge Route Start Time Stop Time Status Last Admin Dose Admin Methylprednisolone Sodium Succinate 40 mg Q8HR IV 08/01/24 06:00 08/07/24 13:25 40 MG Famotidine 20 mg Q12HR IV 08/01/24 10:00 08/07/24 10:00 20 MG Lisinopril 20 mg DAILY PO 08/01/24 10:00 08/03/24 10:10 20 MG Levothyroxine Sodium 100 mcg QAM@0600 PO 08/01/24 06:00 08/07/24 05:29 100 MCG Hydralazine HCl 10 mg Q6HP PRN IV 07/31/24 22:15 Sodium Chloride 1,000 ml @ 60 mls/hr [id number] IV 07/31/24 22:15 08/07/24 02:04 60 MLS/HR Ondansetron HCl 4 mg Q4HP PRN IV 07/31/24 22:15 Docusate Sodium 100 mg BIDPRN PRN PO 07/31/24 22:15 Acetaminophen 650 mg Q6HP PRN PO 07/31/24 22:15 08/02/24 08:35 650 MG Nitroglycerin 0.4 mg Q5MINP PRN SL 07/31/24 22:45 Midazolam HCl 50 ml @ 1 mls/hr Q24H IV 08/01/24 13:30 08/07/24 07:41 7 MLS/HR Fentanyl Citrate 250 ml @ 2.5 mls/hr Q24H IV 08/01/24 13:30 08/07/24 17:51 22.5 MLS/HR Piperacillin Sod/ Tazobactam Sod 100 ml @ 25 mls/hr Q8HR IV 08/01/24 14:00 08/07/24 13:25 25 MLS/HR Propofol 100 ml @ 3.09 mls/hr Q24H IV 08/01/24 18:15 08/07/24 05:38 6.18 MLS/HR Albuterol 2.5 mg Q4HR NEB 08/01/24 22:00 08/07/24 22:07 2.5 MG Ipratropium [place] 0.5 mg Q4HR NEB 08/01/24 22:00 08/07/24 22:07 0.5 MG Albuterol 10 mg Q2HPRN PRN NEB 08/01/24 21:30 08/03/24 01:59 10 MG Enoxaparin Sodium 40 mg DAILY SC 08/02/24 10:00 08/07/24 10:00 40 MG Citalopram Hydrobromide 40 mg DAILY PO 08/02/24 22:00 08/07/24 10:00 40 MG Vancomycin HCl 0 ml @ 0 mls/hr UD IV 08/03/24 08:45 Micafungin Sodium 100 mg/Sodium Chloride 100 ml @ 100 mls/hr DAILY IV 08/04/24 10:00 08/07/24 10:08 100 MLS/HR Vancomycin HCl 250 ml @ 200 mls/hr Q14H IV 08/04/24 00:00 08/07/24 11:33 200 MLS/HR Acetylcysteine 200 mg Q8HR NEB 08/05/24 14:00 08/08/24 13:59 08/07/24 22:08 200 MG Norepinephrine Bitartrate 250 ml @ 1.875 mls/ hr Q24H IV 08/06/24 10:15 Amino Acids 0 ml @ 0 mls/hr PER PHARMACY IV 08/07/24 20:00 Amino Acids/ Electrolytes/ Dextrose 1,000 ml @ 41 mls/hr DAILY@2000 IV 08/07/24 20:00 08/07/24 20:35 41 MLS/HR Diagnostic Test (Pha) 1 strip Q6HR 08/07/24 18:00 08/07/24 18:12 1 STRIP Insulin Human Regular FOLLOW SLIDING SCALE Q6HR SC 08/07/24 18:00 Dextrose 50 ml UD IV 08/07/24 18:00 objective Gen.: Patient lying in bed in medical ICU. Sedated, intubated on mechanical ventilator. Head: Normocephalic, atraumatic. Eyes: PERRLA. Ears: Normal external anatomy. Throat: Endotracheal tube and orogastric tube in place. Neck: Supple, trachea midline. Chest: Transmitted breath sounds bilaterally. Decreased air entry bilaterally. No wheezing. Bibasilar crackles. Cardiovascular: Positive S1, positive S2. Regular rate and rhythm. Abdomen: Positive bowel sounds in all 4 quadrants. Soft, nontender, nondistended. : Santiago in place. Normal external genitalia. Rectal: Deferred. Skin: Warm, dry. Intact. Extremities: 2+ radial pulses bilaterally. No lower extremity edema. Neuro: Sedated. laboratory and microbiology Laboratory Tests 08/07/24 03:25 Test 08/07/24 03:25 Range/Units Serum Glucose 112 H 74-106 mg/dL Assessment/Plan Impression: Acute on chronic hypercarbic respiratory failure On mechanical ventilator COPD exacerbation Morbid obesity, BMI 51.9 Atelectasis Events: Remains on vent support Vent settings; AC mode with RR 18, VT 400, PEEP of 8, FiO2 30% Sedated on Versed, Fentanyl. Continue antibiotics, vancomycin Continue antifungal Continue IV steroids, bronchodilators. Mucomyst WBC is within normal limits. Clinimix for nutritional support Off Levophed Patient is slowly waking up. OK to start Precedex CPAP once awake. CPAP with PS 8, PEEP of 5. OK to increase PS to max 20 cmH2O to achieve VT between 400-450 mL. Patient is s/p bronchoscopy with bronchoalveolar lavage. Labs and imaging reviewed. Rest of plan as noted below. Plan: S/p intubation on mechanical ventilator. CXR image and report reviewed. Devices in place. No pleural effusion, pneumothorax.or consolidation. ABG reviewed. Titrate FIO2 to keep O2 saturation above 90%. VAP bundle. Daily ABG and CXR while intubated Sedated for ventilator synchrony Vent settings; AC mode with RR 18, VT 400, PEEP of 8, FiO2 30% Bronchodilators. Antibiotics. F/u cultures. Blood cultures show no growth after 72 hours. Sputum grew MRSA Awaiting fungal cultures. IV steroids Pressors as necessary for hemodynamic support Titrate to keep mean arterial pressure greater than 65 mmHg. Monitor renal function Monitor electrolytes. Supplement as necessary. Monitor ins and outs. Maintain euvolemia. GI prophylaxis. DVT prophylaxis. Prognosis: Poor given patient's multiple co-morbidities. Condition: Critical Rest of plan per hospitalist and other consultants. A total of 35 minutes of critical care time was spent reviewing the patient record, examining the patient, making a diagnostic and therapeutic plan, discussing this plan with the medical personnel, following up on diagnostic studies and following the patient for clinical stability excluding any and all procedures. At least 50% of this time was spent in direct, [id number] contact. Thank you, Mayank Lino NP, for allowing me to participate in this patient's care. Further recommendations will depend on the patient's clinical course. Please do not hesitate to contact me if you have any questions or concerns. This medical document was created using an electronic medical record system with [employer] dictation system. Although these documentations are being carefully reviewed, there may still be some phonetic and typographical changes. The errors are purely typographical, due to imperfection on the software program, and do not reflect any compromise in the patient's medical care. Dietary Evaluation Review Comments: 1) If pt remain on vent, a TPN with clinimix plus a TPN per pharmacy to reach75% of her energy and protein needs, 2) If on TF, a combination of Clinimix plus jevity @30ml/hr will meet her goal 3) If pt can accept PO intake without swallowing difficulties after a ST eval, advance diet to cardiac 2 gNa, Lofat Lo Chol diet. 4) Monitor intake to meet 65-75% of her energy needs. Expected Outcomes/Goals: Gradual weight loss. Plan discussed with: Other (TEE Toussaint) Critical Care Time(min): 35 VIVIANE ARRIAGA MD Aug 07, 2024 22:10
[2024-08-08] VITALS (113 sets, daily range): BP systolic 115–178; BP diastolic 57–98; PULSE 60–115; RESP 12–33; TEMP 97.7–99.1; O2SAT 86–98
[2024-08-08 04:14] LABS: Alanine Aminotransferase 242 U/L (7-40); Albumin 3.8 g/dL (3.2-4.8); Alkaline Phosphatase 59 U/L (46-116); Anion Gap 3 (5-15); Aspartate Aminotransferase 62 U/L (13-40); BUN/Creatinine Ratio 54.4 (10.0-20.0); Bilirubin, Total 0.5 mg/dL (0.2-1.0); Blood Urea Nitrogen 37 mg/dL (9-23); Calcium 8.6 mg/dL (8.7-10.4); Carbon Dioxide 34 mmol/L (20-31); Chloride 109 mmol/L (98-107); Glucose 138 mg/dL (74-106); Magnesium 2.5 mg/dL (1.6-2.6); Phosphorus 3.7 mg/dL (2.4-5.1); Potassium 4.8 mmol/L (3.5-5.1); Sodium 146 mmol/L (136-145); Total Protein 5.9 g/dL (5.7-8.2)
[2024-08-08 07:04] LABS: Base Excess 5.9 mmol/L (-2.0-3.0)
--- NOTE | 2024-08-08 09:25 | DVHPN2 ---
Reviewed: Care Plan, H&P, Labs, Medications, Previous Orders, Radiology Changes from previous H/P or p: No Changes Eyes: No Pain, No Vision change, No Conjunctivae inflammation, No Eyelid inflammation, No Other, No Redness ENT: No Ear pain, No Ear discharge, No Nose pain, No Nose discharge, No Nose congestion, No Mouth pain, No Mouth swelling, No Throat pain, No Throat swelling, No Other Cardiovascular: No Chest Pain, No Palpitations, No Orthopnea, No Paroxysmal Noc. Dyspnea, No Edema, No Lt Headedness, No Other Respiratory: Cough, Shortness of breath, SOB with excertion, Other Gastrointestinal: No Nausea, No Vomiting, No Abdominal Pain, No Diarrhea, No Constipation, No Melena, No Hematochezia, No Other Genitourinary: No Dysuria, No Frequency, No Incontinence, No Hematuria, No Retention, No Other Musculoskeletal: No other, No neck pain, No shoulder pain, No arm pain, No back pain, No hand pain, No leg pain, No foot pain Skin: No Rash, No Lesions, No Jaundice, No Bruising, No Other Objective Vitals Vital Signs Date Time Temp Pulse Resp B/P (MAP) Pulse Ox O2 Delivery O2 Flow Rate FiO2 08/08/24 09:01 98.8 67 18 129/62 (84) 97 209.8 08/08/24 08:00 30 08/08/24 08:00 Mechanical Ventilator+ Intake/Output Intake and Output 08/08/24 07:00 Intake Total 2991.31 ml Output Total 1625 ml Balance 1366.31 ml Intake Oral 120 ml IV Total 2871.31 ml Output Urine Total 1625 ml Medications Current Medications Medications Dose Ordered Sig/Jorge Route Start Time Stop Time Status Last Admin Dose Admin Methylprednisolone Sodium Succinate 40 mg Q8HR IV 08/01/24 06:00 08/08/24 06:06 40 MG Famotidine 20 mg Q12HR IV 08/01/24 10:00 08/07/24 22:15 20 MG Lisinopril 20 mg DAILY PO 08/01/24 10:00 08/03/24 10:10 20 MG Levothyroxine Sodium 100 mcg QAM@0600 PO 08/01/24 06:00 08/08/24 06:06 100 MCG Hydralazine HCl 10 mg Q6HP PRN IV 07/31/24 22:15 Sodium Chloride 1,000 ml @ 60 mls/hr [id number] IV 07/31/24 22:15 08/07/24 02:04 60 MLS/HR Ondansetron HCl 4 mg Q4HP PRN IV 07/31/24 22:15 Docusate Sodium 100 mg BIDPRN PRN PO 07/31/24 22:15 Acetaminophen 650 mg Q6HP PRN PO 07/31/24 22:15 08/02/24 08:35 650 MG Nitroglycerin 0.4 mg Q5MINP PRN SL 07/31/24 22:45 Midazolam HCl 50 ml @ 1 mls/hr Q24H IV 08/01/24 13:30 08/07/24 07:41 7 MLS/HR Fentanyl Citrate 250 ml @ 2.5 mls/hr Q24H IV 08/01/24 13:30 08/07/24 17:51 22.5 MLS/HR Piperacillin Sod/ Tazobactam Sod 100 ml @ 25 mls/hr Q8HR IV 08/01/24 14:00 08/08/24 06:05 25 MLS/HR Propofol 100 ml @ 3.09 mls/hr Q24H IV 08/01/24 18:15 08/07/24 05:38 6.18 MLS/HR Albuterol 2.5 mg Q4HR NEB 08/01/24 22:00 08/08/24 07:18 2.5 MG Ipratropium [place] 0.5 mg Q4HR NEB 08/01/24 22:00 08/08/24 07:18 0.5 MG Albuterol 10 mg Q2HPRN PRN NEB 08/01/24 21:30 08/03/24 01:59 10 MG Enoxaparin Sodium 40 mg DAILY SC 08/02/24 10:00 08/07/24 10:00 40 MG Citalopram Hydrobromide 40 mg DAILY PO 08/02/24 22:00 08/07/24 10:00 40 MG Vancomycin HCl 0 ml @ 0 mls/hr UD IV 08/03/24 08:45 Micafungin Sodium 100 mg/Sodium Chloride 100 ml @ 100 mls/hr DAILY IV 08/04/24 10:00 08/07/24 10:08 100 MLS/HR Vancomycin HCl 250 ml @ 200 mls/hr Q14H IV 08/04/24 00:00 08/08/24 01:56 200 MLS/HR Acetylcysteine 200 mg Q8HR NEB 08/05/24 14:00 08/08/24 13:59 08/08/24 07:19 200 MG Norepinephrine Bitartrate 250 ml @ 1.875 mls/ hr Q24H IV 08/06/24 10:15 Amino Acids 0 ml @ 0 mls/hr PER PHARMACY IV 08/07/24 20:00 Amino Acids/ Electrolytes/ Dextrose 1,000 ml @ 41 mls/hr DAILY@2000 IV 08/07/24 20:00 08/07/24 20:35 41 MLS/HR Diagnostic Test (Pha) 1 strip Q6HR 08/07/24 18:00 08/08/24 06:02 1 STRIP Insulin Human Regular FOLLOW SLIDING SCALE Q6HR SC 08/07/24 18:00 08/08/24 00:03 2 UNITS Dextrose 50 ml UD IV 08/07/24 18:00 Laboratory Results Laboratory Tests 08/07/24 03:25 08/08/24 03:33 Chemistry Test 08/08/24 03:33 Albumin 3.8 g/dL (3.2-4.8) Calcium Level 8.6 mg/dL (8.7-10.4) L Magnesium Level 2.5 mg/dL (1.6-2.6) Phosphorus Level 3.7 mg/dL (2.4-5.1) Total Protein 5.9 g/dL (5.7-8.2) LFT Test 08/08/24 03:33 Alanine Aminotransferase (ALT) 242 U/L (7-40) H Alkaline Phosphatase 59 U/L (46-116) Aspartate Amino Transferase (AST) 62 U/L (13-40) H Total Bilirubin 0.5 mg/dL (0.2-1.0) Urinalysis Test 07/31/24 17:27 Urine Color Colorless (Yellow) Urine Clarity Clear (Clear) Urine pH 6.5 (5.0-9.0) Urine Specific [place] 1.008 (1.001-1.035) Urine Protein Negative (Negative) Urine Ketones Negative (Negative) Urine Blood Negative /uL (Negative) Urine Nitrite Negative (Negative) Urine Bilirubin Negative (Negative) Urine Urobilinogen Normal mg/dL (Negative) Urine Leukocyte Esterase Negative /uL (Negative) Urine RBC 1 /hpf (0 - 4) Urine WBC <1 /hpf (0 - 5) Urine Squamous Epithelial Cells None seen /hpf (<5) Urine Bacteria None seen /hpf (None Seen) Urine Mucus Few (None Seen) Urine Glucose Normal mg/dL (Normal) Blood Gas Results Test 08/08/24 06:51 Arterial Blood pH 7.299 (7.350-7.450) FiO2 % 30.0 Microbiology Microbiology Date/Time Source Procedure Growth Status 08/04/24 06:48 Other Pending Resulted 08/04/24 06:48 Other Pending Resulted 08/04/24 06:48 Other Pending Resulted 08/04/24 06:48 Other Pending Resulted 08/04/24 06:48 Other - Final See Separate Report... Resulted 08/04/24 06:48 Sputum Gram Stain - Final Complete 08/04/24 06:48 Respiratory Culture - Final Methicillin Resistant S.aureus Complete 08/02/24 01:04 Blood Blood Culture - Final NO GROWTH AFTER 5 DAYS OF INCUBATION. Complete 08/01/24 20:15 Urine - Catheterized Urine Culture - Final Complete Labs and/or images reviewed: Labs reviewed by me, Image(s) reviewed by me Assessment/Plan Assessment/Plan Acute severe hypoxic hypercarbic respiratory failure: Status post intubated by Dr. Lopez on 08/01/2024, 30 % FiO2 continue pressors and sedation, Dr. Lopez following Septic shock secondary to pneumonia, Acute metabolic encephalopathy Bilateral community-acquired pneumonia: Sputum cultures growing MRSA Continue Zosyn, vancomycin, micafungin added by Dr. Lopez Acute COPD exacerbation: Albuterol Atrovent Solu-Medrol History of asthma Hypertension Hypercholesterolemia Hypothyroidism History of depression Morbid obesity MRSA screen positive: Bactroban nasal ointment Anxiety Time spent 68 minutes Patient is full code D-dimer normal Flu test negative COVID test negative Condition guarded Patient seen in ICU Continue current management Possible weaning trial today Discussed Management with the RN Plan discussed with: Patient My Orders Orders - BRONWYN AMARO MD Procedure Category Date Status Time Clinimix Per Pharmacy PHA 08/07/24 In Process 20:00 Amino Acid Infusion PHA 08/07/24 In Process In D10w (Clinimix 4. 20:00 Glucose Blood PHA 08/07/24 In Process (Accu-Chek Comfort 18:00 Insulin R (Human) PHA 08/07/24 In Process (Insulin R) 18:00 Dextrose 50% Syringe PHA 08/07/24 In Process 18:00 Clinimix Per Pharmacy [facility] 08/07/24 In Process 20:00 Complete Blood Count LAB 08/08/24 Transmitted 09:15 Date of Service: Aug 08, 2024 Billing Provider: BRONWYN AMARO MD Common Visit Codes: [id number] CARE 30-74 MIN BRONWYN AMARO MD Aug 08, 2024 09:25
--- NOTE | 2024-08-08 10:21 | DVH ---
CLINICAL INFORMATION: 59 years old, Female; INTUBATED. TECHNIQUE: Single AP portable chest radiograph was obtained. COMPARISON: XY CHEST PORTABLE on DOS: 08/07/24, XY CHEST PORTABLE on DOS: 08/06/24, XY CHEST PORTABLE on DOS: 08/05/24 FINDINGS: Satisfactory positioning of the endotracheal tube, enteric tube, and right internal jugular central v enous catheter. Ill-defined bilateral airspace opacities, left greater than right, with minimal casey e compared to the prior exam. No pneumothorax. Mildly prominent pulmonary vasculature. IMPRESSION: No significant interval change as detailed above.
[2024-08-08 12:02] LABS: Basophils # (auto) 0 10 ^3/uL (0-0.2); Basophils % (auto) 0.1 % (0.0-2.0); Eosinophils # (auto) 0.1 10 ^3/uL (0-0.8); Eosinophils % (auto) 0.6 % (0.0-7.0); Hematocrit 40.1 % (36.0-46.0); Hemoglobin 12.9 g/dL (12.2-16.2); Lymphocytes # (auto) 0.2 10 ^3/uL (0.4-5.4); Lymphocytes % (auto) 1.9 % (10.0-50.0); Mean Corpuscular Hemoglobin 30.2 pg (28.0-32.0); Mean Corpuscular Hgb Conc. 32.1 g/dL (32.0-36.0); Monocytes # (auto) 0.4 10 ^3/uL (0-1.3); Monocytes % (auto) 3.9 % (0.0-12.0); Neutrophils # (auto) 8.5 10 ^3/uL (1.6-8.6); Neutrophils % (auto) 93.5 % (37.0-80.0); Nucleated Red Blood Cells % 0.1 %; Platelet Count (auto) 209 10^3/uL (140-450); Red Blood Cells 4.27 10^6/uL (4.0-5.20); Red Cell Distribution Width 14.9 % (11.8-14.3)
[2024-08-08] MEDS: FUROSEMIDE 20 MG/2 ML VIAL IV ONE (17:23)
--- NOTE | 2024-08-08 18:46 | DVHPN2 ---
Progress Note - Dictate Date Seen: Aug 08, 2024 Medical Necessity Reason Pt with a Central, PICC or Fol: Yes The following are medically ne: Central Line, Santiago Catheter Reason for santiago catheter: Strict I&O Subjective Patient seen and examined at bedside. Sedated, intubated on mechanical ventilator. Overnight events reviewed. vital signs Vital Sign Date Time Temp Pulse Resp B/P (MAP) Pulse Ox O2 Delivery O2 Flow Rate FiO2 08/08/24 18:31 98.4 73 22 176/88 (117) 89 209.1 08/08/24 18:28 35 08/08/24 18:00 Mechanical Ventilator+ Total Intake and Output 08/07/24 08/07/24 08/08/24 15:00 23:00 07:00 Intake Total 1058.81 ml 837.0 ml 1095.5 ml Output Total 750 ml 875 ml Balance 1058.81 ml 87.0 ml 220.5 ml medications Current Medications Medications Dose Ordered Sig/Jorge Route Start Time Stop Time Status Last Admin Dose Admin Methylprednisolone Sodium Succinate 40 mg Q8HR IV 08/01/24 06:00 08/08/24 14:02 40 MG Famotidine 20 mg Q12HR IV 08/01/24 10:00 08/08/24 10:22 20 MG Lisinopril 20 mg DAILY PO 08/01/24 10:00 08/08/24 10:24 20 MG Levothyroxine Sodium 100 mcg QAM@0600 PO 08/01/24 06:00 08/08/24 06:06 100 MCG Hydralazine HCl 10 mg Q6HP PRN IV 07/31/24 22:15 Ondansetron HCl 4 mg Q4HP PRN IV 07/31/24 22:15 Docusate Sodium 100 mg BIDPRN PRN PO 07/31/24 22:15 Acetaminophen 650 mg Q6HP PRN PO 07/31/24 22:15 08/02/24 08:35 650 MG Nitroglycerin 0.4 mg Q5MINP PRN SL 07/31/24 22:45 Midazolam HCl 50 ml @ 1 mls/hr Q24H IV 08/01/24 13:30 08/07/24 07:41 7 MLS/HR Fentanyl Citrate 250 ml @ 2.5 mls/hr Q24H IV 08/01/24 13:30 08/07/24 17:51 22.5 MLS/HR Piperacillin Sod/ Tazobactam Sod 100 ml @ 25 mls/hr Q8HR IV 08/01/24 14:00 08/08/24 14:03 25 MLS/HR Albuterol 2.5 mg Q4HR NEB 08/01/24 22:00 08/08/24 18:28 2.5 MG Ipratropium [place] 0.5 mg Q4HR NEB 08/01/24 22:00 08/08/24 18:28 0.5 MG Albuterol 10 mg Q2HPRN PRN NEB 08/01/24 21:30 08/03/24 01:59 10 MG Enoxaparin Sodium 40 mg DAILY SC 08/02/24 10:00 08/08/24 10:21 40 MG Citalopram Hydrobromide 40 mg DAILY PO 08/02/24 22:00 08/08/24 10:22 40 MG Vancomycin HCl 0 ml @ 0 mls/hr UD IV 08/03/24 08:45 Micafungin Sodium 100 mg/Sodium Chloride 100 ml @ 100 mls/hr DAILY IV 08/04/24 10:00 08/08/24 10:22 100 MLS/HR Vancomycin HCl 250 ml @ 200 mls/hr Q14H IV 08/04/24 00:00 08/08/24 16:17 200 MLS/HR Norepinephrine Bitartrate 250 ml @ 1.875 mls/ hr Q24H IV 08/06/24 10:15 Amino Acids 0 ml @ 0 mls/hr PER PHARMACY IV 08/07/24 20:00 Amino Acids/ Electrolytes/ Dextrose 1,000 ml @ 41 mls/hr DAILY@2000 IV 08/07/24 20:00 08/07/24 20:35 41 MLS/HR Diagnostic Test (Pha) 1 strip Q6HR 08/07/24 18:00 08/08/24 17:17 1 STRIP Insulin Human Regular FOLLOW SLIDING SCALE Q6HR SC 08/07/24 18:00 08/08/24 17:17 2 UNITS Dextrose 50 ml UD IV 08/07/24 18:00 Dexmedetomidine HCl 400 mcg/ Dextrose 100 ml @ 5.96 mls/hr [id number] IV 08/08/24 13:15 08/08/24 14:52 5.96 MLS/HR objective Gen.: Patient lying in bed in medical ICU. Sedated, intubated on mechanical ventilator. Head: Normocephalic, atraumatic. Eyes: PERRLA. Ears: Normal external anatomy. Throat: Endotracheal tube and orogastric tube in place. Neck: Supple, trachea midline. Chest: Transmitted breath sounds bilaterally. Decreased air entry bilaterally. No wheezing. Bibasilar crackles. Cardiovascular: Positive S1, positive S2. Regular rate and rhythm. Abdomen: Positive bowel sounds in all 4 quadrants. Soft, nontender, nondistended. : Santiago in place. Normal external genitalia. Rectal: Deferred. Skin: Warm, dry. Intact. Extremities: 2+ radial pulses bilaterally. No lower extremity edema. Neuro: Sedated. laboratory and microbiology Laboratory Tests 08/08/24 11:13 08/08/24 03:33 Test 08/08/24 03:33 Range/Units Serum Glucose 138 H 74-106 mg/dL Assessment/Plan Impression: Acute on chronic hypercarbic respiratory failure On mechanical ventilator COPD exacerbation Morbid obesity, BMI 51.9 Atelectasis Events: On CPAP with PS 15, PEEP of 8. Awaiting for mentation to improve to consider extubation. OK to use Precedex for agitation. ABG reviewed, notable for acidemia, increased VT Stop IV fluids Monitor ins and outs Avoid volume overload. Continue antibiotics, vancomycin Continue antifungal Continue IV steroids, bronchodilators. Mucomyst Clinimix for nutritional support 08/04 - s/p bronchoscopy with bronchoalveolar lavage. Labs and imaging reviewed. Rest of plan as noted below. Plan: S/p intubation on mechanical ventilator. CXR image and report reviewed. Devices in place. No pleural effusion, pneumothorax.or consolidation. ABG reviewed. Titrate FIO2 to keep O2 saturation above 90%. VAP bundle. Daily ABG and CXR while intubated Sedated for ventilator synchrony Vent settings; AC mode with RR 18, VT 400, PEEP of 8, FiO2 30% Bronchodilators. Antibiotics. F/u cultures. Blood cultures show no growth after 72 hours. Sputum grew MRSA Awaiting fungal cultures. IV steroids Pressors as necessary for hemodynamic support Titrate to keep mean arterial pressure greater than 65 mmHg. Monitor renal function Monitor electrolytes. Supplement as necessary. Monitor ins and outs. Maintain euvolemia. GI prophylaxis. DVT prophylaxis. Prognosis: Poor given patient's multiple co-morbidities. Condition: Critical Rest of plan per hospitalist and other consultants. A total of 35 minutes of critical care time was spent reviewing the patient record, examining the patient, making a diagnostic and therapeutic plan, discussing this plan with the medical personnel, following up on diagnostic studies and following the patient for clinical stability excluding any and all procedures. At least 50% of this time was spent in direct, [id number] contact. Thank you, Mayank Lino NP, for allowing me to participate in this patient's care. Further recommendations will depend on the patient's clinical course. Please do not hesitate to contact me if you have any questions or concerns. This medical document was created using an electronic medical record system with [employer] dictation system. Although these documentations are being carefully reviewed, there may still be some phonetic and typographical changes. The errors are purely typographical, due to imperfection on the software program, and do not reflect any compromise in the patient's medical care. Dietary Evaluation Review Comments: 1) If pt remain on vent, a TPN with clinimix plus a TPN per pharmacy to reach75% of her energy and protein needs, 2) If on TF, a combination of Clinimix plus jevity @30ml/hr will meet her goal 3) If pt can accept PO intake without swallowing difficulties after a ST eval, advance diet to cardiac 2 gNa, Lofat Lo Chol diet. 4) Monitor intake to meet 65-75% of her energy needs. Expected Outcomes/Goals: Gradual weight loss. Plan discussed with: Other (TEE Almanza) Critical Care Time(min): 35 VIVIANE ARRIAGA MD Aug 08, 2024 18:46
[2024-08-08] MEDS: hydrALAZINE HCL 20 MG/ML VL IV PRN (18:48)
[2024-08-09] VITALS (119 sets, daily range): BP systolic 105–177; BP diastolic 45–104; PULSE 61–106; RESP 12–46; TEMP 96.6–99.1; O2SAT 84–99
[2024-08-09] MEDS: DexmedeTOMIDine 4 ML IV ONE (03:29)
[2024-08-09 05:08] LABS: Basophils # (auto) 0 10 ^3/uL (0-0.2); Basophils % (auto) 0.1 % (0.0-2.0); Eosinophils # (auto) 0 10 ^3/uL (0-0.8); Hematocrit 43.1 % (36.0-46.0); Hemoglobin 13.9 g/dL (12.2-16.2); Lymphocytes # (auto) 0.2 10 ^3/uL (0.4-5.4); Mean Corpuscular Hemoglobin 30.2 pg (28.0-32.0); Mean Corpuscular Hgb Conc. 32.2 g/dL (32.0-36.0); Mean Corpuscular Volume 93.7 fL (80.0-100.0); Monocytes # (auto) 0.7 10 ^3/uL (0-1.3); Monocytes % (auto) 6.3 % (0.0-12.0); Neutrophils # (auto) 9.7 10 ^3/uL (1.6-8.6); Neutrophils % (auto) 91.6 % (37.0-80.0); Nucleated Red Blood Cells % 0.1 %; Platelet Count (auto) 182 10^3/uL (140-450); Red Cell Distribution Width 14.6 % (11.8-14.3); White Blood Cell 10.6 10^3/uL (4.4-10.8)
[2024-08-09 05:18] LABS: Alanine Aminotransferase 207 U/L (7-40); Alkaline Phosphatase 63 U/L (46-116); Anion Gap 5 (5-15); BUN/Creatinine Ratio 48.6 (10.0-20.0); Blood Urea Nitrogen 35 mg/dL (9-23); Calcium 9.1 mg/dL (8.7-10.4); Carbon Dioxide 33 mmol/L (20-31); Chloride 103 mmol/L (98-107); Glucose 159 mg/dL (74-106); Magnesium 2.4 mg/dL (1.6-2.6); Potassium 4.3 mmol/L (3.5-5.1); Sodium 141 mmol/L (136-145)
[2024-08-09 05:19] LABS: Albumin 4.1 g/dL (3.2-4.8)
[2024-08-09 05:20] LABS: Aspartate Aminotransferase 39 U/L (13-40); Bilirubin, Total 0.5 mg/dL (0.2-1.0); Phosphorus 3.8 mg/dL (2.4-5.1); Total Protein 6.4 g/dL (5.7-8.2)
--- NOTE | 2024-08-09 06:35 | DVH ---
CHEST RADIOGRAPH Indication:INTUBATED Technique: Single AP portable chest radiograph was obtained. Comparison: XY CHEST PORTABLE on DOS: 08/08/24, XY CHEST PORTABLE on DOS: 08/07/24, XY CHEST PORTABLE on DOS: 08/06/24, XY CHEST PORTABLE on DOS: 08/05/24, XY CHEST PORTABLE on DOS: 08/04/24, XY CHEST PORT ABLE on DOS: 08/08/24 FINDINGS: Satisfactory positioning of the endotracheal tube, enteric tube, and right internal jugular central v enous catheter. Ill-defined bilateral airspace opacities, left greater than right, with minimal casey e compared to the prior exam. No pneumothorax. Mildly prominent pulmonary vasculature. IMPRESSION: No significant interval change as detailed above.
--- NOTE | 2024-08-09 08:10 | DVHPN2 ---
Reviewed: Care Plan, H&P, Labs, Medications, Previous Orders, Radiology Changes from previous H/P or p: No Changes Eyes: No Pain, No Vision change, No Conjunctivae inflammation, No Eyelid inflammation, No Other, No Redness ENT: No Ear pain, No Ear discharge, No Nose pain, No Nose discharge, No Nose congestion, No Mouth pain, No Mouth swelling, No Throat pain, No Throat swelling, No Other Cardiovascular: No Chest Pain, No Palpitations, No Orthopnea, No Paroxysmal Noc. Dyspnea, No Edema, No Lt Headedness, No Other Respiratory: Cough, Shortness of breath, SOB with excertion, Other Gastrointestinal: No Nausea, No Vomiting, No Abdominal Pain, No Diarrhea, No Constipation, No Melena, No Hematochezia, No Other Genitourinary: No Dysuria, No Frequency, No Incontinence, No Hematuria, No Retention, No Other Musculoskeletal: No other, No neck pain, No shoulder pain, No arm pain, No back pain, No hand pain, No leg pain, No foot pain Skin: No Rash, No Lesions, No Jaundice, No Bruising, No Other Objective Vitals Vital Signs Date Time Temp Pulse Resp B/P (MAP) Pulse Ox O2 Delivery O2 Flow Rate FiO2 08/09/24 07:57 136/74 08/09/24 06:45 97.5 68 20 93 207.5 08/09/24 06:42 40 08/09/24 06:00 Mechanical Ventilator+ Intake/Output Intake and Output 08/09/24 07:00 Intake Total 1972.50 ml Output Total 950 ml Balance 1022.50 ml Intake Oral 90 ml IV Total 1882.50 ml Output Urine Total 950 ml Medications Current Medications Medications Dose Ordered Sig/Jorge Route Start Time Stop Time Status Last Admin Dose Admin Methylprednisolone Sodium Succinate 40 mg Q8HR IV 08/01/24 06:00 08/09/24 05:37 40 MG Famotidine 20 mg Q12HR IV 08/01/24 10:00 08/09/24 07:56 20 MG Lisinopril 20 mg DAILY PO 08/01/24 10:00 08/09/24 07:57 20 MG Levothyroxine Sodium 100 mcg QAM@0600 PO 08/01/24 06:00 08/09/24 05:37 100 MCG Hydralazine HCl 10 mg Q6HP PRN IV 07/31/24 22:15 08/08/24 18:48 10 MG Ondansetron HCl 4 mg Q4HP PRN IV 07/31/24 22:15 Docusate Sodium 100 mg BIDPRN PRN PO 07/31/24 22:15 Acetaminophen 650 mg Q6HP PRN PO 07/31/24 22:15 08/02/24 08:35 650 MG Nitroglycerin 0.4 mg Q5MINP PRN SL 07/31/24 22:45 Midazolam HCl 50 ml @ 1 mls/hr Q24H IV 08/01/24 13:30 08/07/24 07:41 7 MLS/HR Fentanyl Citrate 250 ml @ 2.5 mls/hr Q24H IV 08/01/24 13:30 08/08/24 20:59 2.5 MLS/HR Piperacillin Sod/ Tazobactam Sod 100 ml @ 25 mls/hr Q8HR IV 08/01/24 14:00 08/09/24 05:37 25 MLS/HR Albuterol 2.5 mg Q4HR NEB 08/01/24 22:00 08/09/24 06:22 2.5 MG Ipratropium [place] 0.5 mg Q4HR NEB 08/01/24 22:00 08/09/24 06:22 0.5 MG Albuterol 10 mg Q2HPRN PRN NEB 08/01/24 21:30 08/03/24 01:59 10 MG Enoxaparin Sodium 40 mg DAILY SC 08/02/24 10:00 08/09/24 07:56 40 MG Citalopram Hydrobromide 40 mg DAILY PO 08/02/24 22:00 08/09/24 07:56 40 MG Vancomycin HCl 0 ml @ 0 mls/hr UD IV 08/03/24 08:45 Micafungin Sodium 100 mg/Sodium Chloride 100 ml @ 100 mls/hr DAILY IV 08/04/24 10:00 08/08/24 10:22 100 MLS/HR Vancomycin HCl 250 ml @ 200 mls/hr Q14H IV 08/04/24 00:00 08/09/24 07:23 200 MLS/HR Norepinephrine Bitartrate 250 ml @ 1.875 mls/ hr Q24H IV 08/06/24 10:15 Amino Acids 0 ml @ 0 mls/hr PER PHARMACY IV 08/07/24 20:00 Amino Acids/ Electrolytes/ Dextrose 1,000 ml @ 41 mls/hr DAILY@1999 IV 08/07/24 20:00 08/08/24 19:48 41 MLS/HR Diagnostic Test (Pha) 1 strip Q6HR 08/07/24 18:00 08/09/24 05:37 1 STRIP Insulin Human Regular FOLLOW SLIDING SCALE Q6HR SC 08/07/24 18:00 08/09/24 05:42 2 UNITS Dextrose 50 ml UD IV 08/07/24 18:00 Dexmedetomidine HCl 400 mcg/ Dextrose 100 ml @ 5.96 mls/hr [id number] IV 08/08/24 13:15 08/09/24 03:28 20.86 MLS/HR Laboratory Results Laboratory Tests 08/09/24 03:55 Chemistry Test 08/09/24 03:55 Albumin 4.1 g/dL (3.2-4.8) Calcium Level 9.1 mg/dL (8.7-10.4) Magnesium Level 2.4 mg/dL (1.6-2.6) Phosphorus Level 3.8 mg/dL (2.4-5.1) Total Protein 6.4 g/dL (5.7-8.2) LFT Test 08/09/24 03:55 Alanine Aminotransferase (ALT) 207 U/L (7-40) H Alkaline Phosphatase 63 U/L (46-116) Aspartate Amino Transferase (AST) 39 U/L (13-40) Total Bilirubin 0.5 mg/dL (0.2-1.0) Urinalysis Test 07/31/24 17:27 Urine Color Colorless (Yellow) Urine Clarity Clear (Clear) Urine pH 6.5 (5.0-9.0) Urine Specific [place] 1.008 (1.001-1.035) Urine Protein Negative (Negative) Urine Ketones Negative (Negative) Urine Blood Negative /uL (Negative) Urine Nitrite Negative (Negative) Urine Bilirubin Negative (Negative) Urine Urobilinogen Normal mg/dL (Negative) Urine Leukocyte Esterase Negative /uL (Negative) Urine RBC 1 /hpf (0 - 4) Urine WBC <1 /hpf (0 - 5) Urine Squamous Epithelial Cells None seen /hpf (<5) Urine Bacteria None seen /hpf (None Seen) Urine Mucus Few (None Seen) Urine Glucose Normal mg/dL (Normal) Microbiology Microbiology Date/Time Source Procedure Growth Status 08/04/24 06:48 Other Pending Resulted 08/04/24 06:48 Other Pending Resulted 08/04/24 06:48 Other Pending Resulted 08/04/24 06:48 Other Pending Resulted 08/04/24 06:48 Other - Final See Separate Report... Resulted 08/04/24 06:48 Sputum Gram Stain - Final Complete 08/04/24 06:48 Respiratory Culture - Final Methicillin Resistant S.aureus Complete 08/02/24 01:04 Blood Blood Culture - Final NO GROWTH AFTER 5 DAYS OF INCUBATION. Complete 08/01/24 20:15 Urine - Catheterized Urine Culture - Final Complete Labs and/or images reviewed: Labs reviewed by me, Image(s) reviewed by me Assessment/Plan Assessment/Plan Acute severe hypoxic hypercarbic respiratory failure: Status post intubated by Dr. Lopez on 08/01/2024, 40 % FiO2 continue pressors and sedation, Dr. Lopez following Septic shock secondary to pneumonia, Acute metabolic encephalopathy Bilateral community-acquired pneumonia: Sputum cultures growing MRSA Continue Zosyn, vancomycin, and micafungin Acute COPD exacerbation: Albuterol Atrovent Solu-Medrol History of asthma Hypertension Hypercholesterolemia Hypothyroidism History of depression Morbid obesity MRSA screen positive: Bactroban nasal ointment Anxiety Time spent 69 minutes Patient is full code D-dimer normal Flu test negative COVID test negative Condition guarded Patient seen in ICU Continue current management Possible weaning trial today Discussed Management with the RN Plan discussed with: Other (RN) My Orders Orders - BRONWYN AMARO MD Procedure Category Date Status Time Chest Portable XY 08/08/24 Resulted 09:18 Clinimix Per Pharmacy [facility] 08/08/24 In Process 20:00 Vancomycin,Trough LAB 08/09/24 Logged 19:00 Date of Service: Aug 09, 2024 Billing Provider: BRONWYN AMARO MD Common Visit Codes: [id number] CARE 30-74 MIN BRONWYN AMARO MD Aug 09, 2024 08:09
--- NOTE | 2024-08-09 08:18 | DVHPN2 ---
Progress Note - Dictate Date Seen: Aug 09, 2024 Medical Necessity Reason Pt with a Central, PICC or Fol: Yes The following are medically ne: Central Line, Satniago Catheter Reason for santiago catheter: Strict I&O Subjective Patient seen and examined at bedside. Sedated, intubated on mechanical ventilator. Overnight events reviewed. vital signs Vital Sign Date Time Temp Pulse Resp B/P (MAP) Pulse Ox O2 Delivery O2 Flow Rate FiO2 08/09/24 07:57 136/74 08/09/24 06:45 97.5 68 20 93 207.5 08/09/24 06:42 40 08/09/24 06:00 Mechanical Ventilator+ Total Intake and Output 08/08/24 08/08/24 08/09/24 15:00 23:00 07:00 Intake Total 587.46 ml 719.52 ml 665.52 ml Output Total 800 ml 150 ml Balance 587.46 ml -80.48 ml 515.52 ml medications Current Medications Medications Dose Ordered Sig/Jorge Route Start Time Stop Time Status Last Admin Dose Admin Methylprednisolone Sodium Succinate 40 mg Q8HR IV 08/01/24 06:00 08/09/24 05:37 40 MG Famotidine 20 mg Q12HR IV 08/01/24 10:00 08/09/24 07:56 20 MG Lisinopril 20 mg DAILY PO 08/01/24 10:00 08/09/24 07:57 20 MG Levothyroxine Sodium 100 mcg QAM@0600 PO 08/01/24 06:00 08/09/24 05:37 100 MCG Hydralazine HCl 10 mg Q6HP PRN IV 07/31/24 22:15 08/08/24 18:48 10 MG Ondansetron HCl 4 mg Q4HP PRN IV 07/31/24 22:15 Docusate Sodium 100 mg BIDPRN PRN PO 07/31/24 22:15 Acetaminophen 650 mg Q6HP PRN PO 07/31/24 22:15 08/02/24 08:35 650 MG Nitroglycerin 0.4 mg Q5MINP PRN SL 07/31/24 22:45 Midazolam HCl 50 ml @ 1 mls/hr Q24H IV 08/01/24 13:30 08/07/24 07:41 7 MLS/HR Fentanyl Citrate 250 ml @ 2.5 mls/hr Q24H IV 08/01/24 13:30 08/08/24 20:59 2.5 MLS/HR Piperacillin Sod/ Tazobactam Sod 100 ml @ 25 mls/hr Q8HR IV 08/01/24 14:00 08/09/24 05:37 25 MLS/HR Albuterol 2.5 mg Q4HR NEB 08/01/24 22:00 08/09/24 06:22 2.5 MG Ipratropium [place] 0.5 mg Q4HR NEB 08/01/24 22:00 08/09/24 06:22 0.5 MG Albuterol 10 mg Q2HPRN PRN NEB 08/01/24 21:30 08/03/24 01:59 10 MG Enoxaparin Sodium 40 mg DAILY SC 08/02/24 10:00 08/09/24 07:56 40 MG Citalopram Hydrobromide 40 mg DAILY PO 08/02/24 22:00 08/09/24 07:56 40 MG Vancomycin HCl 0 ml @ 0 mls/hr UD IV 08/03/24 08:45 Micafungin Sodium 100 mg/Sodium Chloride 100 ml @ 100 mls/hr DAILY IV 08/04/24 10:00 08/08/24 10:22 100 MLS/HR Vancomycin HCl 250 ml @ 200 mls/hr Q14H IV 08/04/24 00:00 08/09/24 07:23 200 MLS/HR Norepinephrine Bitartrate 250 ml @ 1.875 mls/ hr Q24H IV 08/06/24 10:15 Amino Acids 0 ml @ 0 mls/hr PER PHARMACY IV 08/07/24 20:00 Amino Acids/ Electrolytes/ Dextrose 1,000 ml @ 41 mls/hr DAILY@2000 IV 08/07/24 20:00 08/08/24 19:48 41 MLS/HR Diagnostic Test (Pha) 1 strip Q6HR 08/07/24 18:00 08/09/24 05:37 1 STRIP Insulin Human Regular FOLLOW SLIDING SCALE Q6HR SC 08/07/24 18:00 08/09/24 05:42 2 UNITS Dextrose 50 ml UD IV 08/07/24 18:00 Dexmedetomidine HCl 400 mcg/ Dextrose 100 ml @ 5.96 mls/hr [id number] IV 08/08/24 13:15 08/09/24 03:28 20.86 MLS/HR objective Gen.: Patient lying in bed in medical ICU. Sedated, intubated on mechanical ventilator. Head: Normocephalic, atraumatic. Eyes: PERRLA. Ears: Normal external anatomy. Throat: Endotracheal tube and orogastric tube in place. Neck: Supple, trachea midline. Chest: Transmitted breath sounds bilaterally. Decreased air entry bilaterally. No wheezing. Bibasilar crackles. Cardiovascular: Positive S1, positive S2. Regular rate and rhythm. Abdomen: Positive bowel sounds in all 4 quadrants. Soft, nontender, nondistended. : Santiago in place. Normal external genitalia. Rectal: Deferred. Skin: Warm, dry. Intact. Extremities: 2+ radial pulses bilaterally. No lower extremity edema. Neuro: Sedated. laboratory and microbiology Laboratory Tests 08/09/24 03:55 Test 08/09/24 03:55 Range/Units Serum Glucose 159 H 74-106 mg/dL Assessment/Plan Impression: Acute on chronic hypercarbic respiratory failure On mechanical ventilator COPD exacerbation Morbid obesity, BMI 51.9 Atelectasis Events: On CPAP trial with PS 8, PEEP of 5. Awaiting for mentation to improve to consider extubation. On Precedex drip. IV fluids on hold Monitor ins and outs Avoid volume overload. Continue antibiotics, vancomycin Continue IV steroids - taper Continue bronchodilators. Clinimix for nutritional support 08/04 - s/p bronchoscopy with bronchoalveolar lavage. Labs and imaging reviewed. Rest of plan as noted below. Plan: S/p intubation on mechanical ventilator. CXR image and report reviewed. Devices in place. No pleural effusion, pneumothorax.or consolidation. ABG reviewed. Titrate FIO2 to keep O2 saturation above 90%. VAP bundle. Daily ABG and CXR while intubated Sedated for ventilator synchrony Vent settings; AC mode with RR 18, VT 450, PEEP of 8, FiO2 40% Bronchodilators. Antibiotics. F/u cultures. Blood cultures show no growth after 72 hours. Sputum grew MRSA Awaiting fungal cultures. IV steroids Pressors as necessary for hemodynamic support Titrate to keep mean arterial pressure greater than 65 mmHg. Monitor renal function Monitor electrolytes. Supplement as necessary. Monitor ins and outs. Maintain euvolemia. GI prophylaxis. DVT prophylaxis. Prognosis: Poor given patient's multiple co-morbidities. Condition: Critical Rest of plan per hospitalist and other consultants. A total of 35 minutes of critical care time was spent reviewing the patient record, examining the patient, making a diagnostic and therapeutic plan, discussing this plan with the medical personnel, following up on diagnostic studies and following the patient for clinical stability excluding any and all procedures. At least 50% of this time was spent in direct, [id number] contact. Thank you, Mayank Lino NP, for allowing me to participate in this patient's care. Further recommendations will depend on the patient's clinical course. Please do not hesitate to contact me if you have any questions or concerns. This medical document was created using an electronic medical record system with [employer] dictation system. Although these documentations are being carefully reviewed, there may still be some phonetic and typographical changes. The errors are purely typographical, due to imperfection on the software program, and do not reflect any compromise in the patient's medical care. Dietary Evaluation Review Comments: 1) If pt remain on vent, a TPN with clinimix plus a TPN per pharmacy to reach75% of her energy and protein needs, 2) If on TF, a combination of Clinimix plus jevity @30ml/hr will meet her goal 3) If pt can accept PO intake without swallowing difficulties after a ST eval, advance diet to cardiac 2 gNa, Lofat Lo Chol diet. 4) Monitor intake to meet 65-75% of her energy needs. Expected Outcomes/Goals: Gradual weight loss. Plan discussed with: Other (ETE Toussaint) Critical Care Time(min): 35 VIVIANE ARRIAGA MD Aug 09, 2024 08:18
[2024-08-09 08:51] LABS: Base Excess 5.5 mmol/L (-2.0-3.0)
[2024-08-09] MEDS: FUROSEMIDE 20 MG/2 ML VIAL ONE (10:21)
[2024-08-09] MEDS: LACTULOSE 20Gm/30ML SOLN PO ONE (10:22)
[2024-08-09] MEDS: FUROSEMIDE 20 MG/2 ML VIAL IV ONE (10:22)
[2024-08-09 11:24] LABS: Base Excess 6.2 mmol/L (-2.0-3.0)
[2024-08-09 13:03] LABS: Base Excess 3.6 mmol/L (-2.0-3.0)
[2024-08-09] MEDS: LORazepam 2MG/ML-1ML VIAL IV PRN (18:11)
[2024-08-09] MEDS: methylPREDNISolone SOD SUCC 125 MG/2 ML VL ONE (22:39)
[2024-08-10] VITALS (116 sets, daily range): BP systolic 95–212; BP diastolic 34–118; PULSE 66–115; RESP 11–37; TEMP 97.9–101.1; O2SAT 82–100
[2024-08-10 04:25] LABS: Basophils # (auto) 0.1 10 ^3/uL (0-0.2); Basophils % (auto) 0.8 % (0.0-2.0); Eosinophils # (auto) 0 10 ^3/uL (0-0.8); Hematocrit 41.8 % (36.0-46.0); Hemoglobin 13.5 g/dL (12.2-16.2); Lymphocytes # (auto) 0.2 10 ^3/uL (0.4-5.4); Lymphocytes % (auto) 1.3 % (10.0-50.0); Mean Corpuscular Hemoglobin 30.4 pg (28.0-32.0); Mean Corpuscular Hgb Conc. 32.3 g/dL (32.0-36.0); Mean Corpuscular Volume 94.1 fL (80.0-100.0); Monocytes # (auto) 0.7 10 ^3/uL (0-1.3); Monocytes % (auto) 4.6 % (0.0-12.0); Neutrophils # (auto) 13.5 10 ^3/uL (1.6-8.6); Neutrophils % (auto) 93.3 % (37.0-80.0); Platelet Count (auto) 199 10^3/uL (140-450); Red Blood Cells 4.44 10^6/uL (4.0-5.20); Red Cell Distribution Width 14.6 % (11.8-14.3); White Blood Cell 14.5 10^3/uL (4.4-10.8)
[2024-08-10 04:38] LABS: Alanine Aminotransferase 189 U/L (7-40); Albumin 3.9 g/dL (3.2-4.8); Alkaline Phosphatase 66 U/L (46-116); Anion Gap 3 (5-15); Aspartate Aminotransferase 38 U/L (13-40); BUN/Creatinine Ratio 45.9 (10.0-20.0); Blood Urea Nitrogen 28 mg/dL (9-23); Calcium 8.6 mg/dL (8.7-10.4); Carbon Dioxide 36 mmol/L (20-31); Chloride 103 mmol/L (98-107); Glucose 123 mg/dL (74-106); Magnesium 2.2 mg/dL (1.6-2.6); Potassium 4.2 mmol/L (3.5-5.1); Sodium 142 mmol/L (136-145)
[2024-08-10 04:39] LABS: Bilirubin, Total 0.6 mg/dL (0.2-1.0); Phosphorus 4.1 mg/dL (2.4-5.1); Total Protein 6.3 g/dL (5.7-8.2)
--- NOTE | 2024-08-10 06:48 | DVH ---
CHEST RADIOGRAPH Indication:PATIENT EXTUBATED 08/09 Technique: Single AP portable chest radiograph was obtained. Comparison: XY CHEST PORTABLE on DOS: 08/09/24, XY CHEST PORTABLE on DOS: 08/08/24, XY CHEST PORTABLE on DOS: 08/07/24, XY CHEST PORTABLE on DOS: 08/06/24, XY CHEST PORTABLE on DOS: 08/05/24, XY CHEST POR TABLE on DOS: 08/09/24 FINDINGS: Satisfactory positioning of the enteric tube, and right internal jugular central venous catheter. Il l-defined bilateral airspace opacities, left greater than right, with minimal change compared to the prior exam. No pneumothorax. Mildly prominent pulmonary vasculature. ET tube not seen. IMPRESSION: Removal of ET tube otherwise, No significant interval change as detailed above.
[2024-08-10] MEDS: methylPREDNISolone SOD SUCC 125 MG/2 ML VL ONE ×2 (06:51→21:28)
[2024-08-10] MEDS: ETOMIDATE (2MG/ML) 20ML VIAL IV ONE ×2 (07:00→16:24)
[2024-08-10] MEDS: SUCCINYLCHOLINE CHLORIDE 20 MG/ML 10ML VIAL IV ONE ×2 (07:00→16:25)
[2024-08-10 07:20] LABS: Base Excess 8.1 mmol/L (-2.0-3.0)
--- NOTE | 2024-08-10 08:22 | DVHPN2 ---
Reviewed: Care Plan, H&P, Labs, Medications, Previous Orders, Radiology Changes from previous H/P or p: No Changes Eyes: No Pain, No Vision change, No Conjunctivae inflammation, No Eyelid inflammation, No Other, No Redness ENT: No Ear pain, No Ear discharge, No Nose pain, No Nose discharge, No Nose congestion, No Mouth pain, No Mouth swelling, No Throat pain, No Throat swelling, No Other Cardiovascular: No Chest Pain, No Palpitations, No Orthopnea, No Paroxysmal Noc. Dyspnea, No Edema, No Lt Headedness, No Other Respiratory: Cough, Shortness of breath, SOB with excertion, Other Gastrointestinal: No Nausea, No Vomiting, No Abdominal Pain, No Diarrhea, No Constipation, No Melena, No Hematochezia, No Other Genitourinary: No Dysuria, No Frequency, No Incontinence, No Hematuria, No Retention, No Other Musculoskeletal: No other, No neck pain, No shoulder pain, No arm pain, No back pain, No hand pain, No leg pain, No foot pain Skin: No Rash, No Lesions, No Jaundice, No Bruising, No Other Objective Vitals Vital Signs Date Time Temp Pulse Resp B/P (MAP) Pulse Ox O2 Delivery O2 Flow Rate FiO2 08/10/24 06:45 79 22 149/73 (98) 93 08/10/24 06:42 Nasal BiPAP Mask 40 08/10/24 04:00 98.4 98.4 08/09/24 10:35 50.0 Intake/Output Intake and Output 08/10/24 07:00 Intake Total 1893.72 ml Output Total 3652 ml Balance -1758.28 ml Intake Oral 75 ml IV Total 1818.72 ml Output Urine Total 3650 ml Gastric Drainage Total 2 ml Medications Current Medications Medications Dose Ordered Sig/Jorge Route Start Time Stop Time Status Last Admin Dose Admin Methylprednisolone Sodium Succinate 40 mg Q8HR IV 08/01/24 06:00 08/10/24 06:00 40 MG Famotidine 20 mg Q12HR IV 08/01/24 10:00 08/09/24 22:36 20 MG Lisinopril 20 mg DAILY PO 08/01/24 10:00 08/09/24 07:57 20 MG Levothyroxine Sodium 100 mcg QAM@0600 PO 08/01/24 06:00 08/09/24 05:37 100 MCG Hydralazine HCl 10 mg Q6HP PRN IV 07/31/24 22:15 08/08/24 18:48 10 MG Ondansetron HCl 4 mg Q4HP PRN IV 07/31/24 22:15 Docusate Sodium 100 mg BIDPRN PRN PO 07/31/24 22:15 Acetaminophen 650 mg Q6HP PRN PO 07/31/24 22:15 08/02/24 08:35 650 MG Nitroglycerin 0.4 mg Q5MINP PRN SL 07/31/24 22:45 Midazolam HCl 50 ml @ 1 mls/hr Q24H IV 08/01/24 13:30 08/07/24 07:41 7 MLS/HR Fentanyl Citrate 250 ml @ 2.5 mls/hr Q24H IV 08/01/24 13:30 08/08/24 20:59 2.5 MLS/HR Piperacillin Sod/ Tazobactam Sod 100 ml @ 25 mls/hr Q8HR IV 08/01/24 14:00 08/10/24 06:50 25 MLS/HR Albuterol 2.5 mg Q4HR NEB 08/01/24 22:00 08/10/24 07:01 2.5 MG Ipratropium [place] 0.5 mg Q4HR NEB 08/01/24 22:00 08/10/24 07:01 0.5 MG Albuterol 10 mg Q2HPRN PRN NEB 08/01/24 21:30 08/09/24 11:16 10 MG Enoxaparin Sodium 40 mg DAILY SC 08/02/24 10:00 08/09/24 07:56 40 MG Citalopram Hydrobromide 40 mg DAILY PO 08/02/24 22:00 08/09/24 07:56 40 MG Vancomycin HCl 0 ml @ 0 mls/hr UD IV 08/03/24 08:45 Micafungin Sodium 100 mg/Sodium Chloride 100 ml @ 100 mls/hr DAILY IV 08/04/24 10:00 08/09/24 09:16 100 MLS/HR Vancomycin HCl 250 ml @ 200 mls/hr Q14H IV 08/04/24 00:00 08/09/24 20:00 200 MLS/HR Norepinephrine Bitartrate 250 ml @ 1.875 mls/ hr Q24H IV 08/06/24 10:15 Amino Acids 0 ml @ 0 mls/hr PER PHARMACY IV 08/07/24 20:00 Amino Acids/ Electrolytes/ Dextrose 1,000 ml @ 41 mls/hr DAILY@2000 IV 08/07/24 20:00 08/09/24 20:00 41 MLS/HR Diagnostic Test (Pha) 1 strip Q6HR 08/07/24 18:00 08/10/24 06:00 1 STRIP Insulin Human Regular FOLLOW SLIDING SCALE Q6HR SC 08/07/24 18:00 08/09/24 11:16 4 UNITS Dextrose 50 ml UD IV 08/07/24 18:00 Dexmedetomidine HCl 400 mcg/ Dextrose 100 ml @ 5.96 mls/hr [id number] IV 08/08/24 13:15 08/09/24 03:28 20.86 MLS/HR Lorazepam 1 mg Q8HP PRN IV 08/09/24 15:00 08/10/24 02:38 1 MG Laboratory Results Laboratory Tests 08/10/24 03:59 Chemistry Test 08/10/24 03:59 Albumin 3.9 g/dL (3.2-4.8) Calcium Level 8.6 mg/dL (8.7-10.4) L Magnesium Level 2.2 mg/dL (1.6-2.6) Phosphorus Level 4.1 mg/dL (2.4-5.1) Total Protein 6.3 g/dL (5.7-8.2) LFT Test 08/10/24 03:59 Alanine Aminotransferase (ALT) 189 U/L (7-40) H Alkaline Phosphatase 66 U/L (46-116) Aspartate Amino Transferase (AST) 38 U/L (13-40) Total Bilirubin 0.6 mg/dL (0.2-1.0) Urinalysis Test 07/31/24 17:27 Urine Color Colorless (Yellow) Urine Clarity Clear (Clear) Urine pH 6.5 (5.0-9.0) Urine Specific [place] 1.008 (1.001-1.035) Urine Protein Negative (Negative) Urine Ketones Negative (Negative) Urine Blood Negative /uL (Negative) Urine Nitrite Negative (Negative) Urine Bilirubin Negative (Negative) Urine Urobilinogen Normal mg/dL (Negative) Urine Leukocyte Esterase Negative /uL (Negative) Urine RBC 1 /hpf (0 - 4) Urine WBC <1 /hpf (0 - 5) Urine Squamous Epithelial Cells None seen /hpf (<5) Urine Bacteria None seen /hpf (None Seen) Urine Mucus Few (None Seen) Urine Glucose Normal mg/dL (Normal) Blood Gas Results Test 08/09/24 08:41 08/09/24 11:12 08/09/24 12:46 08/10/24 07:02 Arterial Blood pH 7.351 (7.350-7.450) 7.276 (7.350-7.450) 7.311 (7.350-7.450) 7.267 (7.350-7.450) FiO2 % 40.0 55.0 40.0 40.0 Microbiology Microbiology Date/Time Source Procedure Growth Status 08/04/24 06:48 Other Pending Resulted 08/04/24 06:48 Other Pending Resulted 08/04/24 06:48 Other Pending Resulted 08/04/24 06:48 Other Pending Resulted 08/04/24 06:48 Other - Final See Separate Report... Resulted 08/04/24 06:48 Sputum Gram Stain - Final Complete 08/04/24 06:48 Respiratory Culture - Final Methicillin Resistant S.aureus Complete 08/02/24 01:04 Blood Blood Culture - Final NO GROWTH AFTER 5 DAYS OF INCUBATION. Complete 08/01/24 20:15 Urine - Catheterized Urine Culture - Final Complete Labs and/or images reviewed: Labs reviewed by me, Image(s) reviewed by me Assessment/Plan Assessment/Plan Acute severe hypoxic hypercarbic respiratory failure: Status post intubated by Dr. Lopez on 08/01/2024, extubated on 08/09/2024, on BiPAP 40 % FiO2 Septic shock secondary to pneumonia, Acute metabolic encephalopathy Bilateral community-acquired pneumonia: Sputum cultures growing MRSA Continue Zosyn, vancomycin, and micafungin Acute COPD exacerbation: Albuterol Atrovent Solu-Medrol History of asthma Hypertension Hypercholesterolemia Hypothyroidism History of depression Morbid obesity MRSA screen positive: Bactroban nasal ointment Anxiety Time spent 69 minutes Patient is full code D-dimer normal Flu test negative COVID test negative Condition guarded Patient seen in ICU Continue current management Discussed Management with the RN Plan discussed with: Patient My Orders Orders - BRONWYN AMARO MD Procedure Category Date Status Time Clinimix Per Pharmacy [facility] 08/09/24 In Process 20:00 Lorazepam 2mg/Ml Inj PHA 08/09/24 In Process (Ativan Inj) 15:00 Chest Portable XY 08/10/24 Resulted 04:00 Hemoglobin & LAB 08/10/24 Logged Hematocrit 05:04 Vancomycin,Trough LAB 08/12/24 Verified 17:00 Complete Blood Count LAB 08/11/24 Verified 04:00 Creatinine LAB 08/11/24 Verified 04:00 Vancomycin Per [facility] 08/10/24 In Process Pharmacy [facility] 08:15 Date of Service: Aug 10, 2024 Billing Provider: BRONWYN AMARO MD Common Visit Codes: [id number] CARE 30-74 MIN BRONWYN AMARO MD Aug 10, 2024 08:22
[2024-08-10 09:57] LABS: Hematocrit 42.5 % (36.0-46.0); Hemoglobin 13.5 g/dL (12.2-16.2)
[2024-08-10 10:23] LABS: Base Excess 1.2 mmol/L (-2.0-3.0)
--- NOTE | 2024-08-10 14:05 | DVHPN2 ---
Progress Note - Dictate Date Seen: Aug 10, 2024 Medical Necessity Reason Pt with a Central, PICC or Fol: Yes The following are medically ne: Central Line, Santiago Catheter Reason for santiago catheter: Strict I&O Subjective Patient seen and examined at bedside. Sedated, intubated on mechanical ventilator. Overnight events reviewed. vital signs Vital Sign Date Time Temp Pulse Resp B/P (MAP) Pulse Ox O2 Delivery O2 Flow Rate FiO2 08/10/24 13:00 84 29 153/84 (107) 95 08/10/24 11:25 Facial BiPAP Mask 40 08/10/24 08:00 97.9 97.9 08/09/24 10:35 50.0 Total Intake and Output 08/09/24 08/09/24 08/10/24 15:00 23:00 07:00 Intake Total 894.72 ml 637 ml 403 ml Output Total 2750 ml 902 ml Balance 894.72 ml -2113 ml -499 ml medications Current Medications Medications Dose Ordered Sig/Jorge Route Start Time Stop Time Status Last Admin Dose Admin Methylprednisolone Sodium Succinate 40 mg Q8HR IV 08/01/24 06:00 08/10/24 06:00 40 MG Famotidine 20 mg Q12HR IV 08/01/24 10:00 08/10/24 10:15 20 MG Lisinopril 20 mg DAILY PO 08/01/24 10:00 08/10/24 10:16 20 MG Levothyroxine Sodium 100 mcg QAM@0600 PO 08/01/24 06:00 08/09/24 05:37 100 MCG Hydralazine HCl 10 mg Q6HP PRN IV 07/31/24 22:15 08/10/24 09:31 10 MG Ondansetron HCl 4 mg Q4HP PRN IV 07/31/24 22:15 Docusate Sodium 100 mg BIDPRN PRN PO 07/31/24 22:15 Acetaminophen 650 mg Q6HP PRN PO 07/31/24 22:15 08/02/24 08:35 650 MG Nitroglycerin 0.4 mg Q5MINP PRN SL 07/31/24 22:45 Midazolam HCl 50 ml @ 1 mls/hr Q24H IV 08/01/24 13:30 08/07/24 07:41 7 MLS/HR Fentanyl Citrate 250 ml @ 2.5 mls/hr Q24H IV 08/01/24 13:30 08/08/24 20:59 2.5 MLS/HR Piperacillin Sod/ Tazobactam Sod 100 ml @ 25 mls/hr Q8HR IV 08/01/24 14:00 08/10/24 06:50 25 MLS/HR Albuterol 2.5 mg Q4HR NEB 08/01/24 22:00 08/10/24 10:40 2.5 MG Ipratropium [place] 0.5 mg Q4HR NEB 08/01/24 22:00 08/10/24 10:40 0.5 MG Albuterol 10 mg Q2HPRN PRN NEB 08/01/24 21:30 08/09/24 11:16 10 MG Enoxaparin Sodium 40 mg DAILY SC 08/02/24 10:00 08/10/24 10:16 40 MG Citalopram Hydrobromide 40 mg DAILY PO 08/02/24 22:00 08/10/24 10:16 40 MG Vancomycin HCl 0 ml @ 0 mls/hr UD IV 08/03/24 08:45 Micafungin Sodium 100 mg/Sodium Chloride 100 ml @ 100 mls/hr DAILY IV 08/04/24 10:00 08/10/24 10:14 100 MLS/HR Vancomycin HCl 250 ml @ 200 mls/hr Q14H IV 08/04/24 00:00 08/10/24 11:48 200 MLS/HR Norepinephrine Bitartrate 250 ml @ 1.875 mls/ hr Q24H IV 08/06/24 10:15 Amino Acids 0 ml @ 0 mls/hr PER PHARMACY IV 08/07/24 20:00 Amino Acids/ Electrolytes/ Dextrose 1,000 ml @ 41 mls/hr DAILY@2000 IV 08/07/24 20:00 08/09/24 20:00 41 MLS/HR Diagnostic Test (Pha) 1 strip Q6HR 08/07/24 18:00 08/10/24 12:29 1 STRIP Insulin Human Regular FOLLOW SLIDING SCALE Q6HR SC 08/07/24 18:00 08/10/24 12:28 2 UNITS Dextrose 50 ml UD IV 08/07/24 18:00 Dexmedetomidine HCl 400 mcg/ Dextrose 100 ml @ 5.96 mls/hr [id number] IV 08/10/24 09:30 08/10/24 10:10 5.96 MLS/HR objective Gen.: Patient lying in bed in medical ICU. Sedated, intubated on mechanical ventilator. Head: Normocephalic, atraumatic. Eyes: PERRLA. Ears: Normal external anatomy. Throat: Endotracheal tube and orogastric tube in place. Neck: Supple, trachea midline. Chest: Transmitted breath sounds bilaterally. Decreased air entry bilaterally. No wheezing. Bibasilar crackles. Cardiovascular: Positive S1, positive S2. Regular rate and rhythm. Abdomen: Positive bowel sounds in all 4 quadrants. Soft, nontender, nondistended. : Santiago in place. Normal external genitalia. Rectal: Deferred. Skin: Warm, dry. Intact. Extremities: 2+ radial pulses bilaterally. No lower extremity edema. Neuro: Sedated. laboratory and microbiology Laboratory Tests 08/10/24 09:16 08/10/24 03:59 Test 08/10/24 03:59 Range/Units Serum Glucose 123 H 74-106 mg/dL Assessment/Plan Impression: Acute on chronic hypercarbic respiratory failure On mechanical ventilator COPD exacerbation Morbid obesity, BMI 51.9 Atelectasis Events: On Precedex drip. Patient remains on BiPAP. ABG notable for acidemia. BiPAP settings adjusted. Placed on IPAP of 20, EPAP of 6 cm of water. Interval improvement in ventilation. Continue to monitor respiratory status closely. We will attempt to transitioned to high-flow oxygen. Monitor ins and outs Avoid volume overload. Continue antibiotics, vancomycin Continue IV steroids - taper Continue bronchodilators. Clinimix for nutritional support Labs and imaging reviewed. Rest of plan as noted below. Plan: Bronchodilators. Antibiotics. F/u cultures. Blood cultures show no growth after 72 hours. Sputum grew MRSA Awaiting fungal cultures. IV steroids Monitor renal function Monitor electrolytes. Supplement as necessary. Monitor ins and outs. Maintain euvolemia. GI prophylaxis. DVT prophylaxis. Prognosis: Poor given patient's multiple co-morbidities. Condition: Critical Rest of plan per hospitalist and other consultants. A total of 35 minutes of critical care time was spent reviewing the patient record, examining the patient, making a diagnostic and therapeutic plan, discussing this plan with the medical personnel, following up on diagnostic studies and following the patient for clinical stability excluding any and all procedures. At least 50% of this time was spent in direct, [id number] contact. Thank you, Mayank Lino NP, for allowing me to participate in this patient's care. Further recommendations will depend on the patient's clinical course. Please do not hesitate to contact me if you have any questions or concerns. This medical document was created using an electronic medical record system with [employer] dictation system. Although these documentations are being carefully reviewed, there may still be some phonetic and typographical changes. The errors are purely typographical, due to imperfection on the software program, and do not reflect any compromise in the patient's medical care. Dietary Evaluation Review Comments: 1) If pt remain on vent, a TPN with clinimix plus a TPN per pharmacy to reach75% of her energy and protein needs, 2) If on TF, a combination of Clinimix plus jevity @30ml/hr will meet her goal 3) If pt can accept PO intake without swallowing difficulties after a ST eval, advance diet to cardiac 2 gNa, Lofat Lo Chol diet. 4) Monitor intake to meet 65-75% of her energy needs. Expected Outcomes/Goals: Gradual weight loss. Plan discussed with: Other (RN Jairo, RT, MD) Critical Care Time(min): 35 VIVIANE ARRIAGA MD Aug 10, 2024 14:04
[2024-08-10 16:09] LABS: Base Excess 5.6 mmol/L (-2.0-3.0)
[2024-08-10] MEDS: ROCURONIUM 10MG/ML 10ML VIAL IV ONE (16:25)
[2024-08-10] MEDS: fentaNYL Drip 2500mCg/250mlNS 250 ML IV SCH (16:30)
--- NOTE | 2024-08-10 17:37 | DVH ---
CHEST RADIOGRAPH Indication:INTUBATED Technique: Single frontal view of the chest was obtained Comparison: XY CHEST PORTABLE on DOS: 08/10/24, XY CHEST PORTABLE on DOS: 08/09/24, XY CHEST PORTABLE on DOS: 08/08/24, XY CHEST PORTABLE on DOS: 08/07/24, XY CHEST PORTABLE on DOS: 08/06/24 Findings/ impression: Endotracheal tube projected 4.5 cm superior to the ale. Right IJ CVC project s terminating near the cavoatrial junction. Enteric tube projected coursing below the GE junction wit hout visualization of side port or catheter tip. Left lung demonstrates prominent interstitial markin gs likely from pulmonary edema. Elevated right hemidiaphragm with possible right basilar atelectasis. a superimposed infectious process or small right-sided pleural effusion is not excluded.
[2024-08-11] VITALS (104 sets, daily range): BP systolic 91–167; BP diastolic 42–91; PULSE 63–104; RESP 13–22; TEMP 99–100.6; O2SAT 87–99
[2024-08-11] MEDS: VANCOMYCIN 1GM/200ML PREMIX 250 ML IV ONE (00:01)
[2024-08-11 03:08] LABS: Base Excess 7.3 mmol/L (-2.0-3.0)
[2024-08-11 03:09] LABS: Base Excess 11.4 mmol/L (-2.0-3.0)
[2024-08-11 05:51] LABS: Basophils # (auto) 0 10 ^3/uL (0-0.2); Basophils % (auto) 0.1 % (0.0-2.0); Eosinophils # (auto) 0 10 ^3/uL (0-0.8); Hematocrit 36.6 % (36.0-46.0); Hemoglobin 12.3 g/dL (12.2-16.2); Lymphocytes # (auto) 0.2 10 ^3/uL (0.4-5.4); Lymphocytes % (auto) 2.4 % (10.0-50.0); Mean Corpuscular Hgb Conc. 33.5 g/dL (32.0-36.0); Mean Corpuscular Volume 92.6 fL (80.0-100.0); Monocytes # (auto) 0.5 10 ^3/uL (0-1.3); Monocytes % (auto) 5.8 % (0.0-12.0); Neutrophils # (auto) 8.4 10 ^3/uL (1.6-8.6); Neutrophils % (auto) 91.7 % (37.0-80.0); Platelet Count (auto) 159 10^3/uL (140-450); Red Blood Cells 3.95 10^6/uL (4.0-5.20); Red Cell Distribution Width 13.9 % (11.8-14.3); White Blood Cell 9.1 10^3/uL (4.4-10.8)
[2024-08-11 05:57] LABS: Alanine Aminotransferase 111 U/L (7-40); Albumin 3.4 g/dL (3.2-4.8); Alkaline Phosphatase 56 U/L (46-116); Anion Gap 2 (5-15); Aspartate Aminotransferase 18 U/L (13-40); BUN/Creatinine Ratio 45.6 (10.0-20.0); Bilirubin, Total 0.6 mg/dL (0.2-1.0); Blood Urea Nitrogen 26 mg/dL (9-23); Calcium 8.7 mg/dL (8.7-10.4); Carbon Dioxide 36 mmol/L (20-31); Chloride 99 mmol/L (98-107); Glucose 135 mg/dL (74-106); Phosphorus 2.5 mg/dL (2.4-5.1); Potassium 4.4 mmol/L (3.5-5.1); Sodium 137 mmol/L (136-145); Triglycerides 108 mg/dL (< 150)
[2024-08-11 05:58] LABS: Total Protein 5.4 g/dL (5.7-8.2)
[2024-08-11 06:04] LABS: Base Excess 9.6 mmol/L (-2.0-3.0)
[2024-08-11] MEDS: methylPREDNISolone SOD SUCC 125 MG/2 ML VL ONE (06:25)
--- NOTE | 2024-08-11 08:36 | DVHPN2 ---
Reviewed: Care Plan, H&P, Labs, Medications, Previous Orders, Radiology Changes from previous H/P or p: Changes (Reintubated by ER doctor on 08-10-24) Eyes: No Pain, No Vision change, No Conjunctivae inflammation, No Eyelid inflammation, No Other, No Redness ENT: No Ear pain, No Ear discharge, No Nose pain, No Nose discharge, No Nose congestion, No Mouth pain, No Mouth swelling, No Throat pain, No Throat swelling, No Other Cardiovascular: No Chest Pain, No Palpitations, No Orthopnea, No Paroxysmal Noc. Dyspnea, No Edema, No Lt Headedness, No Other Respiratory: Cough, Shortness of breath, SOB with excertion, Other Gastrointestinal: No Nausea, No Vomiting, No Abdominal Pain, No Diarrhea, No Constipation, No Melena, No Hematochezia, No Other Genitourinary: No Dysuria, No Frequency, No Incontinence, No Hematuria, No Retention, No Other Musculoskeletal: No other, No neck pain, No shoulder pain, No arm pain, No back pain, No hand pain, No leg pain, No foot pain Skin: No Rash, No Lesions, No Jaundice, No Bruising, No Other Objective Vitals Vital Signs Date Time Temp Pulse Resp B/P (MAP) Pulse Ox O2 Delivery O2 Flow Rate FiO2 08/11/24 07:57 73 18 120/57 (78) 95 30 08/11/24 07:00 99.5 211.1 08/11/24 06:00 Mechanical Ventilator+ 08/09/24 10:35 50.0 Intake/Output Intake and Output 08/11/24 07:00 Intake Total 2375.88 ml Output Total 1420 ml Balance 955.88 ml IV Total 2375.88 ml Output Urine Total 1400 ml Chest Tube Drainage Total 20 ml # Bowel Movements 1 Medications Current Medications Medications Dose Ordered Sig/Jorge Route Start Time Stop Time Status Last Admin Dose Admin Methylprednisolone Sodium Succinate 40 mg Q8HR IV 08/01/24 06:00 08/11/24 06:26 40 MG Famotidine 20 mg Q12HR IV 08/01/24 10:00 08/10/24 22:29 20 MG Lisinopril 20 mg DAILY PO 08/01/24 10:00 08/10/24 10:16 20 MG Levothyroxine Sodium 100 mcg QAM@0600 PO 08/01/24 06:00 08/11/24 06:24 100 MCG Hydralazine HCl 10 mg Q6HP PRN IV 07/31/24 22:15 08/10/24 14:35 10 MG Ondansetron HCl 4 mg Q4HP PRN IV 07/31/24 22:15 Docusate Sodium 100 mg BIDPRN PRN PO 07/31/24 22:15 Acetaminophen 650 mg Q6HP PRN PO 07/31/24 22:15 08/10/24 21:37 650 MG Nitroglycerin 0.4 mg Q5MINP PRN SL 07/31/24 22:45 Midazolam HCl 50 ml @ 1 mls/hr Q24H IV 08/01/24 13:30 08/11/24 06:44 5 MLS/HR Piperacillin Sod/ Tazobactam Sod 100 ml @ 25 mls/hr Q8HR IV 08/01/24 14:00 08/11/24 06:28 25 MLS/HR Albuterol 2.5 mg Q4HR NEB 08/01/24 22:00 08/11/24 06:44 2.5 MG Ipratropium [place] 0.5 mg Q4HR NEB 08/01/24 22:00 08/11/24 06:44 0.5 MG Albuterol 10 mg Q2HPRN PRN NEB 08/01/24 21:30 08/09/24 11:16 10 MG Enoxaparin Sodium 40 mg DAILY SC 08/02/24 10:00 08/10/24 10:16 40 MG Citalopram Hydrobromide 40 mg DAILY PO 08/02/24 22:00 08/10/24 10:16 40 MG Vancomycin HCl 0 ml @ 0 mls/hr UD IV 08/03/24 08:45 Micafungin Sodium 100 mg/Sodium Chloride 100 ml @ 100 mls/hr DAILY IV 08/04/24 10:00 08/10/24 10:14 100 MLS/HR Vancomycin HCl 250 ml @ 200 mls/hr Q14H IV 08/04/24 00:00 08/11/24 00:01 200 MLS/HR Norepinephrine Bitartrate 250 ml @ 1.875 mls/ hr Q24H IV 08/06/24 10:15 Amino Acids 0 ml @ 0 mls/hr PER PHARMACY IV 08/07/24 20:00 Amino Acids/ Electrolytes/ Dextrose 1,000 ml @ 41 mls/hr DAILY@1999 IV 08/07/24 20:00 08/10/24 19:58 41 MLS/HR Diagnostic Test (Pha) 1 strip Q6HR 08/07/24 18:00 08/11/24 06:28 1 STRIP Insulin Human Regular FOLLOW SLIDING SCALE Q6HR SC 08/07/24 18:00 08/10/24 12:28 2 UNITS Dextrose 50 ml UD IV 08/07/24 18:00 Dexmedetomidine HCl 400 mcg/ Dextrose 100 ml @ 5.96 mls/hr [id number] IV 08/10/24 09:30 08/10/24 10:10 5.96 MLS/HR Fentanyl Citrate 250 ml @ 2.5 mls/hr Q24H IV 08/10/24 16:30 08/11/24 08:30 15 MLS/HR Laboratory Results Laboratory Tests 08/11/24 04:00 Chemistry Test 08/11/24 04:00 Albumin 3.4 g/dL (3.2-4.8) Calcium Level 8.7 mg/dL (8.7-10.4) Magnesium Level 2.0 mg/dL (1.6-2.6) Phosphorus Level 2.5 mg/dL (2.4-5.1) Total Protein 5.4 g/dL (5.7-8.2) L Lipid panel Test 08/11/24 04:00 Triglycerides Level 108 mg/dL (< 150) LFT Test 08/11/24 04:00 Alanine Aminotransferase (ALT) 111 U/L (7-40) H Alkaline Phosphatase 56 U/L (46-116) Aspartate Amino Transferase (AST) 18 U/L (13-40) Total Bilirubin 0.6 mg/dL (0.2-1.0) Urinalysis Test 07/31/24 17:27 Urine Color Colorless (Yellow) Urine Clarity Clear (Clear) Urine pH 6.5 (5.0-9.0) Urine Specific [place] 1.008 (1.001-1.035) Urine Protein Negative (Negative) Urine Ketones Negative (Negative) Urine Blood Negative /uL (Negative) Urine Nitrite Negative (Negative) Urine Bilirubin Negative (Negative) Urine Urobilinogen Normal mg/dL (Negative) Urine Leukocyte Esterase Negative /uL (Negative) Urine RBC 1 /hpf (0 - 4) Urine WBC <1 /hpf (0 - 5) Urine Squamous Epithelial Cells None seen /hpf (<5) Urine Bacteria None seen /hpf (None Seen) Urine Mucus Few (None Seen) Urine Glucose Normal mg/dL (Normal) Blood Gas Results Test 08/10/24 10:15 08/10/24 15:53 08/10/24 19:12 08/10/24 22:48 Arterial Blood pH 7.229 (7.350-7.450) 7.232 (7.350-7.450) 7.320 (7.350-7.450) 7.446 (7.350-7.450) FiO2 % 40.0 45.0 100.0 40.0 Test 08/11/24 05:48 Arterial Blood pH 7.374 (7.350-7.450) FiO2 % 45.0 Microbiology Microbiology Date/Time Source Procedure Growth Status 08/04/24 06:48 Other Pending Resulted 08/04/24 06:48 Other Pending Resulted 08/04/24 06:48 Other Pending Resulted 08/04/24 06:48 Other Pending Resulted 08/04/24 06:48 Other - Final See Separate Report... Resulted 08/04/24 06:48 Sputum Gram Stain - Final Complete 08/04/24 06:48 Respiratory Culture - Final Methicillin Resistant S.aureus Complete 08/02/24 01:04 Blood Blood Culture - Final NO GROWTH AFTER 5 DAYS OF INCUBATION. Complete 08/01/24 20:15 Urine - Catheterized Urine Culture - Final Complete Labs and/or images reviewed: Labs reviewed by me, Image(s) reviewed by me Assessment/Plan Assessment/Plan Acute severe hypoxic hypercarbic respiratory failure: Status post intubated by Dr. Lopez on 08/01/2024, extubated on 08/09/2024, desaturated , Reintubated on 08-10-24 Septic shock secondary to pneumonia, Acute metabolic encephalopathy Bilateral community-acquired pneumonia: Sputum cultures growing MRSA Continue Zosyn, vancomycin, and micafungin Acute COPD exacerbation: Albuterol Atrovent Solu-Medrol History of asthma Hypertension Hypercholesterolemia Hypothyroidism History of depression Morbid obesity MRSA screen positive: Bactroban nasal ointment Anxiety Time spent 69 minutes Patient is full code D-dimer normal Flu test negative COVID test negative Condition guarded Patient seen in ICU Continue current management Discussed Management with the RN Plan discussed with: Patient Date of Service: Aug 11, 2024 Billing Provider: BRONWYN AMARO MD Common Visit Codes: [id number] CARE 30-74 MIN BRONWYN AMARO MD Aug 11, 2024 08:36
--- NOTE | 2024-08-11 19:39 | DVHPN2 ---
Progress Note - Dictate Date Seen: Aug 11, 2024 Medical Necessity Reason Pt with a Central, PICC or Fol: Yes The following are medically ne: Central Line, Santiago Catheter Reason for santiago catheter: Strict I&O Subjective Patient seen and examined at bedside. Sedated, intubated on mechanical ventilator. Overnight events reviewed. vital signs Vital Sign Date Time Temp Pulse Resp B/P (MAP) Pulse Ox O2 Delivery O2 Flow Rate FiO2 08/11/24 18:32 74 18 106/50 (68 95 35 08/11/24 18:00 Mechanical Ventilator+ 08/11/24 16:15 99.1 210.4 08/09/24 10:35 50.0 Total Intake and Output 08/10/24 08/10/24 08/11/24 15:00 23:00 07:00 Intake Total 792.90 ml 855.98 ml 788 ml Output Total 850 ml 570 ml Balance 792.90 ml 5.98 ml 218 ml medications Current Medications Medications Dose Ordered Sig/Jorge Route Start Time Stop Time Status Last Admin Dose Admin Methylprednisolone Sodium Succinate 40 mg Q8HR IV 08/01/24 06:00 08/11/24 14:18 40 MG Famotidine 20 mg Q12HR IV 08/01/24 10:00 08/11/24 09:58 20 MG Lisinopril 20 mg DAILY PO 08/01/24 10:00 08/11/24 09:56 20 MG Levothyroxine Sodium 100 mcg QAM@0600 PO 08/01/24 06:00 08/11/24 06:24 100 MCG Hydralazine HCl 10 mg Q6HP PRN IV 07/31/24 22:15 08/10/24 14:35 10 MG Ondansetron HCl 4 mg Q4HP PRN IV 07/31/24 22:15 Docusate Sodium 100 mg BIDPRN PRN PO 07/31/24 22:15 Acetaminophen 650 mg Q6HP PRN PO 07/31/24 22:15 08/10/24 21:37 650 MG Nitroglycerin 0.4 mg Q5MINP PRN SL 07/31/24 22:45 Midazolam HCl 50 ml @ 1 mls/hr Q24H IV 08/01/24 13:30 08/11/24 14:23 6 MLS/HR Piperacillin Sod/ Tazobactam Sod 100 ml @ 25 mls/hr Q8HR IV 08/01/24 14:00 08/11/24 14:23 25 MLS/HR Albuterol 2.5 mg Q4HR NEB 08/01/24 22:00 08/11/24 18:40 2.5 MG Ipratropium [place] 0.5 mg Q4HR NEB 08/01/24 22:00 08/11/24 18:40 0.5 MG Albuterol 10 mg Q2HPRN PRN NEB 08/01/24 21:30 08/09/24 11:16 10 MG Enoxaparin Sodium 40 mg DAILY SC 08/02/24 10:00 08/11/24 09:58 40 MG Citalopram Hydrobromide 40 mg DAILY PO 08/02/24 22:00 08/11/24 09:57 40 MG Vancomycin HCl 0 ml @ 0 mls/hr UD IV 08/03/24 08:45 Micafungin Sodium 100 mg/Sodium Chloride 100 ml @ 100 mls/hr DAILY IV 08/04/24 10:00 08/11/24 10:06 100 MLS/HR Vancomycin HCl 250 ml @ 200 mls/hr Q14H IV 08/04/24 00:00 08/11/24 13:08 200 MLS/HR Norepinephrine Bitartrate 250 ml @ 1.875 mls/ hr Q24H IV 08/06/24 10:15 Amino Acids 0 ml @ 0 mls/hr PER PHARMACY IV 08/07/24 20:00 Amino Acids/ Electrolytes/ Dextrose 1,000 ml @ 41 mls/hr DAILY@2000 IV 08/07/24 20:00 08/10/24 19:58 41 MLS/HR Diagnostic Test (Pha) 1 strip Q6HR 08/07/24 18:00 08/11/24 18:25 1 STRIP Insulin Human Regular FOLLOW SLIDING SCALE Q6HR SC 08/07/24 18:00 08/10/24 12:28 2 UNITS Dextrose 50 ml UD IV 08/07/24 18:00 Dexmedetomidine HCl 400 mcg/ Dextrose 100 ml @ 5.96 mls/hr [id number] IV 08/10/24 09:30 08/10/24 10:10 5.96 MLS/HR Fentanyl Citrate 250 ml @ 2.5 mls/hr Q24H IV 08/10/24 16:30 08/11/24 08:30 15 MLS/HR objective Gen.: Patient lying in bed in medical ICU. Sedated, intubated on mechanical ventilator. Head: Normocephalic, atraumatic. Eyes: PERRLA. Ears: Normal external anatomy. Throat: Endotracheal tube and orogastric tube in place. Neck: Supple, trachea midline. Chest: Transmitted breath sounds bilaterally. Decreased air entry bilaterally. No wheezing. Bibasilar crackles. Cardiovascular: Positive S1, positive S2. Regular rate and rhythm. Abdomen: Positive bowel sounds in all 4 quadrants. Soft, nontender, nondistended. : Santiago in place. Normal external genitalia. Rectal: Deferred. Skin: Warm, dry. Intact. Extremities: 2+ radial pulses bilaterally. No lower extremity edema. Neuro: Sedated. laboratory and microbiology Laboratory Tests 08/11/24 04:00 Test 08/11/24 04:00 Range/Units Serum Glucose 135 H 74-106 mg/dL Assessment/Plan Impression: Acute on chronic hypercarbic respiratory failure On mechanical ventilator COPD exacerbation Morbid obesity, BMI 53.4 Atelectasis Events: Pt required re-intubation Placed on mechanical ventilator. On AC: RR 18, Vt 450mL, Peep 5, Fio2 35% On Fentanyl and Versed. Monitor ins and outs Avoid volume overload. Continue antibiotics, vancomycin. WBC count within normal limits. Continue IV steroids - taper frequency to every 8 hours. Continue bronchodilators. Clinimix for nutritional support Labs and imaging reviewed. Rest of plan as noted below. Plan: Bronchodilators. Antibiotics. F/u cultures. Blood cultures show no growth after 72 hours. Sputum grew MRSA Awaiting fungal cultures. IV steroids Monitor renal function Monitor electrolytes. Supplement as necessary. Monitor ins and outs. Maintain euvolemia. GI prophylaxis. DVT prophylaxis. Prognosis: Poor given patient's multiple co-morbidities. Condition: Critical Rest of plan per hospitalist and other consultants. A total of 35 minutes of critical care time was spent reviewing the patient record, examining the patient, making a diagnostic and therapeutic plan, discussing this plan with the medical personnel, following up on diagnostic studies and following the patient for clinical stability excluding any and all procedures. At least 50% of this time was spent in direct, [id number] contact. Thank you, Mayank Lino NP, for allowing me to participate in this patient's care. Further recommendations will depend on the patient's clinical course. Please do not hesitate to contact me if you have any questions or concerns. This medical document was created using an electronic medical record system with [employer] dictation system. Although these documentations are being carefully reviewed, there may still be some phonetic and typographical changes. The errors are purely typographical, due to imperfection on the software program, and do not reflect any compromise in the patient's medical care. Dietary Evaluation Review Comments: 1) If pt remain on vent, a TPN with clinimix plus a TPN per pharmacy to reach75% of her energy and protein needs, 2) If on TF, a combination of Clinimix plus jevity @30ml/hr will meet her goal 3) If pt can accept PO intake without swallowing difficulties after a ST eval, advance diet to cardiac 2 gNa, Lofat Lo Chol diet. 4) Monitor intake to meet 65-75% of her energy needs. Expected Outcomes/Goals: Gradual weight loss. Plan discussed with: Other (RN Jairo, RT MD Selin) Critical Care Time(min): 35 VIVIANE ARRIAGA MD Aug 11, 2024 19:39
[2024-08-11] MEDS: methylPREDNISolone SOD SUCC 40 MG/ML VL IV SCH (22:10)
[2024-08-12] VITALS (102 sets, daily range): BP systolic 63–168; BP diastolic 47–96; PULSE 53–108; RESP 7–23; TEMP 98.2–99.5; O2SAT 57–100
[2024-08-12 04:44] LABS: Alanine Aminotransferase 81 U/L (7-40); Albumin 3.5 g/dL (3.2-4.8); Alkaline Phosphatase 53 U/L (46-116); Anion Gap 3 (5-15); Aspartate Aminotransferase 14 U/L (13-40); Bilirubin, Total 0.7 mg/dL (0.2-1.0); Blood Urea Nitrogen 25 mg/dL (9-23); Calcium 8.8 mg/dL (8.7-10.4); Carbon Dioxide 35 mmol/L (20-31); Chloride 98 mmol/L (98-107); Glucose 128 mg/dL (74-106); Phosphorus 2.9 mg/dL (2.4-5.1); Potassium 4.1 mmol/L (3.5-5.1); Sodium 136 mmol/L (136-145); Total Protein 5.3 g/dL (5.7-8.2)
[2024-08-12 08:22] LABS: Base Excess 7.5 mmol/L (-2.0-3.0)
--- NOTE | 2024-08-12 08:57 | DVHPN2 ---
Reviewed: Care Plan, H&P, Labs, Medications, Previous Orders, Radiology Changes from previous H/P or p: No Changes Eyes: No Pain, No Vision change, No Conjunctivae inflammation, No Eyelid inflammation, No Other, No Redness ENT: No Ear pain, No Ear discharge, No Nose pain, No Nose discharge, No Nose congestion, No Mouth pain, No Mouth swelling, No Throat pain, No Throat swelling, No Other Cardiovascular: No Chest Pain, No Palpitations, No Orthopnea, No Paroxysmal Noc. Dyspnea, No Edema, No Lt Headedness, No Other Respiratory: Cough, Shortness of breath, SOB with excertion, Other Gastrointestinal: No Nausea, No Vomiting, No Abdominal Pain, No Diarrhea, No Constipation, No Melena, No Hematochezia, No Other Genitourinary: No Dysuria, No Frequency, No Incontinence, No Hematuria, No Retention, No Other Musculoskeletal: No other, No neck pain, No shoulder pain, No arm pain, No back pain, No hand pain, No leg pain, No foot pain Skin: No Rash, No Lesions, No Jaundice, No Bruising, No Other Objective Vitals Vital Signs Date Time Temp Pulse Resp B/P (MAP) Pulse Ox O2 Delivery O2 Flow Rate FiO2 08/12/24 08:10 95 19 148/74 (98) 96 35 08/12/24 07:00 98.2 208.8 08/12/24 06:00 Mechanical Ventilator+ Intake/Output Intake and Output 08/12/24 07:00 Intake Total 1772.0 ml Output Total 1150 ml Balance 622.0 ml Intake Oral 60 ml IV Total 1682.0 ml Other 30 ml Output Urine Total 1050 ml Gastric Drainage Total 100 ml Medications Current Medications Medications Dose Ordered Sig/Jorge Route Start Time Stop Time Status Last Admin Dose Admin Famotidine 20 mg Q12HR IV 08/01/24 10:00 08/11/24 22:09 20 MG Lisinopril 20 mg DAILY PO 08/01/24 10:00 08/11/24 09:56 20 MG Levothyroxine Sodium 100 mcg QAM@0600 PO 08/01/24 06:00 08/12/24 05:56 100 MCG Hydralazine HCl 10 mg Q6HP PRN IV 07/31/24 22:15 08/10/24 14:35 10 MG Ondansetron HCl 4 mg Q4HP PRN IV 07/31/24 22:15 Docusate Sodium 100 mg BIDPRN PRN PO 07/31/24 22:15 Acetaminophen 650 mg Q6HP PRN PO 07/31/24 22:15 08/10/24 21:37 650 MG Nitroglycerin 0.4 mg Q5MINP PRN SL 07/31/24 22:45 Midazolam HCl 50 ml @ 1 mls/hr Q24H IV 08/01/24 13:30 08/12/24 07:39 5 MLS/HR Piperacillin Sod/ Tazobactam Sod 100 ml @ 25 mls/hr Q8HR IV 08/01/24 14:00 08/12/24 05:52 25 MLS/HR Albuterol 2.5 mg Q4HR NEB 08/01/24 22:00 08/12/24 05:55 2.5 MG Ipratropium [place] 0.5 mg Q4HR NEB 08/01/24 22:00 08/12/24 05:55 0.5 MG Albuterol 10 mg Q2HPRN PRN NEB 08/01/24 21:30 08/09/24 11:16 10 MG Enoxaparin Sodium 40 mg DAILY SC 08/02/24 10:00 08/11/24 09:58 40 MG Citalopram Hydrobromide 40 mg DAILY PO 08/02/24 22:00 08/11/24 09:57 40 MG Vancomycin HCl 0 ml @ 0 mls/hr UD IV 08/03/24 08:45 Micafungin Sodium 100 mg/Sodium Chloride 100 ml @ 100 mls/hr DAILY IV 08/04/24 10:00 08/11/24 10:06 100 MLS/HR Vancomycin HCl 250 ml @ 200 mls/hr Q14H IV 08/04/24 00:00 08/12/24 04:02 200 MLS/HR Norepinephrine Bitartrate 250 ml @ 1.875 mls/ hr Q24H IV 08/06/24 10:15 Amino Acids 0 ml @ 0 mls/hr PER PHARMACY IV 08/07/24 20:00 Amino Acids/ Electrolytes/ Dextrose 1,000 ml @ 41 mls/hr DAILY@2000 IV 08/07/24 20:00 08/11/24 20:46 41 MLS/HR Diagnostic Test (Pha) 1 strip Q6HR 08/07/24 18:00 08/12/24 05:58 1 STRIP Insulin Human Regular FOLLOW SLIDING SCALE Q6HR SC 08/07/24 18:00 08/10/24 12:28 2 UNITS Dextrose 50 ml UD IV 08/07/24 18:00 Dexmedetomidine HCl 400 mcg/ Dextrose 100 ml @ 5.96 mls/hr [id number] IV 08/10/24 09:30 08/10/24 10:10 5.96 MLS/HR Fentanyl Citrate 250 ml @ 2.5 mls/hr Q24H IV 08/10/24 16:30 08/12/24 07:40 20 MLS/HR Methylprednisolone Sodium Succinate 40 mg Q12HR IV 08/11/24 22:00 08/11/24 22:10 40 MG Laboratory Results Laboratory Tests 08/11/24 04:00 08/12/24 03:45 Chemistry Test 08/12/24 03:45 Albumin 3.5 g/dL (3.2-4.8) Calcium Level 8.8 mg/dL (8.7-10.4) Magnesium Level 2.0 mg/dL (1.6-2.6) Phosphorus Level 2.9 mg/dL (2.4-5.1) Total Protein 5.3 g/dL (5.7-8.2) L LFT Test 08/12/24 03:45 Alanine Aminotransferase (ALT) 81 U/L (7-40) H Alkaline Phosphatase 53 U/L (46-116) Aspartate Amino Transferase (AST) 14 U/L (13-40) Total Bilirubin 0.7 mg/dL (0.2-1.0) Urinalysis Test 07/31/24 17:27 Urine Color Colorless (Yellow) Urine Clarity Clear (Clear) Urine pH 6.5 (5.0-9.0) Urine Specific [place] 1.008 (1.001-1.035) Urine Protein Negative (Negative) Urine Ketones Negative (Negative) Urine Blood Negative /uL (Negative) Urine Nitrite Negative (Negative) Urine Bilirubin Negative (Negative) Urine Urobilinogen Normal mg/dL (Negative) Urine Leukocyte Esterase Negative /uL (Negative) Urine RBC 1 /hpf (0 - 4) Urine WBC <1 /hpf (0 - 5) Urine Squamous Epithelial Cells None seen /hpf (<5) Urine Bacteria None seen /hpf (None Seen) Urine Mucus Few (None Seen) Urine Glucose Normal mg/dL (Normal) Blood Gas Results Test 08/12/24 08:14 Arterial Blood pH 7.384 (7.350-7.450) FiO2 % 35.0 Microbiology Microbiology Date/Time Source Procedure Growth Status 08/10/24 16:30 Trachea Gram Stain Pending Resulted 08/10/24 16:30 Trachea Respiratory Culture - Preliminary Resulted 08/04/24 06:48 Sputum Gram Stain - Final Complete 08/04/24 06:48 Respiratory Culture - Final Methicillin Resistant S.aureus Complete 08/02/24 01:04 Blood Blood Culture - Final NO GROWTH AFTER 5 DAYS OF INCUBATION. Complete 08/01/24 20:15 Urine - Catheterized Urine Culture - Final Complete Labs and/or images reviewed: Labs reviewed by me, Image(s) reviewed by me Assessment/Plan Assessment/Plan Acute severe hypoxic hypercarbic respiratory failure: Status post intubated by Dr. Lopez on 08/01/2024, extubated on 08/09/2024, desaturated , Reintubated on 08-10-24 on 40 percent FiO2 Septic shock secondary to pneumonia, Acute metabolic encephalopathy Bilateral community-acquired pneumonia: Sputum cultures growing MRSA Continue Zosyn, vancomycin, and micafungin Acute COPD exacerbation: Albuterol Atrovent Solu-Medrol History of asthma Hypertension Hypercholesterolemia Hypothyroidism History of depression Morbid obesity MRSA screen positive: Bactroban nasal ointment Anxiety Time spent 68 minutes Patient is full code D-dimer normal Flu test negative COVID test negative Condition guarded Patient seen in ICU Continue current management Patient's son Julio [phone] and patient's sister Elli bedside, discussed the diagnosis current management and very poor prognosis with them TEE Gill at bedside. Plan discussed with: Patient My Orders Orders - BRONWYN AMARO MD Procedure Category Date Status Time Clinimix Per Pharmacy [facility] 08/11/24 In Process 20:00 Date of Service: Aug 12, 2024 Billing Provider: BRONWYN AMARO MD Common Visit Codes: [id number] CARE 30-74 MIN Secondary Visit Codes: [id number] CARE PLAN 30 MINUTES BRONWYN AMARO MD Aug 12, 2024 08:57
--- NOTE | 2024-08-12 10:45 | DVH ---
CHEST RADIOGRAPH Indication:intubated Technique: Single frontal view of the chest was obtained Comparison: XY CHEST PORTABLE on DOS: 08/10/24, XY CHEST PORTABLE on DOS: 08/10/24, XY CHEST PORTABLE on DOS: 08/09/24, XY CHEST PORTABLE on DOS: 08/08/24, XY CHEST PORTABLE on DOS: 08/07/24, XY CHEST P ORTABLE on DOS: 08/10/24 FINDINGS: Endotracheal tube projected 5 cm superior to the ale. Right IJ CVC projects terminating near the c avoatrial junction. Enteric tube projected coursing below the GE junction without visualization of si de port or catheter tip. Left lung demonstrates prominent interstitial markings likely from pulmonary edema. Elevated right hemidiaphragm with possible right basilar atelectasis. a superimposed infectio us process or small right-sided pleural effusion is not excluded. IMPRESSION: Endotracheal tube projected 5 cm superior to the ale. Right IJ CVC projects terminating near the cavoatrial junction. Enteric tube projected coursing below the GE junction without visualization of side port or catheter tip. Left lung demonstrates prominent interstitial markings likely from pulmonary edema. Elevated right hemidiaphragm with possible right basilar atelectasis. a superimposed infectious proce ss or small right-sided pleural effusion is not excluded.
[2024-08-12 12:29] LABS: Basophils # (auto) 0 10 ^3/uL (0-0.2); Basophils % (auto) 0.3 % (0.0-2.0); Eosinophils # (auto) 0 10 ^3/uL (0-0.8); Eosinophils % (auto) 0.1 % (0.0-7.0); Hemoglobin 12.9 g/dL (12.2-16.2); Lymphocytes # (auto) 0.6 10 ^3/uL (0.4-5.4); Lymphocytes % (auto) 5.4 % (10.0-50.0); Mean Corpuscular Hemoglobin 29.5 pg (28.0-32.0); Mean Corpuscular Hgb Conc. 32.3 g/dL (32.0-36.0); Mean Corpuscular Volume 91.5 fL (80.0-100.0); Monocytes # (auto) 1.2 10 ^3/uL (0-1.3); Neutrophils # (auto) 8.8 10 ^3/uL (1.6-8.6); Neutrophils % (auto) 83.2 % (37.0-80.0); Platelet Count (auto) 191 10^3/uL (140-450); Red Blood Cells 4.37 10^6/uL (4.0-5.20); Red Cell Distribution Width 14.3 % (11.8-14.3); White Blood Cell 10.6 10^3/uL (4.4-10.8)
[2024-08-12] MEDS: AMINO ACID INFUSION IN D10W 2,000 ML IV SCH (20:21)
[2024-08-12] MEDS: Jevity 1.2 Cal/Fiber 1 Liter NG SCH (20:31)
--- NOTE | 2024-08-12 21:39 | DVHPN2 ---
Progress Note - Dictate Date Seen: Aug 12, 2024 Medical Necessity Reason Pt with a Central, PICC or Fol: Yes The following are medically ne: Central Line, Santiago Catheter Reason for santiago catheter: Strict I&O Subjective Patient seen and examined at bedside. Sedated, intubated on mechanical ventilator. Overnight events reviewed. vital signs Vital Sign Date Time Temp Pulse Resp B/P (MAP) Pulse Ox O2 Delivery O2 Flow Rate FiO2 08/12/24 20:21 138/69 08/12/24 20:00 92 21 94 35 08/12/24 18:55 Mechanical Ventilator 08/12/24 18:00 98.8 209.8 Total Intake and Output 08/11/24 08/11/24 08/12/24 15:00 23:00 07:00 Intake Total 666.0 ml 507 ml 599 ml Output Total 550 ml 600 ml Balance 666.0 ml -43 ml -1 ml medications Current Medications Medications Dose Ordered Sig/Jorge Route Start Time Stop Time Status Last Admin Dose Admin Famotidine 20 mg Q12HR IV 08/01/24 10:00 08/12/24 10:51 20 MG Lisinopril 20 mg DAILY PO 08/01/24 10:00 08/12/24 10:53 20 MG Levothyroxine Sodium 100 mcg QAM@0600 PO 08/01/24 06:00 08/12/24 05:56 100 MCG Hydralazine HCl 10 mg Q6HP PRN IV 07/31/24 22:15 08/10/24 14:35 10 MG Ondansetron HCl 4 mg Q4HP PRN IV 07/31/24 22:15 Docusate Sodium 100 mg BIDPRN PRN PO 07/31/24 22:15 Acetaminophen 650 mg Q6HP PRN PO 07/31/24 22:15 08/10/24 21:37 650 MG Nitroglycerin 0.4 mg Q5MINP PRN SL 07/31/24 22:45 Midazolam HCl 50 ml @ 1 mls/hr Q24H IV 08/01/24 13:30 08/12/24 20:05 10 MLS/HR Albuterol 2.5 mg Q4HR NEB 08/01/24 22:00 08/12/24 18:55 2.5 MG Ipratropium [place] 0.5 mg Q4HR NEB 08/01/24 22:00 08/12/24 18:54 0.5 MG Albuterol 10 mg Q2HPRN PRN NEB 08/01/24 21:30 08/09/24 11:16 10 MG Enoxaparin Sodium 40 mg DAILY SC 08/02/24 10:00 08/12/24 10:51 40 MG Citalopram Hydrobromide 40 mg DAILY PO 08/02/24 22:00 08/12/24 10:52 40 MG Vancomycin HCl 0 ml @ 0 mls/hr UD IV 08/03/24 08:45 Micafungin Sodium 100 mg/Sodium Chloride 100 ml @ 100 mls/hr DAILY IV 08/04/24 10:00 08/12/24 10:48 100 MLS/HR Vancomycin HCl 250 ml @ 200 mls/hr Q14H IV 08/04/24 00:00 08/12/24 18:43 200 MLS/HR Norepinephrine Bitartrate 250 ml @ 1.875 mls/ hr Q24H IV 08/06/24 10:15 Amino Acids 0 ml @ 0 mls/hr PER PHARMACY IV 08/07/24 20:00 Diagnostic Test (Pha) 1 strip Q6HR 08/07/24 18:00 08/12/24 17:55 1 STRIP Insulin Human Regular FOLLOW SLIDING SCALE Q6HR SC 08/07/24 18:00 08/10/24 12:28 2 UNITS Dextrose 50 ml UD IV 08/07/24 18:00 Dexmedetomidine HCl 400 mcg/ Dextrose 100 ml @ 5.96 mls/hr [id number] IV 08/10/24 09:30 08/10/24 10:10 5.96 MLS/HR Fentanyl Citrate 250 ml @ 2.5 mls/hr Q24H IV 08/10/24 16:30 08/12/24 20:21 20 MLS/HR Methylprednisolone Sodium Succinate 40 mg Q12HR IV 08/11/24 22:00 08/12/24 10:50 40 MG Enteral Nutritional Formula 1,000 ml 50ML/HR NG 08/12/24 15:15 08/12/24 20:31 1,000 ML Amino Acids/ Electrolytes/ Dextrose 2,000 ml @ 41 mls/hr DAILY@2000 IV 08/12/24 20:00 08/12/24 20:21 41 MLS/HR objective Gen.: Patient lying in bed in medical ICU. Sedated, intubated on mechanical ventilator. Head: Normocephalic, atraumatic. Eyes: PERRLA. Ears: Normal external anatomy. Throat: Endotracheal tube and orogastric tube in place. Neck: Supple, trachea midline. Chest: Transmitted breath sounds bilaterally. Decreased air entry bilaterally. No wheezing. Bibasilar crackles. Cardiovascular: Positive S1, positive S2. Regular rate and rhythm. Abdomen: Positive bowel sounds in all 4 quadrants. Soft, nontender, nondistended. : Santiago in place. Normal external genitalia. Rectal: Deferred. Skin: Warm, dry. Intact. Extremities: 2+ radial pulses bilaterally. No lower extremity edema. Neuro: Sedated. laboratory and microbiology Laboratory Tests 08/12/24 11:29 08/12/24 03:45 Test 08/12/24 03:45 Range/Units Serum Glucose 128 H 74-106 mg/dL Assessment/Plan Impression: Acute on chronic hypercarbic respiratory failure On mechanical ventilator COPD exacerbation Morbid obesity, BMI 53.4 Atelectasis Events: On mechanical ventilator. On AC: RR 18, Vt 450mL, Peep 5, Fio2 35% On Fentanyl and Versed. Recommend to taper sedation Attempt CPAP in the AM. Monitor ins and outs Avoid volume overload. Continue antibiotics, vancomycin. WBC count within normal limits. Consider de-escalation of antibiotics as cultures negative. Continue IV steroids - taper frequency to discontinuation. No wheezing on exam. Continue bronchodilators. Clinimix for nutritional support Pt will be difficult to liberate from mech vent due to multiple factors; including severe COPD, chronic hypercarbic respiratory failure, VIC/OHS. Attempt to liberate via CPAP and extubation directly to BIPAP. She required high IPAP to maintain ventilation. Wheezing has resolved. Tolerating turns now. Optimize as much as possible prior to CPAP. Signed out case to Dr Antoine and Dr Hernandez. Labs and imaging reviewed. Rest of plan as noted below. Plan: Bronchodilators. Antibiotics. F/u cultures. Blood cultures show no growth after 72 hours. Sputum grew MRSA Awaiting fungal cultures. IV steroids Monitor renal function Monitor electrolytes. Supplement as necessary. Monitor ins and outs. Maintain euvolemia. GI prophylaxis. DVT prophylaxis. Prognosis: Poor given patient's multiple co-morbidities. Condition: Critical Rest of plan per hospitalist and other consultants. A total of 35 minutes of critical care time was spent reviewing the patient record, examining the patient, making a diagnostic and therapeutic plan, discussing this plan with the medical personnel, following up on diagnostic studies and following the patient for clinical stability excluding any and all procedures. At least 50% of this time was spent in direct, [id number] contact. Thank you, Mayank Lino NP, for allowing me to participate in this patient's care. Further recommendations will depend on the patient's clinical course. Please do not hesitate to contact me if you have any questions or concerns. This medical document was created using an electronic medical record system with [employer] dictation system. Although these documentations are being carefully reviewed, there may still be some phonetic and typographical changes. The errors are purely typographical, due to imperfection on the software program, and do not reflect any compromise in the patient's medical care. Dietary Evaluation Review Comments: 1) If pt remain on vent, a TPN with clinimix plus a TPN per pharmacy to reach75% of her energy and protein needs, 2) If on TF, a combination of Clinimix plus jevity @30ml/hr will meet her goal 3) If pt can accept PO intake without swallowing difficulties after a ST eval, advance diet to cardiac 2 gNa, Lofat Lo Chol diet. 4) Monitor intake to meet 65-75% of her energy needs. Expected Outcomes/Goals: Gradual weight loss. Plan discussed with: Other (RN, RT, MD) Critical Care Time(min): 35 VIVIANE ARRIAGA MD Aug 12, 2024 21:39
[2024-08-13] VITALS (107 sets, daily range): BP systolic 86–170; BP diastolic 36–83; PULSE 52–101; RESP 11–27; TEMP 90.1–99.1; O2SAT 57–100
[2024-08-13 04:28] LABS: Basophils # (auto) 0 10 ^3/uL (0-0.2); Eosinophils # (auto) 0 10 ^3/uL (0-0.8); Hematocrit 35.1 % (36.0-46.0); Hemoglobin 11.6 g/dL (12.2-16.2); Lymphocytes # (auto) 0.2 10 ^3/uL (0.4-5.4); Lymphocytes % (auto) 2.8 % (10.0-50.0); Mean Corpuscular Hemoglobin 29.9 pg (28.0-32.0); Mean Corpuscular Hgb Conc. 32.9 g/dL (32.0-36.0); Mean Corpuscular Volume 90.9 fL (80.0-100.0); Monocytes # (auto) 0.4 10 ^3/uL (0-1.3); Monocytes % (auto) 5.5 % (0.0-12.0); Neutrophils % (auto) 91.7 % (37.0-80.0); Nucleated Red Blood Cells % 0.1 %; Platelet Count (auto) 142 10^3/uL (140-450); Red Blood Cells 3.86 10^6/uL (4.0-5.20); Red Cell Distribution Width 13.8 % (11.8-14.3); White Blood Cell 6.6 10^3/uL (4.4-10.8)
[2024-08-13 04:29] LABS: Alanine Aminotransferase 71 U/L (7-40); Albumin 3.5 g/dL (3.2-4.8); Alkaline Phosphatase 53 U/L (46-116); Anion Gap 4 (5-15); Aspartate Aminotransferase 18 U/L (13-40); BUN/Creatinine Ratio 38.6 (10.0-20.0); Blood Urea Nitrogen 22 mg/dL (9-23); Carbon Dioxide 34 mmol/L (20-31); Chloride 99 mmol/L (98-107); GFR African American 140 mL/min; GFR Non-African American 116 mL/min; Glucose 115 mg/dL (74-106); Magnesium 1.8 mg/dL (1.6-2.6); Potassium 4.1 mmol/L (3.5-5.1); Sodium 137 mmol/L (136-145)
[2024-08-13 04:30] LABS: Bilirubin, Total 0.7 mg/dL (0.2-1.0); Phosphorus 2.9 mg/dL (2.4-5.1); Total Protein 5.3 g/dL (5.7-8.2)
--- NOTE | 2024-08-13 08:48 | DVHPNRES ---
Progress Note Date Seen: Aug 13, 2024 Resident Creating Document: RADHA HERNADEZ Medical Necessity Reason Pt with a Central, PICC or Fol: Yes The following are medically ne: PICC Line, Santiago Catheter Reason for santiago catheter: Strict I&O Subjective Review of Systems This is a 59-year-old female with past medical history of COPD, CHF, dyslipidemia who presented to the ED due to shortness of breaths. The patient reported at that time that symptoms were progressively getting worse associated with productive cough and sputum production saturating in the 80s. In the ED initial labs were done, WBC was normal range, electrolytes were on range as well. Patient tested negative for COVID and flu. BNP came back on normal range at 40.6, troponins were negative and TSH was normal range. The patient was started on treatment for COPD exacerbation with IV antibiotics, steroids, albuterol/ipratropium med nebs. Patient was placed on BiPAP initially but kept deteriorating reason why was intubated and admitted to the ICU. Patient seen and examined at bedside. Patient is currently sedated only on fentanyl, on mechanical ventilator on the following parameters: VT 450, FiO2 35%, peep five, RR 18. Saturating 97%. Based on morning ABGs which were showing a pH of 7.37, pCO2 of 59.9, HC03 of 34 and PaO2 of 71.3 consistent with respiratory acidosis with chronic metabolic compensation. We will decrease FiO2 to 30%. We will discontinue micafungin and Clinimix, since patient is already on enteral nutrition at 20 cc/hour we will increase to 30 cc/hour after CPAP trial. Patient has been approximately on 10 days of methylprednisolone 40 IV b.i.d. so we will decrease it to 40 IV once daily. ROS unable to be obtained due to patient's current status, intubation. Objective vital signs Vital Sign Date Time Temp Pulse Resp B/P (MAP) Pulse Ox O2 Delivery O2 Flow Rate FiO2 08/13/24 08:17 55 18 105/48 (67) 95 35 08/13/24 06:45 98.4 209.1 08/13/24 06:00 Mechanical Ventilator+ Total Intake and Output 08/12/24 08/12/24 08/13/24 15:00 23:00 07:00 Intake Total 762.5 ml 930.5 ml 600 ml Output Total 1100 ml 1330 ml Balance 762.5 ml -169.5 ml -730 ml medications Current Medications Medications Dose Ordered Sig/Jorge Route Start Time Stop Time Status Last Admin Dose Admin Famotidine 20 mg Q12HR IV 08/01/24 10:00 08/12/24 22:09 20 MG Lisinopril 20 mg DAILY PO 08/01/24 10:00 08/12/24 10:53 20 MG Levothyroxine Sodium 100 mcg QAM@0600 PO 08/01/24 06:00 08/13/24 05:43 100 MCG Hydralazine HCl 10 mg Q6HP PRN IV 07/31/24 22:15 08/10/24 14:35 10 MG Ondansetron HCl 4 mg Q4HP PRN IV 07/31/24 22:15 Docusate Sodium 100 mg BIDPRN PRN PO 07/31/24 22:15 Acetaminophen 650 mg Q6HP PRN PO 07/31/24 22:15 08/10/24 21:37 650 MG Nitroglycerin 0.4 mg Q5MINP PRN SL 07/31/24 22:45 Midazolam HCl 50 ml @ 1 mls/hr Q24H IV 08/01/24 13:30 08/13/24 05:43 10 MLS/HR Albuterol 2.5 mg Q4HR NEB 08/01/24 22:00 08/13/24 06:16 2.5 MG Ipratropium [place] 0.5 mg Q4HR NEB 08/01/24 22:00 08/13/24 06:16 0.5 MG Albuterol 10 mg Q2HPRN PRN NEB 08/01/24 21:30 08/09/24 11:16 10 MG Enoxaparin Sodium 40 mg DAILY SC 08/02/24 10:00 08/12/24 10:51 40 MG Citalopram Hydrobromide 40 mg DAILY PO 08/02/24 22:00 08/13/24 08:30 40 MG Vancomycin HCl 0 ml @ 0 mls/hr UD IV 08/03/24 08:45 Micafungin Sodium 100 mg/Sodium Chloride 100 ml @ 100 mls/hr DAILY IV 08/04/24 10:00 08/12/24 10:48 100 MLS/HR Vancomycin HCl 250 ml @ 200 mls/hr Q14H IV 08/04/24 00:00 08/13/24 08:29 200 MLS/HR Norepinephrine Bitartrate 250 ml @ 1.875 mls/ hr Q24H IV 08/06/24 10:15 Amino Acids 0 ml @ 0 mls/hr PER PHARMACY IV 08/07/24 20:00 Diagnostic Test (Pha) 1 strip Q6HR 08/07/24 18:00 08/13/24 06:00 1 STRIP Insulin Human Regular FOLLOW SLIDING SCALE Q6HR SC 08/07/24 18:00 08/10/24 12:28 2 UNITS Dextrose 50 ml UD IV 08/07/24 18:00 Dexmedetomidine HCl 400 mcg/ Dextrose 100 ml @ 5.96 mls/hr [id number] IV 08/10/24 09:30 08/10/24 10:10 5.96 MLS/HR Fentanyl Citrate 250 ml @ 2.5 mls/hr Q24H IV 08/10/24 16:30 08/13/24 07:29 20 MLS/HR Methylprednisolone Sodium Succinate 40 mg Q12HR IV 08/11/24 22:00 08/13/24 08:30 40 MG Enteral Nutritional Formula 1,000 ml 50ML/HR NG 08/12/24 15:15 08/12/24 20:31 1,000 ML Amino Acids/ Electrolytes/ Dextrose 2,000 ml @ 41 mls/hr DAILY@2000 IV 08/12/24 20:00 08/12/24 20:21 41 MLS/HR Examination Physical Examination General: Patient sedated on mechanical ventilator: VT 450, RR 18, FiO2 35%, peep five, saturating 97% Patient following commands. HEENT: Normocephalic, atraumatic, moist mucous membranes Respiratory/pulmonary: Clear lungs bilaterally, vesicular murmurs present in almost all lung christensen, no associated crackles or wheezes. Cardiovascular: Bradycardic regular heart sounds S1 and S2 with no associated murmurs Abdomen: Abdomen nondistended, there is no pain to palpation in any of the abdominal quadrants, no palpable masses. Extremities: There is no peripheral edema present at the lower extremities. Peripheral Pulses: 3+ Radial (R). 3+ Radial (L). 3+ Dorsalis pedis (R). 3+ Dorsalis pedis(L) Skin: No rashes or pruritus, there is no sacral edema present at this time. Neurological: Sedated, RASS -2 laboratory and microbiology Laboratory Tests 08/13/24 03:25 Test 08/13/24 03:25 Range/Units Serum Glucose 115 H 74-106 mg/dL Microbiology Date/Time Source Procedure Growth Status 08/10/24 16:30 Trachea Gram Stain - Final Resulted 08/10/24 16:30 Trachea Respiratory Culture - Preliminary Resulted 08/04/24 06:48 Sputum Gram Stain - Final Complete 08/04/24 06:48 Respiratory Culture - Final Methicillin Resistant S.aureus Complete 08/02/24 01:04 Blood Blood Culture - Final NO GROWTH AFTER 5 DAYS OF INCUBATION. Complete 08/01/24 20:15 Urine - Catheterized Urine Culture - Final Complete Problem List/Assessment/Plan Problem List/Assessment/Plan Assessment/Plan Neurology Sedation -currently on fentanyl 200 micrograms/hour, midazolam 10 milligrams/hour Cardiology Acute on chronic systolic/diastolic heart failure -initial BNP was 40.62 -initial chest x-ray was showing was showing some pulmonary vascular congestion, could also be in the setting of COPD exacerbation but diaphragms were not completely flattened -ordered echocardiogram -start Lasix 20 mg q.d. -decrease methylprednisolone to 40 mg IV q.d. Respiratory Acute hypoxic respiratory failure likely due to CHF exacerbation -decrease methylprednisolone to 40 mg IV q.d. -start furosemide 20 mg IV q.d. -ordered echocardiogram Possible COPD exacerbation -methylprednisolone was decreased to 40 mg IV q.d. -discontinue micafungin at this time -continue vancomycin -continue albuterol and ipratropium med nebs septic shock due to mrsa pneumonia iv vanc Endocrinology Hypothyroidism -Continue levothyroxine 100mcg QAM Nephrology Creatinine is 0.57 and BUN 22 Gastroenterology Acute transaminitis -AST 18, ALT 71 -monitor liver enzymes Nutrition -discontinue Clinimix -start enteral nutrition, Jevity at 30 cc/hour DVT prophylaxis -Enoxaparin 40 mg q.d. SC morbid obesity Lines: -right internal jugular triple-lumen place on 07/31/2024 (which will be removed) -ordered PICC line Goals of care discussed with medicla team for >23min Critical time spent >81min Plan discussed with Dr. Schmid Plan discussed with: Other My Orders My Orders Orders - RADHA HERNADEZ Procedure Category Date Status Time Respiratory Culture KEELY 08/12/24 Logged W/ Gs 22:47 Blood Culture KEELY 08/12/24 In Process 22:47 Dietary Evaluation Review Comments: 1) If pt remain on vent, a TPN with clinimix plus a TPN per pharmacy to reach75% of her energy and protein needs, 2) If on TF, a combination of Clinimix plus jevity @30ml/hr will meet her goal 3) If pt can accept PO intake without swallowing difficulties after a ST eval, advance diet to cardiac 2 gNa, Lofat Lo Chol diet. 4) Monitor intake to meet 65-75% of her energy needs. Expected Outcomes/Goals: Gradual weight loss. Date of Service: Aug 13, 2024 Billing Provider: HUGH SCHMID MD Common Visit Codes: [id number] CARE 30-74 MIN, [id number] CARE-EACH +30MIN RADHA HERNADEZ RESIDENT Aug 13, 2024 08:47 HUGH SCHMID MD Aug 14, 2024 12:02
[2024-08-13] MEDS: methylPREDNISolone SOD SUCC 40 MG/ML VL IV SCH (10:00)
[2024-08-13] MEDS: FUROSEMIDE 20 MG/2 ML VIAL IV ONE (12:15)
--- NOTE | 2024-08-13 13:34 | DVHSR ---
APPROVED REPORT EXAM: LIMITED Two-dimensional and M-mode echocardiogram with Doppler and color Doppler. Blood Pressure: 100/50 mmHg INDICATION CHF RISK FACTORS Obesity: Height: 4' 11", Weight: 268 DIMENSIONS LVDd4.6 (3.8-5.7cm)LA (2D)4.3 (1.9-4.0cm)Aortic Root2.9 (2.0-3.7cm) LVDs3.3 (2.5-4.0cm)LA (MM) (1.9-4.0cm)Aortic Cusp Exc1.6 (1.5-2.0cm) EF (%) 55.0 (55-70%)Rt. Atrium4.3 (1.9-4.0cm)Asc. Aorta cm IVSd1.1 (0.7-1.1cm)RV (D) (1.8-2.4cm) PWd0.9 (0.7-1.1cm) Mitral Valve MitralMitral Stenosis E wave1.40m/sMV Mean GR.mmHg A wave1.30m/sMV Peak GR.mmHg E/A ratio1.12D MVAcm2 Aortic Valve Aortic ValveAortic Stenosis V11.00m/Ab Mean GR.6mmHg V21.60m/Ab Peak GR.11mmHg LVOT Diameter1.8 (1.8-2.4cm)Doppler AVA1.59cm2 Other Information Quality : Technically LimitedRhythm : Technically limited study due to body habitus, patient position and on vent. Conclusion Normal left ventricular size and dimension. Normal left ventricular systolic function estimated ejec tion fraction 55%. There is a grade1 diastolic dysfunction. Normal right ventricular size and dimension. Normal right ventricular systolic function Normal biatrial size and dimension. Normal aortic valve structure and function. Normal mitral valve structure and function. Normal tricuspid valve structure and function. The pulmonary valve is grossly normal. No pericardial effusion.
[2024-08-13 13:41] LABS: INR 1.14 (0.9-1.15); Partial Thromboplastin Time 24.2 SEC (24.5-34.5)
[2024-08-13] MEDS: LIDOCAINE 1% (LOCAL ANESTH.) PF 5ml SDV ID ONE (17:43)
[2024-08-13] MEDS: SODIUM CHLOR 0.9% PF (SALINE LOCK) 10ML VIAL/SYR IV SCH (22:00)
[2024-08-14] VITALS (111 sets, daily range): BP systolic 86–142; BP diastolic 36–77; PULSE 52–92; RESP 6–32; TEMP 98.2–99.9; O2SAT 91–100
--- NOTE | 2024-08-14 04:50 | DVH ---
CHEST RADIOGRAPH Indication:reevaluate lung christensen Technique: Single frontal view of the chest was obtained COMPARISON: XY CHEST PORTABLE on DOS: 08/12/24, XY CHEST PORTABLE on DOS: 08/10/24, XY CHEST PORTABLE on DOS: 08/10/24 FINDINGS: Lines and Tubes: Endotracheal tube, enteric catheter and right PICC in satisfactory position. Lungs: Multifocal airspace disease. Pleura: No effusion. No pneumothorax. Cardiomediastinal contours: Cardiomegaly Bones: Unremarkable IMPRESSION: Lines and tubes in satisfactory position. No significant interval change.
[2024-08-14 04:53] LABS: Basophils # (auto) 0 10 ^3/uL (0-0.2); Basophils % (auto) 0.1 % (0.0-2.0); Eosinophils # (auto) 0 10 ^3/uL (0-0.8); Eosinophils % (auto) 0.2 % (0.0-7.0); Hematocrit 37.7 % (36.0-46.0); Hemoglobin 12.3 g/dL (12.2-16.2); Lymphocytes # (auto) 0.7 10 ^3/uL (0.4-5.4); Lymphocytes % (auto) 7.4 % (10.0-50.0); Mean Corpuscular Hemoglobin 30.1 pg (28.0-32.0); Mean Corpuscular Hgb Conc. 32.7 g/dL (32.0-36.0); Mean Corpuscular Volume 91.8 fL (80.0-100.0); Monocytes # (auto) 1.2 10 ^3/uL (0-1.3); Monocytes % (auto) 12.7 % (0.0-12.0); Neutrophils # (auto) 7.7 10 ^3/uL (1.6-8.6); Neutrophils % (auto) 79.6 % (37.0-80.0); Nucleated Red Blood Cells % 0.1 %; Platelet Count (auto) 170 10^3/uL (140-450); White Blood Cell 9.6 10^3/uL (4.4-10.8)
[2024-08-14 05:01] LABS: Alanine Aminotransferase 75 U/L (7-40); Albumin 3.9 g/dL (3.2-4.8); Alkaline Phosphatase 61 U/L (46-116); Anion Gap 4 (5-15); Aspartate Aminotransferase 18 U/L (13-40); BUN/Creatinine Ratio 34.9 (10.0-20.0); Bilirubin, Total 0.5 mg/dL (0.2-1.0); Blood Urea Nitrogen 22 mg/dL (9-23); Calcium 9.1 mg/dL (8.7-10.4); Carbon Dioxide 35 mmol/L (20-31); Chloride 100 mmol/L (98-107); Glucose 82 mg/dL (74-106); Potassium 3.9 mmol/L (3.5-5.1); Sodium 139 mmol/L (136-145); Total Protein 5.8 g/dL (5.7-8.2)
--- NOTE | 2024-08-14 06:50 | DVHPNRES ---
Progress Note Date Seen: Aug 14, 2024 Resident Creating Document: RADHA HERNADEZ RESIDENT Has the PT tested + for MRSA If YES, has PT been informed?: No Medical Necessity Reason Pt with a Central, PICC or Fol: Yes The following are medically ne: Central Line, Santiago Catheter Reason for santiago catheter: Strict I&O Subjective Review of Systems This is a 59-year-old female with past medical history of COPD, CHF, dyslipidemia who presented to the ED due to shortness of breaths. The patient reported at that time that symptoms were progressively getting worse associated with productive cough and sputum production saturating in the 80s. In the ED initial labs were done, WBC was normal range, electrolytes were on range as well. Patient tested negative for COVID and flu. BNP came back on normal range at 40.6, troponins were negative and TSH was normal range. The patient was started on treatment for COPD exacerbation with IV antibiotics, steroids, albuterol/ipratropium med nebs. Patient was placed on BiPAP initially but kept deteriorating reason why was intubated and admitted to the ICU. Patient seen and examined at bedside. Patient had low-grade fever and was restarted on Levophed at low dose. Patient still sedated on midazolam 3 milligrams/hour and fentanyl 75 micrograms/hour currently on mechanical ventilation on the following parameters: VT 450, RR 18, FiO2 35%, peep five, saturating 97%. Echocardiogram showed an LVEF of 55% with grade 1 diastolic dysfunction, normal cardiac valves and no pericardial effusion. We will do CPAP trial to see breathing efforts. ABG this morning showed a pH of 7.40, pCO2 of 56.4, HC03 of 34.2 and a PaO2 of 98.2. We will start the patient on IV Zosyn. ROS unable to obtain due to patient's current status, intubation. Objective vital signs Vital Sign Date Time Temp Pulse Resp B/P (MAP) Pulse Ox O2 Delivery O2 Flow Rate FiO2 08/14/24 06:15 99.0 56 19 108/57 (74) 98 210.2 08/14/24 06:00 45 08/14/24 06:00 Mechanical Ventilator+ Total Intake and Output 08/13/24 08/13/24 08/14/24 15:00 23:00 07:00 Intake Total 357.375 ml 652.000 ml 713.875 ml Output Total 1050 ml 600 ml Balance 357.375 ml -398.000 ml 113.875 ml medications Current Medications Medications Dose Ordered Sig/Jorge Route Start Time Stop Time Status Last Admin Dose Admin Famotidine 20 mg Q12HR IV 08/01/24 10:00 08/13/24 22:23 20 MG Levothyroxine Sodium 100 mcg QAM@0600 PO 08/01/24 06:00 08/14/24 05:31 100 MCG Ondansetron HCl 4 mg Q4HP PRN IV 07/31/24 22:15 Docusate Sodium 100 mg BIDPRN PRN PO 07/31/24 22:15 Acetaminophen 650 mg Q6HP PRN PO 07/31/24 22:15 08/10/24 21:37 650 MG Nitroglycerin 0.4 mg Q5MINP PRN SL 07/31/24 22:45 Midazolam HCl 50 ml @ 1 mls/hr Q24H IV 08/01/24 13:30 08/14/24 03:36 9 MLS/HR Albuterol 2.5 mg Q4HR NEB 08/01/24 22:00 08/14/24 05:42 2.5 MG Ipratropium [place] 0.5 mg Q4HR NEB 08/01/24 22:00 08/14/24 05:42 0.5 MG Albuterol 10 mg Q2HPRN PRN NEB 08/01/24 21:30 08/09/24 11:16 10 MG Enoxaparin Sodium 40 mg DAILY SC 08/02/24 10:00 08/13/24 09:03 40 MG Vancomycin HCl 0 ml @ 0 mls/hr UD IV 08/03/24 08:45 Vancomycin HCl 250 ml @ 200 mls/hr Q14H IV 08/04/24 00:00 08/13/24 22:24 200 MLS/HR Norepinephrine Bitartrate 250 ml @ 1.875 mls/ hr Q24H IV 08/06/24 10:15 08/13/24 14:10 1.875 MLS/HR Diagnostic Test (Pha) 1 strip Q6HR 08/07/24 18:00 08/14/24 05:33 1 STRIP Insulin Human Regular FOLLOW SLIDING SCALE Q6HR SC 08/07/24 18:00 08/13/24 23:36 2 UNITS Dextrose 50 ml UD IV 08/07/24 18:00 Dexmedetomidine HCl 400 mcg/ Dextrose 100 ml @ 5.96 mls/hr [id number] IV 08/10/24 09:30 08/13/24 09:27 5.96 MLS/HR Fentanyl Citrate 250 ml @ 2.5 mls/hr Q24H IV 08/10/24 16:30 08/13/24 22:36 17.5 MLS/HR Enteral Nutritional Formula 1,000 ml 50ML/HR NG 08/12/24 15:15 08/12/24 20:31 1,000 ML Furosemide 20 mg DAILY IV 08/14/24 10:00 Sodium Chloride 10 ml QSHIFT@10,22 IV 08/13/24 22:00 08/13/24 22:00 10 ML Examination Physical Examination General: Patient sedated on mechanical ventilator: VT 450, RR 18, FiO2 35%, PEEP 5.0, saturating 97% Patient following commands. HEENT: Normocephalic, atraumatic, moist mucous membranes Respiratory/pulmonary: Clear lungs bilaterally, vesicular murmurs present in almost all lung christensen, no associated crackles or wheezes. Cardiovascular: Bradycardic regular heart sounds S1 and S2 with no associated murmurs. Abdomen: Abdomen nondistended, there is no pain to palpation in any of the abdominal quadrants, no palpable masses. Extremities: There is no peripheral edema present at the lower extremities. Peripheral Pulses: 3+ Radial (R). 3+ Radial (L). 3+ Dorsalis pedis (R). 3+ Dorsalis pedis(L) Skin: No rashes or pruritus, there is no sacral edema present at this time. Neurological: Sedated, RASS -2 laboratory and microbiology Laboratory Tests 08/14/24 04:33 Test 08/14/24 04:33 Range/Units Serum Glucose 82 74-106 mg/dL Microbiology Date/Time Source Procedure Growth Status 08/12/24 23:10 Blood Blood Culture - Preliminary NO GROWTH AFTER 24 HOURS OF INCUBATION. Resulted 08/10/24 16:30 Trachea Gram Stain - Final Complete 08/10/24 16:30 Respiratory Culture - Final Methicillin Resistant S.aureus Complete 08/04/24 06:48 Sputum Gram Stain - Final Complete 08/04/24 06:48 Respiratory Culture - Final Methicillin Resistant S.aureus Complete 08/01/24 20:15 Urine - Catheterized Urine Culture - Final Complete Problem List/Assessment/Plan Problem List/Assessment/Plan Assessment/Plan Neurology Sedation -currently on fentanyl 200 micrograms/hour, midazolam 10 milligrams/hour Cardiology Acute on chronic systolic/diastolic heart failure -initial BNP was 40.62 -initial chest x-ray was showing was showing some pulmonary vascular congestion, could also be in the setting of COPD exacerbation but diaphragms were not completely flattened -ordered echocardiogram -start Lasix 20 mg q.d. -Discontinue methylprednisolone Respiratory Acute hypoxic respiratory failure likely due to CHF exacerbation -decrease methylprednisolone to 40 mg IV q.d. -Continue furosemide 20 mg IV q.d. -ordered echocardiogram came back showing an LVEF of 55% with grade 1 diastolic dysfunction, normal cardiac valves no pericardial effusion Possible COPD exacerbation -Discontinue methylprednisolone -continue vancomycin -Start IV Zosyn -continue albuterol and ipratropium med nebs Endocrinology Hypothyroidism -Continue levothyroxine 100mcg QAM Nephrology Creatinine is 0.63 and BUN 22 Gastroenterology Acute transaminitis -AST 18, ALT 75 -monitor liver enzymes Nutrition -discontinue Clinimix -Start enteral nutrition, Jevity at 30 cc/hour DVT prophylaxis -Enoxaparin 40 mg q.d. SC Lines: -right internal jugular triple-lumen place on 07/31/2024 (which will be removed) -ordered PICC line Goals of care discussed with medical team for >23min Critical time spent >62 min Plan discussed with Dr. Schmid Plan discussed with: Other My Orders My Orders Orders - RADHA HERNADEZ RESIDENT Procedure Category Date Status Time Chest Xray 1 View XY 08/14/24 Resulted 04:00 Abg W/ Co-Ox RT 08/14/24 Logged 05:17 Dietary Evaluation Review Comments: 1) If pt remain on vent, a TPN with clinimix plus a TPN per pharmacy to reach75% of her energy and protein needs, 2) If on TF, a combination of Clinimix plus jevity @30ml/hr will meet her goal 3) If pt can accept PO intake without swallowing difficulties after a ST eval, advance diet to cardiac 2 gNa, Lofat Lo Chol diet. 4) Monitor intake to meet 65-75% of her energy needs. Expected Outcomes/Goals: Gradual weight loss. Date of Service: Aug 14, 2024 Billing Provider: HUGH SCHMID MD Common Visit Codes: [id number] CARE 30-74 MIN RADHA HERNADEZ RESIDENT Aug 14, 2024 06:50 HUGH SCHMID MD Aug 17, 2024 15:29
[2024-08-14 07:19] LABS: Base Excess 7.7 mmol/L (-2.0-3.0)
[2024-08-14] MEDS: FUROSEMIDE 20 MG/2 ML VIAL IV SCH (08:43)
[2024-08-14] MEDS: POTASSIUM CHL 20MEQ/100ML 100 ML IV ONE (10:58)
[2024-08-14 12:17] LABS: Base Excess 6.6 mmol/L (-2.0-3.0)
[2024-08-14] MEDS: PIPERACILLIN-TAZOB 3.375GM 100 ML IV ONE (14:22)
[2024-08-14] MEDS: LACTULOSE 20Gm/30ML SOLN NG SCH (21:51)
[2024-08-14] MEDS: PIPERACILLIN-TAZOB 3.375GM 100 ML IV SCH (21:52)
[2024-08-14] MEDS: DEXTROSE (50%) 50ML SYRG IV SCH (23:58)
[2024-08-15] VITALS (109 sets, daily range): BP systolic 85–191; BP diastolic 33–94; PULSE 57–100; RESP 10–30; TEMP 99.1–100.9; O2SAT 91–99
[2024-08-15 04:43] LABS: Basophils # (auto) 0 10 ^3/uL (0-0.2); Basophils % (auto) 0.2 % (0.0-2.0); Eosinophils # (auto) 0.1 10 ^3/uL (0-0.8); Eosinophils % (auto) 1.7 % (0.0-7.0); Hematocrit 35.2 % (36.0-46.0); Hemoglobin 11.4 g/dL (12.2-16.2); Lymphocytes # (auto) 0.8 10 ^3/uL (0.4-5.4); Lymphocytes % (auto) 12.8 % (10.0-50.0); Mean Corpuscular Hemoglobin 29.6 pg (28.0-32.0); Mean Corpuscular Hgb Conc. 32.4 g/dL (32.0-36.0); Mean Corpuscular Volume 91.4 fL (80.0-100.0); Monocytes # (auto) 0.6 10 ^3/uL (0-1.3); Monocytes % (auto) 10.3 % (0.0-12.0); Neutrophils # (auto) 4.6 10 ^3/uL (1.6-8.6); Nucleated Red Blood Cells % 0.1 %; Platelet Count (auto) 124 10^3/uL (140-450); Red Blood Cells 3.84 10^6/uL (4.0-5.20); Red Cell Distribution Width 14.4 % (11.8-14.3); White Blood Cell 6.2 10^3/uL (4.4-10.8)
[2024-08-15 05:04] LABS: Alanine Aminotransferase 68 U/L (7-40); Albumin 3.3 g/dL (3.2-4.8); Alkaline Phosphatase 55 U/L (46-116); Anion Gap 3 (5-15); Aspartate Aminotransferase 17 U/L (13-40); BUN/Creatinine Ratio 31.7 (10.0-20.0); Bilirubin, Total 0.6 mg/dL (0.2-1.0); Blood Urea Nitrogen 19 mg/dL (9-23); Carbon Dioxide 36 mmol/L (20-31); Chloride 100 mmol/L (98-107); GFR African American 132 mL/min; GFR Non-African American 109 mL/min; Glucose 99 mg/dL (74-106); Phosphorus 3.6 mg/dL (2.4-5.1); Sodium 139 mmol/L (136-145); Total Protein 5.1 g/dL (5.7-8.2)
[2024-08-15 05:20] LABS: Calcium 8.5 mg/dL (8.7-10.4)
--- NOTE | 2024-08-15 05:47 | DVH ---
CHEST RADIOGRAPH Indication:reevaluate Technique: Single frontal view of the chest was obtained COMPARISON: XY CHEST XRAY 1 VIEW on DOS: 08/14/24, XY CHEST PORTABLE on DOS: 08/12/24, XY CHEST DIEGO BLE on DOS: 08/10/24, XY CHEST XRAY 1 VIEW on DOS: 08/14/24 FINDINGS: Lines and Tubes: Endotracheal tube, enteric catheter and right PICC in satisfactory position. Lungs: Multifocal airspace disease. Pleura: No effusion. No pneumothorax. Cardiomediastinal contours: Cardiomegaly Bones: Unremarkable IMPRESSION: Lines and tubes in satisfactory position. No significant interval change.
[2024-08-15 06:48] LABS: Base Excess 6.7 mmol/L (-2.0-3.0)
--- NOTE | 2024-08-15 06:49 | DVHPNRES ---
Progress Note Date Seen: Aug 15, 2024 Resident Creating Document: RADHA HERNADEZ RESIDENT Has the PT tested + for MRSA If YES, has PT been informed?: No Medical Necessity Reason Pt with a Central, PICC or Fol: Yes The following are medically ne: PICC Line, Santiago Catheter Reason for santiago catheter: Strict I&O Subjective Review of Systems This is a 59-year-old female with past medical history of COPD, CHF, dyslipidemia who presented to the ED due to shortness of breaths. The patient reported at that time that symptoms were progressively getting worse associated with productive cough and sputum production saturating in the 80s. In the ED initial labs were done, WBC was normal range, electrolytes were on range as well. Patient tested negative for COVID and flu. BNP came back on normal range at 40.6, troponins were negative and TSH was normal range. The patient was started on treatment for COPD exacerbation with IV antibiotics, steroids, albuterol/ipratropium med nebs. Patient was placed on BiPAP initially but kept deteriorating reason why was intubated and admitted to the ICU. Patient seen and examined at bedside. Patient was off sedation this morning for CPAP trial which the patient did not tolerate at this time getting agitated and tachypneic we also noticed a rash appearing in the face and upper trunk that we associated with the initiation of IV Zosyn. We decided to stop Zosyn since it was the most recent added medication to her regimen and we will start the patient on levofloxacin IV. The patient is currently on mechanical ventilation on the following parameters: VT 450, RR 18, FiO2 35%, peep five, saturating 95%. We will try to do breathing trials every morning for preventing deconditioning. ROS unable to obtain due to patient's current status, intubation. Objective vital signs Vital Sign Date Time Temp Pulse Resp B/P (MAP) Pulse Ox O2 Delivery O2 Flow Rate FiO2 08/15/24 06:00 35 08/15/24 06:00 18 98 Mechanical Ventilator+ 08/15/24 06:00 77 08/15/24 05:28 118/51 (73) 08/15/24 02:00 99.5 211.1 Total Intake and Output 08/14/24 08/14/24 08/15/24 15:00 23:00 07:00 Intake Total 525.235 ml 460.5 ml 754.185 ml Output Total 1725 ml 550 ml Balance 525.235 ml -1264.5 ml 204.185 ml medications Current Medications Medications Dose Ordered Sig/Jorge Route Start Time Stop Time Status Last Admin Dose Admin Famotidine 20 mg Q12HR IV 08/01/24 10:00 08/14/24 21:51 20 MG Levothyroxine Sodium 100 mcg QAM@0600 PO 08/01/24 06:00 08/15/24 05:50 100 MCG Ondansetron HCl 4 mg Q4HP PRN IV 07/31/24 22:15 Docusate Sodium 100 mg BIDPRN PRN PO 07/31/24 22:15 Acetaminophen 650 mg Q6HP PRN PO 07/31/24 22:15 08/10/24 21:37 650 MG Nitroglycerin 0.4 mg Q5MINP PRN SL 07/31/24 22:45 Midazolam HCl 50 ml @ 1 mls/hr Q24H IV 08/01/24 13:30 08/15/24 04:30 5 MLS/HR Albuterol 2.5 mg Q4HR NEB 08/01/24 22:00 08/15/24 05:28 2.5 MG Ipratropium [place] 0.5 mg Q4HR NEB 08/01/24 22:00 08/15/24 05:29 0.5 MG Albuterol 10 mg Q2HPRN PRN NEB 08/01/24 21:30 08/09/24 11:16 10 MG Enoxaparin Sodium 40 mg DAILY SC 08/02/24 10:00 08/14/24 08:44 40 MG Vancomycin HCl 0 ml @ 0 mls/hr UD IV 08/03/24 08:45 Vancomycin HCl 250 ml @ 200 mls/hr Q14H IV 08/04/24 00:00 08/15/24 02:13 200 MLS/HR Norepinephrine Bitartrate 250 ml @ 1.875 mls/ hr Q24H IV 08/06/24 10:15 08/13/24 14:10 1.875 MLS/HR Diagnostic Test (Pha) 1 strip Q6HR 08/07/24 18:00 08/15/24 05:50 1 STRIP Insulin Human Regular FOLLOW SLIDING SCALE Q6HR SC 08/07/24 18:00 08/13/24 23:36 2 UNITS Dextrose 50 ml UD IV 08/07/24 18:00 08/15/24 05:52 50 ML Dexmedetomidine HCl 400 mcg/ Dextrose 100 ml @ 5.96 mls/hr [id number] IV 08/10/24 09:30 08/13/24 09:27 5.96 MLS/HR Fentanyl Citrate 250 ml @ 2.5 mls/hr Q24H IV 08/10/24 16:30 08/14/24 08:46 5 MLS/HR Enteral Nutritional Formula 1,000 ml 50ML/HR NG 08/12/24 15:15 08/12/24 20:31 1,000 ML Furosemide 20 mg DAILY IV 08/14/24 10:00 08/14/24 08:43 20 MG Sodium Chloride 10 ml QSHIFT@,22 IV 08/13/24 22:00 08/14/24 21:52 10 ML Piperacillin Sod/ Tazobactam Sod 100 ml @ 25 mls/hr Q8HR IV 08/14/24 22:00 08/14/24 21:52 25 MLS/HR Lactulose 30 ml BID NG 08/14/24 22:00 08/14/24 21:51 30 ML Examination Physical Examination General: Patient sedated on mechanical ventilator: VT 450, RR 18, FiO2 35%, PEEP 5.0, saturating 95% Patient following commands. HEENT: Normocephalic, atraumatic, moist mucous membranes Respiratory/pulmonary: Clear lungs bilaterally, no associated crackles or wheezes. Cardiovascular: regular heart sounds S1 and S2 with no associated murmurs. Abdomen: Abdomen nondistended, there is no pain to palpation in any of the abdominal quadrants, no palpable masses. Extremities: There is no peripheral edema present at the lower extremities. Peripheral Pulses: 3+ Radial (R). 3+ Radial (L). 3+ Dorsalis pedis (R). 3+ Dorsalis pedis(L) Skin: No rashes or pruritus, there is no sacral edema present at this time. Neurological: Sedated, RASS -3 laboratory and microbiology Laboratory Tests 08/15/24 03:24 Test 08/15/24 03:24 Range/Units Serum Glucose 99 74-106 mg/dL Microbiology Date/Time Source Procedure Growth Status 08/12/24 23:10 Blood Blood Culture - Preliminary NO GROWTH AFTER 48 HOURS OF INCUBATION. Resulted 08/10/24 16:30 Trachea Gram Stain - Final Complete 08/10/24 16:30 Respiratory Culture - Final Methicillin Resistant S.aureus Complete 08/04/24 06:48 Sputum Gram Stain - Final Complete 08/04/24 06:48 Respiratory Culture - Final Methicillin Resistant S.aureus Complete 08/01/24 20:15 Urine - Catheterized Urine Culture - Final Complete Problem List/Assessment/Plan Problem List/Assessment/Plan Assessment/Plan Neurology Sedation -currently on fentanyl 200 micrograms/hour, midazolam 10 milligrams/hour Cardiology Acute on chronic systolic/diastolic heart failure -initial BNP was 40.62 -initial chest x-ray was showing was showing some pulmonary vascular congestion, could also be in the setting of COPD exacerbation but diaphragms were not completely flattened -ordered echocardiogram -Continue Lasix 20 mg q.d. Respiratory Acute hypoxic respiratory failure likely due to CHF exacerbation -Continue furosemide 20 mg IV q.d. -ordered echocardiogram came back showing an LVEF of 55% with grade 1 diastolic dysfunction, normal cardiac valves no pericardial effusion Possible COPD exacerbation -continue vancomycin -Discontinue IV Zosyn due to possible allergy -Start levofloxacin 750mg IV -continue albuterol and ipratropium med nebs Septic shock due to MRSA pneumonia -Start levofloxacin 750mg IV -continue vancomycin -Ordered sputum cultures Endocrinology Hypothyroidism -Continue levothyroxine 100mcg QAM Nephrology Creatinine is 0.60 and BUN 19 Gastroenterology Acute transaminitis -AST 17, ALT 68 -monitor liver enzymes Nutrition -Continue enteral nutrition, Jevity at 30 cc/hour DVT prophylaxis -Enoxaparin 40 mg q.d. SC Lines: -right internal jugular triple-lumen place on 07/31/2024 (which will be removed) -ordered PICC line Goals of care discussed with medical team for >23min Critical time spent >61 min Plan discussed with Dr. Up Plan discussed with: Other My Orders My Orders Orders - RADHA HERNADEZ Procedure Category Date Status Time Cpap Trial For Am ORDERS 08/14/24 Transmitted 08:26 Abg W/ Co-Ox RT 08/14/24 Logged 11:00 Chest Xray 1 View XY 08/15/24 Resulted 04:00 Lactulose Oral PHA 08/14/24 In Process 22:00 Cpap/Sed Vacation Med ORDERS 08/14/24 Transmitted Weaning 08:00 Abg W/ Co-Ox RT 08/15/24 Logged 06:00 Respiratory Culture KEELY 08/15/24 Transmitted W/ Gs 06:47 Dietary Evaluation Review Comments: 1) If pt remain on vent, a TPN with clinimix plus a TPN per pharmacy to reach75% of her energy and protein needs, 2) If on TF, a combination of Clinimix plus jevity @30ml/hr will meet her goal 3) If pt can accept PO intake without swallowing difficulties after a ST eval, advance diet to cardiac 2 gNa, Lofat Lo Chol diet. 4) Monitor intake to meet 65-75% of her energy needs. Expected Outcomes/Goals: Gradual weight loss. Date of Service: Aug 15, 2024 Billing Provider: YONG UP MD Common Visit Codes: [id number] INP/OBS CARE(HIGH) RADHA HERNADEZ RESIDENT Aug 15, 2024 06:49 YONG UP MD Aug 17, 2024 22:28
[2024-08-15] MEDS: levoFLOXacin 750MG 150 ML IV ONE (16:10)
[2024-08-15] MEDS ORDERED: BUDE1AER6 IN (17:11)
[2024-08-15] MEDS ORDERED: CITA-73 PO (17:11)
[2024-08-16] VITALS (102 sets, daily range): BP systolic 83–155; BP diastolic 39–85; PULSE 59–93; RESP 12–27; TEMP 99–100.9; O2SAT 90–100
[2024-08-16 04:21] LABS: Basophils # (auto) 0 10 ^3/uL (0-0.2); Basophils % (auto) 0.2 % (0.0-2.0); Eosinophils # (auto) 0.2 10 ^3/uL (0-0.8); Hematocrit 35.9 % (36.0-46.0); Hemoglobin 11.8 g/dL (12.2-16.2); Lymphocytes # (auto) 0.4 10 ^3/uL (0.4-5.4); Lymphocytes % (auto) 4.4 % (10.0-50.0); Mean Corpuscular Hemoglobin 30.1 pg (28.0-32.0); Mean Corpuscular Hgb Conc. 32.8 g/dL (32.0-36.0); Monocytes # (auto) 0.8 10 ^3/uL (0-1.3); Monocytes % (auto) 9.5 % (0.0-12.0); Neutrophils % (auto) 83.9 % (37.0-80.0); Platelet Count (auto) 141 10^3/uL (140-450); Red Blood Cells 3.91 10^6/uL (4.0-5.20); Red Cell Distribution Width 14.1 % (11.8-14.3); White Blood Cell 8.3 10^3/uL (4.4-10.8)
[2024-08-16 04:40] LABS: Alanine Aminotransferase 55 U/L (7-40); Albumin 3.4 g/dL (3.2-4.8); Alkaline Phosphatase 60 U/L (46-116); Anion Gap 1 (5-15); Aspartate Aminotransferase 14 U/L (13-40); BUN/Creatinine Ratio 21.7 (10.0-20.0); Blood Urea Nitrogen 13 mg/dL (9-23); Calcium 8.6 mg/dL (8.7-10.4); Carbon Dioxide 38 mmol/L (20-31); Chloride 101 mmol/L (98-107); Glucose 125 mg/dL (74-106); Phosphorus 2.7 mg/dL (2.4-5.1); Potassium 3.3 mmol/L (3.5-5.1); Sodium 140 mmol/L (136-145)
[2024-08-16 04:41] LABS: Bilirubin, Total 0.7 mg/dL (0.2-1.0); Total Protein 5.3 g/dL (5.7-8.2)
--- NOTE | 2024-08-16 04:51 | DVH ---
EXAM: XY CHEST XRAY 1 VIEW Indication:reeval Technique: Single frontal view of the chest was obtained Comparison: XY CHEST XRAY 1 VIEW on DOS: 08/15/24, XY CHEST XRAY 1 VIEW on DOS: 08/14/24, XY CHEST PO RTABLE on DOS: 08/12/24, XY CHEST PORTABLE on DOS: 08/10/24, XY CHEST PORTABLE on DOS: 08/10/24, XY C HEST XRAY 1 VIEW on DOS: 08/15/24 FINDINGS: Patient is rotated which limits evaluation. Lines and Tubes: Enteric catheter and right PICC in satisfactory position. Interval removal of endotr acheal tube. Lungs: Multifocal airspace disease. Pleura: No effusion. Right costophrenic angle is collimated from field of view. No pneumothorax. Cardiomediastinal contours: Cardiomegaly Bones: Unremarkable IMPRESSION: Interval removal of endotracheal tube. Otherwise no significant change compared to prior exam allowing for differences in technique.
[2024-08-16] MEDS: POTASSIUM CHL 20MEQ/100ML 100 ML IV ONE (06:35)
[2024-08-16 08:27] LABS: Base Excess 9.4 mmol/L (-2.0-3.0)
--- NOTE | 2024-08-16 10:45 | DVHPN2 ---
Subjective Awake, off sedation, follows commands PH 7.4 on 35% and 5 of PEEP with a PO2 of 63 and pCO2 46 Reviewed: Care Plan, H&P, Labs, Medications, Previous Orders, Radiology Changes from previous H/P or p: Changes Eyes: No Pain, No Vision change, No Conjunctivae inflammation, No Eyelid inflammation, No Other, No Redness ENT: No Ear pain, No Ear discharge, No Nose pain, No Nose discharge, No Nose congestion, No Mouth pain, No Mouth swelling, No Throat pain, No Throat swelling, No Other Cardiovascular: No Chest Pain, No Palpitations, No Orthopnea, No Paroxysmal Noc. Dyspnea, No Edema, No Lt Headedness, No Other Respiratory: Cough, Shortness of breath, SOB with excertion, Other Gastrointestinal: No Nausea, No Vomiting, No Abdominal Pain, No Diarrhea, No Constipation, No Melena, No Hematochezia, No Other Genitourinary: No Dysuria, No Frequency, No Incontinence, No Hematuria, No Retention, No Other Musculoskeletal: No other, No neck pain, No shoulder pain, No arm pain, No back pain, No hand pain, No leg pain, No foot pain Skin: No Rash, No Lesions, No Jaundice, No Bruising, No Other Objective Vitals Vital Signs Date Time Temp Pulse Resp B/P (MAP) Pulse Ox O2 Delivery O2 Flow Rate FiO2 08/16/24 09:42 77 19 128/71 (90) 94 35 08/16/24 08:00 Mechanical Ventilator+ 08/16/24 06:45 99.0 210.2 Intake/Output Intake and Output 08/16/24 07:00 Intake Total 1666.515 ml Output Total 3951 ml Balance -2284.485 ml IV Total 906.515 ml Tube Feeding 760 ml Output Urine Total 3950 ml Stool Total 1 ml General Appearance: Alert, Other (Follows commands) Lungs: Other (Bilateral rhonchi) Cardiovascular: Regular rate, Normal S1, Normal S2, No murmurs Extremities: No edema Medications Current Medications Medications Dose Ordered Sig/Jorge Route Start Time Stop Time Status Last Admin Dose Admin Famotidine 20 mg Q12HR IV 08/01/24 10:00 08/16/24 00:19 20 MG Levothyroxine Sodium 100 mcg QAM@0600 PO 08/01/24 06:00 08/15/24 05:50 100 MCG Ondansetron HCl 4 mg Q4HP PRN IV 07/31/24 22:15 Docusate Sodium 100 mg BIDPRN PRN PO 07/31/24 22:15 Acetaminophen 650 mg Q6HP PRN PO 07/31/24 22:15 08/16/24 03:49 650 MG Nitroglycerin 0.4 mg Q5MINP PRN SL 07/31/24 22:45 Midazolam HCl 50 ml @ 1 mls/hr Q24H IV 08/01/24 13:30 08/15/24 04:30 5 MLS/HR Albuterol 2.5 mg Q4HR NEB 08/01/24 22:00 08/16/24 09:42 2.5 MG Ipratropium [place] 0.5 mg Q4HR NEB 08/01/24 22:00 08/16/24 09:42 0.5 MG Albuterol 10 mg Q2HPRN PRN NEB 08/01/24 21:30 08/09/24 11:16 10 MG Enoxaparin Sodium 40 mg DAILY SC 08/02/24 10:00 08/15/24 11:04 40 MG Vancomycin HCl 0 ml @ 0 mls/hr UD IV 08/03/24 08:45 Vancomycin HCl 250 ml @ 200 mls/hr Q14H IV 08/04/24 00:00 08/16/24 05:17 200 MLS/HR Norepinephrine Bitartrate 250 ml @ 1.875 mls/ hr Q24H IV 08/06/24 10:15 08/13/24 14:10 1.875 MLS/HR Diagnostic Test (Pha) 1 strip Q6HR 08/07/24 18:00 08/16/24 06:00 1 STRIP Insulin Human Regular FOLLOW SLIDING SCALE Q6HR SC 08/07/24 18:00 08/16/24 05:53 2 UNITS Dextrose 50 ml UD IV 08/07/24 18:00 08/15/24 05:52 50 ML Dexmedetomidine HCl 400 mcg/ Dextrose 100 ml @ 5.96 mls/hr [id number] IV 08/10/24 09:30 08/16/24 00:31 5.96 MLS/HR Fentanyl Citrate 250 ml @ 2.5 mls/hr Q24H IV 08/10/24 16:30 08/15/24 20:00 7.5 MLS/HR Enteral Nutritional Formula 1,000 ml 50ML/HR NG 08/12/24 15:15 08/12/24 20:31 1,000 ML Furosemide 20 mg DAILY IV 08/14/24 10:00 08/15/24 11:03 20 MG Sodium Chloride 10 ml QSHIFT@,22 IV 08/13/24 22:00 08/16/24 00:19 10 ML Lactulose 30 ml BID NG 08/14/24 22:00 08/16/24 00:19 30 ML Levofloxacin/ Dextrose 150 ml @ 100 mls/hr DAILY IV 08/16/24 10:00 Laboratory Results Laboratory Tests 08/16/24 03:48 Chemistry Test 08/16/24 03:48 Albumin 3.4 g/dL (3.2-4.8) Calcium Level 8.6 mg/dL (8.7-10.4) L Magnesium Level 2.0 mg/dL (1.6-2.6) Phosphorus Level 2.7 mg/dL (2.4-5.1) Total Protein 5.3 g/dL (5.7-8.2) L LFT Test 08/16/24 03:48 Alanine Aminotransferase (ALT) 55 U/L (7-40) H Alkaline Phosphatase 60 U/L (46-116) Aspartate Amino Transferase (AST) 14 U/L (13-40) Total Bilirubin 0.7 mg/dL (0.2-1.0) Urinalysis Test 07/31/24 17:27 Urine Color Colorless (Yellow) Urine Clarity Clear (Clear) Urine pH 6.5 (5.0-9.0) Urine Specific [place] 1.008 (1.001-1.035) Urine Protein Negative (Negative) Urine Ketones Negative (Negative) Urine Blood Negative /uL (Negative) Urine Nitrite Negative (Negative) Urine Bilirubin Negative (Negative) Urine Urobilinogen Normal mg/dL (Negative) Urine Leukocyte Esterase Negative /uL (Negative) Urine RBC 1 /hpf (0 - 4) Urine WBC <1 /hpf (0 - 5) Urine Squamous Epithelial Cells None seen /hpf (<5) Urine Bacteria None seen /hpf (None Seen) Urine Mucus Few (None Seen) Urine Glucose Normal mg/dL (Normal) Blood Gas Results Test 08/16/24 07:32 Arterial Blood pH 7.480 (7.350-7.450) FiO2 % 35.0 Microbiology Microbiology Date/Time Source Procedure Growth Status 08/12/24 23:10 Blood Blood Culture - Preliminary NO GROWTH AFTER 72 HOURS OF INCUBATION. Resulted 08/10/24 16:30 Trachea Gram Stain - Final Complete 08/10/24 16:30 Respiratory Culture - Final Methicillin Resistant S.aureus Complete 08/04/24 06:48 Sputum Gram Stain - Final Complete 08/04/24 06:48 Respiratory Culture - Final Methicillin Resistant S.aureus Complete 08/01/24 20:15 Urine - Catheterized Urine Culture - Final Complete Assessment/Plan Assessment/Plan Sepsis with septic shock MRSA pneumonia Acute hypoxic respiratory failure Hypothyroidism Acute transaminitis Acute on chronic diastolic heart failure COPD exacerbation Morbid obesity Lung atelectasis Dyslipidemia Hypokalemia PLAN: IV antibiotics vancomycin plus levofloxacin CPAP trial in progress Extubate Levothyroxine IV Lasix Lovenox Replace potassium Plan discussed with: Other My Orders Orders - YONG GOEL MD Procedure Category Date Status Time Levofloxacin 750mg PHA 08/16/24 In Process (Levaquin) 10:00 Date of Service: Aug 16, 2024 Billing Provider: YONG GOEL MD Common Visit Codes: [id number] INP/OBS CARE(HIGH) YONG GOEL MD Aug 16, 2024 10:45
[2024-08-16] MEDS: levoFLOXacin 750MG 150 ML IV SCH (11:12)
--- NOTE | 2024-08-16 15:38 | DVHPN2 ---
Progress Note - Dictate Date Seen: Aug 16, 2024 Has the PT tested + for MRSA If YES, has PT been informed?: No Medical Necessity Reason Pt with a Central, PICC or Fol: Yes The following are medically ne: PICC Line, Santiago Catheter Reason for santiago catheter: Strict I&O Subjective Patient seen and examined at bedside. Sedated, intubated on mechanical ventilator. Overnight events reviewed. vital signs Vital Sign Date Time Temp Pulse Resp B/P (MAP) Pulse Ox O2 Delivery O2 Flow Rate FiO2 08/16/24 14:00 68 08/16/24 14:00 18 98 Mechanical Ventilator+ 35 35 08/16/24 14:00 99.9 122/54 (76) 211.8 Total Intake and Output 08/15/24 08/15/24 08/16/24 15:00 23:00 07:00 Intake Total 66.710 ml 862.625 ml 737.18 ml Output Total 950 ml 1450 ml 1551 ml Balance -883.290 ml -587.375 ml -813.82 ml medications Current Medications Medications Dose Ordered Sig/Jorge Route Start Time Stop Time Status Last Admin Dose Admin Famotidine 20 mg Q12HR IV 08/01/24 10:00 08/16/24 11:13 20 MG Levothyroxine Sodium 100 mcg QAM@0600 PO 08/01/24 06:00 08/15/24 05:50 100 MCG Ondansetron HCl 4 mg Q4HP PRN IV 07/31/24 22:15 Docusate Sodium 100 mg BIDPRN PRN PO 07/31/24 22:15 Acetaminophen 650 mg Q6HP PRN PO 07/31/24 22:15 08/16/24 03:49 650 MG Nitroglycerin 0.4 mg Q5MINP PRN SL 07/31/24 22:45 Midazolam HCl 50 ml @ 1 mls/hr Q24H IV 08/01/24 13:30 08/16/24 12:18 2 MLS/HR Albuterol 2.5 mg Q4HR NEB 08/01/24 22:00 08/16/24 13:34 2.5 MG Ipratropium [place] 0.5 mg Q4HR NEB 08/01/24 22:00 08/16/24 13:34 0.5 MG Albuterol 10 mg Q2HPRN PRN NEB 08/01/24 21:30 08/09/24 11:16 10 MG Enoxaparin Sodium 40 mg DAILY SC 08/02/24 10:00 08/16/24 11:13 40 MG Vancomycin HCl 0 ml @ 0 mls/hr UD IV 08/03/24 08:45 Vancomycin HCl 250 ml @ 200 mls/hr Q14H IV 08/04/24 00:00 08/16/24 05:17 200 MLS/HR Norepinephrine Bitartrate 250 ml @ 1.875 mls/ hr Q24H IV 08/06/24 10:15 08/13/24 14:10 1.875 MLS/HR Diagnostic Test (Pha) 1 strip Q6HR 08/07/24 18:00 08/16/24 12:55 1 STRIP Insulin Human Regular FOLLOW SLIDING SCALE Q6HR SC 08/07/24 18:00 08/16/24 12:52 2 UNITS Dextrose 50 ml UD IV 08/07/24 18:00 08/15/24 05:52 50 ML Dexmedetomidine HCl 400 mcg/ Dextrose 100 ml @ 5.96 mls/hr [id number] IV 08/10/24 09:30 08/16/24 00:31 5.96 MLS/HR Fentanyl Citrate 250 ml @ 2.5 mls/hr Q24H IV 08/10/24 16:30 08/15/24 20:00 7.5 MLS/HR Enteral Nutritional Formula 1,000 ml 50ML/HR NG 08/12/24 15:15 08/12/24 20:31 1,000 ML Furosemide 20 mg DAILY IV 08/14/24 10:00 08/16/24 11:13 20 MG Sodium Chloride 10 ml QSHIFT@,22 IV 08/13/24 22:00 08/16/24 11:13 10 ML Lactulose 30 ml BID NG 08/14/24 22:00 08/16/24 11:13 30 ML Levofloxacin/ Dextrose 150 ml @ 100 mls/hr DAILY IV 08/16/24 10:00 08/16/24 11:12 100 MLS/HR objective Gen.: Patient lying in bed in medical ICU. Sedated, intubated on mechanical ventilator. Head: Normocephalic, atraumatic. Eyes: PERRLA. Ears: Normal external anatomy. Throat: Endotracheal tube and orogastric tube in place. Neck: Supple, trachea midline. Chest: Transmitted breath sounds bilaterally. Decreased air entry bilaterally. No wheezing. Bibasilar crackles. Cardiovascular: Positive S1, positive S2. Regular rate and rhythm. Abdomen: Positive bowel sounds in all 4 quadrants. Soft, nontender, nondistended. : Santiago in place. Normal external genitalia. Rectal: Deferred. Skin: Warm, dry. Intact. Extremities: 2+ radial pulses bilaterally. No lower extremity edema. Neuro: Sedated. laboratory and microbiology Laboratory Tests 08/16/24 03:48 Test 08/16/24 03:48 Range/Units Serum Glucose 125 H 74-106 mg/dL Assessment/Plan Impression: Acute on chronic hypercarbic respiratory failure On mechanical ventilator COPD exacerbation Morbid obesity, BMI 53.4 Atelectasis Events: On mechanical ventilator. On AC: RR 18, Vt 450mL, Peep 5, Fio2 35% On Fentanyl and Versed. Tolerated CPAP for approx 1-2 hours. Placed back on full support. Will continue to CPAP over the weekend. Monitor ins and outs Avoid volume overload. Continue antibiotics, vancomycin. WBC count within normal limits. Consider de-escalation of antibiotics as cultures negative. Continue IV steroids - taper frequency to discontinuation. No wheezing on exam. Continue bronchodilators. Clinimix for nutritional support Pt will be difficult to liberate from mech vent due to multiple factors; including severe COPD, chronic hypercarbic respiratory failure, VIC/OHS. Labs and imaging reviewed. Rest of plan as noted below. Plan: Bronchodilators. Antibiotics. F/u cultures. Blood cultures show no growth after 72 hours. Sputum grew MRSA IV steroids Monitor renal function Monitor electrolytes. Supplement as necessary. Monitor ins and outs. Maintain euvolemia. GI prophylaxis. Pepcid DVT prophylaxis. Prognosis: Poor given patient's multiple co-morbidities. Condition: Critical Rest of plan per hospitalist and other consultants. A total of 35 minutes of critical care time was spent reviewing the patient record, examining the patient, making a diagnostic and therapeutic plan, discussing this plan with the medical personnel, following up on diagnostic studies and following the patient for clinical stability excluding any and all procedures. At least 50% of this time was spent in direct, [id number] contact. Thank you, Dr Up, for allowing me to participate in this patient's care. Further recommendations will depend on the patient's clinical course. Please do not hesitate to contact me if you have any questions or concerns. This medical document was created using an electronic medical record system with Heavy dictation system. Although these documentations are being carefully reviewed, there may still be some phonetic and typographical changes. The errors are purely typographical, due to imperfection on the software program, and do not reflect any compromise in the patient's medical care. Dietary Evaluation Review Comments: 1) If pt remain on vent, a TPN with clinimix plus a TPN per pharmacy to reach75% of her energy and protein needs, 2) If on TF, a combination of Clinimix plus jevity @30ml/hr will meet her goal 3) If pt can accept PO intake without swallowing difficulties after a ST eval, advance diet to cardiac 2 gNa, Lofat Lo Chol diet. 4) Monitor intake to meet 65-75% of her energy needs. Expected Outcomes/Goals: Gradual weight loss. Plan discussed with: Other (TEE Edwards, RT, MD) Critical Care Time(min): 35 VIVIANE ARRIAGA MD Aug 16, 2024 15:38
[2024-08-17] VITALS (112 sets, daily range): BP systolic 81–179; BP diastolic 39–72; PULSE 59–99; RESP 7–27; TEMP 99.1–99.9; O2SAT 91–100
[2024-08-17 04:27] LABS: Chloride 100 mmol/L (98-107); Potassium 3.3 mmol/L (3.5-5.1); Sodium 139 mmol/L (136-145)
[2024-08-17 04:28] LABS: Anion Gap 2 (5-15); Calcium 8.8 mg/dL (8.7-10.4); Carbon Dioxide 37 mmol/L (20-31)
[2024-08-17 04:33] LABS: BUN/Creatinine Ratio 20.3 (10.0-20.0); Blood Urea Nitrogen 12 mg/dL (9-23); Glucose 79 mg/dL (74-106)
[2024-08-17] MEDS: POTASSIUM CHL 20MEQ/100ML 100 ML IV ONE ×2 (05:15→22:19)
[2024-08-17 07:42] LABS: Base Excess 10.2 mmol/L (-2.0-3.0)
[2024-08-17] MEDS: levoFLOXacin 250MG 50 ML IV SCH (10:42)
[2024-08-17] MEDS: levoFLOXacin 500MG 100 ML IV SCH (12:00)
--- NOTE | 2024-08-17 13:11 | DVHPN2 ---
Subjective She was not extubated yesterday CPAP is in progress again today Reviewed: Care Plan, H&P, Labs, Medications, Previous Orders, Radiology Changes from previous H/P or p: Changes Eyes: No Pain, No Vision change, No Conjunctivae inflammation, No Eyelid inflammation, No Other, No Redness ENT: No Ear pain, No Ear discharge, No Nose pain, No Nose discharge, No Nose congestion, No Mouth pain, No Mouth swelling, No Throat pain, No Throat swelling, No Other Cardiovascular: No Chest Pain, No Palpitations, No Orthopnea, No Paroxysmal Noc. Dyspnea, No Edema, No Lt Headedness, No Other Respiratory: Cough, Shortness of breath, SOB with excertion, Other Gastrointestinal: No Nausea, No Vomiting, No Abdominal Pain, No Diarrhea, No Constipation, No Melena, No Hematochezia, No Other Genitourinary: No Dysuria, No Frequency, No Incontinence, No Hematuria, No Retention, No Other Musculoskeletal: No other, No neck pain, No shoulder pain, No arm pain, No back pain, No hand pain, No leg pain, No foot pain Skin: No Rash, No Lesions, No Jaundice, No Bruising, No Other Objective Vitals Vital Signs Date Time Temp Pulse Resp B/P (MAP) Pulse Ox O2 Delivery O2 Flow Rate FiO2 08/17/24 12:43 65 14 100/48 (65) 96 35 08/17/24 12:15 99.5 211.1 08/17/24 11:50 Mechanical Ventilator+ Intake/Output Intake and Output 08/17/24 07:00 Intake Total 1354.005 ml Output Total 2085 ml Balance -730.995 ml Intake Oral 100 ml IV Total 908.005 ml Tube Feeding 346 ml Output Urine Total 2085 ml # Bowel Movements 1 General Appearance: Alert, Other (Follows commands) Lungs: Other (Bilateral rhonchi) Cardiovascular: Regular rate, Normal S1, Normal S2, No murmurs Extremities: No edema Medications Current Medications Medications Dose Ordered Sig/Jorge Route Start Time Stop Time Status Last Admin Dose Admin Famotidine 20 mg Q12HR IV 08/01/24 10:00 08/17/24 10:03 20 MG Levothyroxine Sodium 100 mcg QAM@0600 PO 08/01/24 06:00 08/15/24 05:50 100 MCG Ondansetron HCl 4 mg Q4HP PRN IV 07/31/24 22:15 Docusate Sodium 100 mg BIDPRN PRN PO 07/31/24 22:15 Acetaminophen 650 mg Q6HP PRN PO 07/31/24 22:15 08/16/24 03:49 650 MG Nitroglycerin 0.4 mg Q5MINP PRN SL 07/31/24 22:45 Midazolam HCl 50 ml @ 1 mls/hr Q24H IV 08/01/24 13:30 08/16/24 22:34 4 MLS/HR Albuterol 2.5 mg Q4HR NEB 08/01/24 22:00 08/17/24 10:17 2.5 MG Ipratropium [place] 0.5 mg Q4HR NEB 08/01/24 22:00 08/17/24 10:17 0.5 MG Albuterol 10 mg Q2HPRN PRN NEB 08/01/24 21:30 08/09/24 11:16 10 MG Enoxaparin Sodium 40 mg DAILY SC 08/02/24 10:00 08/17/24 10:04 40 MG Vancomycin HCl 0 ml @ 0 mls/hr UD IV 08/03/24 08:45 Vancomycin HCl 250 ml @ 200 mls/hr Q14H IV 08/04/24 00:00 08/16/24 21:23 200 MLS/HR Norepinephrine Bitartrate 250 ml @ 1.875 mls/ hr Q24H IV 08/06/24 10:15 08/17/24 07:00 1.875 MLS/HR Diagnostic Test (Pha) 1 strip Q6HR 08/07/24 18:00 08/17/24 12:14 1 STRIP Insulin Human Regular FOLLOW SLIDING SCALE Q6HR SC 08/07/24 18:00 08/16/24 12:52 2 UNITS Dextrose 50 ml UD IV 08/07/24 18:00 08/15/24 05:52 50 ML Dexmedetomidine HCl 400 mcg/ Dextrose 100 ml @ 5.96 mls/hr [id number] IV 08/10/24 09:30 08/17/24 05:56 5.96 MLS/HR Fentanyl Citrate 250 ml @ 2.5 mls/hr Q24H IV 08/10/24 16:30 08/16/24 18:23 17.5 MLS/HR Enteral Nutritional Formula 1,000 ml 50ML/HR NG 08/12/24 15:15 08/12/24 20:31 1,000 ML Furosemide 20 mg DAILY IV 08/14/24 10:00 08/17/24 10:03 20 MG Sodium Chloride 10 ml QSHIFT@10,22 IV 08/13/24 22:00 08/17/24 10:04 10 ML Lactulose 30 ml BID NG 08/14/24 22:00 08/16/24 21:23 30 ML Levofloxacin 50 ml @ 50 mls/hr DAILY IV 08/17/24 10:00 08/17/24 10:42 50 MLS/HR Levofloxacin/ Dextrose 100 ml @ 100 mls/hr DAILY IV 08/17/24 10:00 08/17/24 12:00 100 MLS/HR Laboratory Results Laboratory Tests 08/16/24 03:48 08/17/24 03:49 Chemistry Test 08/17/24 03:49 Calcium Level 8.8 mg/dL (8.7-10.4) Magnesium Level 2.0 mg/dL (1.6-2.6) Urinalysis Test 07/31/24 17:27 Urine Color Colorless (Yellow) Urine Clarity Clear (Clear) Urine pH 6.5 (5.0-9.0) Urine Specific [place] 1.008 (1.001-1.035) Urine Protein Negative (Negative) Urine Ketones Negative (Negative) Urine Blood Negative /uL (Negative) Urine Nitrite Negative (Negative) Urine Bilirubin Negative (Negative) Urine Urobilinogen Normal mg/dL (Negative) Urine Leukocyte Esterase Negative /uL (Negative) Urine RBC 1 /hpf (0 - 4) Urine WBC <1 /hpf (0 - 5) Urine Squamous Epithelial Cells None seen /hpf (<5) Urine Bacteria None seen /hpf (None Seen) Urine Mucus Few (None Seen) Urine Glucose Normal mg/dL (Normal) Blood Gas Results Test 08/17/24 07:35 Arterial Blood pH 7.459 (7.350-7.450) FiO2 % 35.0 Microbiology Microbiology Date/Time Source Procedure Growth Status 08/12/24 23:10 Blood Blood Culture - Preliminary NO GROWTH AFTER 72 HOURS OF INCUBATION. Resulted 08/10/24 16:30 Trachea Gram Stain - Final Complete 08/10/24 16:30 Respiratory Culture - Final Methicillin Resistant S.aureus Complete 08/04/24 06:48 Sputum Gram Stain - Final Complete 08/04/24 06:48 Respiratory Culture - Final Methicillin Resistant S.aureus Complete 08/01/24 20:15 Urine - Catheterized Urine Culture - Final Complete Assessment/Plan Assessment/Plan Sepsis with septic shock MRSA pneumonia Acute hypoxic respiratory failure Hypothyroidism Acute transaminitis Acute on chronic diastolic heart failure COPD exacerbation Morbid obesity Lung atelectasis Dyslipidemia Hypokalemia PLAN: 08/16/2024: IV antibiotics vancomycin plus levofloxacin CPAP trial in progress Extubate Levothyroxine IV Lasix Lovenox Replace potassium 08/17/2024: CPAP trial again today Extubate if tolerated IV antibiotics vancomycin and levofloxacin Give more potassium Full code Plan discussed with: Other My Orders Orders - YONG GOEL MD Procedure Category Date Status Time Levofloxacin 250mg PHA 08/17/24 In Process (Levaquin 250mg) 10:00 Levofloxacin 500mg PHA 08/17/24 In Process (Levaquin 500mg/ 100m 10:00 Date of Service: Aug 17, 2024 Billing Provider: YONG GOEL MD Common Visit Codes: [id number] INP/OBS CARE(HIGH) YONG GOEL MD Aug 17, 2024 13:11
[2024-08-17 14:06] LABS: Base Excess 11.2 mmol/L (-2.0-3.0)
--- NOTE | 2024-08-17 23:05 | DVHPN2 ---
Progress Note - Dictate Date Seen: Aug 17, 2024 Has the PT tested + for MRSA If YES, has PT been informed?: No Medical Necessity Reason Pt with a Central, PICC or Fol: Yes The following are medically ne: PICC Line, Santiago Catheter Reason for santiago catheter: Strict I&O Subjective Patient seen and examined at bedside. Sedated, intubated on mechanical ventilator. Overnight events reviewed. vital signs Vital Sign Date Time Temp Pulse Resp B/P (MAP) Pulse Ox O2 Delivery O2 Flow Rate FiO2 08/17/24 22:25 75 18 120/58 (78) 97 35 08/17/24 18:07 Mechanical Ventilator 08/17/24 17:00 99.9 99.9 Total Intake and Output 08/16/24 08/16/24 08/17/24 15:00 23:00 07:00 Intake Total 201.000 ml 600.500 ml 552.505 ml Output Total 1775 ml 310 ml Balance 201.000 ml -1174.500 ml 242.505 ml medications Current Medications Medications Dose Ordered Sig/Jorge Route Start Time Stop Time Status Last Admin Dose Admin Famotidine 20 mg Q12HR IV 08/01/24 10:00 08/17/24 22:19 20 MG Levothyroxine Sodium 100 mcg QAM@0600 PO 08/01/24 06:00 08/15/24 05:50 100 MCG Ondansetron HCl 4 mg Q4HP PRN IV 07/31/24 22:15 Docusate Sodium 100 mg BIDPRN PRN PO 07/31/24 22:15 Acetaminophen 650 mg Q6HP PRN PO 07/31/24 22:15 08/16/24 03:49 650 MG Nitroglycerin 0.4 mg Q5MINP PRN SL 07/31/24 22:45 Midazolam HCl 50 ml @ 1 mls/hr Q24H IV 08/01/24 13:30 08/17/24 15:22 1 MLS/HR Albuterol 2.5 mg Q4HR NEB 08/01/24 22:00 08/17/24 22:24 2.5 MG Ipratropium [place] 0.5 mg Q4HR NEB 08/01/24 22:00 08/17/24 22:24 0.5 MG Albuterol 10 mg Q2HPRN PRN NEB 08/01/24 21:30 08/09/24 11:16 10 MG Enoxaparin Sodium 40 mg DAILY SC 08/02/24 10:00 08/17/24 10:04 40 MG Vancomycin HCl 0 ml @ 0 mls/hr UD IV 08/03/24 08:45 Vancomycin HCl 250 ml @ 200 mls/hr Q14H IV 08/04/24 00:00 08/17/24 13:33 200 MLS/HR Norepinephrine Bitartrate 250 ml @ 1.875 mls/ hr Q24H IV 08/06/24 10:15 08/17/24 07:00 1.875 MLS/HR Diagnostic Test (Pha) 1 strip Q6HR 08/07/24 18:00 08/17/24 17:28 1 STRIP Insulin Human Regular FOLLOW SLIDING SCALE Q6HR SC 08/07/24 18:00 08/16/24 12:52 2 UNITS Dextrose 50 ml UD IV 08/07/24 18:00 08/15/24 05:52 50 ML Dexmedetomidine HCl 400 mcg/ Dextrose 100 ml @ 5.96 mls/hr [id number] IV 08/10/24 09:30 08/17/24 05:56 5.96 MLS/HR Fentanyl Citrate 250 ml @ 2.5 mls/hr Q24H IV 08/10/24 16:30 08/17/24 19:40 7.5 MLS/HR Enteral Nutritional Formula 1,000 ml 50ML/HR NG 08/12/24 15:15 08/12/24 20:31 1,000 ML Furosemide 20 mg DAILY IV 08/14/24 10:00 08/17/24 10:03 20 MG Sodium Chloride 10 ml QSHIFT@10,22 IV 08/13/24 22:00 08/17/24 22:19 10 ML Lactulose 30 ml BID NG 08/14/24 22:00 08/17/24 22:19 30 ML Levofloxacin 50 ml @ 50 mls/hr DAILY IV 08/17/24 10:00 08/17/24 10:42 50 MLS/HR Levofloxacin/ Dextrose 100 ml @ 100 mls/hr DAILY IV 08/17/24 10:00 08/17/24 12:00 100 MLS/HR objective Gen.: Patient lying in bed in medical ICU. Sedated, intubated on mechanical ventilator. Head: Normocephalic, atraumatic. Eyes: PERRLA. Ears: Normal external anatomy. Throat: Endotracheal tube and orogastric tube in place. Neck: Supple, trachea midline. Chest: Transmitted breath sounds bilaterally. Decreased air entry bilaterally. No wheezing. Bibasilar crackles. Cardiovascular: Positive S1, positive S2. Regular rate and rhythm. Abdomen: Positive bowel sounds in all 4 quadrants. Soft, nontender, nondistended. : Santiago in place. Normal external genitalia. Rectal: Deferred. Skin: Warm, dry. Intact. Extremities: 2+ radial pulses bilaterally. No lower extremity edema. Neuro: Sedated. laboratory and microbiology Laboratory Tests 08/17/24 03:49 08/16/24 03:48 Test 08/17/24 03:49 Range/Units Serum Glucose 79 74-106 mg/dL Assessment/Plan Impression: Acute on chronic hypercarbic respiratory failure On mechanical ventilator COPD exacerbation Morbid obesity, BMI 53.4 Atelectasis Events: On mechanical ventilator. On AC: RR 18, Vt 450mL, Peep 5, Fio2 35% On Fentanyl and Versed. On pressors for hemodynamic support Levophed 1 mcg/min Titrate to keep mean arterial pressure greater than 65 mmHg. Monitor ins and outs Avoid volume overload. Continue antibiotics, vancomycin. WBC count within normal limits. Consider de-escalation of antibiotics as cultures negative. Continue IV steroids - taper frequency to discontinuation. Continue bronchodilators. Clinimix for nutritional support Pt will be difficult to liberate from mech vent due to multiple factors; including severe COPD, chronic hypercarbic respiratory failure, VIC/OHS. Tolerated CPAP yesterday for approx 1-2 hours. Placed back on full support. Will continue to trial CPAP over the weekend Labs and imaging reviewed. Rest of plan as noted below. Plan: On mechanical ventilator. On AC: RR 18, Vt 450mL, Peep 5, Fio2 35% Bronchodilators. Antibiotics. F/u cultures. Blood cultures show no growth after 72 hours. Sputum grew MRSA IV steroids On pressors for hemodynamic support Titrate to keep mean arterial pressure greater than 65 mmHg. Monitor renal function Monitor electrolytes. Supplement as necessary. Monitor ins and outs. Maintain euvolemia. GI prophylaxis. Pepcid DVT prophylaxis. Prognosis: Poor given patient's multiple co-morbidities. Condition: Critical Rest of plan per hospitalist and other consultants. A total of 35 minutes of critical care time was spent reviewing the patient record, examining the patient, making a diagnostic and therapeutic plan, discussing this plan with the medical personnel, following up on diagnostic studies and following the patient for clinical stability excluding any and all procedures. At least 50% of this time was spent in direct, [id number] contact. Thank you, Dr Up, for allowing me to participate in this patient's care. Further recommendations will depend on the patient's clinical course. Please do not hesitate to contact me if you have any questions or concerns. This medical document was created using an electronic medical record system with [employer] dictation system. Although these documentations are being carefully reviewed, there may still be some phonetic and typographical changes. The errors are purely typographical, due to imperfection on the software program, and do not reflect any compromise in the patient's medical care. Dietary Evaluation Review Comments: 1) If pt remain on vent, a TPN with clinimix plus a TPN per pharmacy to reach75% of her energy and protein needs, 2) If on TF, a combination of Clinimix plus jevity @30ml/hr will meet her goal 3) If pt can accept PO intake without swallowing difficulties after a ST eval, advance diet to cardiac 2 gNa, Lofat Lo Chol diet. 4) Monitor intake to meet 65-75% of her energy needs. Expected Outcomes/Goals: Gradual weight loss. Plan discussed with: Other (RN) VIVIANE ARRIAGA MD Aug 17, 2024 23:05
[2024-08-18] VITALS (107 sets, daily range): BP systolic 90–163; BP diastolic 46–84; PULSE 61–112; RESP 10–25; TEMP 98.8–100.6; O2SAT 87–100
[2024-08-18 04:45] LABS: Alanine Aminotransferase 36 U/L (7-40); Albumin 3.4 g/dL (3.2-4.8); Alkaline Phosphatase 56 U/L (46-116); Anion Gap 3 (5-15); Aspartate Aminotransferase 11 U/L (13-40); BUN/Creatinine Ratio 14.5 (10.0-20.0); Bilirubin, Total 0.9 mg/dL (0.2-1.0); Blood Urea Nitrogen 8 mg/dL (9-23); Calcium 8.5 mg/dL (8.7-10.4); Carbon Dioxide 33 mmol/L (20-31); Chloride 100 mmol/L (98-107); Glucose 85 mg/dL (74-106); Magnesium 1.7 mg/dL (1.6-2.6); Potassium 3.5 mmol/L (3.5-5.1); Sodium 136 mmol/L (136-145); Total Protein 5.4 g/dL (5.7-8.2)
--- NOTE | 2024-08-18 05:45 | DVH ---
CHEST RADIOGRAPH Indication:INTUBATED Technique: Single frontal view of the chest was obtained Comparison: XY CHEST XRAY 1 VIEW on DOS: 08/16/24 FINDINGS: Lines and Tubes: The endotracheal tube terminates 4.8 cm above the ale. Right upper extremity PICC terminates in the superior vena cava. The enteric tube courses below the left hemidiaphragm and the tip extends outside the field of view. Lungs: Bilateral airspace disease is similar to prior study. Pleura: No effusion. No pneumothorax. Cardiomediastinal contours: Unremarkable Bones: No acute osseous abnormality. IMPRESSION: 1. Stable appearance of the support lines and tubes. 2. No significant change in bilateral airspace disease.
[2024-08-18 08:45] LABS: Base Excess 7.8 mmol/L (-2.0-3.0)
[2024-08-18 10:00] LABS: Basophils # (auto) 0 10 ^3/uL (0-0.2); Basophils % (auto) 0.4 % (0.0-2.0); Eosinophils # (auto) 0.3 10 ^3/uL (0-0.8); Eosinophils % (auto) 4.8 % (0.0-7.0); Hematocrit 31.5 % (36.0-46.0); Hemoglobin 10.3 g/dL (12.2-16.2); Lymphocytes # (auto) 0.6 10 ^3/uL (0.4-5.4); Lymphocytes % (auto) 11.6 % (10.0-50.0); Mean Corpuscular Hemoglobin 30.3 pg (28.0-32.0); Mean Corpuscular Hgb Conc. 32.7 g/dL (32.0-36.0); Mean Corpuscular Volume 92.5 fL (80.0-100.0); Monocytes # (auto) 0.6 10 ^3/uL (0-1.3); Monocytes % (auto) 11.2 % (0.0-12.0); Platelet Count (auto) 128 10^3/uL (140-450); Red Blood Cells 3.41 10^6/uL (4.0-5.20); Red Cell Distribution Width 14.6 % (11.8-14.3); White Blood Cell 5.5 10^3/uL (4.4-10.8)
[2024-08-18 10:13] LABS: Chloride 99 mmol/L (98-107); Potassium 3.8 mmol/L (3.5-5.1); Sodium 134 mmol/L (136-145)
[2024-08-18 10:14] LABS: Anion Gap 2 (5-15); Carbon Dioxide 33 mmol/L (20-31)
[2024-08-18 10:15] LABS: Calcium 8.8 mg/dL (8.7-10.4)
[2024-08-18 10:19] LABS: BUN/Creatinine Ratio 10.5 (10.0-20.0); Blood Urea Nitrogen 6 mg/dL (9-23); Glucose 89 mg/dL (74-106)
[2024-08-18] MEDS: methylPREDNISolone SOD SUCC 125 MG/2 ML VL IV ONE (12:50)
[2024-08-18] MEDS: FUROSEMIDE 20 MG/2 ML VIAL IV ONE (12:50)
[2024-08-18 13:56] LABS: Base Excess 7.9 mmol/L (-2.0-3.0)
--- NOTE | 2024-08-18 17:15 | DVHPNRES ---
Progress Note Date Seen: Aug 18, 2024 Resident Creating Document: ABDIAZIZ ACOSTA RESIDENT Has the PT tested + for MRSA If YES, has PT been informed?: No Medical Necessity Reason Pt with a Central, PICC or Fol: Yes The following are medically ne: PICC Line, Santiago Catheter Reason for santiago catheter: Strict I&O Subjective Review of Systems A 59y old female with PMHx: COPD, CHF, Hyperlipidiemia, obesity, hypothyroidism, smoker, sleep apnea Home meds: albuterol, aripiprazole, atorvastatin, brezti, celebrez, citalopram, furosemide 40 mg, HCTZ, levothyroxine, lisinopril Patient came to the ED for SOB on 07/31/2024, BiPAP started 08/01/2024: Intubation, Zosyn was started MRSA in sputum 08/02/2024: influenza and covid negative, levophed was started 08/03/2024: vancomycin was started 08/03/2024: micafungin was started 08/04/2024: MRSA sputum 08/07/2024: clinimax was started 08/09/2024: cpap trial 08/10/2024: extubation 08/10/2024: MRSA in sputum 08/11/2024: reintubation 08/12/2024: blood culture negative 08/13/2024: micafungin was stopped, ECHO EF 55%, start lasix 08/14/2024: zosyn was stopped: allergic reaction, start levoquin 08/16/2024: cpap trial: tolerate 1-2 h 08/17/2024: cpap trial 08/18/2024: failed cpap trial Ventilator settings: VT 450 PEEP 5 RR 18 FIO2 35% ABG: PH 7.4 PO2 76.8 PCO2 56.7 HCO3 34.3 X ray: bilateral airspace disease Patient is seen and examined at bedside, no acute complaints today, no events during the night, patient failed CPAP trial today RXS: unable to obtain Objective vital signs Vital Sign Date Time Temp Pulse Resp B/P (MAP) Pulse Ox O2 Delivery O2 Flow Rate FiO2 08/18/24 15:53 66 18 114/67 (07) 93 35 08/18/24 14:00 Mechanical Ventilator+ 08/18/24 06:30 99.5 211.1 Total Intake and Output 08/17/24 08/17/24 08/18/24 15:00 23:00 07:00 Intake Total 200.5800 ml 175.750 ml 758.235 ml Output Total 100 ml 400 ml 1500 ml Balance 100.5800 ml -224.250 ml -741.765 ml medications Current Medications Medications Dose Ordered Sig/Jorge Route Start Time Stop Time Status Last Admin Dose Admin Famotidine 20 mg Q12HR IV 08/01/24 10:00 08/18/24 09:07 20 MG Levothyroxine Sodium 100 mcg QAM@0600 PO 08/01/24 06:00 08/15/24 05:50 100 MCG Ondansetron HCl 4 mg Q4HP PRN IV 07/31/24 22:15 Docusate Sodium 100 mg BIDPRN PRN PO 07/31/24 22:15 Acetaminophen 650 mg Q6HP PRN PO 07/31/24 22:15 08/18/24 02:18 650 MG Nitroglycerin 0.4 mg Q5MINP PRN SL 07/31/24 22:45 Midazolam HCl 50 ml @ 1 mls/hr Q24H IV 08/01/24 13:30 08/17/24 15:22 1 MLS/HR Albuterol 2.5 mg Q4HR NEB 08/01/24 22:00 08/18/24 13:47 2.5 MG Ipratropium [place] 0.5 mg Q4HR NEB 08/01/24 22:00 08/18/24 13:47 0.5 MG Albuterol 10 mg Q2HPRN PRN NEB 08/01/24 21:30 08/09/24 11:16 10 MG Enoxaparin Sodium 40 mg DAILY SC 08/02/24 10:00 08/18/24 09:17 40 MG Vancomycin HCl 0 ml @ 0 mls/hr UD IV 08/03/24 08:45 Vancomycin HCl 250 ml @ 200 mls/hr Q14H IV 08/04/24 00:00 08/18/24 15:01 200 MLS/HR Norepinephrine Bitartrate 250 ml @ 1.875 mls/ hr Q24H IV 08/06/24 10:15 08/17/24 07:00 1.875 MLS/HR Diagnostic Test (Pha) 1 strip Q6HR 08/07/24 18:00 08/18/24 12:00 1 STRIP Insulin Human Regular FOLLOW SLIDING SCALE Q6HR SC 08/07/24 18:00 08/16/24 12:52 2 UNITS Dextrose 50 ml UD IV 08/07/24 18:00 08/15/24 05:52 50 ML Dexmedetomidine HCl 400 mcg/ Dextrose 100 ml @ 5.96 mls/hr [id number] IV 08/10/24 09:30 08/18/24 04:00 5.96 MLS/HR Fentanyl Citrate 250 ml @ 2.5 mls/hr Q24H IV 08/10/24 16:30 08/17/24 19:40 7.5 MLS/HR Enteral Nutritional Formula 1,000 ml 50ML/HR NG 08/12/24 15:15 08/12/24 20:31 1,000 ML Furosemide 20 mg DAILY IV 08/14/24 10:00 08/18/24 09:17 20 MG Sodium Chloride 10 ml QSHIFT@ IV 08/13/24 22:00 08/18/24 09:18 10 ML Lactulose 30 ml BID NG 08/14/24 22:00 08/17/24 22:19 30 ML Levofloxacin 50 ml @ 50 mls/hr DAILY IV 08/17/24 10:00 08/18/24 09:18 50 MLS/HR Levofloxacin/ Dextrose 100 ml @ 100 mls/hr DAILY IV 08/17/24 10:00 08/18/24 09:35 100 MLS/HR Methylprednisolone Sodium Succinate 40 mg BID IV 08/18/24 22:00 Examination Patient is on sedation, RASS -3 Head: Normocephalic, atraumatic. Eyes: PERRLA. Ears: Normal external anatomy. Throat: Endotracheal tube Neck: Supple, trachea midline. Chest: Bibasilar crackles. Cardiovascular: Positive S1, positive S2. Regular rate and rhythm. Abdomen: Soft, nontender, nondistended. : Santiago in place. Skin: Warm, dry. Intact. Extremities: edema 4 extremities laboratory and microbiology Laboratory Tests 08/18/24 09:30 Test 08/18/24 09:30 Range/Units Serum Glucose 89 74-106 mg/dL Microbiology Date/Time Source Procedure Growth Status 08/12/24 23:10 Blood Blood Culture - Final NO GROWTH AFTER 5 DAYS OF INCUBATION. Complete 08/10/24 16:30 Trachea Gram Stain - Final Complete 08/10/24 16:30 Respiratory Culture - Final Methicillin Resistant S.aureus Complete 08/04/24 06:48 Sputum Gram Stain - Final Complete 08/04/24 06:48 Respiratory Culture - Final Methicillin Resistant S.aureus Complete 08/01/24 20:15 Urine - Catheterized Urine Culture - Final Complete Problem List/Assessment/Plan Problem List/Assessment/Plan Neurology Sedation -currently on fentanyl 175 micrograms/hour, midazolam 2 milligrams/hour Cardiology #Acute on chronic diastolic heart failure ECHO LVEF of 55% with grade 1 diastolic dysfunction, normal cardiac valves no pericardial effusion Xray today showed vascular congestion Lasix 20 mg Once IV off on levophed today Respiratory #Acute hypoxic respiratory failure likely due to CHF exacerbation/copd Ventilator settings: VT 450 PEEP 5 RR 18 FIO2 35% ABG: PH 7.4 PO2 76.8 PCO2 56.7 HCO3 34.3 X ray: bilateral airspace disease, vascular congestion patient failed CPAP trial today, we are going to try it tomorrow #COPD exacerbation continue vancomycin and levoquin continue albuterol and ipratropium med nebs Start solumedrol 40 mg BID # Septic shock due to MRSA pneumonia 08/04/2024: MRSA sputum 08/10/2024: MRSA in sputum 08/12/2024: blood culture negative 08/14/2024: zosyn was stopped: allergic reaction, start levoquin -continue vancomycin and levoquin WBC trending down Endocrinology #Hypothyroidism -Continue levothyroxine 100mcg QAM Nephrology Creatinine is 0.5 Gastroenterology #Acute transaminitis resolved 3 bowel movements today: soft #morbid obesity Nutrition -Continue enteral nutrition, Jevity at 30 cc/hour DVT prophylaxis -Enoxaparin 40 mg q.d. SC PUD prophylaxis: protonix 40 mg IV Lines: right upper extremity PICC line: 08/13/2024 santiago catheter: 07/31/2024 Goals of care discussed with medical team for 26 min Critical time spent including cpap trial was 81 mins Patient is full code Plan discussed with Dr. Schmid Plan discussed with: Patient, Other (rn) My Orders My Orders Orders - ABDIAZIZ ACOSTA RESIDENT Procedure Category Date Status Time Abg W/ Co-Ox RT 08/18/24 Logged 11:55 Dietary Evaluation Review Comments: 1) If pt remain on vent, a TPN with clinimix plus a TPN per pharmacy to reach75% of her energy and protein needs, 2) If on TF, a combination of Clinimix plus jevity @30ml/hr will meet her goal 3) If pt can accept PO intake without swallowing difficulties after a ST eval, advance diet to cardiac 2 gNa, Lofat Lo Chol diet. 4) Monitor intake to meet 65-75% of her energy needs. Expected Outcomes/Goals: Gradual weight loss. Date of Service: Aug 18, 2024 Billing Provider: HUGH SCHMID MD Common Visit Codes: [id number] CARE 30-74 MIN, [id number] CARE-EACH +30MIN ABDIAZIZ ACOSTA RESIDENT Aug 18, 2024 17:15 HUGH SCHMID MD Aug 19, 2024 11:14
[2024-08-18] MEDS: methylPREDNISolone SOD SUCC 40 MG/ML VL IV SCH (21:33)
[2024-08-19] VITALS (101 sets, daily range): BP systolic 116–171; BP diastolic 40–98; PULSE 65–106; RESP 12–37; TEMP 97.5–100; O2SAT 86–100
[2024-08-19 03:43] LABS: Basophils # (auto) 0 10 ^3/uL (0-0.2); Basophils % (auto) 0.2 % (0.0-2.0); Eosinophils # (auto) 0 10 ^3/uL (0-0.8); Hematocrit 32.7 % (36.0-46.0); Hemoglobin 10.9 g/dL (12.2-16.2); Lymphocytes # (auto) 0.1 10 ^3/uL (0.4-5.4); Lymphocytes % (auto) 2.5 % (10.0-50.0); Mean Corpuscular Hemoglobin 30.3 pg (28.0-32.0); Mean Corpuscular Hgb Conc. 33.3 g/dL (32.0-36.0); Mean Corpuscular Volume 90.7 fL (80.0-100.0); Monocytes # (auto) 0.1 10 ^3/uL (0-1.3); Monocytes % (auto) 2.2 % (0.0-12.0); Neutrophils # (auto) 4.8 10 ^3/uL (1.6-8.6); Neutrophils % (auto) 95.1 % (37.0-80.0); Nucleated Red Blood Cells % 0.1 %; Platelet Count (auto) 146 10^3/uL (140-450); Red Cell Distribution Width 14.1 % (11.8-14.3)
[2024-08-19 04:07] LABS: Alanine Aminotransferase 36 U/L (7-40); Albumin 3.8 g/dL (3.2-4.8); Alkaline Phosphatase 61 U/L (46-116); Anion Gap 4 (5-15); Aspartate Aminotransferase 12 U/L (13-40); BUN/Creatinine Ratio 13.6 (10.0-20.0); Bilirubin, Total 0.6 mg/dL (0.2-1.0); Blood Urea Nitrogen 8 mg/dL (9-23); Calcium 9.3 mg/dL (8.7-10.4); Carbon Dioxide 34 mmol/L (20-31); Chloride 98 mmol/L (98-107); Sodium 136 mmol/L (136-145); Total Protein 6.1 g/dL (5.7-8.2)
[2024-08-19 04:21] LABS: Glucose 124 mg/dL (74-106)
--- NOTE | 2024-08-19 04:51 | DVH ---
CHEST RADIOGRAPH Indication:intubated, cpap trial Technique: Single frontal view of the chest was obtained COMPARISON: XY CHEST PORTABLE on DOS: 08/18/24, XY CHEST XRAY 1 VIEW on DOS: 08/16/24, XY CHEST XRAY 1 VIEW on DOS: 08/15/24 FINDINGS: Lines and Tubes: Endotracheal tube, right PICC in enteric catheter in satisfactory position. Lungs: Congestion. Right basilar subsegmental atelectasis. Pleura: No effusion. No pneumothorax. Cardiomediastinal contours: Unremarkable Bones: Unremarkable IMPRESSION: Lines and tubes in satisfactory position. No significant interval change.
[2024-08-19 07:08] LABS: Base Excess 6.4 mmol/L (-2.0-3.0)
--- NOTE | 2024-08-19 07:41 | DVHPNRES ---
Progress Note Date Seen: Aug 19, 2024 Resident Creating Document: ABDIAZIZ ACOSTA RESIDENT Has the PT tested + for MRSA If YES, has PT been informed?: No Medical Necessity Reason Pt with a Central, PICC or Fol: Yes The following are medically ne: PICC Line, Santiago Catheter Reason for santiago catheter: Strict I&O Subjective Review of Systems A 59y old female with PMHx: COPD, CHF, Hyperlipidiemia, obesity, hypothyroidism, smoker, sleep apnea Home meds: albuterol, aripiprazole, atorvastatin, brezti, celebrez, citalopram, furosemide 40 mg, HCTZ, levothyroxine, lisinopril Patient came to the ED for SOB on 07/31/2024, BiPAP started 08/01/2024: Intubation, Zosyn was started MRSA in sputum 08/02/2024: influenza and covid negative, levophed was started 08/03/2024: vancomycin was started 08/03/2024: micafungin was started 08/04/2024: MRSA sputum 08/07/2024: clinimax was started 08/09/2024: cpap trial 08/10/2024: extubation 08/10/2024: MRSA in sputum 08/11/2024: reintubation 08/12/2024: blood culture negative 08/13/2024: micafungin was stopped, ECHO EF 55%, start lasix 08/14/2024: zosyn was stopped: allergic reaction, start levoquin 08/16/2024: cpap trial: tolerate 1-2 h 08/17/2024: cpap trial 08/18/2024: failed cpap trial Ventilator settings: VT 450 PEEP 5 RR 18 FIO2 35% ABG: PH 7.38 PO2 57.6 PCO2 55.9 HCO3 32.9 X ray: elevated right diaphragm, Right basilar subsegmental atelectasis. CBC: WBC 5 HB 10.9 PLAT 146 CMP: NORMAL Patient is seen and examined at bedside, patient was more restless during the night, precedex was started, patient had T 99.9, patient failed CPAP trial yesterday RXS: unable to obtain Objective vital signs Vital Sign Date Time Temp Pulse Resp B/P (MAP) Pulse Ox O2 Delivery O2 Flow Rate FiO2 08/19/24 06:00 14 96 Mechanical Ventilator+ 35 35 08/19/24 06:00 76 08/19/24 06:00 142/65 08/19/24 04:30 99.5 211.1 Total Intake and Output 08/18/24 08/18/24 08/19/24 15:00 23:00 07:00 Intake Total 23.46 ml 149.0 ml 433.88 ml Output Total 100 ml 3500 ml 900 ml Balance -76.54 ml -3351.0 ml -466.12 ml medications Current Medications Medications Dose Ordered Sig/Jorge Route Start Time Stop Time Status Last Admin Dose Admin Famotidine 20 mg Q12HR IV 08/01/24 10:00 08/18/24 21:33 20 MG Levothyroxine Sodium 100 mcg QAM@0600 PO 08/01/24 06:00 08/19/24 06:34 100 MCG Ondansetron HCl 4 mg Q4HP PRN IV 07/31/24 22:15 Docusate Sodium 100 mg BIDPRN PRN PO 07/31/24 22:15 Acetaminophen 650 mg Q6HP PRN PO 07/31/24 22:15 08/18/24 02:18 650 MG Nitroglycerin 0.4 mg Q5MINP PRN SL 07/31/24 22:45 Midazolam HCl 50 ml @ 1 mls/hr Q24H IV 08/01/24 13:30 08/17/24 15:22 1 MLS/HR Albuterol 2.5 mg Q4HR NEB 08/01/24 22:00 08/19/24 05:39 2.5 MG Ipratropium [place] 0.5 mg Q4HR NEB 08/01/24 22:00 08/19/24 05:39 0.5 MG Albuterol 10 mg Q2HPRN PRN NEB 08/01/24 21:30 08/09/24 11:16 10 MG Enoxaparin Sodium 40 mg DAILY SC 08/02/24 10:00 08/18/24 09:17 40 MG Vancomycin HCl 0 ml @ 0 mls/hr UD IV 08/03/24 08:45 Vancomycin HCl 250 ml @ 200 mls/hr Q14H IV 08/04/24 00:00 08/19/24 04:18 200 MLS/HR Norepinephrine Bitartrate 250 ml @ 1.875 mls/ hr Q24H IV 08/06/24 10:15 08/17/24 07:00 1.875 MLS/HR Diagnostic Test (Pha) 1 strip Q6HR 08/07/24 18:00 08/19/24 06:34 1 STRIP Insulin Human Regular FOLLOW SLIDING SCALE Q6HR SC 08/07/24 18:00 08/19/24 06:34 2 UNITS Dextrose 50 ml UD IV 08/07/24 18:00 08/15/24 05:52 50 ML Dexmedetomidine HCl 400 mcg/ Dextrose 100 ml @ 5.96 mls/hr [id number] IV 08/10/24 09:30 08/18/24 04:00 5.96 MLS/HR Fentanyl Citrate 250 ml @ 2.5 mls/hr Q24H IV 08/10/24 16:30 08/18/24 18:00 17.5 MLS/HR Enteral Nutritional Formula 1,000 ml 50ML/HR NG 08/12/24 15:15 08/12/24 20:31 1,000 ML Furosemide 20 mg DAILY IV 08/14/24 10:00 08/18/24 09:17 20 MG Sodium Chloride 10 ml QSHIFT@10,22 IV 08/13/24 22:00 08/18/24 21:34 10 ML Lactulose 30 ml BID NG 08/14/24 22:00 08/17/24 22:19 30 ML Levofloxacin 50 ml @ 50 mls/hr DAILY IV 08/17/24 10:00 08/18/24 09:18 50 MLS/HR Levofloxacin/ Dextrose 100 ml @ 100 mls/hr DAILY IV 08/17/24 10:00 08/18/24 09:35 100 MLS/HR Methylprednisolone Sodium Succinate 40 mg BID IV 08/18/24 22:00 08/18/24 21:33 40 MG Examination Patient is on sedation, RASS -3 Head: Normocephalic, atraumatic. Eyes: PERRLA. Ears: Normal external anatomy. Throat: Endotracheal tube Neck: Supple, trachea midline. Chest: Bibasilar crackles. Cardiovascular: Positive S1, positive S2. Regular rate and rhythm. Abdomen: Soft, nontender, nondistended. : Santiago in place. Skin: Warm, dry. Intact. Extremities: edema 4 extremities laboratory and microbiology Laboratory Tests 08/19/24 03:15 Test 08/19/24 03:15 Range/Units Serum Glucose 124 H 74-106 mg/dL Microbiology Date/Time Source Procedure Growth Status 08/12/24 23:10 Blood Blood Culture - Final NO GROWTH AFTER 5 DAYS OF INCUBATION. Complete 08/10/24 16:30 Trachea Gram Stain - Final Complete 08/10/24 16:30 Respiratory Culture - Final Methicillin Resistant S.aureus Complete 08/04/24 06:48 Sputum Gram Stain - Final Complete 08/04/24 06:48 Respiratory Culture - Final Methicillin Resistant S.aureus Complete 08/01/24 20:15 Urine - Catheterized Urine Culture - Final Complete Problem List/Assessment/Plan Problem List/Assessment/Plan Neurology Sedation -currently on fentanyl 150 micrograms/hour, precedex 0.2 mg Cardiology #Acute on chronic diastolic heart failure ECHO LVEF of 55% with grade 1 diastolic dysfunction, normal cardiac valves no pericardial effusion Xray today showed vascular congestion Lasix 20 mg Once IV yesterday off on levophed Respiratory #Acute hypoxic respiratory failure likely due to CHF exacerbation Ventilator settings: VT 450 PEEP 5 RR 18 FIO2 35% ABG: PH 7.38 PO2 57.6 PCO2 55.9 HCO3 32.9 X ray: elevated right diaphragm, Right basilar subsegmental atelectasis. #COPD exacerbation continue albuterol and ipratropium med nebs Continue solumedrol 40 mg BID # Septic shock due to MRSA pneumonia 08/04/2024: MRSA sputum 08/10/2024: MRSA in sputum 08/12/2024: blood culture negative 08/14/2024: zosyn was stopped: allergic reaction, start levoquin continue vancomycin stop levoquin start cefepime WBC trending down Endocrinology #Hypothyroidism -Continue levothyroxine 100mcg QAM Nephrology Creatinine is 0.59 Gastroenterology #Acute transaminitis resolved 2 bowel movements at night #Obesity Nutrition -Continue enteral nutrition, Jevity at 30 cc/hour DVT prophylaxis -Enoxaparin 40 mg q.d. SC PUD prophylaxis: protonix 40 mg IV Lines: right upper extremity PICC line: 08/13/2024 santiago catheter: 07/31/2024 Goals of care discussed with medical team for 26 min Critical time spent includin cpap trial was 82 min Patient is full code Plan discussed with Dr. Schmid Plan discussed with: Patient, Other (rn) My Orders My Orders Orders - ABDIAZIZ ACOSTA RESIDENT Procedure Category Date Status Time Abg W/ Co-Ox RT 08/18/24 Logged 11:55 Abg W/ Co-Ox RT 08/19/24 Logged 04:00 Chest Xray 1 View XY 08/19/24 Resulted 04:00 Pantoprazole PHA 08/19/24 Transmitted (Protonix) 10:00 Dietary Evaluation Review Comments: 1) If pt remain on vent, a TPN with clinimix plus a TPN per pharmacy to reach75% of her energy and protein needs, 2) If on TF, a combination of Clinimix plus jevity @30ml/hr will meet her goal 3) If pt can accept PO intake without swallowing difficulties after a ST eval, advance diet to cardiac 2 gNa, Lofat Lo Chol diet. 4) Monitor intake to meet 65-75% of her energy needs. Expected Outcomes/Goals: Gradual weight loss. Date of Service: Aug 19, 2024 Billing Provider: HUGH SCHMID MD Common Visit Codes: [id number] CARE 30-74 MIN, [id number] CARE-EACH +30MIN ABDIAZIZ ACOSTA Aug 19, 2024 07:41 HUGH SCHMID MD Aug 20, 2024 12:36
--- NOTE | 2024-08-19 09:26 | MEDREC ---
[facility] ASP Intervention Section I [facility] Intervention: Deescalate AB based on CS (ONLY MRSA GROWING IN SPUTUM / TRACHEA CX - PLEASE CONSIDER D/C LEVAQUIN) JENIFER BOONE PHARMACIST Aug 19, 2024 09:26
[2024-08-19] MEDS: PANTOPRAZOLE 40 MG/10 ML VIAL INJ IV SCH (09:30)
[2024-08-19 11:02] LABS: Base Excess 9.7 mmol/L (-2.0-3.0)
[2024-08-19] MEDS: methylPREDNISolone SOD SUCC 40 MG/ML VL IV ONE (11:33)
[2024-08-19] MEDS: CEFEPIME 2GM/50ML NS 50 ML IV ONE (11:34)
[2024-08-19] MEDS: PSYLLIUM PWD 5.8GM PKG GT ONE (13:15)
[2024-08-19 16:31] LABS: Base Excess 9.5 mmol/L (-2.0-3.0)
[2024-08-19] MEDS ORDERED: MORPHINE SULFATE INJ 2 MG/ml SYRG IV PRN (18:30)
[2024-08-19] MEDS: LORazepam 2MG/ML-1ML VIAL IV PRN (22:28)
[2024-08-19] MEDS: LORazepam 2MG/ML-1ML VIAL ONE (22:29)
[2024-08-19] MEDS: CEFEPIME 2GM/50ML NS 50 ML IV SCH (22:35)
[2024-08-20] VITALS (75 sets, daily range): BP systolic 123–177; BP diastolic 58–95; PULSE 62–103; RESP 15–26; TEMP 97.3–99.7; O2SAT 89–98
[2024-08-20] MEDS: hydrALAZINE HCL 20 MG/ML VL IV SCH
[2024-08-20 06:42] LABS: Base Excess 6.8 mmol/L (-2.0-3.0)
[2024-08-20 07:21] LABS: Basophils # (auto) 0 10 ^3/uL (0-0.2); Basophils % (auto) 0.2 % (0.0-2.0); Eosinophils # (auto) 0 10 ^3/uL (0-0.8); Lymphocytes # (auto) 0.2 10 ^3/uL (0.4-5.4); Lymphocytes % (auto) 4.6 % (10.0-50.0); Mean Corpuscular Hemoglobin 30.5 pg (28.0-32.0); Mean Corpuscular Hgb Conc. 33.5 g/dL (32.0-36.0); Mean Corpuscular Volume 91.1 fL (80.0-100.0); Monocytes # (auto) 0.2 10 ^3/uL (0-1.3); Monocytes % (auto) 5.4 % (0.0-12.0); Neutrophils # (auto) 3.6 10 ^3/uL (1.6-8.6); Neutrophils % (auto) 89.8 % (37.0-80.0); Platelet Count (auto) 147 10^3/uL (140-450); Red Blood Cells 3.62 10^6/uL (4.0-5.20); Red Cell Distribution Width 14.1 % (11.8-14.3); White Blood Cell 4.1 10^3/uL (4.4-10.8)
[2024-08-20 07:37] LABS: Calcium 9.8 mg/dL (8.7-10.4); Chloride 99 mmol/L (98-107); Potassium 3.4 mmol/L (3.5-5.1); Sodium 140 mmol/L (136-145)
[2024-08-20 07:38] LABS: Anion Gap 8 (5-15); Carbon Dioxide 33 mmol/L (20-31)
[2024-08-20 07:43] LABS: BUN/Creatinine Ratio 24.1 (10.0-20.0); Blood Urea Nitrogen 14 mg/dL (9-23); Glucose 125 mg/dL (74-106)
--- NOTE | 2024-08-20 09:36 | DVH ---
EXAM: XY CHEST XRAY 1 VIEW Indication:extubation Technique: Single frontal view of the chest was obtained Comparison: XY CHEST XRAY 1 VIEW on DOS: 08/19/24, XY CHEST PORTABLE on DOS: 08/18/24, XY CHEST XRAY 1 VIEW on DOS: 08/16/24, XY CHEST XRAY 1 VIEW on DOS: 08/15/24, XY CHEST XRAY 1 VIEW on DOS: 08/14/24 , XY CHEST XRAY 1 VIEW on DOS: 08/19/24 FINDINGS: Lines and Tubes: Interval removal of endotracheal tube. right PICC in enteric catheter in satisfactor y position. Lungs: Congestion. Right basilar subsegmental atelectasis. Pleura: No effusion. No pneumothorax. Cardiomediastinal contours: Unremarkable Bones: Unremarkable IMPRESSION: Interval removal of endotracheal tube. Otherwise no significant change.
--- NOTE | 2024-08-20 11:25 | DVHPNRES ---
Progress Note Date Seen: Aug 20, 2024 Resident Creating Document: ABDIAZIZ ACOSTA RESIDENT Has the PT tested + for MRSA If YES, has PT been informed?: No Medical Necessity Reason Pt with a Central, PICC or Fol: Yes The following are medically ne: PICC Line, Santiago Catheter Reason for santiago catheter: Strict I&O Subjective Review of Systems A 59y old female with PMHx: COPD, CHF, Hyperlipidiemia, obesity, hypothyroidism, smoker, sleep apnea Home meds: albuterol, aripiprazole, atorvastatin, brezti, celebrez, citalopram, furosemide 40 mg, HCTZ, levothyroxine, lisinopril Patient came to the ED for SOB on 07/31/2024, BiPAP started 08/01/2024: Intubation, Zosyn was started MRSA in sputum 08/02/2024: influenza and covid negative, levophed was started 08/03/2024: vancomycin was started 08/03/2024: micafungin was started 08/04/2024: MRSA sputum 08/07/2024: clinimax was started 08/09/2024: cpap trial 08/10/2024: extubation 08/10/2024: MRSA in sputum 08/11/2024: reintubation 08/12/2024: blood culture negative 08/13/2024: micafungin was stopped, ECHO EF 55%, start lasix 08/14/2024: zosyn was stopped: allergic reaction, start levoquin 08/16/2024: cpap trial: tolerate 1-2 h 08/17/2024: cpap trial 08/18/2024: failed cpap trial 08/19/2024: successful extubation: BIPAP at night X ray: elevated right diaphragm, Right basilar subsegmental atelectasis. CBC: WBC 4.1 HB 11 PLAT 147 CMP: K 3.4 Patient is seen and examined at bedside, patient is on oxigen 3lt during the morning, but at 4 30 pm, patient had an episode of desaturation of 55% that required bipap, blood gases with co2 on 67, we gave 1 dose of solumedrol and lasix, also a cycle of albuterol and the patient respond to the treatment, keep ICU status for now Objective vital signs Vital Sign Date Time Temp Pulse Resp B/P (MAP) Pulse Ox O2 Delivery O2 Flow Rate FiO2 08/20/24 10:51 135/63 08/20/24 10:17 97 20 95 08/20/24 07:11 Facial BiPAP Mask 30 08/20/24 06:00 97.3 207.1 08/19/24 20:00 4 Total Intake and Output 08/19/24 08/19/24 08/20/24 15:00 23:00 07:00 Intake Total 53.84 ml 250 ml 50 ml Output Total 2500 ml 650 ml Balance 53.84 ml -2250 ml -600 ml medications Current Medications Medications Dose Ordered Sig/Jorge Route Start Time Stop Time Status Last Admin Dose Admin Levothyroxine Sodium 100 mcg QAM@0600 PO 08/01/24 06:00 08/19/24 06:34 100 MCG Ondansetron HCl 4 mg Q4HP PRN IV 07/31/24 22:15 Acetaminophen 650 mg Q6HP PRN PO 07/31/24 22:15 08/18/24 02:18 650 MG Albuterol 2.5 mg Q4HR NEB 08/01/24 22:00 08/20/24 10:18 2.5 MG Ipratropium [place] 0.5 mg Q4HR NEB 08/01/24 22:00 08/20/24 10:18 0.5 MG Albuterol 10 mg Q2HPRN PRN NEB 08/01/24 21:30 08/09/24 11:16 10 MG Enoxaparin Sodium 40 mg DAILY SC 08/02/24 10:00 08/20/24 10:52 40 MG Vancomycin HCl 0 ml @ 0 mls/hr UD IV 08/03/24 08:45 Vancomycin HCl 250 ml @ 200 mls/hr Q14H IV 08/04/24 00:00 08/20/24 08:09 200 MLS/HR Diagnostic Test (Pha) 1 strip Q6HR 08/07/24 18:00 08/20/24 06:40 1 STRIP Insulin Human Regular FOLLOW SLIDING SCALE Q6HR SC 08/07/24 18:00 08/20/24 06:40 2 UNITS Dextrose 50 ml UD IV 08/07/24 18:00 08/15/24 05:52 50 ML Enteral Nutritional Formula 1,000 ml 50ML/HR NG 08/12/24 15:15 08/12/24 20:31 1,000 ML Furosemide 20 mg DAILY IV 08/14/24 10:00 08/20/24 10:51 20 MG Sodium Chloride 10 ml QSHIFT@10,22 IV 08/13/24 22:00 08/20/24 10:52 10 ML Methylprednisolone Sodium Succinate 40 mg BID IV 08/18/24 22:00 08/20/24 10:52 40 MG Pantoprazole Sodium 40 mg DAILY IV 08/19/24 10:00 08/20/24 10:52 40 MG Cefepime HCl 50 ml @ 12.5 mls/hr Q12HR IV 08/19/24 22:00 08/20/24 10:53 12.5 MLS/HR Morphine Sulfate 2 mg Q4HPRN PRN IV 08/19/24 18:30 Hold Lorazepam 1 mg Q8HP PRN IV 08/19/24 21:45 08/19/24 22:28 1 MG Hydralazine HCl 10 mg Q6HP PRN IV 08/19/24 22:00 Examination Alert, somnolent Head: Normocephalic, atraumatic. Eyes: PERRLA. Ears: Normal external anatomy. Neck: Supple, trachea midline. Chest: Bibasilar crackles. Cardiovascular: Positive S1, positive S2. Regular rate and rhythm. Abdomen: Soft, nontender, nondistended. : Santiago in place. Skin: Warm, dry. Intact. Extremities: edema 4 extremities laboratory and microbiology Laboratory Tests 08/20/24 06:30 Test 08/20/24 06:30 Range/Units Serum Glucose 125 H 74-106 mg/dL Microbiology Date/Time Source Procedure Growth Status 08/12/24 23:10 Blood Blood Culture - Final NO GROWTH AFTER 5 DAYS OF INCUBATION. Complete 08/10/24 16:30 Trachea Gram Stain - Final Complete 08/10/24 16:30 Respiratory Culture - Final Methicillin Resistant S.aureus Complete 08/04/24 06:48 Sputum Gram Stain - Final Complete 08/04/24 06:48 Respiratory Culture - Final Methicillin Resistant S.aureus Complete 08/01/24 20:15 Urine - Catheterized Urine Culture - Final Complete Problem List/Assessment/Plan Problem List/Assessment/Plan Neurology off sedation patient is talking Cardiology #Acute on chronic diastolic heart failure ECHO LVEF of 55% with grade 1 diastolic dysfunction, normal cardiac valves no pericardial effusion Xray today showed vascular congestion Hydralazine PRN Furosemide 20 mg IV off on levophed Respiratory #Acute hypoxic respiratory failure likely due to CHF exacerbation/COPD exacerbation Patient was extubated, required BIPAP today for episode of desaturation, patient responded to lasix and solumedrol, keep ICU status for now #COPD exacerbation continue albuterol and ipratropium med nebs Continue solumedrol 40 mg BID # Septic shock due to MRSA pneumonia 08/04/2024: MRSA sputum 08/10/2024: MRSA in sputum 08/12/2024: blood culture negative 08/14/2024: zosyn was stopped: allergic reaction, start levoquin continue vancomycin and cefepime WBC trending down : 4.1 Endocrinology #Hypothyroidism -Continue levothyroxine 100mcg QAM Nephrology Creatinine is 0.58 Gastroenterology #Acute transaminitis resolved #Obesity Nutrition -advance diet according to swallow evaluation and bipap requirements DVT prophylaxis -Enoxaparin 40 mg q.d. SC PUD prophylaxis: protonix 40 mg IV Lines: right upper extremity PICC line: 08/13/2024 santiago catheter: 07/31/2024 Goals of care discussed with medical team for 26 min Critical time spent 66 min Patient is full code Plan discussed with Dr. Schmid Plan discussed with: Patient, Other (rn) My Orders My Orders Orders - ABDIAZIZ ACOSTA Procedure Category Date Status Time * Swallow Request ST 08/20/24 Transmitted 08:00 Abg W/ Co-Ox RT 08/20/24 Logged 06:22 Chest Xray 1 View XY 08/20/24 Resulted 06:22 Dietary Evaluation Review Comments: 1) If pt remain on vent, a TPN with clinimix plus a TPN per pharmacy to reach75% of her energy and protein needs, 2) If on TF, a combination of Clinimix plus jevity @30ml/hr will meet her goal 3) If pt can accept PO intake without swallowing difficulties after a ST eval, advance diet to cardiac 2 gNa, Lofat Lo Chol diet. 4) Monitor intake to meet 65-75% of her energy needs. Expected Outcomes/Goals: Gradual weight loss. Date of Service: Aug 20, 2024 Billing Provider: HUGH SCHMID MD Common Visit Codes: [id number] CARE 30-74 MIN ABDIAZIZ ACOSTA Aug 20, 2024 11:25 HUGH SCHMID MD Aug 21, 2024 11:01
[2024-08-20] MEDS: POTASSIUM CHL 20MEQ/100ML 100 ML IV SCH (13:40)
--- NOTE | 2024-08-20 16:51 | DVH ---
EXAM: XR Chest, 1 View CLINICAL INDICATION: DESATURATION TECHNIQUE: Frontal view of the chest. COMPARISON: XY CHEST XRAY 1 VIEW on DOS: 08/20/24, XY CHEST XRAY 1 VIEW on DOS: 08/19/24, XY CHEST PORTABLE on DOS: 08/18/24 FINDINGS: LUNGS AND PLEURAL SPACES: See below. HEART: Cardiomegaly with mild congestion. MEDIASTINUM: Unremarkable. Normal mediastinal contour. BONES/JOINTS: Unremarkable. No acute fracture. TUBES, LINES AND DEVICES: Right peripherally inserted central catheter (PICC) tip in the superior ve na cava. OTHER FINDINGS: . . . IMPRESSION: Cardiomegaly with mild congestion. HS:Y
[2024-08-20 16:57] LABS: Base Excess 7.3 mmol/L (-2.0-3.0)
[2024-08-20] MEDS: FUROSEMIDE 20 MG/2 ML VIAL IV ONE (17:55)
[2024-08-20] MEDS: methylPREDNISolone SOD SUCC 40 MG/ML VL IV ONE (17:57)
[2024-08-20 21:21] LABS: Base Excess 8.6 mmol/L (-2.0-3.0)
[2024-08-21] VITALS (63 sets, daily range): BP systolic 122–167; BP diastolic 52–92; PULSE 63–97; RESP 13–35; TEMP 97.3–99; O2SAT 89–100
[2024-08-21 03:51] LABS: Basophils # (auto) 0 10 ^3/uL (0-0.2); Basophils % (auto) 0.1 % (0.0-2.0); Eosinophils # (auto) 0 10 ^3/uL (0-0.8); Hematocrit 34.3 % (36.0-46.0); Hemoglobin 11.4 g/dL (12.2-16.2); Lymphocytes # (auto) 0.2 10 ^3/uL (0.4-5.4); Lymphocytes % (auto) 4.7 % (10.0-50.0); Mean Corpuscular Hemoglobin 30.3 pg (28.0-32.0); Mean Corpuscular Hgb Conc. 33.4 g/dL (32.0-36.0); Mean Corpuscular Volume 90.7 fL (80.0-100.0); Monocytes # (auto) 0.2 10 ^3/uL (0-1.3); Monocytes % (auto) 4.3 % (0.0-12.0); Neutrophils # (auto) 3.2 10 ^3/uL (1.6-8.6); Neutrophils % (auto) 90.9 % (37.0-80.0); Nucleated Red Blood Cells % 0.1 %; Platelet Count (auto) 175 10^3/uL (140-450); Red Blood Cells 3.78 10^6/uL (4.0-5.20); Red Cell Distribution Width 14.5 % (11.8-14.3); White Blood Cell 3.5 10^3/uL (4.4-10.8)
[2024-08-21 04:09] LABS: Alanine Aminotransferase 55 U/L (7-40); Albumin 4.1 g/dL (3.2-4.8); Alkaline Phosphatase 59 U/L (46-116); Anion Gap 5 (5-15); Aspartate Aminotransferase 15 U/L (13-40); Bilirubin, Total 0.6 mg/dL (0.2-1.0); Blood Urea Nitrogen 19 mg/dL (9-23); Calcium 9.4 mg/dL (8.7-10.4); Carbon Dioxide 37 mmol/L (20-31); Chloride 99 mmol/L (98-107); Glucose 116 mg/dL (74-106); Potassium 3.5 mmol/L (3.5-5.1); Sodium 141 mmol/L (136-145); Total Protein 6.4 g/dL (5.7-8.2)
--- NOTE | 2024-08-21 05:35 | DVH ---
CHEST RADIOGRAPH Indication:dyspnea Technique: Single frontal view of the chest was obtained Comparison: XY CHEST XRAY 1 VIEW on DOS: 08/20/24, XY CHEST XRAY 1 VIEW on DOS: 08/20/24, XY CHEST XR AY 1 VIEW on DOS: 08/19/24 FINDINGS: Lines and Tubes: Right PICC terminates in the superior vena cava. Lungs: Mild pulmonary congestion. Pleura: No effusion. No pneumothorax. Cardiomediastinal contours: Stable cardiomegaly. Bones: No acute osseous abnormality. IMPRESSION: 1. Mild pulmonary congestion.
[2024-08-21] MEDS: POTASSIUM CHL 20MEQ/100ML 100 ML IV SCH (06:52)
[2024-08-21 07:04] LABS: Base Excess 10.8 mmol/L (-2.0-3.0)
--- NOTE | 2024-08-21 10:37 | DVHPNRES ---
Progress Note Date Seen: Aug 21, 2024 Resident Creating Document: ABDIAZIZ ACOSTA RESIDENT Has the PT tested + for MRSA If YES, has PT been informed?: No Medical Necessity Reason Pt with a Central, PICC or Fol: Yes The following are medically ne: PICC Line, Santiago Catheter Reason for santiago catheter: Strict I&O Subjective Review of Systems A 59y old female with PMHx: COPD, CHF, Hyperlipidiemia, obesity, hypothyroidism, smoker, sleep apnea Home meds: albuterol, aripiprazole, atorvastatin, brezti, celebrez, citalopram, furosemide 40 mg, HCTZ, levothyroxine, lisinopril Patient came to the ED for SOB on 07/31/2024, BiPAP started 08/01/2024: Intubation, Zosyn was started MRSA in sputum 08/02/2024: influenza and covid negative, levophed was started 08/03/2024: vancomycin was started 08/03/2024: micafungin was started 08/04/2024: MRSA sputum 08/07/2024: clinimax was started 08/09/2024: cpap trial 08/10/2024: extubation 08/10/2024: MRSA in sputum 08/11/2024: reintubation 08/12/2024: blood culture negative 08/13/2024: micafungin was stopped, ECHO EF 55%, start lasix 08/14/2024: zosyn was stopped: allergic reaction, start levoquin 08/16/2024: cpap trial: tolerate 1-2 h 08/17/2024: cpap trial 08/18/2024: failed cpap trial 08/19/2024: successful extubation: BIPAP at night 08/20/2024: on and off BIPAP Patient was extubated, required BIPAP today : patient was off BIPAP for 2h (8: 30 am- 10: 30 am) but got desaturated, solumedrol was given ad BIPAP was placed Patient was low pulmonary reserve so for now the safest option is keep ICU status and BIPAP Objective vital signs Vital Sign Date Time Temp Pulse Resp B/P (MAP) Pulse Ox O2 Delivery O2 Flow Rate FiO2 08/21/24 07:39 80 136/72 98 Facial BiPAP Mask 40 08/21/24 07:00 26 08/21/24 04:00 97.3 97.3 08/20/24 18:00 12.0 Total Intake and Output 08/20/24 08/20/24 08/21/24 15:00 23:00 07:00 Intake Total 300 ml 250 ml 50 ml Output Total 1650 ml 1275 ml Balance 300 ml -1400 ml -1225 ml medications Current Medications Medications Dose Ordered Sig/Jorge Route Start Time Stop Time Status Last Admin Dose Admin Levothyroxine Sodium 100 mcg QAM@0600 PO 08/01/24 06:00 08/19/24 06:34 100 MCG Ondansetron HCl 4 mg Q4HP PRN IV 07/31/24 22:15 Acetaminophen 650 mg Q6HP PRN PO 07/31/24 22:15 08/18/24 02:18 650 MG Albuterol 2.5 mg Q4HR NEB 08/01/24 22:00 08/21/24 01:58 2.5 MG Ipratropium [place] 0.5 mg Q4HR NEB 08/01/24 22:00 08/21/24 01:58 0.5 MG Albuterol 10 mg Q2HPRN PRN NEB 08/01/24 21:30 08/09/24 11:16 10 MG Enoxaparin Sodium 40 mg DAILY SC 08/02/24 10:00 08/20/24 10:52 40 MG Vancomycin HCl 0 ml @ 0 mls/hr UD IV 08/03/24 08:45 Vancomycin HCl 250 ml @ 200 mls/hr Q14H IV 08/04/24 00:00 08/20/24 21:06 200 MLS/HR Diagnostic Test (Pha) 1 strip Q6HR 08/07/24 18:00 08/21/24 06:18 1 STRIP Insulin Human Regular FOLLOW SLIDING SCALE Q6HR SC 08/07/24 18:00 08/21/24 00:03 4 UNITS Dextrose 50 ml UD IV 08/07/24 18:00 08/15/24 05:52 50 ML Enteral Nutritional Formula 1,000 ml 50ML/HR NG 08/12/24 15:15 08/12/24 20:31 1,000 ML Furosemide 20 mg DAILY IV 08/14/24 10:00 08/20/24 10:51 20 MG Sodium Chloride 10 ml QSHIFT@ IV 08/13/24 22:00 08/20/24 21:12 10 ML Methylprednisolone Sodium Succinate 40 mg BID IV 08/18/24 22:00 08/20/24 21:00 40 MG Pantoprazole Sodium 40 mg DAILY IV 08/19/24 10:00 08/20/24 10:52 40 MG Cefepime HCl 50 ml @ 12.5 mls/hr Q12HR IV 08/19/24 22:00 08/20/24 21:03 12.5 MLS/HR Morphine Sulfate 2 mg Q4HPRN PRN IV 08/19/24 18:30 Hold Lorazepam 1 mg Q8HP PRN IV 08/19/24 21:45 08/21/24 08:03 1 MG Hydralazine HCl 10 mg Q6HP PRN IV 08/19/24 22:00 Potassium Chloride 100 ml @ 50 mls/hr Q2H IV 08/21/24 06:45 08/21/24 10:44 08/21/24 06:52 50 MLS/HR Examination Patient is alert, oriented and nasal canula 3lt Head: Normocephalic, atraumatic. Eyes: PERRLA. Ears: Normal external anatomy. Neck: Supple, trachea midline. Chest: Bibasilar crackles. Cardiovascular: Positive S1, positive S2. Regular rate and rhythm. Abdomen: Soft, nontender, nondistended. : Santiago in place. Skin: Warm, dry. Intact. Extremities: no edema laboratory and microbiology Laboratory Tests 08/21/24 03:24 Test 08/21/24 03:24 Range/Units Serum Glucose 116 H 74-106 mg/dL Microbiology Date/Time Source Procedure Growth Status 08/12/24 23:10 Blood Blood Culture - Final NO GROWTH AFTER 5 DAYS OF INCUBATION. Complete 08/10/24 16:30 Trachea Gram Stain - Final Complete 08/10/24 16:30 Respiratory Culture - Final Methicillin Resistant S.aureus Complete 08/04/24 06:48 Sputum Gram Stain - Final Complete 08/04/24 06:48 Respiratory Culture - Final Methicillin Resistant S.aureus Complete 08/01/24 20:15 Urine - Catheterized Urine Culture - Final Complete Problem List/Assessment/Plan Problem List/Assessment/Plan Neurology off sedation patient is talking Cardiology #Acute on chronic diastolic heart failure ECHO LVEF of 55% with grade 1 diastolic dysfunction, normal cardiac valves no pericardial effusion Xray today showed vascular congestion Hydralazine PRN Furosemide 20 mg BID IV off on levophed Respiratory #Acute hypoxic respiratory failure likely due to CHF exacerbation/COPD exacerbation Patient was extubated, required BIPAP today : patient was off BIPAP for 2h (8: 30 am- 10: 30 am) but got desaturated, solumedrol was given ad BIPAP was placed Patient was low pulmonary reserve so for now the safest option is keep ICU status and BIPAP #COPD exacerbation continue albuterol and ipratropium med nebs Continue solumedrol 40 mg BID # Septic shock due to MRSA pneumonia 08/04/2024: MRSA sputum 08/10/2024: MRSA in sputum 08/12/2024: blood culture negative 08/14/2024: zosyn was stopped: allergic reaction, start levoquin continue vancomycin and cefepime WBC trending down : 3.5 cefepime will be downgraded tomorrow new cultures ordered Endocrinology #Hypothyroidism -Continue levothyroxine 100mcg QAM Nephrology Creatinine is 0.50 Gastroenterology #Acute transaminitis resolved #Obesity Nutrition -NPO for now DVT prophylaxis -Enoxaparin 40 mg q.d. SC PUD prophylaxis: protonix 40 mg IV Lines: right upper extremity PICC line: 08/13/2024 santiago catheter: 07/31/2024 Goals of care discussed with medical team for 26 min Critical time spent 66 min Patient is full code Plan discussed with Dr. Schmid Plan discussed with: Patient, Other (rn) My Orders My Orders Orders - ABDIAZIZ ACOSTA RESIDENT Procedure Category Date Status Time Abg W/ Co-Ox RT 08/20/24 Logged 16:32 Abg W/ Co-Ox RT 08/20/24 Logged 18:00 Chest Xray 1 View XY 08/21/24 Resulted 04:00 Abg W/ Co-Ox RT 08/21/24 Logged 04:00 Potassium Chl PHA 08/21/24 In Process 20meq/100ml 06:45 Dietary Evaluation Review Comments: 1) If pt remain on vent, a TPN with clinimix plus a TPN per pharmacy to reach75% of her energy and protein needs, 2) If on TF, a combination of Clinimix plus jevity @30ml/hr will meet her goal 3) If pt can accept PO intake without swallowing difficulties after a ST eval, advance diet to cardiac 2 gNa, Lofat Lo Chol diet. 4) Monitor intake to meet 65-75% of her energy needs. Expected Outcomes/Goals: Gradual weight loss. Date of Service: Aug 21, 2024 Billing Provider: HUGH SCHMID MD Common Visit Codes: [id number] CARE 30-74 MIN ABDIAZIZ ACOSTA RESIDENT Aug 21, 2024 10:37 HUGH SCHMID MD Aug 23, 2024 21:22
[2024-08-21] MEDS: methylPREDNISolone SOD SUCC 125 MG/2 ML VL IV ONE (11:56)
[2024-08-21] MEDS: methylPREDNISolone SOD SUCC 40 MG/ML VL IV SCH (15:00)
[2024-08-21] MEDS: FUROSEMIDE 20 MG/2 ML VIAL IV SCH (20:13)
[2024-08-22] VITALS (59 sets, daily range): BP systolic 128–166; BP diastolic 66–94; PULSE 55–107; RESP 15–34; TEMP 97.2–98.8; O2SAT 88–100
[2024-08-22 04:31] LABS: Basophils # (auto) 0 10 ^3/uL (0-0.2); Basophils % (auto) 0.1 % (0.0-2.0); Eosinophils # (auto) 0 10 ^3/uL (0-0.8); Hematocrit 34.4 % (36.0-46.0); Hemoglobin 11.2 g/dL (12.2-16.2); Lymphocytes # (auto) 0.2 10 ^3/uL (0.4-5.4); Mean Corpuscular Hemoglobin 29.8 pg (28.0-32.0); Mean Corpuscular Hgb Conc. 32.7 g/dL (32.0-36.0); Mean Corpuscular Volume 91.3 fL (80.0-100.0); Monocytes # (auto) 0.2 10 ^3/uL (0-1.3); Monocytes % (auto) 5.8 % (0.0-12.0); Neutrophils % (auto) 89.1 % (37.0-80.0); Nucleated Red Blood Cells % 0.1 %; Platelet Count (auto) 155 10^3/uL (140-450); Red Blood Cells 3.77 10^6/uL (4.0-5.20); Red Cell Distribution Width 14.5 % (11.8-14.3); White Blood Cell 3.3 10^3/uL (4.4-10.8)
[2024-08-22 04:46] LABS: Alanine Aminotransferase 63 U/L (7-40); Alkaline Phosphatase 55 U/L (46-116); Anion Gap 2 (5-15); BUN/Creatinine Ratio 33.3 (10.0-20.0); Blood Urea Nitrogen 22 mg/dL (9-23); Calcium 9.1 mg/dL (8.7-10.4); Carbon Dioxide 38 mmol/L (20-31); Chloride 97 mmol/L (98-107); Glucose 192 mg/dL (74-106); Potassium 3.6 mmol/L (3.5-5.1); Sodium 137 mmol/L (136-145)
[2024-08-22 04:48] LABS: Aspartate Aminotransferase 15 U/L (13-40); Bilirubin, Total 0.7 mg/dL (0.2-1.0); Total Protein 6.3 g/dL (5.7-8.2)
--- NOTE | 2024-08-22 05:46 | DVH ---
CHEST RADIOGRAPH Indication:dyspnea Technique: Single frontal view of the chest was obtained Comparison: XY CHEST XRAY 1 VIEW on DOS: 08/21/24, XY CHEST XRAY 1 VIEW on DOS: 08/20/24, XY CHEST XR AY 1 VIEW on DOS: 08/20/24 FINDINGS: Lines and Tubes: Right PICC terminates in the superior vena cava. Lungs: Mild pulmonary congestion is unchanged. Pleura: No effusion. No pneumothorax. Cardiomediastinal contours: Unremarkable Bones: No acute osseous abnormality. IMPRESSION: 1. Right PICC terminates in the superior vena cava. 2. Mild pulmonary congestion.
--- NOTE | 2024-08-22 10:53 | MEDREC ---
[facility] ASP Intervention Section I [facility] ASP Intervention: Review courses of therapy (VANCOMYCIN (DAY 20) FOR MRSA GROWING IN TRACHEA CULTURE. CEFEPIME WAS ADDED ON 08/19 (DAY 4). CHEST X-RAY SHOWED PULMONARY CONGESTION. PLEASE CONSIDER DE-ESCALATE CEFEPIME IF THERE ARE NO CONCERNS FOR GRAM NEGATIVE INFECTIONS) IVANNA GRECO Aug 22, 2024 10:53
[2024-08-22] MEDS: MAGNESIUM SULFATE 1GM/100ML 100 ML IV SCH (14:01)
[2024-08-22] MEDS: acetaZOLAMIDE SODIUM 500 MG VL IV ONE (14:02)
[2024-08-22 15:05] LABS: COVID19 ANTIGEN SOFIA FIA NEGATIVE (NEGATIVE); Rapid Influenza A Negative (Negative); Rapid Influenza B Negative (Negative)
--- NOTE | 2024-08-22 15:28 | DVHPNRES ---
Progress Note Date Seen: Aug 22, 2024 Resident Creating Document: ABDIAZIZ ACOSTA RESIDENT Has the PT tested + for MRSA If YES, has PT been informed?: No Medical Necessity Reason Pt with a Central, PICC or Fol: Yes The following are medically ne: PICC Line, Santiago Catheter Reason for santiago catheter: Strict I&O Subjective Review of Systems A 59y old female with PMHx: COPD, CHF, Hyperlipidiemia, obesity, hypothyroidism, smoker, sleep apnea Home meds: albuterol, aripiprazole, atorvastatin, brezti, celebrez, citalopram, furosemide 40 mg, HCTZ, levothyroxine, lisinopril Patient came to the ED for SOB on 07/31/2024, BiPAP started 08/01/2024: Intubation, Zosyn was started MRSA in sputum 08/02/2024: influenza and covid negative, levophed was started 08/03/2024: vancomycin was started 08/03/2024: micafungin was started 08/04/2024: MRSA sputum 08/07/2024: clinimax was started 08/09/2024: cpap trial 08/10/2024: extubation 08/10/2024: MRSA in sputum 08/11/2024: reintubation 08/12/2024: blood culture negative 08/13/2024: micafungin was stopped, ECHO EF 55%, start lasix 08/14/2024: zosyn was stopped: allergic reaction, start levoquin 08/16/2024: cpap trial: tolerate 1-2 h 08/17/2024: cpap trial 08/18/2024: failed cpap trial 08/19/2024: successful extubation: BIPAP at night 08/20/2024: on and off BIPAP Patient was extubated, required BIPAP on and off, patient has low pulmonary reserve, downgrade NAM, DC vancomycin, lower the dose of furosemide and solumdreol, start magnesium and acetazolamide, pending sputum culture Objective vital signs Vital Sign Date Time Temp Pulse Resp B/P (MAP) Pulse Ox O2 Delivery O2 Flow Rate FiO2 08/22/24 14:30 76 27 142/70 (94) 95 08/22/24 14:18 Nasal Cannula* 2 28 08/22/24 12:00 98.2 98.2 Total Intake and Output 08/21/24 08/21/24 08/22/24 15:00 23:00 07:00 Intake Total 500 ml 0 ml 300 ml Output Total 1050 ml 1050 ml Balance 500 ml -1050 ml -750 ml medications Current Medications Medications Dose Ordered Sig/Jorge Route Start Time Stop Time Status Last Admin Dose Admin Levothyroxine Sodium 100 mcg QAM@0600 PO 08/01/24 06:00 08/19/24 06:34 100 MCG Ondansetron HCl 4 mg Q4HP PRN IV 07/31/24 22:15 Acetaminophen 650 mg Q6HP PRN PO 07/31/24 22:15 08/18/24 02:18 650 MG Albuterol 2.5 mg Q4HR NEB 08/01/24 22:00 08/22/24 14:18 2.5 MG Ipratropium [place] 0.5 mg Q4HR NEB 08/01/24 22:00 08/22/24 14:18 0.5 MG Albuterol 10 mg Q2HPRN PRN NEB 08/01/24 21:30 08/09/24 11:16 10 MG Enoxaparin Sodium 40 mg DAILY SC 08/02/24 10:00 08/22/24 10:10 40 MG Diagnostic Test (Pha) 1 strip Q6HR 08/07/24 18:00 08/22/24 11:55 1 STRIP Insulin Human Regular FOLLOW SLIDING SCALE Q6HR SC 08/07/24 18:00 08/21/24 00:03 4 UNITS Dextrose 50 ml UD IV 08/07/24 18:00 08/15/24 05:52 50 ML Enteral Nutritional Formula 1,000 ml 50ML/HR NG 08/12/24 15:15 08/12/24 20:31 1,000 ML Sodium Chloride 10 ml QSHIFT@ IV 08/13/24 22:00 08/22/24 10:10 10 ML Pantoprazole Sodium 40 mg DAILY IV 08/19/24 10:00 08/22/24 10:09 40 MG Cefepime HCl 50 ml @ 12.5 mls/hr Q12HR IV 08/19/24 22:00 08/22/24 10:10 12.5 MLS/HR Morphine Sulfate 2 mg Q4HPRN PRN IV 08/19/24 18:30 Hold Lorazepam 1 mg Q8HP PRN IV 08/19/24 21:45 08/21/24 22:11 1 MG Hydralazine HCl 10 mg Q6HP PRN IV 08/19/24 22:00 Furosemide 20 mg DAILY IV 08/23/24 10:00 Methylprednisolone Sodium Succinate 40 mg BID IV 08/22/24 22:00 Lisinopril 10 mg DAILY PO 08/23/24 10:00 Examination Patient is alert, oriented and nasal canula 3lt Head: Normocephalic, atraumatic. Eyes: PERRLA. Ears: Normal external anatomy. Neck: Supple, trachea midline. Chest: Bibasilar crackles. Cardiovascular: Positive S1, positive S2. Regular rate and rhythm. Abdomen: Soft, nontender, nondistended. : Santiago in place. Skin: Warm, dry. Intact. Extremities: no edema laboratory and microbiology Laboratory Tests 08/22/24 03:20 Test 08/22/24 03:20 Range/Units Serum Glucose 192 H 74-106 mg/dL Microbiology Date/Time Source Procedure Growth Status 08/12/24 23:10 Blood Blood Culture - Final NO GROWTH AFTER 5 DAYS OF INCUBATION. Complete 08/10/24 16:30 Trachea Gram Stain - Final Complete 08/10/24 16:30 Respiratory Culture - Final Methicillin Resistant S.aureus Complete 08/04/24 06:48 Sputum Gram Stain - Final Complete 08/04/24 06:48 Respiratory Culture - Final Methicillin Resistant S.aureus Complete 08/01/24 20:15 Urine - Catheterized Urine Culture - Final Complete Problem List/Assessment/Plan Problem List/Assessment/Plan Neurology off sedation patient is talking Cardiology #Hypertensive heart disease with Acute on chronic diastolic heart failure ECHO LVEF of 55% with grade 1 diastolic dysfunction, normal cardiac valves no pericardial effusion Xray today showed vascular congestion Start lisinopril 10 mg Hydralazine PRN Furosemide 20 mg IV: metabolic alkalosis one dose of acetazolamide off on levophed Respiratory #Acute hypoxic respiratory failure likely due to CHF exacerbation/COPD exacerbation Patient was extubated, on and off BIPAP: can be downgrade to NAM Repeat covid and flu Goals on O2 saturation will be 90- 92%: nasal canula 2 lt #COPD exacerbation continue albuterol and ipratropium med nebs solumedrol 40 mg BID mg sulfate for bronchodilatation # Septic shock due to MRSA pneumonia 08/04/2024: MRSA sputum 08/10/2024: MRSA in sputum 08/12/2024: blood culture negative 08/14/2024: zosyn was stopped: allergic reaction, start levoquin dc vancomycin for now WBC trending down : 3.3 # Sleep apnea bipap at night Endocrinology #Hypothyroidism -Continue levothyroxine 100mcg QAM Nephrology Creatinine is 0.50 Gastroenterology #Acute transaminitis resolved #Obesity Nutrition -swallow study and start feeding DVT prophylaxis -Enoxaparin 40 mg q.d. SC PUD prophylaxis: protonix 40 mg IV Lines: right upper extremity PICC line: 08/13/2024 santiago catheter: 07/31/2024 Goals of care discussed with medical team for 26 min Critical time spent 66 min Patient is full code Plan discussed with Dr. Inman Plan discussed with: Patient, Other (rn) My Orders My Orders Orders - ABDIAZIZ ACOSTA RESIDENT Procedure Category Date Status Time Respiratory Culture KEELY 08/21/24 Uncollected W/ Gs 19:18 Chest Xray 1 View XY 08/22/24 Resulted 04:00 Abg W/ Co-Ox RT 08/22/24 Logged 04:00 Troponin-I Hs LAB 08/22/24 Logged 12:32 * Swallow Request ST 08/22/24 Transmitted 11:59 Methylprednisolone PHA 08/22/24 In Process Sod Succ (Solu Medrol 22:00 Transfer ED NURSING 08/22/24 Transmitted Communication Order ORDERS 08/22/24 Transmitted 12:05 Communication Order ORDERS 08/22/24 Transmitted 12:05 Bipap/Cpap For Sleep RT 08/22/24 Logged Apnea 12:05 Lisinopril Tablet PHA 08/23/24 In Process (Zestril Tablet) 10:00 Furosemide Injection PHA 08/23/24 In Process (Lasix Injection) 10:00 Mrsa Screen KEELY 08/22/24 In Process 13:20 Dietary Evaluation Review Comments: 1) If pt remain on vent, a TPN with clinimix plus a TPN per pharmacy to reach75% of her energy and protein needs, 2) If on TF, a combination of Clinimix plus jevity @30ml/hr will meet her goal 3) If pt can accept PO intake without swallowing difficulties after a ST eval, advance diet to cardiac 2 gNa, Lofat Lo Chol diet. 4) Monitor intake to meet 65-75% of her energy needs. Expected Outcomes/Goals: Gradual weight loss. Date of Service: Aug 22, 2024 Billing Provider: CLARENCE INMAN MD Common Visit Codes: [id number] INP/OBS CARE(HIGH) ABDIAZIZ ACOSTA RESIDENT Aug 22, 2024 15:28 CLARENCE INMAN MD Aug 29, 2024 17:15
[2024-08-22] MEDS: methylPREDNISolone SOD SUCC 40 MG/ML VL IV SCH (21:37)
[2024-08-23] VITALS (58 sets, daily range): BP systolic 131–171; BP diastolic 50–93; PULSE 84–111; RESP 12–37; TEMP 97.8–99.7; O2SAT 87–98
[2024-08-23 04:00] LABS: Basophils # (auto) 0 10 ^3/uL (0-0.2); Eosinophils # (auto) 0 10 ^3/uL (0-0.8); Eosinophils % (auto) 0.1 % (0.0-7.0); Hematocrit 39.7 % (36.0-46.0); Hemoglobin 12.9 g/dL (12.2-16.2); Lymphocytes # (auto) 0.1 10 ^3/uL (0.4-5.4); Mean Corpuscular Hemoglobin 29.9 pg (28.0-32.0); Mean Corpuscular Hgb Conc. 32.5 g/dL (32.0-36.0); Mean Corpuscular Volume 91.9 fL (80.0-100.0); Monocytes # (auto) 0.3 10 ^3/uL (0-1.3); Monocytes % (auto) 4.3 % (0.0-12.0); Neutrophils # (auto) 6.3 10 ^3/uL (1.6-8.6); Neutrophils % (auto) 93.6 % (37.0-80.0); Nucleated Red Blood Cells % 0.1 %; Platelet Count (auto) 174 10^3/uL (140-450); Red Blood Cells 4.32 10^6/uL (4.0-5.20); Red Cell Distribution Width 14.3 % (11.8-14.3); White Blood Cell 6.8 10^3/uL (4.4-10.8)
[2024-08-23 04:17] LABS: Alanine Aminotransferase 82 U/L (7-40); Albumin 4.4 g/dL (3.2-4.8); Alkaline Phosphatase 62 U/L (46-116); Anion Gap 6 (5-15); Aspartate Aminotransferase 23 U/L (13-40); BUN/Creatinine Ratio 24.7 (10.0-20.0); Bilirubin, Total 1.1 mg/dL (0.2-1.0); Blood Urea Nitrogen 19 mg/dL (9-23); Calcium 9.6 mg/dL (8.7-10.4); Carbon Dioxide 34 mmol/L (20-31); Chloride 99 mmol/L (98-107); Glucose 146 mg/dL (74-106); Potassium 3.7 mmol/L (3.5-5.1); Sodium 139 mmol/L (136-145); Total Protein 6.8 g/dL (5.7-8.2)
--- NOTE | 2024-08-23 05:50 | DVH ---
CHEST RADIOGRAPH Indication:dyspnea Technique: Single frontal view of the chest was obtained COMPARISON: XY CHEST XRAY 1 VIEW on DOS: 08/22/24, XY CHEST XRAY 1 VIEW on DOS: 08/21/24, XY CHEST XR AY 1 VIEW on DOS: 08/20/24, XY CHEST XRAY 1 VIEW on DOS: 08/22/24 FINDINGS: Lines and Tubes: Right PICC terminates in the superior vena cava. Lungs: Mild pulmonary congestion is unchanged. Pleura: No effusion. No pneumothorax. Cardiomediastinal contours: Unremarkable Bones: No acute osseous abnormality. IMPRESSION: 1. Right PICC terminates in the superior vena cava. 2. Mild pulmonary congestion.
[2024-08-23] MEDS: hydrALAZINE HCL 20 MG/ML VL IV PRN (06:43)
[2024-08-23] MEDS: LISINOPRIL 5 MG TAB PO SCH (09:56)
[2024-08-23] MEDS: FUROSEMIDE 20 MG/2 ML VIAL IV SCH (09:58)
--- NOTE | 2024-08-23 16:55 | DVHPN2 ---
Subjective A 59y old female with PMHx: COPD, CHF, Hyperlipidiemia, obesity, hypothyroidism, smoker, sleep apnea Home meds: albuterol, aripiprazole, atorvastatin, brezti, celebrez, citalopram, furosemide 40 mg, HCTZ, levothyroxine, lisinopril Patient came to the ED for SOB on 07/31/2024, BiPAP started 08/01/2024: Intubation, Zosyn was started MRSA in sputum 08/02/2024: influenza and covid negative, levophed was started 08/03/2024: vancomycin was started 08/03/2024: micafungin was started 08/04/2024: MRSA sputum 08/07/2024: clinimax was started 08/09/2024: cpap trial 08/10/2024: extubation 08/10/2024: MRSA in sputum 08/11/2024: reintubation 08/12/2024: blood culture negative 08/13/2024: micafungin was stopped, ECHO EF 55%, start lasix 08/14/2024: zosyn was stopped: allergic reaction, start levoquin 08/16/2024: cpap trial: tolerate 1-2 h 08/17/2024: cpap trial 08/18/2024: failed cpap trial 08/19/2024: successful extubation: BIPAP at night 08/20/2024: on and off BIPAP 08/23 continues on bipap Patient was extubated, required BIPAP on and off, patient has low pulmonary reserve, downgrade NAM, DC vancomycin, lower the dose of furosemide and solumdreol, start magnesium and acetazolamide, pending sputum culture Reviewed: Care Plan, H&P, Labs, Medications, Previous Orders, Radiology Changes from previous H/P or p: No Changes Eyes: No Pain, No Vision change, No Conjunctivae inflammation, No Eyelid inflammation, No Other, No Redness ENT: No Ear pain, No Ear discharge, No Nose pain, No Nose discharge, No Nose congestion, No Mouth pain, No Mouth swelling, No Throat pain, No Throat swelling, No Other Cardiovascular: No Chest Pain, No Palpitations, No Orthopnea, No Paroxysmal Noc. Dyspnea, No Edema, No Lt Headedness, No Other Respiratory: Cough, Shortness of breath, SOB with excertion, Other Gastrointestinal: No Nausea, No Vomiting, No Abdominal Pain, No Diarrhea, No Constipation, No Melena, No Hematochezia, No Other Genitourinary: No Dysuria, No Frequency, No Incontinence, No Hematuria, No Retention, No Other Musculoskeletal: No other, No neck pain, No shoulder pain, No arm pain, No back pain, No hand pain, No leg pain, No foot pain Skin: No Rash, No Lesions, No Jaundice, No Bruising, No Other Objective Vitals Vital Signs Date Time Temp Pulse Resp B/P (MAP) Pulse Ox O2 Delivery O2 Flow Rate FiO2 08/23/24 16:15 98.4 98 31 155/74 (101) 93 98.4 08/23/24 16:00 Nasal Cannula* 3 32 Intake/Output Intake and Output 08/23/24 05:00 Intake Total 310.0 ml Output Total 2076 ml Balance -1766.0 ml Intake Oral 10 ml IV Total 300.0 ml Output Urine Total 2075 ml Stool Total 1 ml # Bowel Movements 1 General Appearance: Alert, Other (Follows commands) Lungs: Other (Bilateral rhonchi) Cardiovascular: Regular rate, Normal S1, Normal S2, No murmurs Extremities: No edema Medications Current Medications Medications Dose Ordered Sig/Jorge Route Start Time Stop Time Status Last Admin Dose Admin Levothyroxine Sodium 100 mcg QAM@0600 PO 08/01/24 06:00 08/23/24 06:42 100 MCG Ondansetron HCl 4 mg Q4HP PRN IV 07/31/24 22:15 Acetaminophen 650 mg Q6HP PRN PO 07/31/24 22:15 08/18/24 02:18 650 MG Albuterol 2.5 mg Q4HR NEB 08/01/24 22:00 08/23/24 14:16 2.5 MG Ipratropium [place] 0.5 mg Q4HR NEB 08/01/24 22:00 08/23/24 14:16 0.5 MG Albuterol 10 mg Q2HPRN PRN NEB 08/01/24 21:30 08/09/24 11:16 10 MG Enoxaparin Sodium 40 mg DAILY SC 08/02/24 10:00 08/23/24 09:57 40 MG Diagnostic Test (Pha) 1 strip Q6HR 08/07/24 18:00 08/23/24 06:30 1 STRIP Insulin Human Regular FOLLOW SLIDING SCALE Q6HR SC 08/07/24 18:00 08/23/24 06:30 2 UNITS Dextrose 50 ml UD IV 08/07/24 18:00 08/15/24 05:52 50 ML Enteral Nutritional Formula 1,000 ml 50ML/HR NG 08/12/24 15:15 08/12/24 20:31 1,000 ML Sodium Chloride 10 ml QSHIFT@, IV 08/13/24 22:00 08/23/24 09:57 10 ML Pantoprazole Sodium 40 mg DAILY IV 08/19/24 10:00 08/23/24 09:57 40 MG Cefepime HCl 50 ml @ 12.5 mls/hr Q12HR IV 08/19/24 22:00 08/23/24 09:58 12.5 MLS/HR Morphine Sulfate 2 mg Q4HPRN PRN IV 08/19/24 18:30 Hold Lorazepam 1 mg Q8HP PRN IV 08/19/24 21:45 08/21/24 22:11 1 MG Hydralazine HCl 10 mg Q6HP PRN IV 08/19/24 22:00 08/23/24 12:45 10 MG Furosemide 20 mg DAILY IV 08/23/24 10:00 08/23/24 09:58 20 MG Methylprednisolone Sodium Succinate 40 mg BID IV 08/22/24 22:00 08/23/24 09:57 40 MG Lisinopril 10 mg DAILY PO 08/23/24 10:00 08/23/24 09:56 10 MG Laboratory Results Laboratory Tests 08/23/24 03:15 Chemistry Test 08/23/24 03:15 Albumin 4.4 g/dL (3.2-4.8) Calcium Level 9.6 mg/dL (8.7-10.4) Total Protein 6.8 g/dL (5.7-8.2) LFT Test 08/23/24 03:15 Alanine Aminotransferase (ALT) 82 U/L (7-40) H Alkaline Phosphatase 62 U/L (46-116) Aspartate Amino Transferase (AST) 23 U/L (13-40) Total Bilirubin 1.1 mg/dL (0.2-1.0) H Urinalysis Test 07/31/24 17:27 Urine Color Colorless (Yellow) Urine Clarity Clear (Clear) Urine pH 6.5 (5.0-9.0) Urine Specific Blanch 1.008 (1.001-1.035) Urine Protein Negative (Negative) Urine Ketones Negative (Negative) Urine Blood Negative /uL (Negative) Urine Nitrite Negative (Negative) Urine Bilirubin Negative (Negative) Urine Urobilinogen Normal mg/dL (Negative) Urine Leukocyte Esterase Negative /uL (Negative) Urine RBC 1 /hpf (0 - 4) Urine WBC <1 /hpf (0 - 5) Urine Squamous Epithelial Cells None seen /hpf (<5) Urine Bacteria None seen /hpf (None Seen) Urine Mucus Few (None Seen) Urine Glucose Normal mg/dL (Normal) Microbiology Microbiology Date/Time Source Procedure Growth Status 08/22/24 13:05 Nose MRSA Screen - Final Methicillin Resistant S.aureus Complete 08/12/24 23:10 Blood Blood Culture - Final NO GROWTH AFTER 5 DAYS OF INCUBATION. Complete 08/04/24 06:48 Sputum Gram Stain - Final Complete 08/04/24 06:48 Respiratory Culture - Final Methicillin Resistant S.aureus Complete 08/01/24 20:15 Urine - Catheterized Urine Culture - Final Complete Assessment/Plan Assessment/Plan Neurology off sedation patient is talking Cardiology #Hypertensive heart disease with Acute on chronic diastolic heart failure ECHO LVEF of 55% with grade 1 diastolic dysfunction, normal cardiac valves no pericardial effusion Xray today showed vascular congestion Start lisinopril 10 mg Hydralazine PRN Furosemide 20 mg IV: metabolic alkalosis one dose of acetazolamide off on levophed Respiratory #Acute hypoxic respiratory failure likely due to CHF exacerbation/COPD exacerbation Patient was extubated, on and off BIPAP: can be downgrade to NAM Repeat covid and flu Goals on O2 saturation will be 90- 92%: nasal canula 2 lt #COPD exacerbation continue albuterol and ipratropium med nebs solumedrol 40 mg BID mg sulfate for bronchodilatation # Septic shock due to MRSA pneumonia 08/04/2024: MRSA sputum 08/10/2024: MRSA in sputum 08/12/2024: blood culture negative 08/14/2024: zosyn was stopped: allergic reaction, start levoquin dc vancomycin for now WBC trending down : 3.3 # Sleep apnea bipap at night Endocrinology #Hypothyroidism -Continue levothyroxine 100mcg QAM Nephrology Creatinine is 0.50 Gastroenterology #Acute transaminitis resolved #Obesity Nutrition -swallow study and start feeding DVT prophylaxis -Enoxaparin 40 mg q.d. SC PUD prophylaxis: protonix 40 mg IV Lines: right upper extremity PICC line: 08/13/2024 santiago catheter: 07/31/2024 Goals of care discussed with medical team for 26 min Critical time spent 66 min Patient is full code Plan discussed with: Spouse Date of Service: Aug 23, 2024 Billing Provider: SARAH RICE MD Common Visit Codes: [id number] CARE 30-74 MIN SARAH RICE MD Aug 23, 2024 16:55
--- NOTE | 2024-08-23 22:30 | DVHPN2 ---
Progress Note - Dictate Date Seen: Aug 23, 2024 Has the PT tested + for MRSA If YES, has PT been informed?: No Medical Necessity Reason Pt with a Central, PICC or Fol: Yes The following are medically ne: PICC Line, Santiago Catheter Reason for santiago catheter: Strict I&O Subjective Patient seen and examined at bedside. Patient on BiPAP Overnight events reviewed. vital signs Vital Sign Date Time Temp Pulse Resp B/P (MAP) Pulse Ox O2 Delivery O2 Flow Rate FiO2 08/23/24 20:16 99 146/79 95 Facial BiPAP Mask 30 08/23/24 18:30 28 08/23/24 16:15 98.4 98.4 08/23/24 16:00 3 Total Intake and Output 08/22/24 08/22/24 08/23/24 15:00 23:00 07:00 Intake Total 250.0 ml 35.0 ml 275.0 ml Output Total 1026 ml 550 ml Balance 250.0 ml -991.0 ml -275.0 ml medications Current Medications Medications Dose Ordered Sig/Jorge Route Start Time Stop Time Status Last Admin Dose Admin Levothyroxine Sodium 100 mcg QAM@0600 PO 08/01/24 06:00 08/23/24 06:42 100 MCG Ondansetron HCl 4 mg Q4HP PRN IV 07/31/24 22:15 Acetaminophen 650 mg Q6HP PRN PO 07/31/24 22:15 08/18/24 02:18 650 MG Albuterol 2.5 mg Q4HR NEB 08/01/24 22:00 08/23/24 18:59 2.5 MG Ipratropium [place] 0.5 mg Q4HR NEB 08/01/24 22:00 08/23/24 18:59 0.5 MG Albuterol 10 mg Q2HPRN PRN NEB 08/01/24 21:30 08/09/24 11:16 10 MG Enoxaparin Sodium 40 mg DAILY SC 08/02/24 10:00 08/23/24 09:57 40 MG Diagnostic Test (Pha) 1 strip Q6HR 08/07/24 18:00 08/23/24 17:09 1 STRIP Insulin Human Regular FOLLOW SLIDING SCALE Q6HR SC 08/07/24 18:00 08/23/24 17:09 2 UNITS Dextrose 50 ml UD IV 08/07/24 18:00 08/15/24 05:52 50 ML Enteral Nutritional Formula 1,000 ml 50ML/HR NG 08/12/24 15:15 08/12/24 20:31 1,000 ML Sodium Chloride 10 ml QSHIFT@10,22 IV 08/13/24 22:00 08/23/24 21:33 10 ML Pantoprazole Sodium 40 mg DAILY IV 08/19/24 10:00 08/23/24 09:57 40 MG Cefepime HCl 50 ml @ 12.5 mls/hr Q12HR IV 08/19/24 22:00 08/23/24 21:32 12.5 MLS/HR Morphine Sulfate 2 mg Q4HPRN PRN IV 08/19/24 18:30 Hold Lorazepam 1 mg Q8HP PRN IV 08/19/24 21:45 08/21/24 22:11 1 MG Hydralazine HCl 10 mg Q6HP PRN IV 08/19/24 22:00 08/23/24 12:45 10 MG Furosemide 20 mg DAILY IV 08/23/24 10:00 08/23/24 09:58 20 MG Methylprednisolone Sodium Succinate 40 mg BID IV 08/22/24 22:00 08/23/24 21:32 40 MG Lisinopril 10 mg DAILY PO 08/23/24 10:00 08/23/24 09:56 10 MG objective Gen.: Patient lying in bed in no apparent distress. On BiPAP. Head: Normocephalic, atraumatic. Eyes: EOMI/PERRLA. Ears: Normal hearing. Normal anatomy. Neck/trachea: Trachea midline, supple. Nose: Normal external anatomy. Mouth: Moist mucous membranes. Chest: Decreased air entry bilaterally. No wheezing or rhonchi. Cardiovascular: Positive S1, positive S2. Regular rate and rhythm. Abdomen: Positive bowel sounds in all 4 quadrants. Soft, non-tender, non- distended. : Deferred. Rectal: Deferred. Skin: Warm, dry. Intact. Extremities: 2+ radial pulses bilaterally. No lower extremity edema. Neuro: Awake, alert, oriented x3. No gross motor or sensory deficits. Cranial nerves II through XII intact. Gait not assessed. laboratory and microbiology Laboratory Tests 08/23/24 03:15 Test 08/23/24 03:15 Range/Units Serum Glucose 146 H 74-106 mg/dL Assessment/Plan Impression: Acute on chronic hypercarbic respiratory failure COPD exacerbation Morbid obesity, BMI 53.4 Atelectasis Events: On BiPAP with IPAP 15, EPAP 5, FiO2 30% Taper FiO2 as tolerated. Taper steroids Continue antibiotics Continue bronchodilators. Clinimix for nutritional support HOB elevation Aspiration precautions Continue to monitor respiratory status closely. Labs and imaging reviewed. Rest of plan as noted below. Plan: On BiPAP with IPAP 15, EPAP 5, FiO2 30% Taper FiO2 as tolerated. Bronchodilators. Antibiotics. F/u cultures. Blood cultures show no growth Sputum grew MRSA IV steroids - taper as tolerated Pressors as necessary for hemodynamic support Titrate to keep mean arterial pressure greater than 65 mmHg. Monitor renal function Monitor electrolytes. Supplement as necessary. Monitor ins and outs. Maintain euvolemia. GI prophylaxis. Pepcid DVT prophylaxis. Prognosis: Poor given patient's multiple co-morbidities. Condition: Critical Rest of plan per hospitalist and other consultants. A total of 35 minutes of critical care time was spent reviewing the patient record, examining the patient, making a diagnostic and therapeutic plan, discussing this plan with the medical personnel, following up on diagnostic studies and following the patient for clinical stability excluding any and all procedures. At least 50% of this time was spent in direct, [id number] contact. Thank you, Dr Up, for allowing me to participate in this patient's care. Further recommendations will depend on the patient's clinical course. Please do not hesitate to contact me if you have any questions or concerns. This medical document was created using an electronic medical record system with [email or web address] dictation system. Although these documentations are being carefully reviewed, there may still be some phonetic and typographical changes. The errors are purely typographical, due to imperfection on the software program, and do not reflect any compromise in the patient's medical care. Dietary Evaluation Review Comments: 1) If pt remain on vent, a TPN with clinimix plus a TPN per pharmacy to reach75% of her energy and protein needs, 2) If on TF, a combination of Clinimix plus jevity @30ml/hr will meet her goal 3) If pt can accept PO intake without swallowing difficulties after a ST eval, advance diet to cardiac 2 gNa, Lofat Lo Chol diet. 4) Monitor intake to meet 65-75% of her energy needs. Expected Outcomes/Goals: Gradual weight loss. Plan discussed with: Other (TEE Lan) Critical Care Time(min): 35 VIVIANE ARRIAGA MD Aug 23, 2024 22:30
[2024-08-24] VITALS (36 sets, daily range): BP systolic 126–160; BP diastolic 38–79; PULSE 73–109; RESP 13–33; TEMP 97.8–98.4; O2SAT 92–100
--- NOTE | 2024-08-24 17:42 | DVHPN2 ---
Subjective A 59y old female with PMHx: COPD, CHF, Hyperlipidiemia, obesity, hypothyroidism, smoker, sleep apnea Home meds: albuterol, aripiprazole, atorvastatin, brezti, celebrez, citalopram, furosemide 40 mg, HCTZ, levothyroxine, lisinopril Patient came to the ED for SOB on 07/31/2024, BiPAP started 08/01/2024: Intubation, Zosyn was started MRSA in sputum 08/02/2024: influenza and covid negative, levophed was started 08/03/2024: vancomycin was started 08/03/2024: micafungin was started 08/04/2024: MRSA sputum 08/07/2024: clinimax was started 08/09/2024: cpap trial 08/10/2024: extubation 08/10/2024: MRSA in sputum 08/11/2024: reintubation 08/12/2024: blood culture negative 08/13/2024: micafungin was stopped, ECHO EF 55%, start lasix 08/14/2024: zosyn was stopped: allergic reaction, start levoquin 08/16/2024: cpap trial: tolerate 1-2 h 08/17/2024: cpap trial 08/18/2024: failed cpap trial 08/19/2024: successful extubation: BIPAP at night 08/20/2024: on and off BIPAP 08/23 continues on bipap 08/24 on bipap Patient was extubated, required BIPAP on and off, patient has low pulmonary reserve, downgrade NAM, DC vancomycin, lower the dose of furosemide and solumdreol, start magnesium and acetazolamide, pending sputum culture Reviewed: Care Plan, H&P, Labs, Medications, Previous Orders, Radiology Changes from previous H/P or p: No Changes Eyes: No Pain, No Vision change, No Conjunctivae inflammation, No Eyelid inflammation, No Other, No Redness ENT: No Ear pain, No Ear discharge, No Nose pain, No Nose discharge, No Nose congestion, No Mouth pain, No Mouth swelling, No Throat pain, No Throat swelling, No Other Cardiovascular: No Chest Pain, No Palpitations, No Orthopnea, No Paroxysmal Noc. Dyspnea, No Edema, No Lt Headedness, No Other Respiratory: Cough, Shortness of breath, SOB with excertion, Other Gastrointestinal: No Nausea, No Vomiting, No Abdominal Pain, No Diarrhea, No Constipation, No Melena, No Hematochezia, No Other Genitourinary: No Dysuria, No Frequency, No Incontinence, No Hematuria, No Retention, No Other Musculoskeletal: No other, No neck pain, No shoulder pain, No arm pain, No back pain, No hand pain, No leg pain, No foot pain Skin: No Rash, No Lesions, No Jaundice, No Bruising, No Other Objective Vitals Vital Signs Date Time Temp Pulse Resp B/P (MAP) Pulse Ox O2 Delivery O2 Flow Rate FiO2 08/24/24 16:00 26 Nasal Cannula* 3 32 08/24/24 16:00 94 08/24/24 16:00 98.2 150/70 (96) 95 98.2 Intake/Output Intake and Output 08/24/24 05:00 Intake Total 450.0 ml Output Total 1751 ml Balance -1301.0 ml Intake Oral 350 ml IV Total 100.0 ml Output Urine Total 1750 ml Stool Total 1 ml General Appearance: Alert, Other (Follows commands) Lungs: Other (Bilateral rhonchi) Cardiovascular: Regular rate, Normal S1, Normal S2, No murmurs Extremities: No edema Medications Current Medications Medications Dose Ordered Sig/Jorge Route Start Time Stop Time Status Last Admin Dose Admin Levothyroxine Sodium 100 mcg QAM@0600 PO 08/01/24 06:00 08/24/24 06:40 100 MCG Ondansetron HCl 4 mg Q4HP PRN IV 07/31/24 22:15 Acetaminophen 650 mg Q6HP PRN PO 07/31/24 22:15 08/18/24 02:18 650 MG Albuterol 2.5 mg Q4HR NEB 08/01/24 22:00 08/24/24 14:00 2.5 MG Ipratropium [place] 0.5 mg Q4HR NEB 08/01/24 22:00 08/24/24 14:00 0.5 MG Albuterol 10 mg Q2HPRN PRN NEB 08/01/24 21:30 08/09/24 11:16 10 MG Enoxaparin Sodium 40 mg DAILY SC 08/02/24 10:00 08/24/24 10:01 40 MG Diagnostic Test (Pha) 1 strip Q6HR 08/07/24 18:00 08/24/24 17:38 1 STRIP Insulin Human Regular FOLLOW SLIDING SCALE Q6HR SC 08/07/24 18:00 08/24/24 11:53 2 UNITS Dextrose 50 ml UD IV 08/07/24 18:00 08/15/24 05:52 50 ML Enteral Nutritional Formula 1,000 ml 50ML/HR NG 08/12/24 15:15 08/12/24 20:31 1,000 ML Sodium Chloride 10 ml QSHIFT@ IV 08/13/24 22:00 08/24/24 09:55 10 ML Pantoprazole Sodium 40 mg DAILY IV 08/19/24 10:00 08/24/24 09:54 40 MG Cefepime HCl 50 ml @ 12.5 mls/hr Q12HR IV 08/19/24 22:00 08/24/24 09:56 12.5 MLS/HR Morphine Sulfate 2 mg Q4HPRN PRN IV 08/19/24 18:30 Hold Lorazepam 1 mg Q8HP PRN IV 08/19/24 21:45 08/21/24 22:11 1 MG Hydralazine HCl 10 mg Q6HP PRN IV 08/19/24 22:00 08/23/24 12:45 10 MG Furosemide 20 mg DAILY IV 08/23/24 10:00 08/24/24 09:55 20 MG Methylprednisolone Sodium Succinate 40 mg BID IV 08/22/24 22:00 08/24/24 10:00 40 MG Lisinopril 10 mg DAILY PO 08/23/24 10:00 08/24/24 10:01 10 MG Laboratory Results Laboratory Tests 08/23/24 03:15 Urinalysis Test 07/31/24 17:27 Urine Color Colorless (Yellow) Urine Clarity Clear (Clear) Urine pH 6.5 (5.0-9.0) Urine Specific [place] 1.008 (1.001-1.035) Urine Protein Negative (Negative) Urine Ketones Negative (Negative) Urine Blood Negative /uL (Negative) Urine Nitrite Negative (Negative) Urine Bilirubin Negative (Negative) Urine Urobilinogen Normal mg/dL (Negative) Urine Leukocyte Esterase Negative /uL (Negative) Urine RBC 1 /hpf (0 - 4) Urine WBC <1 /hpf (0 - 5) Urine Squamous Epithelial Cells None seen /hpf (<5) Urine Bacteria None seen /hpf (None Seen) Urine Mucus Few (None Seen) Urine Glucose Normal mg/dL (Normal) Microbiology Microbiology Date/Time Source Procedure Growth Status 08/22/24 13:05 Nose MRSA Screen - Final Methicillin Resistant S.aureus Complete 08/12/24 23:10 Blood Blood Culture - Final NO GROWTH AFTER 5 DAYS OF INCUBATION. Complete 08/04/24 06:48 Sputum Gram Stain - Final Complete 08/04/24 06:48 Respiratory Culture - Final Methicillin Resistant S.aureus Complete 08/01/24 20:15 Urine - Catheterized Urine Culture - Final Complete Assessment/Plan Assessment/Plan Neurology off sedation patient is talking Cardiology #Hypertensive heart disease with Acute on chronic diastolic heart failure ECHO LVEF of 55% with grade 1 diastolic dysfunction, normal cardiac valves no pericardial effusion Xray today showed vascular congestion Start lisinopril 10 mg Hydralazine PRN Furosemide 20 mg IV: metabolic alkalosis one dose of acetazolamide off on levophed Respiratory #Acute hypoxic respiratory failure likely due to CHF exacerbation/COPD exacerbation Patient was extubated, on and off BIPAP: can be downgrade to NAM Repeat covid and flu Goals on O2 saturation will be 90- 92%: nasal canula 2 lt #COPD exacerbation continue albuterol and ipratropium med nebs solumedrol 40 mg BID mg sulfate for bronchodilatation # Septic shock due to MRSA pneumonia 08/04/2024: MRSA sputum 08/10/2024: MRSA in sputum 08/12/2024: blood culture negative 08/14/2024: zosyn was stopped: allergic reaction, start levoquin dc vancomycin for now WBC trending down : 3.3 # Sleep apnea bipap at night Endocrinology #Hypothyroidism -Continue levothyroxine 100mcg QAM Nephrology Creatinine is 0.50 Gastroenterology #Acute transaminitis resolved #Obesity Nutrition -swallow study and start feeding DVT prophylaxis -Enoxaparin 40 mg q.d. SC PUD prophylaxis: protonix 40 mg IV Lines: right upper extremity PICC line: 08/13/2024 santiago catheter: 07/31/2024 Goals of care discussed with medical team for 26 min Critical time spent 66 min Patient is full code Plan discussed with: Other (nurse) Date of Service: Aug 24, 2024 Billing Provider: SARAH RICE MD Common Visit Codes: [id number] CARE 30-74 MIN SARAH RICE MD Aug 24, 2024 17:42
--- NOTE | 2024-08-24 23:54 | DVHPN2 ---
Progress Note - Dictate Date Seen: Aug 24, 2024 Has the PT tested + for MRSA If YES, has PT been informed?: No Medical Necessity Reason Pt with a Central, PICC or Fol: Yes The following are medically ne: PICC Line, Santiago Catheter Reason for santiago catheter: Strict I&O Subjective Patient seen and examined at bedside. Patient on BiPAP PRN alternating with supplemental oxygen Overnight events reviewed. vital signs Vital Sign Date Time Temp Pulse Resp B/P (MAP) Pulse Ox O2 Delivery O2 Flow Rate FiO2 08/24/24 22:00 75 08/24/24 22:00 17 95 Bi-Pap+ 30 30 08/24/24 21:54 152/50 08/24/24 20:00 2 08/24/24 16:00 98.2 98.2 Total Intake and Output 08/23/24 08/23/24 08/24/24 15:00 23:00 07:00 Intake Total 50.0 ml 125.0 ml 325.0 ml Output Total 1201 ml 550 ml Balance 50.0 ml -1076.0 ml -225.0 ml medications Current Medications Medications Dose Ordered Sig/Jorge Route Start Time Stop Time Status Last Admin Dose Admin Levothyroxine Sodium 100 mcg QAM@0600 PO 08/01/24 06:00 08/24/24 06:40 100 MCG Ondansetron HCl 4 mg Q4HP PRN IV 07/31/24 22:15 Acetaminophen 650 mg Q6HP PRN PO 07/31/24 22:15 08/18/24 02:18 650 MG Albuterol 2.5 mg Q4HR NEB 08/01/24 22:00 08/24/24 21:53 2.5 MG Ipratropium [place] 0.5 mg Q4HR NEB 08/01/24 22:00 08/24/24 21:53 0.5 MG Albuterol 10 mg Q2HPRN PRN NEB 08/01/24 21:30 08/09/24 11:16 10 MG Enoxaparin Sodium 40 mg DAILY SC 08/02/24 10:00 08/24/24 10:01 40 MG Diagnostic Test (Pha) 1 strip Q6HR 08/07/24 18:00 08/24/24 17:38 1 STRIP Insulin Human Regular FOLLOW SLIDING SCALE Q6HR SC 08/07/24 18:00 08/24/24 11:53 2 UNITS Dextrose 50 ml UD IV 08/07/24 18:00 08/15/24 05:52 50 ML Enteral Nutritional Formula 1,000 ml 50ML/HR NG 08/12/24 15:15 08/12/24 20:31 1,000 ML Sodium Chloride 10 ml QSHIFT@10,22 IV 08/13/24 22:00 08/24/24 21:57 10 ML Pantoprazole Sodium 40 mg DAILY IV 08/19/24 10:00 08/24/24 09:54 40 MG Cefepime HCl 50 ml @ 12.5 mls/hr Q12HR IV 08/19/24 22:00 08/24/24 21:56 12.5 MLS/HR Morphine Sulfate 2 mg Q4HPRN PRN IV 08/19/24 18:30 Hold Lorazepam 1 mg Q8HP PRN IV 08/19/24 21:45 08/24/24 21:58 1 MG Hydralazine HCl 10 mg Q6HP PRN IV 08/19/24 22:00 08/23/24 12:45 10 MG Furosemide 20 mg DAILY IV 08/23/24 10:00 08/24/24 09:55 20 MG Methylprednisolone Sodium Succinate 40 mg BID IV 08/22/24 22:00 08/24/24 21:57 40 MG Lisinopril 10 mg DAILY PO 08/23/24 10:00 08/24/24 10:01 10 MG objective Gen.: Patient lying in bed in no apparent distress. On BiPAP PRN alternating with supplemental oxygen Head: Normocephalic, atraumatic. Eyes: EOMI/PERRLA. Ears: Normal hearing. Normal anatomy. Neck/trachea: Trachea midline, supple. Nose: Normal external anatomy. Mouth: Moist mucous membranes. Chest: Decreased air entry bilaterally. No wheezing or rhonchi. Cardiovascular: Positive S1, positive S2. Regular rate and rhythm. Abdomen: Positive bowel sounds in all 4 quadrants. Soft, non-tender, non- distended. : Deferred. Rectal: Deferred. Skin: Warm, dry. Intact. Extremities: 2+ radial pulses bilaterally. No lower extremity edema. Neuro: Awake, alert, oriented x3. No gross motor or sensory deficits. Cranial nerves II through XII intact. Gait not assessed. laboratory and microbiology Laboratory Tests 08/23/24 03:15 Test 08/23/24 03:15 Range/Units Serum Glucose 146 H 74-106 mg/dL Assessment/Plan Impression: Acute on chronic hypercarbic respiratory failure COPD exacerbation Morbid obesity, BMI 53.4 Atelectasis Events: BiPAP with IPAP 15, EPAP 5, FiO2 30% Patient on BiPAP PRN alternating with supplemental oxygen Taper steroids Continue antibiotics Continue bronchodilators. Clinimix for nutritional support HOB elevation Aspiration precautions Diurese to maintain euvolemia Monitor renal function PT. Downgrade to NAM. Patient desaturates w/ coughing episodes. Continue to monitor respiratory status closely. Labs and imaging reviewed. Rest of plan as noted below. Plan: BiPAP with IPAP 15, EPAP 5, FiO2 30% BiPAP PRN alternating with supplemental oxygen Bronchodilators. Antibiotics. F/u cultures. Blood cultures show no growth Sputum grew MRSA IV steroids - taper as tolerated Pressors as necessary for hemodynamic support Titrate to keep mean arterial pressure greater than 65 mmHg. Monitor renal function Monitor electrolytes. Supplement as necessary. Monitor ins and outs. Maintain euvolemia. GI prophylaxis. Pepcid DVT prophylaxis. Prognosis: Poor given patient's multiple co-morbidities. Condition: Critical Rest of plan per hospitalist and other consultants. A total of 35 minutes of critical care time was spent reviewing the patient record, examining the patient, making a diagnostic and therapeutic plan, discussing this plan with the medical personnel, following up on diagnostic studies and following the patient for clinical stability excluding any and all procedures. At least 50% of this time was spent in direct, [id number] contact. Thank you, Dr Up, for allowing me to participate in this patient's care. Further recommendations will depend on the patient's clinical course. Please do not hesitate to contact me if you have any questions or concerns. This medical document was created using an electronic medical record system with [employer] dictation system. Although these documentations are being carefully reviewed, there may still be some phonetic and typographical changes. The errors are purely typographical, due to imperfection on the software program, and do not reflect any compromise in the patient's medical care. Dietary Evaluation Review Comments: 1) If pt remain on vent, a TPN with clinimix plus a TPN per pharmacy to reach75% of her energy and protein needs, 2) If on TF, a combination of Clinimix plus jevity @30ml/hr will meet her goal 3) If pt can accept PO intake without swallowing difficulties after a ST eval, advance diet to cardiac 2 gNa, Lofat Lo Chol diet. 4) Monitor intake to meet 65-75% of her energy needs. Expected Outcomes/Goals: Gradual weight loss. Plan discussed with: Other (TEE Knapp/Mukesh) Critical Care Time(min): 35 VIVIANE ARRIAGA MD Aug 24, 2024 23:54
[2024-08-25] VITALS (35 sets, daily range): BP systolic 104–146; BP diastolic 43–77; PULSE 73–99; RESP 12–23; TEMP 98–98.8; O2SAT 91–99
[2024-08-25 05:20] LABS: Basophils # (auto) 0 10 ^3/uL (0-0.2); Basophils % (auto) 0.1 % (0.0-2.0); Eosinophils # (auto) 0 10 ^3/uL (0-0.8); Hematocrit 38.4 % (36.0-46.0); Hemoglobin 12.5 g/dL (12.2-16.2); Lymphocytes # (auto) 0.2 10 ^3/uL (0.4-5.4); Lymphocytes % (auto) 3.5 % (10.0-50.0); Mean Corpuscular Hemoglobin 29.7 pg (28.0-32.0); Mean Corpuscular Hgb Conc. 32.6 g/dL (32.0-36.0); Mean Corpuscular Volume 90.9 fL (80.0-100.0); Monocytes # (auto) 0.2 10 ^3/uL (0-1.3); Monocytes % (auto) 2.7 % (0.0-12.0); Neutrophils # (auto) 5.7 10 ^3/uL (1.6-8.6); Neutrophils % (auto) 93.7 % (37.0-80.0); Nucleated Red Blood Cells % 0.1 %; Platelet Count (auto) 164 10^3/uL (140-450); Red Blood Cells 4.22 10^6/uL (4.0-5.20); Red Cell Distribution Width 14.7 % (11.8-14.3); White Blood Cell 6.1 10^3/uL (4.4-10.8)
[2024-08-25 05:27] LABS: Alanine Aminotransferase 75 U/L (7-40); Alkaline Phosphatase 57 U/L (46-116); Anion Gap 2 (5-15); Aspartate Aminotransferase 13 U/L (13-40); Blood Urea Nitrogen 23 mg/dL (9-23); Calcium 9.2 mg/dL (8.7-10.4); Carbon Dioxide 36 mmol/L (20-31); Chloride 101 mmol/L (98-107); Glucose 141 mg/dL (74-106); Potassium 4.2 mmol/L (3.5-5.1); Sodium 139 mmol/L (136-145)
[2024-08-25 05:28] LABS: Total Protein 6.1 g/dL (5.7-8.2)
[2024-08-25 08:57] LABS: Base Excess 9.9 mmol/L (-2.0-3.0)
[2024-08-25 09:14] LABS: Basophils # (auto) 0 10 ^3/uL (0-0.2); Basophils % (auto) 0.3 % (0.0-2.0); Eosinophils # (auto) 0 10 ^3/uL (0-0.8); Hematocrit 39.6 % (36.0-46.0); Hemoglobin 12.9 g/dL (12.2-16.2); Lymphocytes # (auto) 0.3 10 ^3/uL (0.4-5.4); Lymphocytes % (auto) 4.2 % (10.0-50.0); Mean Corpuscular Hemoglobin 29.7 pg (28.0-32.0); Mean Corpuscular Hgb Conc. 32.6 g/dL (32.0-36.0); Mean Corpuscular Volume 91.1 fL (80.0-100.0); Monocytes # (auto) 0.4 10 ^3/uL (0-1.3); Monocytes % (auto) 4.3 % (0.0-12.0); Neutrophils # (auto) 7.5 10 ^3/uL (1.6-8.6); Neutrophils % (auto) 91.2 % (37.0-80.0); Platelet Count (auto) 181 10^3/uL (140-450); Red Blood Cells 4.35 10^6/uL (4.0-5.20); Red Cell Distribution Width 14.6 % (11.8-14.3); White Blood Cell 8.2 10^3/uL (4.4-10.8)
[2024-08-25 09:39] LABS: Alanine Aminotransferase 78 U/L (7-40); Alkaline Phosphatase 60 U/L (46-116); Anion Gap 5 (5-15); Aspartate Aminotransferase 13 U/L (13-40); BUN/Creatinine Ratio 39.3 (10.0-20.0); Blood Urea Nitrogen 22 mg/dL (9-23); Calcium 9.6 mg/dL (8.7-10.4); Carbon Dioxide 36 mmol/L (20-31); Chloride 99 mmol/L (98-107); Glucose 126 mg/dL (74-106); Potassium 3.9 mmol/L (3.5-5.1); Sodium 140 mmol/L (136-145)
[2024-08-25 09:40] LABS: Total Protein 6.2 g/dL (5.7-8.2)
--- NOTE | 2024-08-25 13:03 | DVH ---
CHEST RADIOGRAPH Indication:dyspnea Technique: Single frontal view of the chest was obtained Comparison: XY CHEST XRAY 1 VIEW on DOS: 08/23/24, XY CHEST XRAY 1 VIEW on DOS: 08/22/24, XY CHEST XR AY 1 VIEW on DOS: 08/21/24, XY CHEST XRAY 1 VIEW on DOS: 08/20/24, XY CHEST XRAY 1 VIEW on DOS: 08/20 FINDINGS: Lines and Tubes: None Lungs: Improved aeration of the right lung base Pleura: No effusion. No pneumothorax. Cardiomediastinal contours: Unremarkable Bones: No acute osseous abnormality. IMPRESSION: Right PICC with tip in the SVC.
--- NOTE | 2024-08-25 16:50 | DVHPNRES ---
Progress Note Date Seen: Aug 25, 2024 Resident Creating Document: ABDIAZIZ ACOSTA RESIDENT Has the PT tested + for MRSA If YES, has PT been informed?: No Medical Necessity Reason Pt with a Central, PICC or Fol: Yes The following are medically ne: PICC Line, Santiago Catheter Reason for santiago catheter: Strict I&O Subjective Review of Systems A 59y old female with PMHx: COPD, CHF, Hyperlipidiemia, obesity, hypothyroidism, smoker, sleep apnea Home meds: albuterol, aripiprazole, atorvastatin, brezti, celebrez, citalopram, furosemide 40 mg, HCTZ, levothyroxine, lisinopril Patient came to the ED for SOB on 07/31/2024, BiPAP started 08/01/2024: Intubation, Zosyn was started MRSA in sputum 08/02/2024: influenza and covid negative, levophed was started 08/03/2024: vancomycin was started 08/03/2024: micafungin was started 08/04/2024: MRSA sputum 08/07/2024: clinimax was started 08/09/2024: cpap trial 08/10/2024: extubation 08/10/2024: MRSA in sputum 08/11/2024: reintubation 08/12/2024: blood culture negative 08/13/2024: micafungin was stopped, ECHO EF 55%, start lasix 08/14/2024: zosyn was stopped: allergic reaction, start levoquin 08/16/2024: cpap trial: tolerate 1-2 h 08/17/2024: cpap trial 08/18/2024: failed cpap trial 08/19/2024: successful extubation: BIPAP at night 08/20/2024: on and off BIPAP 08/22/2024: off of antibiotics, downgrade to NAM : uneventful Patient is seen an examine at bedside, no distress,, required BIPAP only at night , PT is encourage for further discharge, taper on the steroids, solumedrol 40 mg daily, stop cefepime, downgrade to telemetry Objective vital signs Vital Sign Date Time Temp Pulse Resp B/P (MAP) Pulse Ox O2 Delivery O2 Flow Rate FiO2 08/25/24 14:04 84 20 99 08/25/24 14:00 134/77 (96) 08/25/24 13:58 Nasal Cannula* 3 32 08/25/24 12:00 98.8 98.8 Total Intake and Output 08/24/24 08/24/24 08/25/24 15:00 23:00 07:00 Intake Total 50 ml 232.5 ml 237.5 ml Output Total 375 ml Balance 50 ml 232.5 ml -137.5 ml medications Current Medications Medications Dose Ordered Sig/Jorge Route Start Time Stop Time Status Last Admin Dose Admin Levothyroxine Sodium 100 mcg QAM@0600 PO 08/01/24 06:00 08/25/24 06:00 100 MCG Ondansetron HCl 4 mg Q4HP PRN IV 07/31/24 22:15 Acetaminophen 650 mg Q6HP PRN PO 07/31/24 22:15 08/18/24 02:18 650 MG Albuterol 2.5 mg Q4HR NEB 08/01/24 22:00 08/25/24 13:56 2.5 MG Ipratropium [place] 0.5 mg Q4HR NEB 08/01/24 22:00 08/25/24 13:56 0.5 MG Albuterol 10 mg Q2HPRN PRN NEB 08/01/24 21:30 08/09/24 11:16 10 MG Enoxaparin Sodium 40 mg DAILY SC 08/02/24 10:00 08/25/24 09:11 40 MG Diagnostic Test (Pha) 1 strip Q6HR 08/07/24 18:00 08/25/24 11:35 1 STRIP Insulin Human Regular FOLLOW SLIDING SCALE Q6HR SC 08/07/24 18:00 08/25/24 11:36 2 UNITS Dextrose 50 ml UD IV 08/07/24 18:00 08/15/24 05:52 50 ML Sodium Chloride 10 ml QSHIFT@ IV 08/13/24 22:00 08/25/24 09:12 10 ML Pantoprazole Sodium 40 mg DAILY IV 08/19/24 10:00 08/25/24 09:12 40 MG Morphine Sulfate 2 mg Q4HPRN PRN IV 08/19/24 18:30 Hold Lorazepam 1 mg Q8HP PRN IV 08/19/24 21:45 08/25/24 11:36 1 MG Hydralazine HCl 10 mg Q6HP PRN IV 08/19/24 22:00 08/23/24 12:45 10 MG Furosemide 20 mg DAILY IV 08/23/24 10:00 08/25/24 09:13 20 MG Lisinopril 10 mg DAILY PO 08/23/24 10:00 08/25/24 09:12 10 MG Methylprednisolone Sodium Succinate 40 mg DAILY IV 08/26/24 10:00 Examination Patient is alert, oriented and nasal canula 3lt Head: Normocephalic, atraumatic. Eyes: PERRLA. Ears: Normal external anatomy. Neck: Supple, trachea midline. Chest: Bibasilar crackles. Cardiovascular: Positive S1, positive S2. Regular rate and rhythm. Abdomen: Soft, nontender, nondistended. : Santiago in place. Skin: Warm, dry. Intact. Extremities: no edema laboratory and microbiology Laboratory Tests 08/25/24 08:53 Test 08/25/24 08:53 Range/Units Serum Glucose 126 H 74-106 mg/dL Microbiology Date/Time Source Procedure Growth Status 08/22/24 13:05 Nose MRSA Screen - Final Methicillin Resistant S.aureus Complete 08/12/24 23:10 Blood Blood Culture - Final NO GROWTH AFTER 5 DAYS OF INCUBATION. Complete 08/04/24 06:48 Sputum Gram Stain - Final Complete 08/04/24 06:48 Respiratory Culture - Final Methicillin Resistant S.aureus Complete 08/01/24 20:15 Urine - Catheterized Urine Culture - Final Complete Problem List/Assessment/Plan Problem List/Assessment/Plan Neurology off sedation patient is talking Cardiology #Hypertensive heart disease with Acute on chronic diastolic heart failure ECHO LVEF of 55% with grade 1 diastolic dysfunction, normal cardiac valves no pericardial effusion Xray today showed vascular congestion Continue lisinopril 10 mg Hydralazine PRN Furosemide 20 mg IV Respiratory #Acute hypoxic respiratory failure likely due to CHF exacerbation/COPD exacerbation Today xray: right hemidiaphragm elevated, less vascular congestion than before, no consolidations Covid and flu negative Goals on O2 saturation will be 90- 92%: nasal canula 2 lt #COPD exacerbation continue albuterol and ipratropium med nebs solumedrol 40 mg daily, tomorrow prednisone oral # Septic shock due to MRSA pneumonia 08/04/2024: MRSA sputum 08/10/2024: MRSA in sputum 08/12/2024: blood culture negative 08/14/2024: zosyn was stopped: allergic reaction, start levoquin dc cefepime # Sleep apnea bipap at night Endocrinology #Hypothyroidism -Continue levothyroxine 100mcg QAM Nephrology Creatinine is 0.56 Gastroenterology #Acute transaminitis resolved #Obesity Nutrition -mechanical soft diet: patient doesn't have teeth DVT prophylaxis -Enoxaparin 40 mg q.d. SC PUD prophylaxis: protonix 40 mg IV Lines: right upper extremity PICC line: 08/13/2024 santiago catheter: 07/31/2024 Goals of care discussed with medical team for 26 min Critical time spent 46 min Patient is full code Plan discussed with Dr. Schmid Plan discussed with: Patient, Other (rn) My Orders My Orders Orders - ABDIAZIZ ACOSTA Procedure Category Date Status Time Abg W/ Co-Ox RT 08/25/24 Logged 08:31 Chest Xray 1 View XY 08/25/24 Resulted 08:31 Methylprednisolone PHA 08/26/24 In Process Sod Succ (Solu Medrol 10:00 Dietary Evaluation Review Comments: 1) If pt remain on vent, a TPN with clinimix plus a TPN per pharmacy to reach75% of her energy and protein needs, 2) If on TF, a combination of Clinimix plus jevity @30ml/hr will meet her goal 3) If pt can accept PO intake without swallowing difficulties after a ST eval, advance diet to cardiac 2 gNa, Lofat Lo Chol diet. 4) Monitor intake to meet 65-75% of her energy needs. Expected Outcomes/Goals: Gradual weight loss. Date of Service: Aug 25, 2024 Billing Provider: HUGH SCHMID MD Common Visit Codes: [id number] CARE 30-74 MIN ABDIAZIZ ACOSTA RESIDENT Aug 25, 2024 16:50 HUGH SCHMID MD Aug 26, 2024 14:28
[2024-08-26] VITALS (17 sets, daily range): BP systolic 122–139; BP diastolic 64–86; PULSE 73–83; RESP 16–21; TEMP 97.9–98.5; O2SAT 91–100
--- NOTE | 2024-08-26 07:13 | DVH ---
CHEST RADIOGRAPH Indication:copd Technique: Single frontal view of the chest was obtained Comparison: XY CHEST XRAY 1 VIEW on DOS: 08/25/24 FINDINGS: Lines and Tubes: Right PICC terminates in the superior vena cava. Lungs: Elevated right hemidiaphragm. No focal consolidation. Pleura: No effusion. No pneumothorax. Cardiomediastinal contours: Unremarkable Bones: No acute osseous abnormality. IMPRESSION: 1. No acute cardiopulmonary disease.
[2024-08-26 10:21] LABS: Basophils # (auto) 0 10 ^3/uL (0-0.2); Basophils % (auto) 0.2 % (0.0-2.0); Eosinophils # (auto) 0.1 10 ^3/uL (0-0.8); Eosinophils % (auto) 1.1 % (0.0-7.0); Hematocrit 41.9 % (36.0-46.0); Hemoglobin 13.6 g/dL (12.2-16.2); Lymphocytes % (auto) 12.2 % (10.0-50.0); Mean Corpuscular Hemoglobin 29.7 pg (28.0-32.0); Mean Corpuscular Hgb Conc. 32.4 g/dL (32.0-36.0); Mean Corpuscular Volume 91.8 fL (80.0-100.0); Monocytes # (auto) 0.5 10 ^3/uL (0-1.3); Monocytes % (auto) 5.9 % (0.0-12.0); Neutrophils # (auto) 6.8 10 ^3/uL (1.6-8.6); Neutrophils % (auto) 80.6 % (37.0-80.0); Nucleated Red Blood Cells % 0.1 %; Platelet Count (auto) 185 10^3/uL (140-450); Red Blood Cells 4.56 10^6/uL (4.0-5.20); Red Cell Distribution Width 14.9 % (11.8-14.3); White Blood Cell 8.5 10^3/uL (4.4-10.8)
[2024-08-26] MEDS: methylPREDNISolone SOD SUCC 40 MG/ML VL IV SCH (10:32)
[2024-08-26 10:42] LABS: Alanine Aminotransferase 92 U/L (7-40); Alkaline Phosphatase 61 U/L (46-116); Anion Gap 6 (5-15); Aspartate Aminotransferase 23 U/L (13-40); BUN/Creatinine Ratio 34.5 (10.0-20.0); Blood Urea Nitrogen 20 mg/dL (9-23); Calcium 9.6 mg/dL (8.7-10.4); Carbon Dioxide 33 mmol/L (20-31); Chloride 99 mmol/L (98-107); Glucose 109 mg/dL (74-106); Potassium 3.9 mmol/L (3.5-5.1); Sodium 138 mmol/L (136-145)
[2024-08-26 10:43] LABS: Bilirubin, Total 0.9 mg/dL (0.2-1.0); Total Protein 6.3 g/dL (5.7-8.2)
--- NOTE | 2024-08-26 21:55 | DVHPNRES ---
Progress Note Date Seen: Aug 26, 2024 Resident Creating Document: ABDIAZIZ ACOSTA RESIDENT Has the PT tested + for MRSA If YES, has PT been informed?: No Medical Necessity Reason Pt with a Central, PICC or Fol: Yes The following are medically ne: PICC Line, Santiago Catheter Reason for santiago catheter: Strict I&O Subjective Review of Systems A 59y old female with PMHx: COPD, CHF, Hyperlipidiemia, obesity, hypothyroidism, smoker, sleep apnea Home meds: albuterol, aripiprazole, atorvastatin, brezti, celebrez, citalopram, furosemide 40 mg, HCTZ, levothyroxine, lisinopril Patient came to the ED for SOB on 07/31/2024, BiPAP started 08/01/2024: Intubation, Zosyn was started MRSA in sputum 08/02/2024: influenza and covid negative, levophed was started 08/03/2024: vancomycin was started 08/03/2024: micafungin was started 08/04/2024: MRSA sputum 08/07/2024: clinimax was started 08/09/2024: cpap trial 08/10/2024: extubation 08/10/2024: MRSA in sputum 08/11/2024: reintubation 08/12/2024: blood culture negative 08/13/2024: micafungin was stopped, ECHO EF 55%, start lasix 08/14/2024: zosyn was stopped: allergic reaction, start levoquin 08/16/2024: cpap trial: tolerate 1-2 h 08/17/2024: cpap trial 08/18/2024: failed cpap trial 08/19/2024: successful extubation: BIPAP at night 08/20/2024: on and off BIPAP 08/22/2024: off of antibiotics, downgrade to NAM 08/23-: uneventful 08/25/24 downgrade to the floor Patient is seen an examine at bedside, no distress,, required BIPAP only at night ,start furosemide and prednisone oral, possible transfer to SNF Objective vital signs Vital Sign Date Time Temp Pulse Resp B/P (MAP) Pulse Ox O2 Delivery O2 Flow Rate FiO2 08/26/24 21:00 98.5 81 20 122/64 (83) 94 98.5 08/26/24 19:56 Nasal Cannula* 3 32 Total Intake and Output 08/25/24 08/25/24 08/26/24 14:59 22:59 06:59 Intake Total 12.5 ml 640 ml 0 ml Output Total 1250 ml 150 ml Balance 12.5 ml -610 ml -150 ml medications Current Medications Medications Dose Ordered Sig/Jorge Route Start Time Stop Time Status Last Admin Dose Admin Levothyroxine Sodium 100 mcg QAM@0600 PO 08/01/24 06:00 08/26/24 05:27 100 MCG Ondansetron HCl 4 mg Q4HP PRN IV 07/31/24 22:15 Acetaminophen 650 mg Q6HP PRN PO 07/31/24 22:15 08/18/24 02:18 650 MG Albuterol 2.5 mg Q4HR NEB 08/01/24 22:00 08/26/24 18:10 2.5 MG Ipratropium [place] 0.5 mg Q4HR NEB 08/01/24 22:00 08/26/24 18:10 0.5 MG Albuterol 10 mg Q2HPRN PRN NEB 08/01/24 21:30 08/09/24 11:16 10 MG Enoxaparin Sodium 40 mg DAILY SC 08/02/24 10:00 08/26/24 10:00 40 MG Diagnostic Test (Pha) 1 strip Q6HR 08/07/24 18:00 08/26/24 17:37 1 STRIP Insulin Human Regular FOLLOW SLIDING SCALE Q6HR SC 08/07/24 18:00 08/26/24 18:22 2 UNITS Dextrose 50 ml UD IV 08/07/24 18:00 08/15/24 05:52 50 ML Sodium Chloride 10 ml QSHIFT@ IV 08/13/24 22:00 08/26/24 10:00 10 ML Morphine Sulfate 2 mg Q4HPRN PRN IV 08/19/24 18:30 Hold Hydralazine HCl 10 mg Q6HP PRN IV 08/19/24 22:00 08/23/24 12:45 10 MG Lisinopril 10 mg DAILY PO 08/23/24 10:00 08/26/24 10:33 10 MG Prednisone 40 mg DAILY PO 08/27/24 10:00 Pantoprazole Sodium 40 mg DAILY@0600 PO 08/27/24 06:00 Furosemide 40 mg DAILY PO 08/27/24 10:00 Potassium Chloride 20 meq DAILY PO 08/27/24 10:00 Examination Patient is alert, oriented and nasal canula 3lt Head: Normocephalic, atraumatic. Eyes: PERRLA. Ears: Normal external anatomy. Neck: Supple, trachea midline. Chest: Bibasilar crackles. Cardiovascular: Positive S1, positive S2. Regular rate and rhythm. Abdomen: Soft, nontender, nondistended. : Santiago in place. Skin: Warm, dry. Intact. Extremities: no edema laboratory and microbiology Laboratory Tests 08/26/24 10:00 Test 08/26/24 10:00 Range/Units Serum Glucose 109 H 74-106 mg/dL Microbiology Date/Time Source Procedure Growth Status 08/22/24 13:05 Nose MRSA Screen - Final Methicillin Resistant S.aureus Complete 08/12/24 23:10 Blood Blood Culture - Final NO GROWTH AFTER 5 DAYS OF INCUBATION. Complete 08/04/24 06:48 Sputum Gram Stain - Final Complete 08/04/24 06:48 Respiratory Culture - Final Methicillin Resistant S.aureus Complete 08/01/24 20:15 Urine - Catheterized Urine Culture - Final Complete Problem List/Assessment/Plan Problem List/Assessment/Plan Neurology off sedation patient is talking Cardiology #Hypertensive heart disease with Acute on chronic diastolic heart failure ECHO LVEF of 55% with grade 1 diastolic dysfunction, normal cardiac valves no pericardial effusion Xray today showed vascular congestion Continue lisinopril 10 mg Hydralazine PRN Furosemide 40 mg PO Respiratory #Acute hypoxic respiratory failure likely due to CHF exacerbation/COPD exacerbation Today xray: with less vascular congestion than yesterday Covid and flu negative Goals on O2 saturation will be 90- 92%: nasal canula 2 lt #COPD exacerbation continue albuterol and ipratropium med nebs prednisone oral 40 mg # Septic shock due to MRSA pneumonia resolved 08/04/2024: MRSA sputum 08/10/2024: MRSA in sputum 08/12/2024: blood culture negative 08/14/2024: zosyn was stopped: allergic reaction, start levoquin dc cefepime # Sleep apnea bipap at night Endocrinology #Hypothyroidism -Continue levothyroxine 100mcg QAM Nephrology Creatinine is 0.56 Gastroenterology #Acute transaminitis resolved #Obesity Nutrition -mechanical soft diet: patient doesn't have teeth Due to the need of intense PT, patient will be transfer to SNF at discharge DVT prophylaxis -Enoxaparin 40 mg q.d. SC PUD prophylaxis: protonix 40 mg IV Lines: right upper extremity PICC line: 08/13/2024 santiago catheter: 07/31/2024 Goals of care discussed with medical team for 26 min Patient is full code Plan discussed with Dr. Schmid Plan discussed with: Patient, Other (rn) My Orders My Orders Orders - ABDIAZIZ ACOSTA RESIDENT Procedure Category Date Status Time Pt Request For Service PT 08/26/24 Logged 08:30 Dietary Evaluation Review Comments: 1) If pt remain on vent, a TPN with clinimix plus a TPN per pharmacy to reach75% of her energy and protein needs, 2) If on TF, a combination of Clinimix plus jevity @30ml/hr will meet her goal 3) If pt can accept PO intake without swallowing difficulties after a ST eval, advance diet to cardiac 2 gNa, Lofat Lo Chol diet. 4) Monitor intake to meet 65-75% of her energy needs. Expected Outcomes/Goals: Gradual weight loss. Date of Service: Aug 26, 2024 Billing Provider: HUGH SCHMID MD Common Visit Codes: [id number] INP/OBS CARE(HIGH) Secondary Visit Codes: [id number] CARE PLAN 30 MINUTES ABDIAZIZ ACOSTA RESIDENT Aug 26, 2024 21:55 HUGH SCHMID MD Aug 27, 2024 12:32
[2024-08-27] VITALS (20 sets, daily range): BP systolic 87–134; BP diastolic 47–75; PULSE 61–96; RESP 18–22; TEMP 97.5–98.2; O2SAT 91–100
--- NOTE | 2024-08-27 05:00 | DVH ---
CHEST RADIOGRAPH Indication:dyspnea Technique: Single frontal view of the chest was obtained COMPARISON: XY CHEST XRAY 1 VIEW on DOS: 08/26/24, XY CHEST XRAY 1 VIEW on DOS: 08/25/24, XY CHEST XR AY 1 VIEW on DOS: 08/23/24 FINDINGS: Lines and Tubes: Right PICC in satisfactory position. Lungs: Multifocal airspace disease. Pleura: No effusion. No pneumothorax. Cardiomediastinal contours: Cardiomegaly Bones: Unremarkable IMPRESSION: Slightly increased congestion
[2024-08-27] MEDS: PANTOPRAZOLE 40 MG TAB PO SCH (05:17)
[2024-08-27 07:17] LABS: Basophils # (auto) 0 10 ^3/uL (0-0.2); Basophils % (auto) 0.2 % (0.0-2.0); Eosinophils # (auto) 0.1 10 ^3/uL (0-0.8); Eosinophils % (auto) 1.4 % (0.0-7.0); Hemoglobin 13.8 g/dL (12.2-16.2); Lymphocytes # (auto) 0.8 10 ^3/uL (0.4-5.4); Lymphocytes % (auto) 12.7 % (10.0-50.0); Mean Corpuscular Hemoglobin 29.2 pg (28.0-32.0); Mean Corpuscular Hgb Conc. 31.5 g/dL (32.0-36.0); Mean Corpuscular Volume 92.7 fL (80.0-100.0); Monocytes # (auto) 0.6 10 ^3/uL (0-1.3); Monocytes % (auto) 9.2 % (0.0-12.0); Neutrophils # (auto) 4.9 10 ^3/uL (1.6-8.6); Neutrophils % (auto) 76.5 % (37.0-80.0); Platelet Count (auto) 138 10^3/uL (140-450); Red Blood Cells 4.74 10^6/uL (4.0-5.20); White Blood Cell 6.4 10^3/uL (4.4-10.8)
[2024-08-27 07:29] LABS: Alanine Aminotransferase 88 U/L (7-40); Albumin 4.1 g/dL (3.2-4.8); Alkaline Phosphatase 61 U/L (46-116); Anion Gap 7 (5-15); Aspartate Aminotransferase 22 U/L (13-40); BUN/Creatinine Ratio 28.6 (10.0-20.0); Bilirubin, Total 0.7 mg/dL (0.2-1.0); Blood Urea Nitrogen 14 mg/dL (9-23); Calcium 9.4 mg/dL (8.7-10.4); Carbon Dioxide 33 mmol/L (20-31); Chloride 98 mmol/L (98-107); Glucose 95 mg/dL (74-106); Potassium 4.3 mmol/L (3.5-5.1); Sodium 138 mmol/L (136-145)
[2024-08-27 07:30] LABS: Total Protein 6.4 g/dL (5.7-8.2)
[2024-08-27] MEDS: predniSONE 20 MG TAB PO SCH (09:25)
[2024-08-27] MEDS: FUROSEMIDE 40 MG TAB PO SCH (09:25)
[2024-08-27] MEDS: POTASSIUM CHL 20 Meq TABLET PO SCH (09:26)
--- NOTE | 2024-08-27 15:47 | DVHPNRES ---
Progress Note Date Seen: Aug 27, 2024 Resident Creating Document: ABDIAZIZ ACOSTA RESIDENT Has the PT tested + for MRSA If YES, has PT been informed?: No Medical Necessity Reason Pt with a Central, PICC or Fol: Yes The following are medically ne: PICC Line, Santiago Catheter Reason for santiago catheter: Strict I&O Subjective Review of Systems A 59y old female with PMHx: COPD, CHF, Hyperlipidiemia, obesity, hypothyroidism, smoker, sleep apnea Home meds: albuterol, aripiprazole, atorvastatin, brezti, celebrez, citalopram, furosemide 40 mg, HCTZ, levothyroxine, lisinopril Patient came to the ED for SOB on 07/31/2024, BiPAP started 08/01/2024: Intubation, Zosyn was started MRSA in sputum 08/02/2024: influenza and covid negative, levophed was started 08/03/2024: vancomycin was started 08/03/2024: micafungin was started 08/04/2024: MRSA sputum 08/07/2024: clinimax was started 08/09/2024: cpap trial 08/10/2024: extubation 08/10/2024: MRSA in sputum 08/11/2024: reintubation 08/12/2024: blood culture negative 08/13/2024: micafungin was stopped, ECHO EF 55%, start lasix 08/14/2024: zosyn was stopped: allergic reaction, start levoquin 08/16/2024: cpap trial: tolerate 1-2 h 08/17/2024: cpap trial 08/18/2024: failed cpap trial 08/19/2024: successful extubation: BIPAP at night 08/20/2024: on and off BIPAP 08/22/2024: off of antibiotics, downgrade to NAM 08/23-: uneventful 08/25/24 downgrade to the floor Patient is seen an examine at bedside, no distress,, required BIPAP only at night ,continue furosemide and prednisone oral, pending transfer to Objective vital signs Vital Sign Date Time Temp Pulse Resp B/P (MAP) Pulse Ox O2 Delivery O2 Flow Rate FiO2 08/27/24 13:59 84 18 98 08/27/24 13:52 Nasal Cannula* 3 32 08/27/24 13:00 98.0 124/75 (91) 98.0 Total Intake and Output 08/26/24 08/26/24 08/27/24 15:00 23:00 07:00 Intake Total 800 ml 800 ml Output Total 950 ml 950 ml Balance -150 ml -150 ml medications Current Medications Medications Dose Ordered Sig/Jorge Route Start Time Stop Time Status Last Admin Dose Admin Levothyroxine Sodium 100 mcg QAM@0600 PO 08/01/24 06:00 08/27/24 05:17 100 MCG Ondansetron HCl 4 mg Q4HP PRN IV 07/31/24 22:15 Acetaminophen 650 mg Q6HP PRN PO 07/31/24 22:15 08/18/24 02:18 650 MG Albuterol 2.5 mg Q4HR NEB 08/01/24 22:00 08/27/24 13:52 2.5 MG Ipratropium [place] 0.5 mg Q4HR NEB 08/01/24 22:00 08/27/24 13:52 0.5 MG Albuterol 10 mg Q2HPRN PRN NEB 08/01/24 21:30 08/09/24 11:16 10 MG Enoxaparin Sodium 40 mg DAILY SC 08/02/24 10:00 08/27/24 09:24 40 MG Diagnostic Test (Pha) 1 strip Q6HR 08/07/24 18:00 08/27/24 12:00 1 STRIP Insulin Human Regular FOLLOW SLIDING SCALE Q6HR SC 08/07/24 18:00 08/26/24 18:22 2 UNITS Dextrose 50 ml UD IV 08/07/24 18:00 08/15/24 05:52 50 ML Sodium Chloride 10 ml QSHIFT@ IV 08/13/24 22:00 08/27/24 09:09 10 ML Morphine Sulfate 2 mg Q4HPRN PRN IV 08/19/24 18:30 Hold Hydralazine HCl 10 mg Q6HP PRN IV 08/19/24 22:00 08/23/24 12:45 10 MG Lisinopril 10 mg DAILY PO 08/23/24 10:00 08/27/24 09:24 10 MG Prednisone 40 mg DAILY PO 08/27/24 10:00 08/27/24 09:25 40 MG Pantoprazole Sodium 40 mg DAILY@0600 PO 08/27/24 06:00 08/27/24 05:17 40 MG Furosemide 40 mg DAILY PO 08/27/24 10:00 08/27/24 09:25 40 MG Potassium Chloride 20 meq DAILY PO 08/27/24 10:00 08/27/24 09:26 20 MEQ Examination Patient is alert, oriented and nasal canula 3lt Head: Normocephalic, atraumatic. Eyes: PERRLA. Ears: Normal external anatomy. Neck: Supple, trachea midline. Chest: Bibasilar crackles. Cardiovascular: Positive S1, positive S2. Regular rate and rhythm. Abdomen: Soft, nontender, nondistended. : Santiago in place. Skin: Warm, dry. Intact. Extremities: no edema laboratory and microbiology Laboratory Tests 08/27/24 06:52 Test 08/27/24 06:52 Range/Units Serum Glucose 95 74-106 mg/dL Microbiology Date/Time Source Procedure Growth Status 08/22/24 13:05 Nose MRSA Screen - Final Methicillin Resistant S.aureus Complete 08/12/24 23:10 Blood Blood Culture - Final NO GROWTH AFTER 5 DAYS OF INCUBATION. Complete 08/04/24 06:48 Sputum Gram Stain - Final Complete 08/04/24 06:48 Respiratory Culture - Final Methicillin Resistant S.aureus Complete 08/01/24 20:15 Urine - Catheterized Urine Culture - Final Complete Problem List/Assessment/Plan Problem List/Assessment/Plan Neurology off sedation patient is talking Cardiology #Hypertensive heart disease with Acute on chronic diastolic heart failure ECHO LVEF of 55% with grade 1 diastolic dysfunction, normal cardiac valves no pericardial effusion Xray today showed vascular congestion Continue lisinopril 10 mg Hydralazine PRN Furosemide 40 mg PO Respiratory #Acute hypoxic respiratory failure likely due to CHF exacerbation/COPD exacerbation Today xray: vascular congestion Covid and flu negative Goals on O2 saturation will be 90- 92%: nasal canula 2 lt #COPD exacerbation continue albuterol and ipratropium med nebs prednisone oral 40 mg # Septic shock due to MRSA pneumonia resolved 08/04/2024: MRSA sputum 08/10/2024: MRSA in sputum 08/12/2024: blood culture negative 08/14/2024: zosyn was stopped: allergic reaction, start levoquin dc cefepime # Sleep apnea bipap at night Endocrinology #Hypothyroidism -Continue levothyroxine 100mcg QAM Nephrology Creatinine normal Gastroenterology #Acute transaminitis resolved #Obesity Nutrition -mechanical soft diet: patient doesn't have teeth Due to the need of intense PT, patient will be transfer to SNF at discharge, pending placement DVT prophylaxis -Enoxaparin 40 mg q.d. SC PUD prophylaxis: protonix 40 mg IV Lines: right upper extremity PICC line: 08/13/2024 santiago catheter: 07/31/2024 Goals of care discussed with medical team for 26 min Patient is full code Plan discussed with Dr. Schmid Plan discussed with: Patient, Other (rn) My Orders My Orders Orders - ABDIAZIZ ACOSTA RESIDENT Procedure Category Date Status Time Chest Xray 1 View XY 08/27/24 Resulted 04:00 D/C Santiago ZULEIKA 08/27/24 In Process 08:29 Dietary Evaluation Review Comments: 1) If pt remain on vent, a TPN with clinimix plus a TPN per pharmacy to reach75% of her energy and protein needs, 2) If on TF, a combination of Clinimix plus jevity @30ml/hr will meet her goal 3) If pt can accept PO intake without swallowing difficulties after a ST eval, advance diet to cardiac 2 gNa, Lofat Lo Chol diet. 4) Monitor intake to meet 65-75% of her energy needs. Expected Outcomes/Goals: Gradual weight loss. Date of Service: Aug 27, 2024 Billing Provider: HUGH SCHMID MD Common Visit Codes: [id number] INP/OBS CARE(HIGH) Secondary Visit Codes: [id number] CARE PLAN 30 MINUTES ABDIAZIZ ACOSTA Aug 27, 2024 15:47 HUGH SCHMID MD Aug 28, 2024 12:14
[2024-08-28] VITALS (20 sets, daily range): BP systolic 109–141; BP diastolic 55–83; PULSE 72–112; RESP 16–20; TEMP 97.7–98.8; O2SAT 92–100
--- NOTE | 2024-08-28 22:20 | DVHDSRES ---
Discharge Summary Date of Admission Resident Creating Document: ABDIAZIZ ACOSTA RESIDENT Jul 31, 2024 at 22:34 Date of Discharge: Aug 28, 2024 Admitting Diagnosis acute respiratory failure Labs/Diagnostic Data: Laboratory Results Test 08/28/24 17:38 08/27/24 06:52 08/25/24 08:46 08/22/24 15:05 POC Glucose 147 mg/dl (70-106) White Blood Count 6.4 10^3/uL (4.4-10.8) Red Blood Count 4.74 10^6/uL (4.0-5.20) Hemoglobin 13.8 g/dL (12.2-16.2) Hematocrit 44.0 % (36.0-46.0) Mean Corpuscular Volume 92.7 fL (80.0-100.0) Mean Corpuscular Hemoglobin 29.2 pg (28.0-32.0) Mean Corpuscular Hemoglobin Concent 31.5 g/dL (32.0-36.0) Red Cell Distribution Width 15.0 % (11.8-14.3) Platelet Count 138 10^3/uL (140-450) Mean Platelet Volume 8.9 fL (6.9-10.8) Neutrophils (%) (Auto) 76.5 % (37.0-80.0) Lymphocytes (%) (Auto) 12.7 % (10.0-50.0) Monocytes (%) (Auto) 9.2 % (0.0-12.0) Eosinophils (%) (Auto) 1.4 % (0.0-7.0) Basophils (%) (Auto) 0.2 % (0.0-2.0) Neutrophils # (Auto) 4.9 10 ^3/uL (1.6-8.6) Lymphocytes # (Auto) 0.8 10 ^3/uL (0.4-5.4) Monocytes # (Auto) 0.6 10 ^3/uL (0-1.3) Eosinophils # (Auto) 0.1 10 ^3/uL (0-0.8) Basophils # (Auto) 0 10 ^3/uL (0-0.2) Nucleated Red Blood Cells 0.0 % Sodium Level 138 mmol/L (136-145) Potassium Level 4.3 mmol/L (3.5-5.1) Chloride Level 98 mmol/L (98-107) Carbon Dioxide Level 33 mmol/L (20-31) Anion Gap 7 (5-15) Blood Urea Nitrogen 14 mg/dL (9-23) Creatinine 0.49 mg/dL (0.550-1.02) Glomerular Filtration Rate Calc 109 mL/min (>90) BUN/Creatinine Ratio 28.6 (10.0-20.0) Serum Glucose 95 mg/dL (74-106) Calcium Level 9.4 mg/dL (8.7-10.4) Total Bilirubin 0.7 mg/dL (0.2-1.0) Aspartate Amino Transferase (AST) 22 U/L (13-40) Alanine Aminotransferase (ALT) 88 U/L (7-40) Alkaline Phosphatase 61 U/L (46-116) Total Protein 6.4 g/dL (5.7-8.2) Albumin 4.1 g/dL (3.2-4.8) Blood Gas Specimen Type Arterial Blood Gas Sample Site Right radial Blood Gas Patient Temperature 37.0 Arterial Blood Date Drawn [id number] Arterial Blood pH 7.498 (7.350-7.450) Arterial Blood Partial Pressure CO2 45.3 mmHg (32.0-45.0) Arterial Blood Partial Pressure O2 73.9 mmHg (83.0-108.0) Arterial Blood HCO3 34.4 mmol/L (21.0-28.0) Arterial Blood Oxygen Saturation 94.9 % (94.0-98.0) Arterial Blood Base Excess 9.9 mmol/L (-2.0-3.0) Arterial Blood Oxyhemoglobin 93.8 % (94.0-98.0) Arterial Blood Carboxyhemoglobin 0.7 % (0.5-1.5) Arterial Blood Methemoglobin 0.5 % (0.0-1.5) Dago Test Yes Blood Gas Total Hemoglobin 13.50 g/dL (12.0-16.0) Blood Gas Liter Flow 3.00 Blood Gas Modality Nasal cannula FiO2 % 32.0 Troponin I High Sensitivity 9 ng/L (</=34) Test 08/22/24 13:05 08/22/24 00:49 08/21/24 06:48 08/20/24 16:46 Influenza Type A Antigen Negative (Negative) Influenza Type B Antigen Negative (Negative) SARS-CoV-2 Antigen (Rapid) Negative (NEGATIVE) Vancomycin Level Trough 20.6 ug/mL (5-10) Blood Gas Spontaneous Tidal Volume 1105 Blood Gas EPAP 5 Blood Gas IPAP 15 Specimen Drawn By philippe rt Blood Gas Critical Value Read Back yes Blood Gas Notified Whom alex mesa Blood Gas Notified Time [id number] Blood Gas Notified By alex dawn Test 08/20/24 06:35 08/19/24 10:56 08/19/24 07:04 08/18/24 03:40 Blood Gas Set Respiration Rate 12.0 Blood Gas Spontaneous Rate 23 Blood Gas Pressure Support 8 Blood Gas PEEP or CPAP 5.0 Blood Gas Tidal Volume 450.0 Magnesium Level 1.7 mg/dL (1.6-2.6) Test 08/16/24 03:48 08/15/24 03:24 08/13/24 13:02 08/12/24 23:10 Phosphorus Level 2.7 mg/dL (2.4-5.1) Estimated GFR () 132 mL/min Estimated GFR (Non- 109 mL/min Prothrombin Time 12.0 sec (9.3-11.8) Prothrombin Time INR 1.14 (0.9-1.15) Activated Partial Thromboplast Time 24.2 SEC (24.5-34.5) Lactic Acid Level 1.1 mmol/L (0.4-2.0) Test 08/11/24 04:00 08/10/24 15:53 08/07/24 08:12 08/01/24 13:57 Triglycerides Level 108 mg/dL (< 150) Bl Gas Inspiratory/Expiratory Ratio 495 Blood Gas Inspiratory Pressure 42.0 D-Dimer, Quantitative 0.43 mg/L FEU (0.0-0.49) Test 08/01/24 04:57 07/31/24 17:27 07/31/24 17:12 07/31/24 15:46 Differential Total Cells Counted 100.0 (100) Neutrophils % (Manual) 94 (37.0-80.0) Band Neutrophils % (Manual) 0 Lymphocytes % (Manual) 4 (10.0-50.0) Monocytes % (Manual) 2 (0-12) Eosinophils % (Manual) 0 (0-7) Basophils % (Manual) 0 (0.0-2.0) Metamyelocytes % (manual) 0 Myelocytes % (Manual) 0 Promyelocytes % (Manual) 0 Blast Cells % (Manual) 0 Reactive Lymphocytes 0 Platelet Estimate Adequate Urine Color Colorless (Yellow) Urine Clarity Clear (Clear) Urine pH 6.5 (5.0-9.0) Urine Specific [place] 1.008 (1.001-1.035) Urine Protein Negative (Negative) Urine Ketones Negative (Negative) Urine Blood Negative /uL (Negative) Urine Nitrite Negative (Negative) Urine Bilirubin Negative (Negative) Urine Urobilinogen Normal mg/dL (Negative) Urine Leukocyte Esterase Negative /uL (Negative) Urine RBC 1 /hpf (0 - 4) Urine WBC <1 /hpf (0 - 5) Urine Squamous Epithelial Cells None seen /hpf (<5) Urine Bacteria None seen /hpf (None Seen) Urine Mucus Few (None Seen) Urine Glucose Normal mg/dL (Normal) Thyroid Stimulating Hormone (TSH) 1.57 uIU/mL (0.55-4.78) B-Type Natriuretic Peptide 40.62 pg/mL (0-100) Other Laboratory Tests 08/27/24 06:52 Brief Hx & Hospital Course: A 59y old female with PMHx: COPD, CHF, Hyperlipidiemia, obesity, hypothyroidism, smoker, sleep apnea Home meds: albuterol, aripiprazole, atorvastatin, brezti, celebrez, citalopram, furosemide 40 mg, HCTZ, levothyroxine, lisinopril Patient came to the ED for SOB on 07/31/2024, BiPAP started 08/01/2024: Intubation, Zosyn was started MRSA in sputum 08/02/2024: influenza and covid negative, levophed was started 08/03/2024: vancomycin was started 08/03/2024: micafungin was started 08/04/2024: MRSA sputum 08/07/2024: clinimax was started 08/09/2024: cpap trial 08/10/2024: extubation 08/10/2024: MRSA in sputum 08/11/2024: reintubation 08/12/2024: blood culture negative 08/13/2024: micafungin was stopped, ECHO EF 55%, start lasix 08/14/2024: zosyn was stopped: allergic reaction, start levoquin 08/16/2024: cpap trial: tolerate 1-2 h 08/17/2024: cpap trial 08/18/2024: failed cpap trial 08/19/2024: successful extubation: BIPAP at night 08/20/2024: on and off BIPAP 08/22/2024: off of antibiotics, downgraded to NAM 08/23-: uneventful 08/25/24 downgraded to the floor 08/28/24: DC to SNF Patient is seen an examine at bedside, no distress, required BIPAP only at night ,continue furosemide and prednisone oral, pending transfer to SNF for more intense physical therapy Patient is alert, oriented and nasal canula 3lt Head: Normocephalic, atraumatic. Eyes: PERRLA. Ears: Normal external anatomy. Neck: Supple, trachea midline. Chest: Bibasilar crackles. Cardiovascular: Positive S1, positive S2. Regular rate and rhythm. Abdomen: Soft, nontender, nondistended. : [place] in place. Skin: Warm, dry. Intact. Extremities: no edema time spent in discharge planning was 42 mins Case discussed with Dr Schmid Operations or Procedures EXAM: LIMITED Two-dimensional and M-mode echocardiogram with Doppler and color Doppler. Blood Pressure: 100/50 mmHg INDICATION CHF RISK FACTORS Obesity: Height: 4' 11", Weight: 268 DIMENSIONS LVDd 4.6 (3.8-5.7cm) LA (2D) 4.3 (1.9-4.0cm) Aortic Root 2.9 (2.0- 3.7cm) LVDs 3.3 (2.5-4.0cm) LA (MM) (1.9-4.0cm) Aortic Cusp Exc 1.6 (1.5- 2.0cm) EF (%) 55.0 (55-70%) Rt. Atrium 4.3 (1.9-4.0cm) Asc. Aorta cm IVSd 1.1 (0.7-1.1cm) RV (D) (1.8-2.4cm) PWd 0.9 (0.7-1.1cm) Mitral Valve Mitral Mitral Stenosis E wave 1.40m/s MV Mean GR. mmHg A wave 1.30m/s MV Peak GR. mmHg E/A ratio 1.1 2D MVA cm2 Aortic Valve Aortic Valve Aortic Stenosis V1 1.00m/s AO Mean GR. 6mmHg V2 1.60m/s AO Peak GR. 11mmHg LVOT Diameter 1.8 (1.8-2.4cm) Doppler GE 1.59cm2 Other Information Quality : Technically Limited Rhythm : Technically limited study due to body habitus, patient position and on vent. Conclusion Normal left ventricular size and dimension. Normal left ventricular systolic function estimated ejection fraction 55%. There is a grade1 diastolic dysfunction. Normal right ventricular size and dimension. Normal right ventricular systolic function Normal biatrial size and dimension. Normal aortic valve structure and function. Normal mitral valve structure and function. Normal tricuspid valve structure and function. The pulmonary valve is grossly normal. No pericardial effusion. Condition at Discharge: Stable Final Diagnosis/Problems List #Hypertensive heart disease with Acute on chronic diastolic heart failure #Acute hypoxic respiratory failure likely due to CHF exacerbation/COPD exacerbation #s/p intubation #COPD exacerbation # Septic shock due to MRSA pneumonia resolved # Sleep apnea #Hypothyroidism #Acute transaminitis resolved #Obesity Discharge Disposition: Shelter Facility Discharge Instruct/Medications Diet: Consistent carbohydrate, Cardiac 2g Na,low cholest Activity: See Comment Follow Up/Referral: dc clinic Medications: resume home meds Discharge Statement: "Patient was advised to return to the ER or call 911 if any headaches, dizziness, shortness of breath, chest pain, abdominal pain, bleeding, fevers, or worsening of medical condition. Patient was counseled about treatment plan, medications, possible side effects, patientverbalized understanding. All questions were answered to the best of my ability. This discharge took greater then 30 minutes in planning, reviewing documentation, counseling the patient, and discussing with other team members." ASSESSMENT ASSESSMENT Assessment s/p intubation COPD exacerbation HF exacerbation Date of Service: Aug 28, 2024 Billing Provider: HUGH SCHMID MD Common Visit Codes: [id number] DISCH DAY >30min ABDIAZIZ ACOSTA RESIDENT Aug 28, 2024 22:20 HUGH SCHMID MD Aug 30, 2024 11:50
[2024-08-29] VITALS (13 sets, daily range): BP systolic 137–146; BP diastolic 70–99; PULSE 90–113; RESP 16–20; TEMP 97.5–98; O2SAT 95–100
--- NOTE | 2024-08-29 12:17 | DVHPNRES ---
Progress Note Date Seen: Aug 29, 2024 Resident Creating Document: ABDIAZIZ ACOSTA RESIDENT Has the PT tested + for MRSA If YES, has PT been informed?: No Medical Necessity Reason Pt with a Central, PICC or Fol: Yes The following are medically ne: PICC Line, Santiago Catheter Reason for santiago catheter: Strict I&O Subjective Review of Systems A 59y old female with PMHx: COPD, CHF, Hyperlipidiemia, obesity, hypothyroidism, smoker, sleep apnea Home meds: albuterol, aripiprazole, atorvastatin, brezti, celebrez, citalopram, furosemide 40 mg, HCTZ, levothyroxine, lisinopril Patient came to the ED for SOB on 07/31/2024, BiPAP started 08/01/2024: Intubation, Zosyn was started MRSA in sputum 08/02/2024: influenza and covid negative, levophed was started 08/03/2024: vancomycin was started 08/03/2024: micafungin was started 08/04/2024: MRSA sputum 08/07/2024: clinimax was started 08/09/2024: cpap trial 08/10/2024: extubation 08/10/2024: MRSA in sputum 08/11/2024: reintubation 08/12/2024: blood culture negative 08/13/2024: micafungin was stopped, ECHO EF 55%, start lasix 08/14/2024: zosyn was stopped: allergic reaction, start levoquin 08/16/2024: cpap trial: tolerate 1-2 h 08/17/2024: cpap trial 08/18/2024: failed cpap trial 08/19/2024: successful extubation: BIPAP at night 08/20/2024: on and off BIPAP 08/22/2024: off of antibiotics, downgraded to NAM 08/23-: uneventful 08/25/24 downgraded to the floor 08/28/24: DC to SNF Patient is seen an examine at bedside, no distress, required BIPAP only at night ,continue furosemide and prednisone oral, patient is going to SNF Objective vital signs Vital Sign Date Time Temp Pulse Resp B/P (MAP) Pulse Ox O2 Delivery O2 Flow Rate FiO2 08/29/24 11:05 97 18 08/29/24 11:01 99 08/29/24 10:41 97.5 08/29/24 09:17 137/70 08/29/24 08:00 Nasal Cannula* 3 32 Total Intake and Output 08/28/24 08/28/24 08/29/24 15:00 23:00 07:00 Intake Total 800 ml 700 ml Output Total 1000 ml 600 ml Balance -200 ml 100 ml medications Current Medications Medications Dose Ordered Sig/Jorge Route Start Time Stop Time Status Last Admin Dose Admin Levothyroxine Sodium 100 mcg QAM@0600 PO 08/01/24 06:00 08/29/24 05:46 100 MCG Ondansetron HCl 4 mg Q4HP PRN IV 07/31/24 22:15 Acetaminophen 650 mg Q6HP PRN PO 07/31/24 22:15 08/29/24 02:40 650 MG Albuterol 2.5 mg Q4HR NEB 08/01/24 22:00 08/29/24 10:58 2.5 MG Ipratropium [place] 0.5 mg Q4HR NEB 08/01/24 22:00 08/29/24 10:58 0.5 MG Albuterol 10 mg Q2HPRN PRN NEB 08/01/24 21:30 08/09/24 11:16 10 MG Enoxaparin Sodium 40 mg DAILY SC 08/02/24 10:00 08/29/24 09:15 40 MG Diagnostic Test (Pha) 1 strip Q6HR 08/07/24 18:00 08/29/24 05:50 1 STRIP Insulin Human Regular FOLLOW SLIDING SCALE Q6HR SC 08/07/24 18:00 08/28/24 17:48 2 UNITS Dextrose 50 ml UD IV 08/07/24 18:00 08/15/24 05:52 50 ML Sodium Chloride 10 ml QSHIFT@ IV 08/13/24 22:00 08/28/24 21:49 10 ML Morphine Sulfate 2 mg Q4HPRN PRN IV 08/19/24 18:30 Hold Hydralazine HCl 10 mg Q6HP PRN IV 08/19/24 22:00 08/23/24 12:45 10 MG Lisinopril 10 mg DAILY PO 08/23/24 10:00 08/29/24 09:17 10 MG Prednisone 40 mg DAILY PO 08/27/24 10:00 08/29/24 09:16 40 MG Pantoprazole Sodium 40 mg DAILY@0600 PO 08/27/24 06:00 08/29/24 05:46 40 MG Furosemide 40 mg DAILY PO 08/27/24 10:00 08/27/24 09:25 40 MG Potassium Chloride 20 meq DAILY PO 08/27/24 10:00 08/29/24 09:15 20 MEQ Examination Patient is alert, oriented and nasal canula 2lt Head: Normocephalic, atraumatic. Eyes: PERRLA. Ears: Normal external anatomy. Neck: Supple, trachea midline. Chest: Bibasilar crackles. Cardiovascular: Positive S1, positive S2. Regular rate and rhythm. Abdomen: Soft, nontender, nondistended. : Santiago in place. Skin: Warm, dry. Intact. Extremities: no edema laboratory and microbiology Laboratory Tests 08/27/24 06:52 Test 08/27/24 06:52 Range/Units Serum Glucose 95 74-106 mg/dL Microbiology Date/Time Source Procedure Growth Status 08/22/24 13:05 Nose MRSA Screen - Final Methicillin Resistant S.aureus Complete 08/12/24 23:10 Blood Blood Culture - Final NO GROWTH AFTER 5 DAYS OF INCUBATION. Complete 08/04/24 06:48 Sputum Gram Stain - Final Complete 08/04/24 06:48 Respiratory Culture - Final Methicillin Resistant S.aureus Complete 08/01/24 20:15 Urine - Catheterized Urine Culture - Final Complete Problem List/Assessment/Plan Problem List/Assessment/Plan Neurology off sedation patient is talking Cardiology #Hypertensive heart disease with Acute on chronic diastolic heart failure ECHO LVEF of 55% with grade 1 diastolic dysfunction, normal cardiac valves no pericardial effusion Continue lisinopril 10 mg Furosemide 40 mg PO Respiratory #Acute hypoxic respiratory failure likely due to CHF exacerbation/COPD exacerbation resolved Covid and flu negative Goals on O2 saturation will be 90- 92%: nasal canula 2 lt #COPD exacerbation resolved continue albuterol and ipratropium med nebs prednisone oral 40 mg # Septic shock due to MRSA pneumonia resolved 08/04/2024: MRSA sputum 08/10/2024: MRSA in sputum 08/12/2024: blood culture negative 08/14/2024: zosyn was stopped: allergic reaction, start levoquin no AB needed # Sleep apnea bipap at night Endocrinology #Hypothyroidism -Continue levothyroxine 100mcg QAM Nephrology Creatinine normal Gastroenterology #Acute transaminitis resolved #Obesity Nutrition -mechanical soft diet: patient doesn't have teeth Due to the need of intense PT, patient will be transfer to SNF DVT prophylaxis -Enoxaparin 40 mg q.d. SC PUD prophylaxis: protonix 40 mg IV Lines: right upper extremity PICC line: 08/13/2024 santiago catheter: 07/31/2024 Goals of care discussed with medical team for 26 min Patient is full code Plan discussed with Plan discussed with: Patient, Other (rn) Dietary Evaluation Review Comments: 1) If pt remain on vent, a TPN with clinimix plus a TPN per pharmacy to reach75% of her energy and protein needs, 2) If on TF, a combination of Clinimix plus jevity @30ml/hr will meet her goal 3) If pt can accept PO intake without swallowing difficulties after a ST eval, advance diet to cardiac 2 gNa, Lofat Lo Chol diet. 4) Monitor intake to meet 65-75% of her energy needs. Expected Outcomes/Goals: Gradual weight loss. Date of Service: Aug 29, 2024 Billing Provider: JACOB ELMORE MD Common Visit Codes: [id number] INP/OBS CARE(HIGH) ABDIAZIZ ACOSTA RESIDENT Aug 29, 2024 12:17 JACOB ELMORE MD Aug 29, 2024 22:26
== END 2024-08-29 12:05 | DRG 720 ==
LOC: EDBD 15:07 → EDUNIT# 15:07 → ER 15:24 → TELE 22:34 → ICU WEST 08-01 17:21 → DOU IN ICU 08-24 18:00 → TELE-CENTR 08-25 22:35 → CENTRAL 08-29 05:07
PROVIDERS: ADMIT Internal Medicine; ATTEND Internal Medicine
PROC: 5A09357 Assistance with Respiratory Ventilation, Less than 24 Consecutive Hours, Continuous Positive Airway Pressure (ICD-10-PCS; 2024-07-31)
PROC: 0BH18EZ Insertion of Endotracheal Airway into Trachea, Via Natural or Artificial Opening Endoscopic (ICD-10-PCS; principal; 2024-08-01)
PROC: 5A1955Z Respiratory Ventilation, Greater than 96 Consecutive Hours (ICD-10-PCS; 2024-08-01)
PROC: 02HV33Z Insertion of Infusion Device into Superior Vena Cava, Percutaneous Approach (ICD-10-PCS; 2024-08-01)
PROC: 0B9D8ZX Drainage of Right Middle Lung Lobe, Via Natural or Artificial Opening Endoscopic, Diagnostic (ICD-10-PCS; 2024-08-04)
PROC: 5A09457 Assistance with Respiratory Ventilation, 24-96 Consecutive Hours, Continuous Positive Airway Pressure (ICD-10-PCS; 2024-08-09)
PROC: 5A1955Z Respiratory Ventilation, Greater than 96 Consecutive Hours (ICD-10-PCS; 2024-08-10)
PROC: 0BH17EZ Insertion of Endotracheal Airway into Trachea, Via Natural or Artificial Opening (ICD-10-PCS; 2024-08-10)
PROC: 02HV33Z Insertion of Infusion Device into Superior Vena Cava, Percutaneous Approach (ICD-10-PCS; 2024-08-13)
PROC: B548ZZA Ultrasonography of Superior Vena Cava, Guidance (ICD-10-PCS; 2024-08-13)
PROC: 5A09357 Assistance with Respiratory Ventilation, Less than 24 Consecutive Hours, Continuous Positive Airway Pressure (ICD-10-PCS; 2024-08-19)
PROC: 5A09357 Assistance with Respiratory Ventilation, Less than 24 Consecutive Hours, Continuous Positive Airway Pressure (ICD-10-PCS; 2024-08-20)
PROC: 5A09357 Assistance with Respiratory Ventilation, Less than 24 Consecutive Hours, Continuous Positive Airway Pressure (ICD-10-PCS; 2024-08-21)
PROC: 5A09357 Assistance with Respiratory Ventilation, Less than 24 Consecutive Hours, Continuous Positive Airway Pressure (ICD-10-PCS; 2024-08-22)
PROC: 5A09357 Assistance with Respiratory Ventilation, Less than 24 Consecutive Hours, Continuous Positive Airway Pressure (ICD-10-PCS; 2024-08-23)
PROC: 5A09357 Assistance with Respiratory Ventilation, Less than 24 Consecutive Hours, Continuous Positive Airway Pressure (ICD-10-PCS; 2024-08-24)
PROC: 5A09357 Assistance with Respiratory Ventilation, Less than 24 Consecutive Hours, Continuous Positive Airway Pressure (ICD-10-PCS; 2024-08-25)
PROC: 5A09357 Assistance with Respiratory Ventilation, Less than 24 Consecutive Hours, Continuous Positive Airway Pressure (ICD-10-PCS; 2024-08-26)
PROC: 5A09357 Assistance with Respiratory Ventilation, Less than 24 Consecutive Hours, Continuous Positive Airway Pressure (ICD-10-PCS; 2024-08-27)
PROC: 5A09357 Assistance with Respiratory Ventilation, Less than 24 Consecutive Hours, Continuous Positive Airway Pressure (ICD-10-PCS; 2024-08-28)
PROC: 5A09357 Assistance with Respiratory Ventilation, Less than 24 Consecutive Hours, Continuous Positive Airway Pressure (ICD-10-PCS; 2024-08-29)
DX: A41.02 Sepsis due to Methicillin resistant Staphylococcus aureus (principal); J96.21 Acute and chronic respiratory failure with hypoxia; R65.21 Severe sepsis with septic shock; G93.41 Metabolic encephalopathy; I50.43 Acute on chronic combined systolic (congestive) and diastolic (congestive) heart failure; J15.212 Pneumonia due to Methicillin resistant Staphylococcus aureus; J15.9 Unspecified bacterial pneumonia; J15.69 Pneumonia due to other Gram-negative bacteria; I11.0 Hypertensive heart disease with heart failure; Z68.43 Body mass index [BMI] 50.0-59.9, adult; Z20.822 Contact with and (suspected) exposure to COVID-19; J44.0 Chronic obstructive pulmonary disease with (acute) lower respiratory infection; J44.1 Chronic obstructive pulmonary disease with (acute) exacerbation; E03.9 Hypothyroidism, unspecified; J96.22 Acute and chronic respiratory failure with hypercapnia; E66.01 Morbid (severe) obesity due to excess calories; F41.9 Anxiety disorder, unspecified; E87.6 Hypokalemia; J98.11 Atelectasis; F32.A Depression, unspecified; F17.210 Nicotine dependence, cigarettes, uncomplicated; E78.00 Pure hypercholesterolemia, unspecified; R74.01 Elevation of levels of liver transaminase levels; Z88.5 Allergy status to narcotic agent; Z88.6 Allergy status to analgesic agent; Z88.8 Allergy status to other drugs, medicaments and biological substances; Z90.49 Acquired absence of other specified parts of digestive tract
CPT/HCPCS: 36415; 36569; 36600; 71045; 76937; 80048; 80053; 80069; 80202; 81001; 82805; 82962; 83605; 83735; 83880; 84100; 84443; 84478; 84484; 85007; 85014; 85018; 85025; 85027; 85379; 85610; 85730; 87040; 87070; 87077; 87081; 87086; 87186; 87205; 87426; 87804; 92610; 93306; 94002; 94003; 94640; 94660; 96374; 96375; 97110; 97163; 97530; 99291; G0378; J0330; J0692; J1815; J1956; J2248; J2470; J2543; J2704; J3480; J3490; J7060

== ENCOUNTER 2024-11-22 13:12 | Emergency (ER) | payer MEDICAID ==
[~2024-11-22] VITALS: Ht 152.4 cm; Wt 95.5 kg
[~2024-11-22 13:12] MED LIST changes: +ARIP20TA4 PO; +ATOR10TA52 PO; +BUDE1AER6 IN; +CELE100C82 PO; +CITA-73 PO; +FURO40TA4 PO
--- NOTE | 2024-11-22 13:42 | ECG ---
[facility] Test Date: 2024-11-22 Test Time: 13:21:38 Pat Name: CARMELO HARDIN Department: er Room: Gender: F Cue Selector: kvng : 1965 Requested By: CLARENCE DAWSON Order Number: [id number] Reading MD: Epi Avila Measurements Intervals [place] Rate: 90 P: 58 HI: 136 QRS: 36 QRSD: 93 T: 49 QT: 385 QTc: 471 Interpretive Statements Sinus rhythm Electronically Signed On 11-26-2024 8:48:18 PST by Epi Avila Please click the below link to view image of tracing.
--- NOTE | 2024-11-22 14:28 | ED.PDOC ---
SOB-HPI HPI Comments 59-year-old female brought in by EMS presents with a chief complaint of SOB. Patient states that she has been feeling increasingly SOB over the past 4 days. Patient was sating at 90% on room air by EMS and was placed on 4L/NC. Patient reports that she was recently diagnosed with CHF and COPD. Patient mentions that when shes at home she measured her SpO2 and it was in the 80s. EKG shows NSR with rate of 90. Chief Complaint: Shortness of Breath Time Seen by MD: 13:29 Primary Care Provider: UNKNOWN Reviewed notes: Medications, Allergies Information Source: Patient Mode of Arrival: Ambulatory Severity: Moderate Timing: Days Duration: Since onset Context: At Rest PE Risk Factors: None History of: COPD, CHF Prehospital treatment: Oxygen Past Medical History PAST MEDICAL HISTORY: Asthma, COPD, Depression, High Lipids, HTN, Thyroid Surgical History: Appendectomy, Family History Family History: Reviewed,noncontributory to illness Social History Smoker: Cigarettes Alcohol: Denies ETOH Use Drugs: Denies Drug Use Lives In: Home Constitutional: denies: chills, diaphoresis, fatigue, fever, malaise, sweats, weakness, others EENTM: denies: blurred vision, double vision, ear bleeding, ear discharge, ear drainage, ear pain, ear ringing, eye pain, eye redness, hearing loss, mouth pain, mouth swelling, nasal discharge, nose bleeding, nose congestion, nose pain, photophobia, tearing, throat pain, throat swelling, voice changes, others Respiratory: reports: shortness of breath; denies: cough, hemoptysis, orthopnea, SOB at rest, SOB with excertion, stridor, wheezing, others Cardiovascular: denies: chest pain, dizzy spells, diaphoresis, Dyspnea on exertion, edema, irregular heart beat, left arm pain, lightheadedness, palpitations, PND, syncope, others Gastrointestinal: denies: abdomen distended, abdominal pain, blood streaked bowels, constipated, diarrhea, dysphagia, difficulty swallowing, hematemesis, melena, nausea, poor appetite, poor fluid intake, rectal bleeding, rectal pain, vomiting, others Genitourinary: denies: abnormal vagina bleeding, burning, dyspareunia, dysuria, flank pain, frequency, hematuria, incontinence, pain, , vagina discharge, urgency, others Neurological: denies: dizziness, fainting, headache, left sided numbness, left sided weakness, numbness, paresthesia, pre-existing deficit, right sided numbness, right sided weakness, seizure, speech problems, tingling, tremors, weakness, others Musculoskeletal: denies: back pain, gout, joint pain, joint swelling, muscle pain, muscle stiffness, neck pain, others Integumetry: denies: bruises, change in color, change in hair/nails, dryness, laceration, lesions, lumps, rash, wounds, others Allergic/Immunocompromised: denies: Difficulty Healing, Frequent Infections, Hives, Itching, others Hematologic/Lymphatic: denies: anemia, blood clots, easy bleeding, easy bruising, swollen glands, others Endocrine: denies: excessive hunger, excessive sweating, excessive thirst, excessive urination, flushing, intolerance to cold, intolerance to heat, unexplained weight gain, unexplained weight loss, others Psychiatric: denies: anxiety, bipolar disorder, depression, hopeless, panic disorder, schizophrenia, sleepless, suicidal, others All Other Systems: Reviewed and Negative Physical Exam General Appearance: Moderate Distress, Normal HEENT: Normal ENT Inspection, Pharynx Normal, TMs Normal Neck: Full Range of Motion, Non-Tender, Normal, Normal Inspection Respiratory: Wheezing (IN ALL BRANTLEY) Cardiovascular: No Edema, No JVD, No Murmur, No Gallop, Normal Peripheral Pulses, Regular Rate/Rhythm Breast Exam: Deferred Gastrointestinal: No Organomegaly, Non Tender, No Pulsatile Mass, Normal Bowel Sounds, Soft Genitalia: Deferred Pelvic: Deferred Rectal: Deferred Extremities: No calf tenderness, Normal capillary refill, Normal inspection, Normal range of motion, Non-tender, No pedal edema Musculoskeletal : Apperance: Normal Neurologic: Alert, inbound sales representative II-XII nml as Tested, No Motor Deficits, Normal Affect, Normal Mood, No Sensory Deficits Cerebellar Function: Normal Reflexes: Normal Skin: Dry, Normal Color, Warm Lymphatic: No Adenopathy EKG EKG : Pulse Rate (adult): 90 [place]: Normal Cardiac Rhythm: NSR Block: None Hypertrophy: None ST: Normal Was a procedure done? Was a procedure done?: No Differential Dx Differential Diagnosis: CHF, COPD, Hypertension, Pneumonia, Pulmonary Embolism, Respiratory Distress X-Ray, Labs, Meds, VS Vital Signs Date Time Temp Pulse Resp B/P (MAP) Pulse Ox O2 Delivery O2 Flow Rate FiO2 11/22/24 16:24 90 18 125/77 98 4.0 36 11/22/24 14:44 18 98 Nasal Cannula* 4 36 11/22/24 14:28 90 11/22/24 13:21 90 11/22/24 13:18 98.1 90 20 125 (93) 96 11/22/24 13:18 98.1 90 20 125/77 (93) 96 98.1 11/22/24 13:18 Nasal Cannula* 4 36 11/22/24 13:18 Nasal Cannula* 4 36 Lab Test 11/22/24 15:31 11/22/24 14:21 Range/Units Troponin I High Sensitivity 4 4 </=34 ng/L White Blood Count 6.4 4.4-10.8 10^3/uL Red Blood Count 4.10 4.0-5.20 10^6/uL Hemoglobin 12.1 L 12.2-16.2 g/dL Hematocrit 38.6 36.0-46.0 % Mean Corpuscular Volume 94.1 80.0-100.0 fL Mean Corpuscular Hemoglobin 29.4 28.0-32.0 pg Mean Corpuscular Hemoglobin Concent 31.3 L 32.0-36.0 g/dL Red Cell Distribution Width 14.2 11.8-14.3 % Platelet Count 168 140-450 10^3/uL Mean Platelet Volume 9.4 6.9-10.8 fL Neutrophils (%) (Auto) 70.2 37.0-80.0 % Lymphocytes (%) (Auto) 20.1 10.0-50.0 % Monocytes (%) (Auto) 6.7 0.0-12.0 % Eosinophils (%) (Auto) 2.5 0.0-7.0 % Basophils (%) (Auto) 0.5 0.0-2.0 % Neutrophils # (Auto) 4.5 1.6-8.6 10 ^3/uL Lymphocytes # (Auto) 1.3 0.4-5.4 10 ^3/uL Monocytes # (Auto) 0.4 0-1.3 10 ^3/uL Eosinophils # (Auto) 0.2 0-0.8 10 ^3/uL Basophils # (Auto) 0 0-0.2 10 ^3/uL Nucleated Red Blood Cells 0.0 % Sodium Level 142 136-145 mmol/L Potassium Level 3.9 3.5-5.1 mmol/L Chloride Level 97 L 98-107 mmol/L Carbon Dioxide Level 40 H 20-31 mmol/L Anion Gap 5 5-15 Blood Urea Nitrogen 13 9-23 mg/dL Creatinine 0.74 0.550-1.02 mg/dL Glomerular Filtration Rate Calc 94 >90 mL/min BUN/Creatinine Ratio 17.6 10.0-20.0 Serum Glucose 91 74-106 mg/dL Calcium Level 9.3 8.7-10.4 mg/dL Total Bilirubin 0.3 0.2-1.0 mg/dL Aspartate Amino Transferase (AST) 19 13-40 U/L Alanine Aminotransferase (ALT) 28 7-40 U/L Alkaline Phosphatase 100 46-116 U/L Total Protein 6.3 5.7-8.2 g/dL Albumin 4.4 3.2-4.8 g/dL Current Medications Medications (Trade) Dose Ordered Sig/Jorge Route Start Time Stop Time Status Last Admin Methylprednisolone Sodium Succinate (Solu Medrol) 125 mg ONCE ONCE IV 11/22/24 14:00 11/22/24 14:01 DC 11/22/24 15:21 Albuterol (Ventolin Medneb) 5 mg ONCE ONCE HHN 11/22/24 14:00 11/22/24 14:01 DC 11/22/24 14:44 Ipratropium [place] (Atrovent Medneb) 0.5 mg ONCE ONCE NEB 11/22/24 14:00 11/22/24 14:01 DC 11/22/24 14:44 PATIENT: CARMINE HARDIN: [id number]: [id number] : 1965 LOC: ER ROOM / BED: / AGE / SEX: 59 / F ADM STATUS: REG ER SERVICE [id number] ORDERING PHYSICIAN: CLARENCE DAWSON MD PROCEDURE(s): CXR2 - CHEST TWO VIEWS ROUTINE REASON: ro pna ORDER NUMBER(s): [id number], ACCESSION NUMBER(s): [id number] EXAM: XR Chest, 2 Views CLINICAL INDICATION: ro pna TECHNIQUE: Frontal and lateral views of the chest. COMPARISON: None FINDINGS: LUNGS AND PLEURAL SPACES: Unremarkable. No consolidation. No pneumothorax. HEART: Unremarkable. No cardiomegaly. MEDIASTINUM: Unremarkable. Normal mediastinal contour. BONES/JOINTS: Unremarkable. No acute fracture. OTHER FINDINGS: . . IMPRESSION: No acute cardiopulmonary process. ATED BY: JEREMIAH JOSHI MD DICTATED DATE/TIME: 11/22/241434 SIGNED BY: JEREMIAH JOSHI MD SIGNED DATE/TIME: 11/22/241434 59-year-old female presents here with difficulty breathing. Has a history of COPD and CHF. On my initial evaluation the patient patient was placed on oxygen due to lower saturations. Patient had diffuse wheezing in all lung brantley and I I have given her breathing treatments. Blood work has been done which demonstrates a CO2 of 40. I reviewed her past records, although she does sometimes have a CO2 of 40, after being admitted to the hospital and being placed on BiPAP her CO2 was returned to proximally 33. Chest x-ray has been done with no evidence of pneumonia. I have given her dexamethasone in the ED. CBC and CMP are largely unremarkable except for elevated CO2 as above. At this time I have placed the patient on BiPAP. Hospitalist team has been consulted for admission. Time of 1ST Reevaluation: 13:59 Reevaluation 1ST: Unchanged Patient Education/Counseling: Diagnosis, Treatment, Prognosis Family Education/Counseling: Diagnosis, Treatment, Prognosis Departure 1 Departure Time of Disposition: 15:29 Impression: Primary Impression: COPD exacerbation Additional Impression: Respiratory insufficiency Disposition: 09 ADMITTED INPATIENT Condition: Guarded Discharged With: Self Critical Care Note Critical Care Time?: Yes (45 min-critical care time only) Critical care comment: Time spent assessing the patient, patient had increased work of breathing and was called to bedside to prevent immediate deterioration. Time spent ordering labs reviewing lab work, discussing care with the patient directing care with the respiratory therapist Stability Stability form required: No Heart Score Heart Score: Heart Score Response (Comments) Value History Moderate Suspicious 1 EKG Normal 0 Age 45-64 1 Risk Factors 1 or 2 risk factors 1 Troponin N/A 0 Total 3 I personally scribed for CLARENCE DAWSON MD ([email or web address]) on 11/22/24 at 14:28. Electronically submitted by Geraldo Brenner ([email or web address]). I personally scribed for CLARENCE DAWSON MD ([email or web address]) on 11/22/24 at 14:47. Electronically submitted by Geraldo Brenner ([email or web address]). I personally scribed for CLARENCE DAWSON MD ([email or web address]) on 11/22/24 at 15:01. Electronically submitted by Geraldo Brenner ([email or web address]). I personally scribed for CLARENCE DAWSON MD ([email or web address]) on 11/22/24 at 16:28. Electronically submitted by Geraldo Brenner ([email or web address]). CLARENCE DAWSNO MD Nov 22, 2024 14:28
[2024-11-22 14:37] LABS: Basophils # (auto) 0 10 ^3/uL (0-0.2); Basophils % (auto) 0.5 % (0.0-2.0); Eosinophils # (auto) 0.2 10 ^3/uL (0-0.8); Eosinophils % (auto) 2.5 % (0.0-7.0); Hematocrit 38.6 % (36.0-46.0); Hemoglobin 12.1 g/dL (12.2-16.2); Lymphocytes # (auto) 1.3 10 ^3/uL (0.4-5.4); Lymphocytes % (auto) 20.1 % (10.0-50.0); Mean Corpuscular Hemoglobin 29.4 pg (28.0-32.0); Mean Corpuscular Hgb Conc. 31.3 g/dL (32.0-36.0); Mean Corpuscular Volume 94.1 fL (80.0-100.0); Monocytes # (auto) 0.4 10 ^3/uL (0-1.3); Monocytes % (auto) 6.7 % (0.0-12.0); Neutrophils # (auto) 4.5 10 ^3/uL (1.6-8.6); Neutrophils % (auto) 70.2 % (37.0-80.0); Platelet Count (auto) 168 10^3/uL (140-450); Red Cell Distribution Width 14.2 % (11.8-14.3); White Blood Cell 6.4 10^3/uL (4.4-10.8)
--- NOTE | 2024-11-22 14:38 | DVH ---
EXAM: XR Chest, 2 Views CLINICAL INDICATION: ro pna TECHNIQUE: Frontal and lateral views of the chest. COMPARISON: None FINDINGS: LUNGS AND PLEURAL SPACES: Unremarkable. No consolidation. No pneumothorax. HEART: Unremarkable. No cardiomegaly. MEDIASTINUM: Unremarkable. Normal mediastinal contour. BONES/JOINTS: Unremarkable. No acute fracture. OTHER FINDINGS: . . IMPRESSION: No acute cardiopulmonary process.
[2024-11-22] MEDS: ALBUTEROL SULF 2.5 MG/0.5ML(0.5%) NEB SOLN HHN ONE (14:44)
[2024-11-22] MEDS: IPRATROPIUM BROM 0.5 MG/2.5ML INH SOL NEB ONE ×2 (14:44→15:31)
[2024-11-22 14:54] LABS: Alanine Aminotransferase 28 U/L (7-40); Albumin 4.4 g/dL (3.2-4.8); Alkaline Phosphatase 100 U/L (46-116); Anion Gap 5 (5-15); Aspartate Aminotransferase 19 U/L (13-40); BUN/Creatinine Ratio 17.6 (10.0-20.0); Blood Urea Nitrogen 13 mg/dL (9-23); Calcium 9.3 mg/dL (8.7-10.4); Glucose 91 mg/dL (74-106); Potassium 3.9 mmol/L (3.5-5.1); Sodium 142 mmol/L (136-145)
[2024-11-22 14:55] LABS: Total Protein 6.3 g/dL (5.7-8.2)
[2024-11-22 15:09] LABS: Bilirubin, Total 0.3 mg/dL (0.2-1.0); Carbon Dioxide 40 mmol/L (20-31); Chloride 97 mmol/L (98-107)
[2024-11-22] MEDS: methylPREDNISolone SOD SUCC 125 MG/2 ML VL IV ONE (15:21)
[2024-11-22 16:24] VITALS: BP 125/77; PULSE 90; RESP 18; O2SAT 98
[2024-11-22 16:54] VITALS: BP 126/66; PULSE 86; RESP 16; TEMP 98.8; O2SAT 95
== END 2024-11-22 19:39 | disposition left against medical advice (07) ==
LOC: EDBD 13:12 → ER 13:12 → EDUNIT# 13:12 → ER 19:35
DX: J44.1 Chronic obstructive pulmonary disease with (acute) exacerbation (principal); R06.89 Other abnormalities of breathing; E78.5 Hyperlipidemia, unspecified; I10 Essential (primary) hypertension; E03.9 Hypothyroidism, unspecified; F17.210 Nicotine dependence, cigarettes, uncomplicated; Z90.49 Acquired absence of other specified parts of digestive tract; Z98.890 Other specified postprocedural states
CPT/HCPCS: 36415; 71046; 80053; 84484; 85025; 93005; 94640; 96374; 99291; J2919

== ENCOUNTER 2025-03-16 22:48 | Inpatient (IN) | payer MEDICAID ==
[~2025-03-16] VITALS: Ht 157.5 cm; Wt 110.1 kg
[2025-03-16 22:50] VITALS: PULSE 103; RESP 12; O2SAT 95
[2025-03-16 23:18] LABS: Base Excess 10.8 mmol/L (-2.0-3.0)
--- NOTE | 2025-03-16 23:22 | ED.PDOC ---
History of Present Illness HPI Comments 60 y/o morbidly obese F with history of asthma, CHF, COPD on home O2, HLD, HTN, hypothyroidism BIBA from home for c/o shortness of breath for the past hour. Patient stated to EMS she used her home nebulizer without relief. Per EMS, patient was found in severe respiratory distress, tripoding, and saturating 75% on 4 L nasal cannula. Patient also reports cough productive of black/green sputum. She denies any chest pain. EMS placed the patient on CPAP and administered nitroglycerin. Patient denies fever, nausea, vomiting, diaphoresis or worsening edema. Chief Complaint: Shortness of Breath Time Seen by MD: 22:40 Primary Care Provider: UNKNOWN Reviewed Notes: Nurses Notes, Police Manager Notes, Medications, Allergies Allergies: Coded Allergies: Piperacillin (Verified Allergy, Intermediate, Rash in the chest and face, 08/16/24) Per Anu Montez RN shift endorsement, and MD Pierson notes 08/15/24, pt had a rash in the chest and face during the 1st dose of Zosyn Iv dosage, therefore it was d/c 08/15/24. Tazobactam (Verified Allergy, Intermediate, Rash in the chest and face, 08/16/24) Per Anu Montez RN shift endorsement, and MD Pierson notes 08/15/24, pt had a rash in the chest and face during the 1st dose of Zosyn Iv dosage, therefore it was d/c 08/15/24. Amoxicillin (Verified Allergy, Unknown, 08/02/24) allergy, per the family. Aspirin (Verified Allergy, Unknown, 10/31/14) Bupropion (Verified Allergy, Unknown, 10/31/14) Codeine (Verified Allergy, Unknown, 10/31/14) RASH Ibuprofen (Verified Allergy, Unknown, 10/31/14) Morphine (Verified Allergy, Unknown, 03/06/14) "I HAVE AN ALLERGY TO MORPHINE IN PILL FORM" Penicillins (Verified Allergy, Unknown, 08/02/24) allergy, per the family. Uncoded Allergies: DARVOCET (Allergy, Unknown, 03/06/14) Home Meds Active Scripts Methylprednisolone (Medrol Dosepak) 4 Mg Miguelangel, 4 MG PO UD, #21 TAB UAD Prov:ARIEL REINA MD 12/14/22 Doxycycline (Monohydrate) (Doxycycline) 100 Mg Cap, 100 MG PO BID for 7 Days, #14 CAP Prov:ARIEL REINA MD 12/14/22 Albuterol Sulfate (VENTOLIN MDI) 90 Mcg Ih, 90 MCG IN Q6HPRN PRN, #1 INH Prov:ARIEL REINA MD 12/14/22 Reported Medications Adbydxihed-Osaxmzwmzthxxu-Zaph (Breztri Aerosphere 160-9-4.8 Mcg/Act) 1 Aer Aer, 1 AER IN, AER 08/15/24 Citalopram Hydrobromide (Citalopram Hydrobromide) 40 Mg Tab, 40 MG PO DAILY for 30 Days, MG 08/15/24 Celecoxib (Celebrex) 100 Mg Cap, 40 MG PO DAILY, % 08/02/24 Aripiprazole (Abilify) 20 Mg Tab, 20 MG PO DAILY, TAB 08/02/24 Furosemide (Furosemide) 40 Mg Tab, 40 MG PO 08/01/24 Atorvastatin Calcium (ATORVASTATIN CALCIUM) 10 Mg Tab, 1 TAB PO DAILY, TAB 08/01/24 Hydrochlorothiazide (Hydrochlorothiazide) 25 Mg Tab, 1 TAB PO DAILY, #30 TAB 5 Refills 12/14/22 Lisinopril (Lisinopril) 20 Mg Tab, 1 TAB PO DAILY, #30 TAB 5 Refills 12/14/22 Levothyroxine Sodium (SYNTHROID TABLET) 100 Mcg Tb, 1 TAB PO DAILY, #30 TAB 5 Refills 12/14/22 Information Source: Patient, Emergency Med Personnel Mode of Arrival: EMS Severity: Moderate Timing: Hours Duration: Since onset Prehospital treatment: 12 Lead EKG, Breathing Tx, Mold Yarn Supervisor, C-Pap, NTG, Oxygen Past Medical History PAST MEDICAL HISTORY: Asthma, CHF, COPD, Depression, High Lipids, HTN, Thyroid Past Medical History (Other): Scabies Surgical History: Appendectomy, Family History Family History: Reviewed,noncontributory to illness Social History Smoker: Cigarettes Alcohol: Denies ETOH Use Drugs: Denies Drug Use Lives In: Home All Other Systems: Reviewed and Negative (Comprehensive systems review obtained and negative except for what is stated in the HPI.) Physical Exam General Appearance: Moderate Distress, Obese HEENT: Other (Pupils and face symmetric. Moist mucous membranes.) Neck: Full Range of Motion, Normal Inspection Respiratory: Accessory Muscle Use, Decreased Breath Sounds, Respiratory Distress, Rhonchi Cardiovascular: No JVD, Regular Rate/Rhythm Breast Exam: Deferred Gastrointestinal: Non Tender, Soft Genitalia: Deferred Pelvic: Deferred Rectal: Deferred Extremities: Leg edema, Normal range of motion, Non-tender, Pedal edema Neurologic: Alert (Oriented x4), Other (Moves all extremities) Cerebellar Function: NOT DONE Reflexes: NOT DONE Skin: Dry, Normal Color, Rash (Superficial excoriations on trunk and extremities), Warm Lymphatic: NOT DONE Was a procedure done? Was a procedure done?: No EKG EKG : Comments Sinus tach, rate 100, normal intervals, normal axis, possible old anteroseptal infarct, nonspecific T change. Differential Dx Considerations may include: CHF/COPD/asthma exacerbation, URI, PNA, NC, arrhythmia, PE, anxiety, among others X-Ray, Labs, Meds, VS Vital Signs Date Time Temp Pulse Resp B/P (MAP) Pulse Ox O2 Delivery O2 Flow Rate FiO2 03/17/25 00:00 98 03/16/25 23:31 107/48 03/16/25 22:55 100 03/16/25 22:50 98.5 103 12 99/42 (61) 95 98.5 03/16/25 22:50 103 12 95 Bi-Pap+ 50 50 03/16/25 22:50 102 99/42 Facial BiPAP Mask 50 03/16/25 22:48 98.1 97 26 118/69 (85) 95 98.1 Lab Test 03/16/25 23:21 03/16/25 23:09 Range/Units White Blood Count 6.0 4.4-10.8 10^3/uL Red Blood Count 3.89 L 4.0-5.20 10^6/uL Hemoglobin 11.2 L 12.2-16.2 g/dL Hematocrit 35.5 L 36.0-46.0 % Mean Corpuscular Volume 91.2 80.0-100.0 fL Mean Corpuscular Hemoglobin 28.7 28.0-32.0 pg Mean Corpuscular Hemoglobin Concent 31.4 L 32.0-36.0 g/dL Red Cell Distribution Width 15.6 H 11.8-14.3 % Platelet Count 184 140-450 10^3/uL Mean Platelet Volume 8.7 6.9-10.8 fL Neutrophils (%) (Auto) 74.3 37.0-80.0 % Lymphocytes (%) (Auto) 10.4 10.0-50.0 % Monocytes (%) (Auto) 6.7 0.0-12.0 % Eosinophils (%) (Auto) 8.3 H 0.0-7.0 % Basophils (%) (Auto) 0.3 0.0-2.0 % Neutrophils # (Auto) 4.5 1.6-8.6 10 ^3/uL Lymphocytes # (Auto) 0.6 0.4-5.4 10 ^3/uL Monocytes # (Auto) 0.4 0-1.3 10 ^3/uL Eosinophils # (Auto) 0.5 0-0.8 10 ^3/uL Basophils # (Auto) 0 0-0.2 10 ^3/uL Nucleated Red Blood Cells 0.1 % Sodium Level 138 136-145 mmol/L Potassium Level 5.0 3.5-5.1 mmol/L Chloride Level 95 L 98-107 mmol/L Carbon Dioxide Level > 40 *H 20-31 mmol/L Anion Gap 2.29815 L 5-15 Blood Urea Nitrogen 14 9-23 mg/dL Creatinine 0.90 0.550-1.02 mg/dL Glomerular Filtration Rate Calc 74 >90 mL/min BUN/Creatinine Ratio 15.6 10.0-20.0 Serum Glucose 96 74-106 mg/dL Calcium Level 8.4 L 8.7-10.4 mg/dL Troponin I High Sensitivity 6 </=34 ng/L B-Type Natriuretic Peptide 51.82 0-100 pg/mL Blood Gas Specimen Type Arterial Blood Gas Sample Site Left radial Blood Gas Patient Temperature 37.0 Arterial Blood Date Drawn [id number] Arterial Blood pH 7.258 L 7.350-7.450 Arterial Blood Partial Pressure CO2 94.6 *H 32.0-45.0 mmHg Arterial Blood Partial Pressure O2 72.3 L 83.0-108.0 mmHg Arterial Blood HCO3 41.3 H 21.0-28.0 mmol/L Arterial Blood Oxygen Saturation 92.7 L 94.0-98.0 % Arterial Blood Base Excess 10.8 H -2.0-3.0 mmol/L Arterial Blood Oxyhemoglobin 90.5 L 94.0-98.0 % Arterial Blood Carboxyhemoglobin 1.9 H 0.5-1.5 % Arterial Blood Methemoglobin 0.5 0.0-1.5 % Dago Test Yes Blood Gas Total Hemoglobin 12.10 12.0-16.0 g/dL Blood Gas Set Respiration Rate 12.0 Blood Gas Modality Mask - bipap Blood Gas Spontaneous Rate 29 FiO2 % 50.0 Blood Gas Tidal Volume 440.0 Blood Gas Spontaneous Tidal Volume 440 Blood Gas EPAP 5 Blood Gas IPAP 10 Specimen Drawn By Kayce chavez Blood Gas Critical Value Read Back Yes Blood Gas Notified Whom morgan Hernández md Blood Gas Notified Time [id number] Blood Gas Notified By Kayce chavez Current Medications Medications (Trade) Dose Ordered Sig/Jorge Route Start Time Stop Time Status Last Admin Methylprednisolone Sodium Succinate (Solu Medrol) 125 mg ONCE ONCE IV 03/16/25 23:15 03/16/25 23:16 DC 03/16/25 23:31 Furosemide (Lasix Injection) 40 mg ONCE ONCE IV 03/16/25 23:15 03/16/25 23:16 DC 03/16/25 23:31 PROCEDURE(s): CXRP - CHEST PORTABLE REASON: sob ORDER NUMBER(s): [id number], ACCESSION NUMBER(s): [id number] CHEST RADIOGRAPH Indication: sob Technique: Single frontal view of the chest was obtained Findings/ IMPRESSION: Low lung volumes. Prominent interstitial markings which can be seen with pulmonary edema. Overlying soft tissue causing artifact overlying the left lower lung zone. No pneumothorax. X-Ray, Labs, Meds, VS Comment 60 y/o morbidly obese F with history of asthma, CHF, COPD on home O2, HLD, HTN, hypothyroidism BIBA from home for c/o shortness of breath for the past hour Vitals remarkable for respiratory rate 26 Exam remarkable for severe respiratory distress, rhonchi Rhythm strip independently interpreted by me: Sinus rhythm, rate 100, no ectopy. Chest x-ray IMPRESSION: Low lung volumes. Prominent interstitial markings which can be seen with pulmonary edema. Overlying soft tissue causing artifact overlying the left lower lung zone. No pneumothorax. CBC unremarkable, metabolic panel remarkable for chloride 95, CO2 greater than 40, anion gap 2.9, BNP and troponin negative, ABG pH 7.258, pCO2 94, PO2 72, oxygen saturation 92.7% Patient treated with the following in the ED: Continued on BiPAP on arrival. Albuterol 5 mg/Atrovent 0.5 mg nebulized, Solu-Medrol 125 mg IV, Lasix 40 mg IV, Benadryl 25 mg IV (for itching due to scabies) On re-evaluation, patient is resting and not in respiratory distress on BiPAP. Plan is to admit the patient for ongoing respiratory support. Time of 1ST Reevaluation: 23:10 Reevaluation 1ST: Unchanged Time of 2ND Reevaluation: 00:34 Reevaluation 2ND: Improved Patient Education/Counseling: Diagnosis, Treatment, Other (need for admission ) Family Education/Counseling: No Family Present Departure 1 Departure Time of Disposition: 00:34 Impression: Primary Impression: Acute on chronic respiratory failure with hypoxia and hypercapnia Additional Impression: COPD exacerbation Disposition: ADMITTED INPATIENT Admit to: Tele Condition: Guarded Critical Care Note Critical Care Time?: Yes (45 min-critical care time only) Critical care comment: Critical care time including multiple bedside re-evaluations, review of lab and imaging studies, and discussion of the case with the admitting provider. Patient is high risk for respiratory decompensation. Stability Stability form required: No Heart Score Heart Score: Heart Score Response (Comments) Value History N/A 0 EKG N/A 0 Age N/A 0 Risk Factors N/A 0 Troponin N/A 0 Total 0 I personally scribed for GIOVANI HERNÁNDEZ MD ([email or web address]) on 03/16/25 at 23:22. Electronically submitted by Josué Frias ([email or web address]). GIOVANI HERNÁNDEZ MD March 16, 2025 23:22
[2025-03-16] MEDS: methylPREDNISolone SOD SUCC 125 MG/2 ML VL IV ONE (23:31)
[2025-03-16] MEDS: FUROSEMIDE 40 MG/4 ML VIAL IV ONE (23:31)
[2025-03-16 23:33] LABS: Basophils # (auto) 0 10 ^3/uL (0-0.2); Basophils % (auto) 0.3 % (0.0-2.0); Eosinophils # (auto) 0.5 10 ^3/uL (0-0.8); Eosinophils % (auto) 8.3 % (0.0-7.0); Hematocrit 35.5 % (36.0-46.0); Hemoglobin 11.2 g/dL (12.2-16.2); Lymphocytes # (auto) 0.6 10 ^3/uL (0.4-5.4); Lymphocytes % (auto) 10.4 % (10.0-50.0); Mean Corpuscular Hemoglobin 28.7 pg (28.0-32.0); Mean Corpuscular Hgb Conc. 31.4 g/dL (32.0-36.0); Mean Corpuscular Volume 91.2 fL (80.0-100.0); Monocytes # (auto) 0.4 10 ^3/uL (0-1.3); Monocytes % (auto) 6.7 % (0.0-12.0); Neutrophils # (auto) 4.5 10 ^3/uL (1.6-8.6); Neutrophils % (auto) 74.3 % (37.0-80.0); Nucleated Red Blood Cells % 0.1 %; Platelet Count (auto) 184 10^3/uL (140-450); Red Blood Cells 3.89 10^6/uL (4.0-5.20); Red Cell Distribution Width 15.6 % (11.8-14.3)
--- NOTE | 2025-03-16 23:36 | DVH ---
CHEST RADIOGRAPH Indication: sob Technique: Single frontal view of the chest was obtained Findings/ IMPRESSION: Low lung volumes. Prominent interstitial markings which can be seen with pulmonary edema. Overlying soft tissue causing artifact overlying the left lower lung zone. No pneumothorax.
[2025-03-16 23:44] LABS: Sodium 138 mmol/L (136-145)
[2025-03-16 23:50] LABS: BUN/Creatinine Ratio 15.6 (10.0-20.0); Blood Urea Nitrogen 14 mg/dL (9-23); Glucose 96 mg/dL (74-106)
[2025-03-16 23:58] LABS: Chloride 95 mmol/L (98-107)
[2025-03-17] VITALS (13 sets, daily range): BP systolic 99–125; BP diastolic 42–64; PULSE 80–102; RESP 18–22; O2SAT 18–96
[2025-03-17] LABS: Anion Gap 2.99999 (5-15); Calcium 8.4 mg/dL (8.7-10.4); Carbon Dioxide > 40 mmol/L (20-31)
[2025-03-17] MEDS: IPRATROPIUM BROM 0.5 MG/2.5ML INH SOL NEB ONE (00:24)
[2025-03-17] MEDS: ALBUTEROL SULF 2.5 MG/0.5ML(0.5%) NEB SOLN NEB ONE (00:24)
[2025-03-17] MEDS: diphenhdrAMINE HCL 50 MG/1 ML VL IV ONE (00:46)
[2025-03-17] MEDS ORDERED: ACETAMINOPHEN 325 MG TAB PO PRN (01:15)
[2025-03-17] MEDS ORDERED: VANCOMYCIN PER PHARMACY 0 MG IV SCH (01:15)
--- NOTE | 2025-03-17 01:22 | DVHHP2 ---
History of Present Illness History of Present Illness Patient is 61 years old male with a past medical history of COPD NC O2 3-4 L/min, asthma, HFpEF, hypertension, hyperlipidemia, hypothyroidism, sleep apnea, depression was brought in and due to worsening shortness of breaths. As per patient she has been having worsening short of breath for last 7 days. She also reported worsening cough with greenish sputum for the same duration. Patient reported her cough got worse over the last 1 week associated with a worsening shortness of breaths. Patient did nebulization at home want was on NC O2 4 L/min but it did not help. On EMS arrival patient was desaturating to 75%, patient was given GDM, nebulization and also put on CPAP which improved patient's oxygen saturation. Reports using CPAP at home. Patient denied any fever, chest pain, palpitation, dysarthria or change in vision. Patient Was admitted at [facility] in July from 07/31/2024 2 11/27/2023, patient was intubated due to acute hypoxic respiratory failure and acute exacerbation of CHF. Initial lab workup revealed hemoglobin 11.2, RDW 15.6, eosinophils 8.3, bicarbonate > 40, D-dimer 0.88, troponin and BNP with a normal limit. ABG revealed pH 7.25, pCO2 94.6, PO2 72.3, bicarbonate 41.3. CXR bilateral lower lung opacity left>right Past Medical History COPD NC O2 3-4 L/min, asthma, HFpEF, hypertension, hyperlipidemia, hypothyroidism, sleep apnea, depression Past Surgical History Appendectomy, Past Social History Patient lives with nephew, smoker, occasional alcoholic, denies substance abuse Review of Systems Review of Systems Allergy- amoxicillin, aspirin, bupropion, codeine, Darvocet, ibuprofen, morphine, penicillin, piperacillin/tazobactam Patient was seen today at the bedside. Cardiovascular- deny acute chest pain or palpitation Gastrointestinal- denies any rectal bleeding, nausea or vomiting Musculoskeletal-denies acute joint s tenderness or redness Neurological- denies acute dysarthria, dysphagia, change in vision Psychiatry- denies depression or SI or HI Skin- denies acute rash or purpura Allergies: Coded Allergies: Piperacillin (Verified Allergy, Intermediate, Rash in the chest and face, 08/16/24) Per Anu Montez RN shift endorsement, and MD Pierson notes 08/15/24, pt had a rash in the chest and face during the 1st dose of Zosyn Iv dosage, therefore it was d/c 08/15/24. Tazobactam (Verified Allergy, Intermediate, Rash in the chest and face, 08/16/24) Per Anu Montez RN shift endorsement, and MD Pierson notes 08/15/24, pt had a rash in the chest and face during the 1st dose of Zosyn Iv dosage, therefore it was d/c 08/15/24. Amoxicillin (Verified Allergy, Unknown, 08/02/24) allergy, per the family. Aspirin (Verified Allergy, Unknown, 10/31/14) Bupropion (Verified Allergy, Unknown, 10/31/14) Codeine (Verified Allergy, Unknown, 10/31/14) RASH Ibuprofen (Verified Allergy, Unknown, 10/31/14) Morphine (Verified Allergy, Unknown, 03/06/14) "I HAVE AN ALLERGY TO MORPHINE IN PILL FORM" Penicillins (Verified Allergy, Unknown, 08/02/24) allergy, per the family. Uncoded Allergies: DARVOCET (Allergy, Unknown, 03/06/14) Exam Vital Signs Vital Signs Date Time Temp Pulse Resp B/P (MAP) Pulse Ox O2 Delivery O2 Flow Rate FiO2 03/17/25 00:27 85 114/45 Facial BiPAP Mask 40 03/16/25 22:50 98.5 12 95 98.5 Exam General examination- patient morbid obese, awake, alert, oriented, scratch mejia on the arms and legs HEENT- PEERLA, no acute nasal discharge Cardiovascular- S1-S2 audible, rate and rhythm regular, no murmur Respiratory- diminished breath sound, vesicular breath sounds with prolonged expiration Gastrointestinal-nontender, bowel sound+. Nondistended Musculoskeletal-no acute joint swelling or tenderness or redness Lower extremity- + bilateral leg edema+_ Neurological- cranial nerves intact, no acute dysarthria or dysphagia Psychiatry- denies depression or SI or HI Skin- scratch mejia on the arms and legs Labs/Xrays Labs Test 03/17/25 00:30 03/16/25 23:21 03/16/25 23:09 Range/Units Troponin I High Sensitivity 6 </=34 ng/L White Blood Count 6.0 4.4-10.8 10^3/uL Red Blood Count 3.89 L 4.0-5.20 10^6/uL Hemoglobin 11.2 L 12.2-16.2 g/dL Hematocrit 35.5 L 36.0-46.0 % Mean Corpuscular Volume 91.2 80.0-100.0 fL Mean Corpuscular Hemoglobin 28.7 28.0-32.0 pg Mean Corpuscular Hemoglobin Concent 31.4 L 32.0-36.0 g/dL Red Cell Distribution Width 15.6 H 11.8-14.3 % Platelet Count 184 140-450 10^3/uL Mean Platelet Volume 8.7 6.9-10.8 fL Neutrophils (%) (Auto) 74.3 37.0-80.0 % Lymphocytes (%) (Auto) 10.4 10.0-50.0 % Monocytes (%) (Auto) 6.7 0.0-12.0 % Eosinophils (%) (Auto) 8.3 H 0.0-7.0 % Basophils (%) (Auto) 0.3 0.0-2.0 % Neutrophils # (Auto) 4.5 1.6-8.6 10 ^3/uL Lymphocytes # (Auto) 0.6 0.4-5.4 10 ^3/uL Monocytes # (Auto) 0.4 0-1.3 10 ^3/uL Eosinophils # (Auto) 0.5 0-0.8 10 ^3/uL Basophils # (Auto) 0 0-0.2 10 ^3/uL Nucleated Red Blood Cells 0.1 % Sodium Level 138 136-145 mmol/L Potassium Level 5.0 3.5-5.1 mmol/L Chloride Level 95 L 98-107 mmol/L Carbon Dioxide Level > 40 *H 20-31 mmol/L Anion Gap 2.07036 L 5-15 Blood Urea Nitrogen 14 9-23 mg/dL Creatinine 0.90 0.550-1.02 mg/dL Glomerular Filtration Rate Calc 74 >90 mL/min BUN/Creatinine Ratio 15.6 10.0-20.0 Serum Glucose 96 74-106 mg/dL Calcium Level 8.4 L 8.7-10.4 mg/dL B-Type Natriuretic Peptide 51.82 0-100 pg/mL Blood Gas Specimen Type Arterial Blood Gas Sample Site Left radial Blood Gas Patient Temperature 37.0 Arterial Blood Date Drawn [id number] Arterial Blood pH 7.258 L 7.350-7.450 Arterial Blood Partial Pressure CO2 94.6 *H 32.0-45.0 mmHg Arterial Blood Partial Pressure O2 72.3 L 83.0-108.0 mmHg Arterial Blood HCO3 41.3 H 21.0-28.0 mmol/L Arterial Blood Oxygen Saturation 92.7 L 94.0-98.0 % Arterial Blood Base Excess 10.8 H -2.0-3.0 mmol/L Arterial Blood Oxyhemoglobin 90.5 L 94.0-98.0 % Arterial Blood Carboxyhemoglobin 1.9 H 0.5-1.5 % Arterial Blood Methemoglobin 0.5 0.0-1.5 % Dago Test Yes Blood Gas Total Hemoglobin 12.10 12.0-16.0 g/dL Blood Gas Set Respiration Rate 12.0 Blood Gas Modality Mask - bipap Blood Gas Spontaneous Rate 29 FiO2 % 50.0 Blood Gas Tidal Volume 440.0 Blood Gas Spontaneous Tidal Volume 440 Blood Gas EPAP 5 Blood Gas IPAP 10 Specimen Drawn By Kayce potter rt Blood Gas Critical Value Read Back Yes Blood Gas Notified Whom morgan Hernández md Blood Gas Notified Time [id number] Blood Gas Notified By Kayce potter rt Assessment/Plan Assessment/Plan Assessment and plan Acute hypoxic and hypercapnic respiratory failure likely due to acute exertional COPD/pneumonia Acute exertional COPD Acute anemia Gram-positive versus Gram-negative Anemia Eosinophilia Respiratory acidosis with metabolic compensation Morbid obesity HFpEF Hypertension Asthma Hyperlipidemia Hypothyroidism Depression Sleep apnea scabies Initial lab workup revealed hemoglobin 11.2, RDW 15.6, eosinophils 8.3, bicarbonate > 40, troponin and BNP with a normal limit. ABG revealed pH 7.25, pCO2 94.6, PO2 72.3, bicarbonate 41.3. D-dimer 0.88 Revealed ABG reviewed-pH 7.24, pCO2 87.7, O2 57, bicarbonate 37.2 CXR bilateral lower lung opacity , left>right Plan Ordered CT angio chest ruled out pulmonary embolism Ordered follow up ABG Ordered BiPAP-patient is still on BiPAP, awake and alert, GCS 15 Ordered levofloxacin and vancomycin Ordered methylprednisolone Ordered nebulization with levalbuterol and ipratropium bromide Resumed home medication levothyroxine, atorvastatin, aripiprazole Ordered echo 2D Ordered Doppler study of the lower extremity rule out DVT Pending blood culture, urine culture, sputum culture, TSH, magnesium, HGB A1c Goals of care, Code status ; discussed with >15 minutes PCP-patient could not mentioned the name PUD prophylaxis: Pantoprazole DVT prophylaxis: Lovenox Plan discussed with Dr. Greenwood , nursing staff, Total time spent on patient evaluation, chart review, assessment and plan, discussion discussion >35 minutes Plan discussed with: Patient, Other (RN) My Orders Orders - RAMONA CANAS RESIDENT Procedure Category Date Status Time Admit ADMIT 03/17/25 Transmitted 01:01 Code Status CODE 03/17/25 Transmitted 01:01 Sodium Chloride Lock PHA 03/17/25 In Process (Saline Lock Ns) 06:00 Oxygen Per Hour RT 03/17/25 Transmitted 01:01 Enoxaparin Sodium PHA 03/17/25 In Process (Lovenox) 10:00 Complete Blood Count LAB 03/18/25 Verified 04:00 Comprehensive LAB 03/18/25 Verified Metabolic Panel 04:00 Cardiac DIET 03/17/25 Transmitted Diet-2gna,Lofat,Lochol Breakfast Echo 2d Mode Cardiac US 03/17/25 Logged DOP 01:01 Acetaminophen Tablet PHA 03/17/25 In Process (Tylenol Tablet) 01:15 Oxygen By Nasal RT 03/17/25 Transmitted Cannula 01:01 Notify Of Changes ZULEIKA 03/17/25 In Process From Base 01:01 Billet Heater For ZULEIKA 03/17/25 In Process 24 Hours 01:01 Levofloxacin 500mg PHA 03/17/25 Logged (Levaquin 500mg/ 100m 10:00 Levofloxacin 500mg PHA 03/17/25 Logged (Levaquin 500mg/ 100m 01:15 Vancomycin Per PHA 03/17/25 Pending Pharmacy 01:15 Sodium Chloride 0.9% PHA 03/17/25 In Process 01:15 Methylprednisolone PHA 03/17/25 In Process Sod Succ (Solu Medrol 22:00 Levalbuterol Hcl PHA 03/17/25 In Process (Xopenex Medneb) 02:00 Ipratropium Medneb PHA 03/17/25 In Process (Atrovent Medneb) 02:00 Blood Culture KEELY 03/17/25 Logged 01:05 Respiratory Culture KEELY 03/17/25 Logged W/ Gs 01:05 Urine Bacterial KEELY 03/17/25 Logged Culture 01:05 Mrsa Screen KEELY 03/17/25 Logged 01:05 Bilat Lower Dvt US 03/17/25 Logged 01:05 D-Dimer LAB 03/17/25 In Process 01:05 Covid19 Antigen Liset LAB 03/17/25 Logged Rapid Influenza A&B LAB 03/17/25 Logged 01:05 Thyroid Stimulating LAB 03/17/25 In Process Hormone 01:05 Abg W/ Co-Ox RT 03/17/25 Logged 01:05 Pantoprazole PHA 03/17/25 In Process (Protonix) 10:00 Magnesium LAB 03/17/25 In Process 01:14 Levothyroxine Tablet PHA 03/17/25 Logged (Synthroid Tablet) 10:00 (Nf) Aripiprazole PHA 03/17/25 Logged (Abilify) 10:00 (Nf) Atorvastatin PHA 03/17/25 Logged Calcium 10:00 (Nf) Citalopram PHA 03/17/25 Logged Hydrobromide 10:00 Date of Service: March 17, 2025 Billing Provider: DEEDEE GREENWOOD MD Common Visit Codes: 43525-[id number] INP/OBS CARE (HIGH) Secondary Visit Codes: [id number]-[id number] CARE PLAN 30 MINUTES RAMONA CANAS RESIDENT March 17, 2025 01:22
[2025-03-17 01:28] LABS: Base Excess 6.9 mmol/L (-2.0-3.0)
[2025-03-17] MEDS: LEVALBUTEROL HCL 1.25 MG/3 ML NEB NEB SCH (02:00)
[2025-03-17] MEDS: IPRATROPIUM BROM 0.5 MG/2.5ML INH SOL NEB SCH (02:00)
--- NOTE | 2025-03-17 02:31 | DVH ---
Clinical History: B/L LEG SWELLING Comparison: None Technique: Duplex Doppler evaluation of the deep venous system of the bilateral lower extremity from the common femoral vein to the popliteal vein including color Doppler and spectral/pulsed waveform analysis was performed. Findings: The common femoral vein demonstrates appropriate compressibility and waveform variability. There is compressibility/patency of the great saphenous vein at the proximal thigh. The femoral vein demonstrates appropriate compressibility and waveform variability. The deep femoral vein demonstrates appropriate compressibility and waveform variability. The popliteal vein demonstrates appropriate compressibility and waveform variability. There is normal compressibility at the tibioperoneal trunk. Impression: 1. No bilateral deep venous thrombosis. 2. If clinical concern/symptoms persist or worsen, short-interval follow-up study is suggested.
--- NOTE | 2025-03-17 02:33 | ECG ---
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
[2025-03-17] MEDS: methylPREDNISolone SOD SUCC 40 MG/ML VL IM ONE (03:06)
[2025-03-17] MEDS: PANTOPRAZOLE 40 MG/10 ML VIAL INJ IV ONE (03:09)
[2025-03-17] MEDS: VANCOMYCIN 1GM/200ML PM 200 ML IV SCH ×2 (03:11→17:33)
[2025-03-17] MEDS: levoFLOXacin 500MG 100 ML IV ONE (03:15)
[2025-03-17] MEDS: SODIUM CHLORIDE 0.9% 500 ML IV ONE (04:20)
[2025-03-17] MEDS ORDERED: FUROSEMIDE 40 MG/4 ML VIAL IV SCH ×2 (06:00→10:00)
[2025-03-17] MEDS: SODIUM CHLOR 0.9% PF (SALINE LOCK) 10ML VIAL/SYR IV SCH (06:00)
[2025-03-17 07:18] LABS: COVID19 ANTIGEN SOFIA FIA NEGATIVE (NEGATIVE); Rapid Influenza A Negative (Negative); Rapid Influenza B Negative (Negative)
[2025-03-17] MEDS: LEVOTHYROXINE SODIUM 100 MCG TAB PO SCH (07:26)
[2025-03-17 07:29] LABS: Urine Bacteria FEW /hpf (None Seen); Urine Blood TRACE /uL (Negative); Urine Clarity Clear (Clear); Urine Color Colorless (Yellow); Urine Hyaline Cast MOD /lpf (0 - 2); Urine Protein, UAD Negative (Negative); Urine Specific Gravity 1.009 (1.001-1.035); Urine Squamous Epithelial Cell None Seen /hpf (<5); Urine Urobilinogen Normal (Negative); Urine WBC < 1 /HPF (0-5)
[2025-03-17 07:53] LABS: Alanine Aminotransferase 24 U/L (7-40); Albumin 4.7 g/dL (3.2-4.8); Alkaline Phosphatase 114 U/L (46-116); Anion Gap 9 (5-15); Aspartate Aminotransferase 19 U/L (13-40); Blood Urea Nitrogen 16 mg/dL (9-23); Calcium 9.2 mg/dL (8.7-10.4); Sodium 139 mmol/L (136-145); Total Protein 7.3 g/dL (5.7-8.2)
[2025-03-17 07:55] LABS: Bilirubin, Total 0.3 mg/dL (0.2-1.0); Carbon Dioxide 35 mmol/L (20-31); Chloride 95 mmol/L (98-107); Glucose 124 mg/dL (74-106)
[2025-03-17 08:02] LABS: INR 0.99 (0.9-1.15); Partial Thromboplastin Time 29.5 SEC (24.5-34.5); Prothrombin Time 10.5 sec (9.3-11.8)
[2025-03-17 08:02] LABS: Cannabinoid Screen, Urine Pos (NEGATIVE); Phencyclidine Screen, Urine Neg (NEGATIVE)
[2025-03-17] MEDS: MEROPENEM 1GM IVPB 50 ML IV ONE (08:02)
[2025-03-17 08:03] LABS: Amphetamine Screen, Urine Pos (NEGATIVE); Barbiturate Scree,Urine Neg (NEGATIVE); Benzodiazephine Screen, Urine Neg (NEGATIVE); Cocaine Screen, Urine Neg (NEGATIVE); Opiate Scree,Urine Neg (NEGATIVE)
[2025-03-17 08:11] LABS: Basophils # (auto) 0 10 ^3/uL (0-0.2); Basophils % (auto) 0.3 % (0.0-2.0); Eosinophils # (auto) 0 10 ^3/uL (0-0.8); Eosinophils % (auto) 0.5 % (0.0-7.0); Hematocrit 36.6 % (36.0-46.0); Hemoglobin 11.5 g/dL (12.2-16.2); Lymphocytes # (auto) 0.2 10 ^3/uL (0.4-5.4); Lymphocytes % (auto) 3.4 % (10.0-50.0); Mean Corpuscular Hemoglobin 28.5 pg (28.0-32.0); Mean Corpuscular Hgb Conc. 31.4 g/dL (32.0-36.0); Mean Corpuscular Volume 90.6 fL (80.0-100.0); Monocytes # (auto) 0.1 10 ^3/uL (0-1.3); Monocytes % (auto) 1.1 % (0.0-12.0); Neutrophils # (auto) 5.9 10 ^3/uL (1.6-8.6); Neutrophils % (auto) 94.7 % (37.0-80.0); Nucleated Red Blood Cells % 0.1 %; Platelet Count (auto) 176 10^3/uL (140-450); Red Blood Cells 4.04 10^6/uL (4.0-5.20); Red Cell Distribution Width 15.2 % (11.8-14.3); White Blood Cell 6.2 10^3/uL (4.4-10.8)
[2025-03-17 08:38] LABS: Base Excess 10.3 mmol/L (-2.0-3.0)
[2025-03-17] MEDS: methylPREDNISolone SOD SUCC 125 MG/2 ML VL IV SCH (10:00)
[2025-03-17] MEDS ORDERED: PATIENTS OWN MEDICATION (Atorvastatin Calcium 1 TAB) PO SCH (10:00)
[2025-03-17] MEDS ORDERED: PATIENTS OWN MEDICATION (Citalopram Hydrobromide 40 MG) PO SCH (10:00)
[2025-03-17] MEDS: CITALOPRAM HYDROBR 20 MG TAB PO SCH (10:09)
[2025-03-17] MEDS: ENOXAPARIN SOD 40 MG/0.4 ML SYRINGE SC SCH (10:10)
[2025-03-17] MEDS: PANTOPRAZOLE 40 MG/10 ML VIAL INJ IV SCH (10:10)
[2025-03-17] MEDS: IOHEXOL 350 MG/ML 100ML IJ ONE ×2 (11:41→19:58)
[2025-03-17 12:17] LABS: Base Excess 11.7 mmol/L (-2.0-3.0)
[2025-03-17] MEDS: PERMETHRIN 5 % TOPICAL CREAM 60GM TOP ONE (12:40)
[2025-03-17] MEDS ORDERED: MEROPENEM 1GM IVPB 50 ML IV SCH (14:00)
[2025-03-17] MEDS: MEROPENEM 1GM IVPB 50 ML IV SCH (16:08)
--- NOTE | 2025-03-17 16:58 | DVHPNRES ---
Progress Note Date Seen: March 17, 2025 Resident Creating Document: LASHELL QUAN RESIDENT Medical Necessity Reason Pt with a Central, PICC or Fol: No Subjective Review of Systems This is a 61 years old female with a past medical history of COPD NC O2 3-4 L/min, asthma, HFpEF, hypertension, hyperlipidemia, hypothyroidism, sleep apnea, depression was brought in due to worsening shortness of breaths. As per patient she has been having worsening short of breath for last 7 days. She also reported cough with greenish sputum for the same duration. Patient reported her cough got worse over the last 1 week associated with a worsening shortness of breaths. Patient tried nebulization at home and was on NC O2 4 L/min but it did not help. On EMS arrival patient was desaturating to 75%, patient was given solumedrol 125 mg once, lasix 40 mg once ,nebulization and also put on BIPAP which improved patient's oxygen saturation. Reports using CPAP at home. Patient denied any fever, chest pain, palpitation, dysarthria or change in vision. Patient was admitted at [facility] in July from 07/31/2024 2 11/27/2023, patient was intubated due to acute hypoxic/ hypercapnic respiratory failure and acute on chronic exacerbation of CHF. Patient was seen and examined on the bedside. She is alert oriented x3 and on BiPAP 18/7. Recent Blood gas revealed normal PH, decreased CO2 from previous blood gas and patient mentioned improved shortness of breath. Constitutional: No: Fever, Chills, Sweats, Weakness, Malaise, Other Eyes: No: Pain, Vision change, Conjunctivae inflammation, Eyelid inflammation, Other, Redness ENT: No: Ear pain, Ear discharge, Nose pain, Nose discharge, Nose congestion, Mouth pain, Mouth swelling, Throat pain, Throat swelling, Other Respiratory: Shortness of breath, Cough, Dry,Wheezing, sputum, No Hemoptysis, Pleuritic Pain, Other Cardiovascular: Edema No: Chest Pain, Palpitations, Orthopnea, Paroxysmal Noc. Dyspnea, Lt Headedness, Other Gastrointestinal: No: Nausea, Vomiting, Abdominal Pain, Diarrhea, Constipation, Melena, Hematochezia, Other Musculoskeletal: Back pain, No: other, neck pain, shoulder pain, arm pain, hand pain, leg pain, foot pain Neurological:; No: Weakness, Numbness, Incoordination, Change in speech, Confusion, Seizures Objective vital signs Vital Sign Date Time Temp Pulse Resp B/P (MAP) Pulse Ox O2 Delivery O2 Flow Rate FiO2 03/17/25 16:00 85 03/17/25 16:00 97.8 16 116/57 (76) 91 97.8 03/17/25 14:10 Facial BiPAP Mask 50 Total Intake and Output 03/16/25 03/16/25 03/17/25 15:00 23:00 07:00 Intake Total 800 ml Output Total 300 ml Balance 500 ml medications Current Medications Medications Dose Ordered Sig/Jorge Route Start Time Stop Time Status Last Admin Dose Admin Sodium Chloride 10 ml Q8HR IV 03/17/25 06:00 03/17/25 14:00 10 ML Enoxaparin Sodium 40 mg DAILY SC 03/17/25 10:00 03/17/25 10:10 40 MG Acetaminophen 650 mg Q6HP PRN PO 03/17/25 01:15 Vancomycin HCl 0 ml @ 0 mls/hr UD IV 03/17/25 01:15 Levalbuterol HCl 1.25 mg Q4HR NEB 03/17/25 02:00 03/17/25 14:00 1.25 MG Ipratropium [place] 0.5 mg Q4HR NEB 03/17/25 02:00 03/17/25 14:00 0.5 MG Pantoprazole Sodium 40 mg DAILY IV 03/17/25 10:00 03/17/25 10:10 40 MG Levothyroxine Sodium 100 mcg DAILY@0730 PO 03/17/25 07:30 03/17/25 07:26 100 MCG Citalopram Hydrobromide 40 mg DAILY PO 03/17/25 10:00 03/17/25 10:09 40 MG Atorvastatin Calcium 10 mg HS PO 03/17/25 22:00 Methylprednisolone Sodium Succinate 40 mg BID IV 03/17/25 07:15 03/17/25 10:10 40 MG Furosemide 40 mg BIDD IV 03/17/25 18:00 Vancomycin HCl 200 ml @ 200 mls/hr Q12H IV 03/17/25 18:00 Meropenem 50 ml @ 17 mls/hr Q8H IV 03/17/25 16:00 03/17/25 16:08 17 MLS/HR Examination Physical examination: General Appearance: Alert, Oriented X3, Cooperative, mild distress and on BiPAP 18/7 HEENT: Atraumatic, PERRLA, EOMI, Mucous membrane moist/pink Respiratory: Bilateral wheezing and crackles. Cardiovascular: Regular rate, Normal S1, Normal S2, No murmurs, no chest wall tenderness Abdominal: Normal bowel sounds, Soft, No tenderness, No hepatospenomegaly, No masses Extremities: No clubbing, No cyanosis, No edema, Normal pulses, No tenderness/swelling Skin: Scabies, pruritic rashes involved upper and lower limbs, perineum, buttock, No breakdown, No significant lesion Neuro: Normal gait, Normal speech, Strength at 5/5 X4 ext, Normal tone, Sensation intact, Cranial nerves 3-12 NL, Reflexes 2+ Psych/Mental Status: Mental status NL, Mood NL laboratory and microbiology Laboratory Tests 03/17/25 05:38 Test 03/17/25 05:38 Range/Units Serum Glucose 124 H 74-106 mg/dL Microbiology Date/Time Source Procedure Growth Status 03/17/25 01:15 Blood Blood Culture - Preliminary Resulted Labs and/or images reviewed: Labs reviewed by me, Image(s) reviewed by me Problem List/Assessment/Plan Problem List/Assessment/Plan Assessment and plan: # Acute hypoxic/hypercapnic respiratory failure # Acute on chronic exacerbation of COPD # Acute cardiogenic pulmonary edema # Acute exacerbation of chronic diastolic heart failure # Possible Gram-positive/Gram-negative pneumonia # Bacteremia likely due to pneumonia # History of obstructive sleep apnea and on CPAP at home # Rule out pulmonary embolism - CxR showed Low lung volumes. Prominent interstitial markings which can be seen with pulmonary edema. - Echo on 08/21 demonstrated EF 55% with grade 1 diastolic dysfunction - D- dimer elevated - Pending CT angio - Patient is on BiPAP 18/7, FiO2 60%, respiratory rate 12. - med neb with levalbuterol and ipratropium q.4 hours - IV methylprednisolone 40 mg b.i.d. - IV Lasix 40 mg b.i.d. - IV vancomycin as per pharmacy and IV meropenem 1 g Q 8 hours - Blood culture preliminary report revealed Gram-positive rods - Pending urine culture and respiratory culture - Covid and flu are negative and MRSA pending # Methamphetamine abuse disorder - UDS is positive for amphetamine and cannabinoids - Counseled patient regarding drug abuse and rehabilitation # Vitamin D deficiency - Vitamin-D 77787 units Q 7D # Scabies - Permethrin lotion applied topically from below the neck to the ankle once # Chronic hypothyroidism - continue levothyroxine 100 mcg at q.a.m. # PUD prophylaxis - Protonix 40 mg p.o. daily # DVT prophylaxis - scan of the lower extremity excluded DVT - Lovenox 40 mg sc daily Goal of care discussed with the patient for more than 20 minutes full code critical care time excluding procedures 51 mins Plan discussed with Dr. Schmid Plan discussed with: Patient, Other My Orders My Orders Orders - LASHELL QUAN Procedure Category Date Status Time Methylprednisolone PHA 03/17/25 In Process Sod Succ (Solu Medrol 07:15 Abg W/ Co-Ox RT 03/17/25 Logged 12:00 Meropenem 1gm Ivpb PHA 03/17/25 In Process (Merrem 1gm/ Ns) 16:00 Date of Service: March 17, 2025 Billing Provider: HUGH SCHMID MD Common Visit Codes: [id number] CARE 30-74 MIN LASHELL QUAN March 17, 2025 16:58 HUGH SCHMID MD March 18, 2025 16:34
[2025-03-17] MEDS: ERGOCALCIFEROL 50,000 UNIT(1.25MG) CAP PO SCH (17:27)
[2025-03-17] MEDS: FUROSEMIDE 40 MG/4 ML VIAL IV SCH (17:41)
--- NOTE | 2025-03-17 20:15 | DVH ---
EXAM: XY CHEST PORTABLE REASON FOR EXAM: on bipap TECHNIQUE: 1 view of the chest COMPARISON: XY CHEST PORTABLE on DOS: 03/16/25 FINDINGS/IMPRESSION: LUNGS: Peripheral interstitial edema. Atelectasis in bilateral lung bases. MEDIASTINUM: Unremarkable BONES: No acute osseous abnormality OTHER: None
[2025-03-17] MEDS ORDERED: methylPREDNISolone SOD SUCC 125 MG/2 ML VL IV SCH (22:00)
[2025-03-18] VITALS (24 sets, daily range): BP systolic 97–138; BP diastolic 46–68; PULSE 77–93; RESP 18–22; TEMP 98–98.8; O2SAT 88–95
[2025-03-18] MEDS: ATORVASTATIN 20 MG TAB PO SCH
[2025-03-18 06:59] LABS: Basophils # (auto) 0 10 ^3/uL (0-0.2); Basophils % (auto) 0.1 % (0.0-2.0); Eosinophils # (auto) 0 10 ^3/uL (0-0.8); Hemoglobin 11.7 g/dL (12.2-16.2); Lymphocytes # (auto) 0.2 10 ^3/uL (0.4-5.4); Lymphocytes % (auto) 4.2 % (10.0-50.0); Mean Corpuscular Hemoglobin 28.8 pg (28.0-32.0); Mean Corpuscular Hgb Conc. 32.6 g/dL (32.0-36.0); Mean Corpuscular Volume 88.2 fL (80.0-100.0); Monocytes # (auto) 0.2 10 ^3/uL (0-1.3); Monocytes % (auto) 3.3 % (0.0-12.0); Neutrophils # (auto) 4.9 10 ^3/uL (1.6-8.6); Neutrophils % (auto) 92.4 % (37.0-80.0); Platelet Count (auto) 178 10^3/uL (140-450); Red Blood Cells 4.08 10^6/uL (4.0-5.20); Red Cell Distribution Width 15.1 % (11.8-14.3); White Blood Cell 5.3 10^3/uL (4.4-10.8)
[2025-03-18 07:29] LABS: Alanine Aminotransferase 29 U/L (7-40); Albumin 4.4 g/dL (3.2-4.8); Alkaline Phosphatase 96 U/L (46-116); Aspartate Aminotransferase 24 U/L (13-40); BUN/Creatinine Ratio 26.3 (10.0-20.0); Calcium 8.7 mg/dL (8.7-10.4); Potassium 4.4 mmol/L (3.5-5.1); Sodium 139 mmol/L (136-145); Total Protein 6.9 g/dL (5.7-8.2)
[2025-03-18 07:38] LABS: Anion Gap 5.99999 (5-15); Bilirubin, Total 0.2 mg/dL (0.2-1.0); Blood Urea Nitrogen 25 mg/dL (9-23); Chloride 93 mmol/L (98-107); Glucose 145 mg/dL (74-106)
[2025-03-18 07:41] LABS: Carbon Dioxide > 40 mmol/L (20-31)
[2025-03-18 09:14] LABS: Base Excess 17.2 mmol/L (-2.0-3.0)
[2025-03-18] MEDS ORDERED: levoFLOXacin 500MG 100 ML IV SCH ×2 (10:00)
--- NOTE | 2025-03-18 10:35 | DVH ---
CHEST RADIOGRAPH Indication: hypoxia Technique: Single frontal view of the chest was obtained COMPARISON: XY CHEST PORTABLE on DOS: 03/17/25, XY CHEST PORTABLE on DOS: 03/16/25, XY CHEST XRAY 1 VIE W on DOS: 08/27/24, XY CHEST XRAY 1 VIEW on DOS: 08/26/24, XY CHEST XRAY 1 VIEW on DOS: 08/25/24 FINDINGS: Lines and Tubes: None Lungs: Clear Pleura: No effusion. No pneumothorax. Cardiomediastinal contours: Unremarkable Bones: Unremarkable IMPRESSION: No acute disease.
--- NOTE | 2025-03-18 19:01 | DVHPNRES ---
Progress Note Date Seen: March 18, 2025 Resident Creating Document: LASHELL QUAN RESIDENT Medical Necessity Reason Pt with a Central, PICC or Fol: No Subjective Review of Systems This is a 61 years old female with a past medical history of COPD NC O2 3-4 L/min, asthma, HFpEF, hypertension, hyperlipidemia, hypothyroidism, sleep apnea, depression was brought in due to worsening shortness of breaths. As per patient she has been having worsening short of breath for last 7 days. She also reported cough with greenish sputum for the same duration. Patient reported her cough got worse over the last 1 week associated with a worsening shortness of breaths. Patient tried nebulization at home and was on NC O2 4 L/min but it did not help. On EMS arrival patient was desaturating to 75%, patient was given solumedrol 125 mg once, lasix 40 mg once ,nebulization and also put on BIPAP which improved patient's oxygen saturation. Reports using CPAP at home. Patient denied any fever, chest pain, palpitation, dysarthria or change in vision. Patient was admitted at [facility] in July from 07/31/2024 2 11/27/2023, patient was intubated due to acute hypoxic/ hypercapnic respiratory failure and acute on chronic exacerbation of CHF. Patient was seen and examined on the bedside. She is alert oriented x3 and on O2 3L nasal canula. Mentioned Improved shortness of breath and also mentioned relief of itching from the scabies. Objective vital signs Vital Sign Date Time Temp Pulse Resp B/P (MAP) Pulse Ox O2 Delivery O2 Flow Rate FiO2 03/18/25 18:27 92 Nasal Cannula* 4 36 03/18/25 18:19 86 20 03/18/25 17:00 98.3 126/65 (85) 98.3 Total Intake and Output 03/17/25 03/17/25 03/18/25 15:00 23:00 07:00 Intake Total 250 ml 700 ml Output Total 2000 ml 490 ml Balance -1750 ml 210 ml medications Current Medications Medications Dose Ordered Sig/Jorge Route Start Time Stop Time Status Last Admin Dose Admin Sodium Chloride 10 ml Q8HR IV 03/17/25 06:00 03/18/25 14:00 10 ML Enoxaparin Sodium 40 mg DAILY SC 03/17/25 10:00 03/18/25 09:18 40 MG Acetaminophen 650 mg Q6HP PRN PO 03/17/25 01:15 Vancomycin HCl 0 ml @ 0 mls/hr UD IV 03/17/25 01:15 Levalbuterol HCl 1.25 mg Q4HR NEB 03/17/25 02:00 03/18/25 18:18 1.25 MG Ipratropium [place] 0.5 mg Q4HR NEB 03/17/25 02:00 03/18/25 18:18 0.5 MG Pantoprazole Sodium 40 mg DAILY IV 03/17/25 10:00 03/18/25 09:19 40 MG Levothyroxine Sodium 100 mcg DAILY@0730 PO 03/17/25 07:30 03/18/25 09:18 100 MCG Citalopram Hydrobromide 40 mg DAILY PO 03/17/25 10:00 03/18/25 09:18 40 MG Atorvastatin Calcium 10 mg HS PO 03/17/25 22:00 03/18/25 00:00 10 MG Methylprednisolone Sodium Succinate 40 mg BID IV 03/17/25 07:15 03/18/25 09:19 40 MG Furosemide 40 mg BIDD IV 03/17/25 18:00 03/18/25 05:33 40 MG Vancomycin HCl 200 ml @ 200 mls/hr Q12H IV 03/17/25 18:00 03/18/25 05:32 200 MLS/HR Meropenem 50 ml @ 17 mls/hr Q8H IV 03/17/25 16:00 03/18/25 09:18 17 MLS/HR Ergocalciferol 50,000 unit Q7D PO 03/17/25 17:00 03/17/25 17:27 50,000 UNIT Examination Physical examination: General Appearance: Alert, Oriented X3, Cooperative, mild distress and on BiPAP 18/7 HEENT: Atraumatic, PERRLA, EOMI, Mucous membrane moist/pink Respiratory: Bilateral wheezing and crackles. Cardiovascular: Regular rate, Normal S1, Normal S2, No murmurs, no chest wall tenderness Abdominal: Normal bowel sounds, Soft, No tenderness, No hepatospenomegaly, No masses Extremities: No clubbing, No cyanosis, No edema, Normal pulses, No tenderness/swelling Skin: Scabies, pruritic rashes involved upper and lower limbs, perineum, buttock, No breakdown, No significant lesion Neuro: Normal gait, Normal speech, Strength at 5/5 X4 ext, Normal tone, Sensation intact, Cranial nerves 3-12 NL, Reflexes 2+ Psych/Mental Status: Mental status NL, Mood NL laboratory and microbiology Laboratory Tests 03/18/25 06:43 Test 03/18/25 06:43 Range/Units Serum Glucose 145 H 74-106 mg/dL Microbiology Date/Time Source Procedure Growth Status 03/18/25 00:00 Nose MRSA Screen - Final Complete 03/17/25 05:10 Voided Urine Urine Culture - Preliminary Resulted 03/17/25 01:30 Blood Blood Culture - Preliminary NO GROWTH AFTER 24 HOURS OF INCUBATION. Resulted Labs and/or images reviewed: Labs reviewed by me, Image(s) reviewed by me Problem List/Assessment/Plan Problem List/Assessment/Plan Assessment and plan: # Acute hypoxic/hypercapnic respiratory failure # Acute on chronic exacerbation of COPD # Acute cardiogenic pulmonary edema # Acute exacerbation of chronic diastolic heart failure # Possible Gram-positive/Gram-negative pneumonia # Bacteremia likely due to pneumonia # History of obstructive sleep apnea and on CPAP at home # Rule out pulmonary embolism - CxR showed Low lung volumes. Prominent interstitial markings which can be seen with pulmonary edema. - Echo on 08/21 demonstrated EF 55% with grade 1 diastolic dysfunction - D- dimer elevated - Pending CT angio - Patient is on BiPAP 18/, FiO2 60%, respiratory rate 12. - med neb with levalbuterol and ipratropium q.4 hours - IV methylprednisolone 40 mg b.i.d. - IV Lasix 40 mg daily. - IV vancomycin as per pharmacy and IV meropenem 1 g Q 8 hours - Blood culture preliminary report revealed Gram-positive rods - Pending urine culture and respiratory culture - Covid and flu and MRSA are negative # Methamphetamine abuse disorder - UDS is positive for amphetamine and cannabinoids - Counseled patient regarding drug abuse and rehabilitation # Vitamin D deficiency - Vitamin-D 14344 units Q 7D # Scabies - Permethrin lotion applied topically from below the neck to the ankle once. # Chronic hypothyroidism - continue levothyroxine 100 mcg at q.a.m. # PUD prophylaxis - Protonix 40 mg p.o. daily # DVT prophylaxis - scan of the lower extremity excluded DVT - Lovenox 40 mg sc daily Advanced care planning spent more than 41 minutes Plan discussed with Dr. Schmid Plan discussed with: Patient, Other (RN) My Orders My Orders Orders - LASHELL QUAN Procedure Category Date Status Time Chest Portable XY 03/17/25 Resulted 19:24 Chest Portable XY 03/18/25 Resulted 08:49 Abg W/ Co-Ox RT 03/18/25 Logged 08:49 BIPAP RT 03/18/25 Logged 17:02 Pt Request For Service PT 03/18/25 Logged 17:02 Date of Service: March 18, 2025 Billing Provider: HUGH SCHMID MD Common Visit Codes: [id number] INP/OBS CARE(HIGH) Secondary Visit Codes: [id number] CARE PLAN 30 MINUTES LASHELL QUAN March 18, 2025 19:01 HUGH SCHMID MD March 19, 2025 12:51
[2025-03-18] MEDS: FUROSEMIDE 40 MG/4 ML VIAL IV SCH (19:16)
[2025-03-19] VITALS (17 sets, daily range): BP systolic 132–151; BP diastolic 68–76; PULSE 77–100; RESP 16–20; TEMP 97.8–98.4; O2SAT 91–96
[2025-03-19] MEDS: MEROPENEM 1GM IVPB 50 ML IV SCH (06:14)
[2025-03-19 07:41] LABS: Basophils # (auto) 0 10 ^3/uL (0-0.2); Basophils % (auto) 0.2 % (0.0-2.0); Eosinophils # (auto) 0 10 ^3/uL (0-0.8); Hematocrit 38.9 % (36.0-46.0); Hemoglobin 12.3 g/dL (12.2-16.2); Lymphocytes # (auto) 0.3 10 ^3/uL (0.4-5.4); Lymphocytes % (auto) 3.9 % (10.0-50.0); Mean Corpuscular Hemoglobin 28.5 pg (28.0-32.0); Mean Corpuscular Hgb Conc. 31.7 g/dL (32.0-36.0); Mean Corpuscular Volume 90.2 fL (80.0-100.0); Monocytes # (auto) 0.2 10 ^3/uL (0-1.3); Monocytes % (auto) 3.5 % (0.0-12.0); Neutrophils % (auto) 92.4 % (37.0-80.0); Nucleated Red Blood Cells % 0.1 %; Platelet Count (auto) 186 10^3/uL (140-450); Red Blood Cells 4.31 10^6/uL (4.0-5.20); Red Cell Distribution Width 15.4 % (11.8-14.3); White Blood Cell 6.5 10^3/uL (4.4-10.8)
[2025-03-19 07:52] LABS: Anion Gap 5 (5-15); Calcium 8.9 mg/dL (8.7-10.4); Potassium 3.9 mmol/L (3.5-5.1); Sodium 140 mmol/L (136-145)
[2025-03-19 07:53] LABS: Carbon Dioxide 39 mmol/L (20-31); Chloride 96 mmol/L (98-107)
[2025-03-19 07:58] LABS: BUN/Creatinine Ratio 25.5 (10.0-20.0)
[2025-03-19 08:04] LABS: Blood Urea Nitrogen 25 mg/dL (9-23); Glucose 205 mg/dL (74-106)
[2025-03-19] MEDS: methylPREDNISolone SOD SUCC 125 MG/2 ML VL IV SCH (08:33)
[2025-03-19] MEDS: FUROSEMIDE 40 MG TAB PO SCH (08:35)
[2025-03-19 10:43] LABS: Base Excess 14.7 mmol/L (-2.0-3.0)
[2025-03-19] MEDS: PANTOPRAZOLE 40 MG TAB PO ONE (11:28)
[2025-03-19] MEDS ORDERED: LEVO750T40 PO (13:12)
[2025-03-19] MEDS ORDERED: PRED20TA2 PO (13:12)
[2025-03-19] MEDS ORDERED: IVER3TAB PO (13:15)
[2025-03-19] MEDS ORDERED: PER60TP TOP (13:15)
--- NOTE | 2025-03-19 19:05 | DVHDSRES ---
Discharge Summary Date of Admission Resident Creating Document: AVELINAALEXEILASHELL RESIDENT March 17, 2025 at 01:01 Date of Discharge: March 19, 2025 Admitting Diagnosis # Acute hypoxic/hypercapnic respiratory failure Wounds: No open wound was present, multiple scratch wayne and red rashes involved bilateral upper and lower limb, chest, groin and pelvic region Labs/Diagnostic Data: Laboratory Results Test 03/19/25 10:28 03/19/25 07:10 03/18/25 17:22 03/18/25 09:04 Blood Gas Specimen Type Arterial Blood Gas Sample Site Right radial Blood Gas Patient Temperature 37.0 Arterial Blood Date Drawn [id number] Arterial Blood pH 7.419 (7.350-7.450) Arterial Blood Partial Pressure CO2 66.9 mmHg (32.0-45.0) Arterial Blood Partial Pressure O2 80.9 mmHg (83.0-108.0) Arterial Blood HCO3 42.3 mmol/L (21.0-28.0) Arterial Blood Oxygen Saturation 95.4 % (94.0-98.0) Arterial Blood Base Excess 14.7 mmol/L (-2.0-3.0) Arterial Blood Oxyhemoglobin 94.5 % (94.0-98.0) Arterial Blood Carboxyhemoglobin 0.5 % (0.5-1.5) Arterial Blood Methemoglobin 0.4 % (0.0-1.5) Dago Test Modified Blood Gas Total Hemoglobin 13.10 g/dL (12.0-16.0) Blood Gas Modality Nasal cannula FiO2 % 32.0 Blood Gas Critical Value Read Back Yes Blood Gas Notified Whom Aramis quan md Blood Gas Notified Time [id number] Blood Gas Notified By Darvin diego rrt White Blood Count 6.5 10^3/uL (4.4-10.8) Red Blood Count 4.31 10^6/uL (4.0-5.20) Hemoglobin 12.3 g/dL (12.2-16.2) Hematocrit 38.9 % (36.0-46.0) Mean Corpuscular Volume 90.2 fL (80.0-100.0) Mean Corpuscular Hemoglobin 28.5 pg (28.0-32.0) Mean Corpuscular Hemoglobin Concent 31.7 g/dL (32.0-36.0) Red Cell Distribution Width 15.4 % (11.8-14.3) Platelet Count 186 10^3/uL (140-450) Mean Platelet Volume 9.2 fL (6.9-10.8) Neutrophils (%) (Auto) 92.4 % (37.0-80.0) Lymphocytes (%) (Auto) 3.9 % (10.0-50.0) Monocytes (%) (Auto) 3.5 % (0.0-12.0) Eosinophils (%) (Auto) 0.0 % (0.0-7.0) Basophils (%) (Auto) 0.2 % (0.0-2.0) Neutrophils # (Auto) 6.0 10 ^3/uL (1.6-8.6) Lymphocytes # (Auto) 0.3 10 ^3/uL (0.4-5.4) Monocytes # (Auto) 0.2 10 ^3/uL (0-1.3) Eosinophils # (Auto) 0 10 ^3/uL (0-0.8) Basophils # (Auto) 0 10 ^3/uL (0-0.2) Nucleated Red Blood Cells 0.1 % Sodium Level 140 mmol/L (136-145) Potassium Level 3.9 mmol/L (3.5-5.1) Chloride Level 96 mmol/L (98-107) Carbon Dioxide Level 39 mmol/L (20-31) Anion Gap 5 (5-15) Blood Urea Nitrogen 25 mg/dL (9-23) Creatinine 0.98 mg/dL (0.550-1.02) Glomerular Filtration Rate Calc 66 mL/min (>90) BUN/Creatinine Ratio 25.5 (10.0-20.0) Serum Glucose 205 mg/dL (74-106) Calcium Level 8.9 mg/dL (8.7-10.4) Vancomycin Level Trough 13.3 ug/mL (5-10) Blood Gas Liter Flow 8.00 Test 03/18/25 06:43 03/17/25 12:09 03/17/25 07:39 03/17/25 05:50 Total Bilirubin 0.2 mg/dL (0.2-1.0) Aspartate Amino Transferase (AST) 24 U/L (13-40) Alanine Aminotransferase (ALT) 29 U/L (7-40) Alkaline Phosphatase 96 U/L (46-116) Total Protein 6.9 g/dL (5.7-8.2) Albumin 4.4 g/dL (3.2-4.8) Blood Gas Set Respiration Rate 12.0 Blood Gas EPAP 7 Blood Gas IPAP 18 Lactic Acid Level 0.9 mmol/L (0.4-2.0) Influenza Type A Antigen Negative (Negative) Influenza Type B Antigen Negative (Negative) SARS-CoV-2 Antigen (Rapid) Negative (NEGATIVE) Test 03/17/25 05:38 03/17/25 05:10 03/17/25 01:20 03/17/25 00:30 Prothrombin Time 10.5 sec (9.3-11.8) Prothrombin Time INR 0.99 (0.9-1.15) Activated Partial Thromboplast Time 29.5 SEC (24.5-34.5) Hemoglobin A1c 5.3 % A1C (<5.7) Magnesium Level 2.2 mg/dL (1.6-2.6) Vitamin B12 Level 318 pg/mL (211-911) Vitamin D 25-Hydroxy 11.5 ng/mL (30.0-100) Plasma/Serum Blood Alcohol < 3.0 mg/dL (<10) Urine Color Colorless (Yellow) Urine Clarity Clear (Clear) Urine pH 5.0 (5.0-9.0) Urine Specific [place] 1.009 (1.001-1.035) Urine Protein Negative (Negative) Urine Ketones Negative (Negative) Urine Blood Trace /uL (Negative) Urine Nitrite Negative (Negative) Urine Bilirubin Negative (Negative) Urine Urobilinogen Normal mg/dL (Negative) Urine Leukocyte Esterase Negative /uL (Negative) Urine RBC 2 /hpf (0 - 4) Urine Microscopic WBC < 1 /HPF (0-5) Urine Squamous Epithelial Cells None seen /hpf (<5) Urine Bacteria Few /hpf (None Seen) Urine Hyaline Casts Mod /lpf (0 - 2) Urine Glucose Normal mg/dL (Normal) Urine Opiates Screen Neg (NEGATIVE) Urine Fentanyl Screen Neg (NEGATIVE) Urine Barbiturates Screen Neg (NEGATIVE) Urine Phencyclidine Screen Neg (NEGATIVE) Urine Amphetamines Screen Pos (NEGATIVE) Urine Benzodiazepines Screen Neg (NEGATIVE) Urine Cocaine Screen Neg (NEGATIVE) Urine Cannabinoids Screen Pos (NEGATIVE) Blood Gas Spontaneous Rate 19 Specimen Drawn By Kayce potter rt D-Dimer, Quantitative 0.88 mg/L FEU (0.0-0.49) Troponin I High Sensitivity 6 ng/L (</=34) Thyroid Stimulating Hormone (TSH) 6.08 uIU/mL (0.55-4.78) Test 03/16/25 23:21 03/16/25 23:09 B-Type Natriuretic Peptide 51.82 pg/mL (0-100) Blood Gas Tidal Volume 440.0 Blood Gas Spontaneous Tidal Volume 440 Other Laboratory Tests 03/19/25 07:10 Brief Hx & Hospital Course: This is a 61 years old female with a past medical history of COPD NC O2 3-4 L/min, asthma, HFpEF, hypertension, hyperlipidemia, hypothyroidism, sleep apnea, depression was brought in due to worsening shortness of breaths. As per patient she has been having worsening short of breath for last 7 days. She also reported cough with greenish sputum for the same duration. Patient reported her cough got worse over the last 1 week associated with a worsening shortness of breaths. Patient tried nebulization at home and was on NC O2 4 L/min but it did not help. On EMS arrival patient was desaturating to 75%, patient was given solumedrol 125 mg once, lasix 40 mg once ,nebulization and also put on BIPAP which improved patient's oxygen saturation. Reports using CPAP at home. Patient denied any fever, chest pain, palpitation, dysarthria or change in vision. Patient was admitted at [facility] in July from 07/31/2024 2 11/27/2023, patient was intubated due to acute hypoxic/ hypercapnic respiratory failure and acute on chronic exacerbation of CHF. Hospital course: Initially the patient was presented with acute hypoxic/hypercapnic respiratory failure with with respiratory acidosis and high pCO2. CxR showed Low lung volumes. Prominent interstitial markings which can be seen with pulmonary edema. The patient was on BiPAP with a setting of 18/7 and after subsequent PH when became normal than transfer the patient to telemetry with the 1st Oxymizer 8 L and then taper down to nasal cannula 3 L. COVID, flu and MRSA negative and blood culture urine culture preliminary report revealed no growth in 24 hours of incubation. Was treated with IV methylprednisolone 40 mg b.i.d., med neb with levalbuterol and ipratropium q.4 hours, IV Lasix 40 mg daily, IV vancomycin as per pharmacy and IV meropenem 1 g Q HR all for possible community-acquired pneumonia. Recently diagnosed with scabies and treated with permethrin lotion applied topically from below the neck to the ankle once and also advised the patient to repeat the same treatment after 1-2 weeks. UDS was positive for amphetamine and cannabinoids and counseled the patient regarding methamphetamine abuse and rehabilitation. Today during morning round the patient mentioned improved shortness of breath and discharge plan was discussed with the patient and all questions were answered. Patient is being discharged to home with prednisone 20 mg at q.a.m. for 7 days, levofloxacin 750 mg daily for 5 days, vitamin-D 81380 units Q 7D, permethrin cream, Ivermectin 3 mg once and advised the patient to resume home medications. She was also advised to follow up with [facility] clinic in 1 week and also with PCP and mental retardation nurse in next 1-2 weeks. Physical examination: General Appearance: Alert, Oriented X3, Cooperative, mild distress and on BiPAP 18/7 HEENT: Atraumatic, PERRLA, EOMI, Mucous membrane moist/pink Respiratory: Bilateral mild wheezing and fine crackles. Cardiovascular: Regular rate, Normal S1, Normal S2, No murmurs, no chest wall tenderness Abdominal: Normal bowel sounds, Soft, No tenderness, No hepatospenomegaly, No masses Extremities: No clubbing, No cyanosis, No edema, Normal pulses, No tenderness/swelling Skin: Scabies, pruritic rashes involved upper and lower limbs, perineum, buttock, No breakdown, No significant lesion Neuro: Normal gait, Normal speech, Strength at 5/5 X4 ext, Normal tone, Sensation intact, Cranial nerves 3-12 NL, Reflexes 2+ Psych/Mental Status: Mental status NL, Mood NL Diagnosis: # Acute hypoxic/hypercapnic respiratory failure # Acute on chronic exacerbation of COPD # Acute cardiogenic pulmonary edema # Acute exacerbation of chronic diastolic heart failure # Possible Gram-positive/Gram-negative pneumonia # Bacteremia likely due to pneumonia # History of obstructive sleep apnea and on CPAP at home # Rule out pulmonary embolism # Methamphetamine abuse disorder # Vitamin D deficiency # Scabies # Chronic hypothyroidism time spent in discharge planning was 39 mins Consults/Reason for consult No consultation was done Operations or Procedures CHEST RADIOGRAPH Indication: sob Technique: Single frontal view of the chest was obtained Findings/ IMPRESSION: Low lung volumes. Prominent interstitial markings which can be seen with pulmonary edema. Overlying soft tissue causing artifact overlying the left lower lung zone. No pneumothorax. Clinical History: B/L LEG SWELLING Comparison: None Technique: Duplex Doppler evaluation of the deep venous system of the bilateral lower extremity from the common femoral vein to the popliteal vein including color Doppler and spectral/pulsed waveform analysis was performed. Findings: The common femoral vein demonstrates appropriate compressibility and waveform variability. There is compressibility/patency of the great saphenous vein at the proximal thigh. The femoral vein demonstrates appropriate compressibility and waveform variability. The deep femoral vein demonstrates appropriate compressibility and waveform variability. The popliteal vein demonstrates appropriate compressibility and waveform variability. There is normal compressibility at the tibioperoneal trunk. Impression: 1. No bilateral deep venous thrombosis. 2. If clinical concern/symptoms persist or worsen, short-interval follow-up study is suggested Condition at Discharge: Guarded Final Diagnosis/Problems List # Acute hypoxic/hypercapnic respiratory failure # Acute on chronic exacerbation of COPD # Acute cardiogenic pulmonary edema # Acute exacerbation of chronic diastolic heart failure # Possible Gram-positive/Gram-negative pneumonia # Bacteremia likely due to pneumonia # History of obstructive sleep apnea and on CPAP at home # Rule out pulmonary embolism # Methamphetamine abuse disorder # Vitamin D deficiency # Scabies # Chronic hypothyroidism Discharge Disposition: Home Discharge Instruct/Medications Diet: Regular Activity: No Restrictions, As Tolerated Follow Up/Referral: Follow up with [facility] in 1 week. Medications: As per EMR Discharge Statement: "Patient was advised to return to the ER or call 911 if any headaches, dizziness, shortness of breath, chest pain, abdominal pain, bleeding, fevers, or worsening of medical condition. Patient was counseled about treatment plan, medications, possible side effects, patientverbalized understanding. All questions were answered to the best of my ability. This discharge took greater then 30 minutes in planning, reviewing documentation, counseling the patient, and discussing with other team members." ASSESSMENT ASSESSMENT Assessment Acute hypoxic/hypercapnic respiratory failure Date of Service: March 19, 2025 Billing Provider: HUGH SCHMID MD Common Visit Codes: 72652-QKW/OBS DISCH DAY >30min LASHELL QUAN March 19, 2025 19:05 HUGH SCHMID MD March 22, 2025 21:53
[2025-03-19] MEDS ORDERED: ERGO1CAP23 PO (19:14)
[2025-03-20] MEDS ORDERED: PANTOPRAZOLE 40 MG TAB PO SCH (06:00)
--- NOTE | 2025-03-20 08:57 | DVHSR ---
APPROVED REPORT EXAM: Two-dimensional and M-mode echocardiogram with Doppler and color Doppler. Blood Pressure: 116/64 mmHg INDICATION CHF RISK FACTORS Height: 62, Weight: 280 DIMENSIONS LVDd (3.8-5.7cm)LA (2D)4.0 (1.9-4.0cm)Aortic Root (2.0-3.7cm) EF (%) 64.0 (55-70%)Rt. Atrium3.4 (1.9-4.0cm)Asc. Aorta cm Mitral Valve MitralMitral Stenosis E wave1.04m/sMV Mean GR.mmHg A wave0.95m/sMV Peak GR.88mmHg E/A ratio1.12D MVAcm2 DECEL [id number] 1/2 [id number] IVRTmsDop MVA3.62cm2 Aortic Valve Aortic ValveAortic Stenosis V11.51m/Ab Mean GR.9mmHg V22.09m/Ab Peak GR.17mmHg Tricuspid Valve TR Velocity2.46m/s [id number] Other Information Technically limited study due to body habitus and patient position. Patient on bipap machine during exam. Conclusion Technically limited study. Difficult acoustic windows. There appears to be left atrial enlargement from the poor chamber view. The aortic valve is not clearly visualized. There is mild mitral annular calcification. The tricusp id appears to be within normal limits. The pulmonic is not visualized. Left ventricular function is preserved at 65% with normal RV function. Doppler reveals moderate tricuspid regurgitation. Mild pulmonary hypertension. No pericardial effusion masses or vegetations. Pericardial fat pad noted.
== END 2025-03-19 18:30 | disposition home or self-care (01) | DRG 140 ==
LOC: EDBD 22:48 → ER 22:50 → OVERFLOW 03-17 01:01 → TELE-CENTR 03-17 23:42
PROVIDERS: ADMIT Internal Medicine; ATTEND Internal Medicine
PROC: 5A1D70Z Performance of Urinary Filtration, Intermittent, Less than 6 Hours Per Day (ICD-10-PCS; principal; 2025-03-17)
PROC: 5A1D70Z Performance of Urinary Filtration, Intermittent, Less than 6 Hours Per Day (ICD-10-PCS; 2025-03-18)
DX: J44.0 Chronic obstructive pulmonary disease with (acute) lower respiratory infection (principal); J96.21 Acute and chronic respiratory failure with hypoxia; I50.33 Acute on chronic diastolic (congestive) heart failure; J15.69 Pneumonia due to other Gram-negative bacteria; D72.10 Eosinophilia, unspecified; E87.29 Other acidosis; J15.9 Unspecified bacterial pneumonia; Z68.43 Body mass index [BMI] 50.0-59.9, adult; J44.1 Chronic obstructive pulmonary disease with (acute) exacerbation; J96.22 Acute and chronic respiratory failure with hypercapnia; I11.0 Hypertensive heart disease with heart failure; B86 Scabies; D64.9 Anemia, unspecified; E03.9 Hypothyroidism, unspecified; Z20.822 Contact with and (suspected) exposure to COVID-19; F17.210 Nicotine dependence, cigarettes, uncomplicated; E78.5 Hyperlipidemia, unspecified; E66.01 Morbid (severe) obesity due to excess calories; F32.A Depression, unspecified; F15.10 Other stimulant abuse, uncomplicated; E55.9 Vitamin D deficiency, unspecified; G47.33 Obstructive sleep apnea (adult) (pediatric); Z99.81 Dependence on supplemental oxygen; Z88.6 Allergy status to analgesic agent; Z88.5 Allergy status to narcotic agent; Z88.0 Allergy status to penicillin; Z88.8 Allergy status to other drugs, medicaments and biological substances; Z79.899 Other long term (current) drug therapy; Z79.2 Long term (current) use of antibiotics; Z90.49 Acquired absence of other specified parts of digestive tract; Z98.891 History of uterine scar from previous surgery
CPT/HCPCS: 36415; 36600; 71045; 80048; 80053; 80202; 80307; 80320; 81001; 82306; 82607; 82805; 83036; 83605; 83735; 83880; 84443; 84484; 85025; 85379; 85610; 85730; 87040; 87081; 87086; 87426; 87804; 93005; 93306; 93970; 94640; 94660; 96374; 96375; 97163; 99291; G0378; J1956; J2185; J2470

== ENCOUNTER 2025-04-03 19:35 | Inpatient (IN) | payer MEDICAID ==
[~2025-04-03] VITALS: Ht 167.6 cm; Wt 110.4 kg
[~2025-04-03 19:35] MED LIST changes: -DOXY1CAP58 PO; +ERGO1CAP23 PO; +IVER3TAB PO; +LEVO750T40 PO; -METH4PAK PO; +PER60TP TOP; +PRED20TA2 PO
--- NOTE | 2025-04-03 19:48 | ED.PDOC ---
SOB-HPI HPI Comments HPI: Past Medical history: HTN, CHF, HLD, CHF, COPD, Hypothyroidism, Depression Past Surgical history: Appendectomy, Medications: Albuterol, Hydroxyzine, Lasix, Atorvastatin, Levofloxacin, Celexa Allergies: Codeine, Penicillin, Wellbutrin, Ibuprofen Social History: denies ETOH, denies tobacco use, Marijuana and Methamphetamine use, last used today Initial vitals: BP: HR: RR: O2 Sat.: Temp.: audie: HPI: Poor Historian. 60-year-old female brought in by ambulance from home for evaluation of exertional dyspnea for the last three days. Patient has history of COPD CHF and asthma. Patient has used her inhaler at least did not hives today without significant improvement. She did not take any of her other medications. Patient admits to use of methamphetamine line today and marijuana. Patient is oxygen dependent at home 3 L nasal cannula. Patient is already on levofloxacin but did not take it today. Patient was discharged from the hospital a week ago. For the same thing. Past Medical History: Past Surgical History: REVIEW OF SYSTEMS: CONSTITUTIONAL: Denies acute: fever, diaphoresis, chills, generalized weakness. HEAD: Denies acute: headache, photophobia Eyes: Denies acute: Double vision, vision loss, eye pain, eye discharge. EARS: Denies acute: tinnitus, hearing loss, ear discharge, ear pain, THROAT: Denies acute: sore throat, swelling, difficulty swallowing , pain with swallowing, change in voice. NECK: Denies acute: neck pain, neck swelling, stiff neck. HEART: Denies acute : chest pain, palpitations, LUNGS: Denies acute: , wheezing, cough, hemoptysis ABDOMEN: Denies acute: abdominal pain, Nausea, Vomiting, diarrhea, melena , hematemesis, hematochezia SKIN: Denies acute: rash, redness, lesions, itchiness. EXTREMITIES: Denies acute: calf pain, numbness, tingling, weakness, denies pain in extremity. Denies acute: Low back pain. Neuro: Denies acute: focal neurological deficit, motor or sensory focal neurological deficit, tremors, seizure like activity, confusion, dizziness, change in mental status, loss of bowel or bladder function, cauda equina like symptoms. : Denies acute: dysuria, hematuria, flank pain, increase in urinary frequency. PSYCH: Denies acute: hallucination, suicidal ideation, homicidal ideation. FEMALE: Denies acute: abnormal vaginal bleeding, foul odor, unusual discharge. PHYSICAL EXAM: General: --moderate------acute distress, awake and alert. Head: normocephalic, atraumatic. Neck: supple, trachea is midline, no swelling. Throat: Normal phonation. Eyes:, no erythema, no purulent discharge, no proptosis, no icterus. Heart: regular rate, regular rhythm, no significant murmur appreciated. Lungs: no apparent respiratory distress, Able to speak in full sentences. No wheezing, no rhonchi, no crackles. No stridors Clear to auscultation bilaterally. Abdomen: non tender to palpation, non distended, soft, no guarding, no rebound, + bowel sounds. Obese Neuro: Awake, Alert, oriented to name, self, situation, follows commands GCS=15. Speech is normal. Skin: no petechia, no purpura, no cyanosis, non-pale, not jaundice. Lower extremities: --trace bilateral- Pitting edema no deformity, no focal swelling, no calf TTP. Makes eye contact. moves all four extremities. Face: no apparent facial droop. ED COURSE: Chief Complaint: Shortness of Breath Time Seen by MD: 19:45 Primary Care Provider: UNKNOWN Reviewed notes: Medications, Allergies Information Source: Patient, Emergency Med Personnel Mode of Arrival: EMS Was a procedure done? Was a procedure done?: No Differential Dx Differential Diagnosis: Other (DDx include ACS, unstable angina, anxiety, PE, pneumothroax, neoplasm, cardiac ischemia, COPD, asthma, CHF, pleural effusion, tobacco abuse, pneumonia, hypoxia, hypercapnia, anemia., infection/sepsis., pulmonary edema. Asthma, Cardiac tamponade, infection.) X-Ray, Labs, Meds, VS Vital Signs Date Time Temp Pulse Resp B/P (MAP) Pulse Ox O2 Delivery O2 Flow Rate FiO2 04/03/25 22:22 97.4 70 18 116/68 (84) 98 97.4 04/03/25 20:21 20 96 Nasal Cannula* 3 32 04/03/25 19:45 90 04/03/25 19:43 98.2 93 16 110/96 (101) 93 98.2 Lab Test 04/03/25 20:45 04/03/25 19:52 Range/Units Lactic Acid Level 0.7 0.4-2.0 mmol/L Troponin I High Sensitivity 6 6 </=34 ng/L White Blood Count 7.5 4.4-10.8 10^3/uL Red Blood Count 4.22 4.0-5.20 10^6/uL Hemoglobin 12.0 L 12.2-16.2 g/dL Hematocrit 38.6 36.0-46.0 % Mean Corpuscular Volume 91.4 80.0-100.0 fL Mean Corpuscular Hemoglobin 28.4 28.0-32.0 pg Mean Corpuscular Hemoglobin Concent 31.0 L 32.0-36.0 g/dL Red Cell Distribution Width 15.8 H 11.8-14.3 % Platelet Count 181 140-450 10^3/uL Mean Platelet Volume 8.7 6.9-10.8 fL Neutrophils (%) (Auto) 76.0 37.0-80.0 % Lymphocytes (%) (Auto) 13.6 10.0-50.0 % Monocytes (%) (Auto) 6.1 0.0-12.0 % Eosinophils (%) (Auto) 3.6 0.0-7.0 % Basophils (%) (Auto) 0.7 0.0-2.0 % Neutrophils # (Auto) 5.7 1.6-8.6 10 ^3/uL Lymphocytes # (Auto) 1.0 0.4-5.4 10 ^3/uL Monocytes # (Auto) 0.5 0-1.3 10 ^3/uL Eosinophils # (Auto) 0.3 0-0.8 10 ^3/uL Basophils # (Auto) 0 0-0.2 10 ^3/uL Nucleated Red Blood Cells 0.0 % Sodium Level 140 136-145 mmol/L Potassium Level 4.6 3.5-5.1 mmol/L Chloride Level 97 L 98-107 mmol/L Carbon Dioxide Level 37 H 20-31 mmol/L Anion Gap 6 5-15 Blood Urea Nitrogen 10 9-23 mg/dL Creatinine 0.71 0.550-1.02 mg/dL Glomerular Filtration Rate Calc 98 >90 mL/min BUN/Creatinine Ratio 14.1 10.0-20.0 Serum Glucose 101 74-106 mg/dL Calcium Level 8.8 8.7-10.4 mg/dL Magnesium Level 2.0 1.6-2.6 mg/dL Total Bilirubin 0.3 0.2-1.0 mg/dL Aspartate Amino Transferase (AST) 22 13-40 U/L Alanine Aminotransferase (ALT) 34 7-40 U/L Alkaline Phosphatase 96 46-116 U/L B-Type Natriuretic Peptide 32.16 0-100 pg/mL Total Protein 6.4 5.7-8.2 g/dL Albumin 4.3 3.2-4.8 g/dL Current Medications Medications (Trade) Dose Ordered Sig/Jorge Route Start Time Stop Time Status Last Admin Albuterol (Ventolin Medneb) 2.5 mg ONCE ONCE NEB 04/03/25 19:45 04/03/25 19:46 DC 04/03/25 20:20 Ipratropium [place] (Atrovent Medneb) 1 mg ONCE ONCE NEB 04/03/25 19:45 04/03/25 19:46 DC 04/03/25 20:20 Methylprednisolone Sodium Succinate (Solu Medrol) 125 mg ONCE ONCE IV 04/03/25 19:45 04/03/25 19:46 DC 04/03/25 20:13 [place] [id number] Ph: [phone] DIAGNOSTIC IMAGING Diagnostic Imaging Report : [id number] Signed PATIENT: CARMELO HARDIN ACCT: [id number] UNIT: [id number] : 1965 LOC: ER ROOM / BED: / AGE / SEX: 60 / F ADM STATUS: REG ER SERVICE 43 ORDERING PHYSICIAN: JOEY VELASQUEZ DO PROCEDURE(s): CXRP - CHEST PORTABLE REASON: sob ORDER NUMBER(s): [id number], ACCESSION NUMBER(s): [id number] CHEST RADIOGRAPH Indication: sob Technique: Single frontal view of the chest was obtained Comparison: XY CHEST PORTABLE on DOS: 03/18/25, XY CHEST PORTABLE on DOS: 03/17/25, XY CHEST PORTABLE on DOS: 03/16/25 FINDINGS: Lines and Tubes: None Lungs: No focal consolidation. Pleura: No effusion. No pneumothorax. Cardiomediastinal contours: Unremarkable Bones: No acute osseous abnormality. IMPRESSION: No acute cardiopulmonary disease. ATED BY: EVELIA HERNANDEZ DO DICTATED DATE/TIME: 04/03/252102 SIGNED BY: EVELIA HERNANDEZ DO SIGNED DATE/TIME: 04/03/252102 CC: Time of 1ST Reevaluation: 20:45 Reevaluation 1ST: Unchanged Time of 2ND Reevaluation: 00:45 Reevaluation 2ND: Improved Patient Education/Counseling: Diagnosis, Treatment Family Education/Counseling: No Family Present Comments Patient presented with the above HPI.--dyspnea----workup was initiated. patient was found with the above mentioned diagnosis. the following medications were ordered: please refer to order lists of meds and tests obtained by myself Dr. Velasquez. Patient ED course and VS have been stabilized. Patient has been reassessed in the ED and remained in a stable condition. Pertinent incidental findings were discussed with the patient and/or family. Patient/family voices understanding and is agreeable with plan. Patient has been observed in the ED adequate length of time to insure improvemen t/stability. Escalation of care considered: Consideration of escalation to observation or admission Patient was ADMITTED to the medicine team for further evaluation and treatment of their presentation. All the reports of any imaging studies that were ordered by myself were reviewed by myself. Departure 1 Departure Time of Disposition: 20:17 Impression: Primary Impression: COPD exacerbation Additional Impressions: Methamphetamine abuse Dyspnea Disposition: 09 ADMITTED INPATIENT Admit to: Tele Condition: Guarded Discharged With: Self Critical Care Note Critical Care Time?: No Heart Score Heart Score: Heart Score Response (Comments) Value History Highly Suspicious 2 EKG Normal 0 Age 45-64 1 Risk Factors >3 or Hx ASHD 2 Troponin Normal limit 0 Total 5 I personally scribed for JOEY VELASQUEZ DO ([email or web address]) on 04/03/25 at 19:48. Electronically submitted by Alexandru Johnson ([email or web address]). I personally scribed for JOEY VELASQUEZ DO ([email or web address]) on 04/03/25 at 21:43. Electronically submitted by Alexandru Johnson ([email or web address]). JOEY VELASQUEZ DO Apr 03, 2025 19:48
[2025-04-03] MEDS: methylPREDNISolone SOD SUCC 125 MG/2 ML VL IV ONE (20:13)
[2025-04-03 20:19] LABS: Basophils # (auto) 0 10 ^3/uL (0-0.2); Basophils % (auto) 0.7 % (0.0-2.0); Eosinophils # (auto) 0.3 10 ^3/uL (0-0.8); Eosinophils % (auto) 3.6 % (0.0-7.0); Hematocrit 38.6 % (36.0-46.0); Lymphocytes % (auto) 13.6 % (10.0-50.0); Mean Corpuscular Hemoglobin 28.4 pg (28.0-32.0); Mean Corpuscular Volume 91.4 fL (80.0-100.0); Monocytes # (auto) 0.5 10 ^3/uL (0-1.3); Monocytes % (auto) 6.1 % (0.0-12.0); Neutrophils # (auto) 5.7 10 ^3/uL (1.6-8.6); Platelet Count (auto) 181 10^3/uL (140-450); Red Blood Cells 4.22 10^6/uL (4.0-5.20); Red Cell Distribution Width 15.8 % (11.8-14.3); White Blood Cell 7.5 10^3/uL (4.4-10.8)
[2025-04-03] MEDS: IPRATROPIUM BROM 0.5 MG/2.5ML INH SOL NEB ONE (20:20)
[2025-04-03] MEDS: ALBUTEROL SULF 2.5 MG/0.5ML(0.5%) NEB SOLN NEB ONE (20:20)
[2025-04-03 20:36] LABS: Alanine Aminotransferase 34 U/L (7-40); Albumin 4.3 g/dL (3.2-4.8); Alkaline Phosphatase 96 U/L (46-116); Anion Gap 6 (5-15); Aspartate Aminotransferase 22 U/L (13-40); BUN/Creatinine Ratio 14.1 (10.0-20.0); Blood Urea Nitrogen 10 mg/dL (9-23); Calcium 8.8 mg/dL (8.7-10.4); Glucose 101 mg/dL (74-106); Potassium 4.6 mmol/L (3.5-5.1); Sodium 140 mmol/L (136-145); Total Protein 6.4 g/dL (5.7-8.2)
[2025-04-03 20:37] LABS: Bilirubin, Total 0.3 mg/dL (0.2-1.0)
[2025-04-03 20:39] LABS: Carbon Dioxide 37 mmol/L (20-31); Chloride 97 mmol/L (98-107)
--- NOTE | 2025-04-03 21:06 | DVH ---
CHEST RADIOGRAPH Indication: sob Technique: Single frontal view of the chest was obtained Comparison: XY CHEST PORTABLE on DOS: 03/18/25, XY CHEST PORTABLE on DOS: 03/17/25, XY CHEST PORTABLE o n DOS: 03/16/25 FINDINGS: Lines and Tubes: None Lungs: No focal consolidation. Pleura: No effusion. No pneumothorax. Cardiomediastinal contours: Unremarkable Bones: No acute osseous abnormality. IMPRESSION: No acute cardiopulmonary disease.
[2025-04-04] VITALS (21 sets, daily range): BP systolic 95–136; BP diastolic 40–72; PULSE 66–111; RESP 13–25; TEMP 97.7–98.2; O2SAT 88–97
[2025-04-04] MEDS ORDERED: NITROGLYCERIN 0.4 MG SL TAB SL PRN (02:45)
[2025-04-04] MEDS ORDERED: ONDANSETRON HCL 4 MG/2 ML VIAL IV PRN (02:45)
[2025-04-04] MEDS: ENOXAPARIN SOD 40 MG/0.4 ML SYRINGE SC SCH (02:45)
[2025-04-04] MEDS ORDERED: DOCUSATE SOD 100 MG CAP PO PRN (02:45)
[2025-04-04] MEDS ORDERED: MORPHINE SULFATE INJ 2 MG/ml SYRG IV PRN (02:45)
--- NOTE | 2025-04-04 03:23 | DVHHPRES ---
History of Present Illness Resident Creating Document: CAROL ANN KHALIL RESIDENT History of Present Illness Ms. Dennison, a 60-year-old female with a history of COPD on 34 L/min home oxygen, asthma, HFpEF, hypertension, hyperlipidemia, hypothyroidism, VIC, Appendectomy, and depression, presented via EMS with three days of worsening exertional dyspnea. She reports poor medication adherence, including missing her levofloxacin dose today, and recent use of methamphetamine and marijuana. She used her inhaler without significant relief. The patient was discharged one week ago for a similar episode. She is chronically oxygen- dependent and currently experiencing acute hypoxic/hypercapnic respiratory failure. Differential diagnosis includes COPD/asthma exacerbation, pneumonia, PE, ACS, CHF, pneumothorax, infection/sepsis, pulmonary edema, anemia, and substance-induced respiratory compromise. Past Medical History COPD NC O2 3-4 L/min, asthma, HFpEF, hypertension, hyperlipidemia, hypothyroidism, sleep apnea, depression, anxiety Past Surgical History Appendectomy, Smoke: 1 pack per day ALCOHOL: occassional Drugs: Marijuana, Other (Patient lives with nephew, smoker, occasional alcoholic, active substance abuse with marijuana meth and active smoker ) Lives: with Family Domestic Violence: Neg Review of Systems Constitutional: No: Fever, Chills, Sweats, Weakness, Malaise, Other Eyes: No: Pain, Vision change, Conjunctivae inflammation, Eyelid inflammation, Other, Redness ENT: No: Ear pain, Ear discharge, Nose pain, Nose discharge, Nose congestion, Mouth pain, Mouth swelling, Throat pain, Throat swelling, Other Respiratory: Cough, Shortness of breath, SOB with excertion, Wheezing, Sputum; No: Dry, Hemoptysis, Pleuritic Pain, Wheezing, Other Cardiovascular: Edema; No: Chest Pain, Palpitations, Orthopnea, Paroxysmal Noc. Dyspnea, Lt Headedness, Other Gastrointestinal: No: Nausea, Vomiting, Abdominal Pain, Diarrhea, Constipation, Melena, Hematochezia, Other Genitourinary: No Dysuria, No Frequency, No Incontinence, No Hematuria, No Retention, No Other Musculoskeletal: No: other, neck pain, shoulder pain, arm pain, back pain, hand pain, leg pain, foot pain Skin: No: Rash, Lesions, Jaundice, Bruising, Other Neurological: No: Weakness, Numbness, Incoordination, Change in speech, Confusion, Seizures, Other Allergies: Coded Allergies: Piperacillin (Verified Allergy, Intermediate, Rash in the chest and face, 08/16/24) Per Anu Montez RN shift endorsement, and MD Pierson notes 08/15/24, pt had a rash in the chest and face during the 1st dose of Zosyn Iv dosage, therefore it was d/c 08/15/24. Tazobactam (Verified Allergy, Intermediate, Rash in the chest and face, 08/16/24) Per Anu Montez RN shift endorsement, and MD Pierson notes 08/15/24, pt had a rash in the chest and face during the 1st dose of Zosyn Iv dosage, therefore it was d/c 08/15/24. Amoxicillin (Verified Allergy, Unknown, 08/02/24) allergy, per the family. Aspirin (Verified Allergy, Unknown, 10/31/14) Bupropion (Verified Allergy, Unknown, 10/31/14) Codeine (Verified Allergy, Unknown, 10/31/14) RASH Ibuprofen (Verified Allergy, Unknown, 10/31/14) Morphine (Verified Allergy, Unknown, 03/06/14) "I HAVE AN ALLERGY TO MORPHINE IN PILL FORM" Penicillins (Verified Allergy, Unknown, 08/02/24) allergy, per the family. Uncoded Allergies: DARVOCET (Allergy, Unknown, 03/06/14) Medications Current Medications Medications Dose Ordered Sig/Jorge Route Start Time Stop Time Status Last Admin Dose Admin Ondansetron HCl 4 mg Q4HP PRN IV 04/04/25 02:45 Docusate Sodium 100 mg BIDPRN PRN PO 04/04/25 02:45 Enoxaparin Sodium 40 mg DAILY SC 04/04/25 02:45 Nitroglycerin 0.4 mg Q5MINP PRN SL 04/04/25 02:45 Morphine Sulfate 2 mg Q30M PRN IV 04/04/25 02:45 UNV Exam Vital Signs Vital Signs Date Time Temp Pulse Resp B/P (MAP) Pulse Ox O2 Delivery O2 Flow Rate FiO2 04/04/25 02:40 103 20 94 3.0 32 04/04/25 02:35 Facial BiPAP Mask 04/03/25 22:22 97.4 116/68 (84) 97.4 General Appearance: Alert, Oriented X3, Cooperative, moderate distress HEENT: Atraumatic, PERRLA, EOMI, Mucous membr. moist/pink Respiratory: Other (Diminished breath sound,, bilateral air trapping, wheezing, on oxygen 3 L.) Cardiovascular: Regular rate, Normal S1, Normal S2, No murmurs Abdominal: Normal bowel sounds, Soft, No tenderness, No hepatospenomegaly, No masses Extremities: No clubbing, No cyanosis, Normal pulses, No tenderness/swelling Skin: No breakdown (has history of scabies. ) Neuro: Normal gait, Normal speech, Strength at 5/5 X4 ext, Normal tone, Sensation intact, Cranial nerves 3-12 NL, Reflexes 2+, Other Psych/Mental Status: Mental status NL, Mood NL, Other (Looks mildly anxious, denies any homicidal or suicidal ideation.) Labs/Xrays Labs Test 04/04/25 01:01 04/03/25 20:45 04/03/25 19:52 Range/Units Blood Gas Specimen Type Capillary Blood Gas Sample Site Right radial Blood Gas Patient Temperature 37.0 Arterial Blood Date Drawn [id number] Dago Test Yes Capillary Blood pH 7.321 L 7.350-7.450 Capillary Blood PCO2 74.5 H 32.0-45.0 mmHg Capillary Blood PO2 57.8 L 83.0-108.0 mmHg Capillary Blood HCO3 37.6 H 21.0-28.0 mmol/L Capillary Blood Base Excess 8.6 H -2.0-3.0 mmol/L Capillary Blood Oxygen Saturation 90.6 L 94.0-98.0 % Capillary Blood Oxyhemoglobin 88.6 L 94.0-98.0 % Capillary Blood Carboxyhemoglobin 1.7 H 0.5-1.5 % Capillary Blood Methemoglobin 0.5 0.0-1.5 % Capillary Blood Hemoglobin 13.6 12.0-16.0 g/dL Blood Gas Liter Flow 3.00 Blood Gas Modality Nasal cannula FiO2 % 32.0 Blood Gas Critical Value Read Back yes Blood Gas Notified Whom maryam Brooks do Blood Gas Notified Time [id number] Blood Gas Notified By rt jasmyne Lactic Acid Level 0.7 0.4-2.0 mmol/L Troponin I High Sensitivity 6 </=34 ng/L White Blood Count 7.5 4.4-10.8 10^3/uL Red Blood Count 4.22 4.0-5.20 10^6/uL Hemoglobin 12.0 L 12.2-16.2 g/dL Hematocrit 38.6 36.0-46.0 % Mean Corpuscular Volume 91.4 80.0-100.0 fL Mean Corpuscular Hemoglobin 28.4 28.0-32.0 pg Mean Corpuscular Hemoglobin Concent 31.0 L 32.0-36.0 g/dL Red Cell Distribution Width 15.8 H 11.8-14.3 % Platelet Count 181 140-450 10^3/uL Mean Platelet Volume 8.7 6.9-10.8 fL Neutrophils (%) (Auto) 76.0 37.0-80.0 % Lymphocytes (%) (Auto) 13.6 10.0-50.0 % Monocytes (%) (Auto) 6.1 0.0-12.0 % Eosinophils (%) (Auto) 3.6 0.0-7.0 % Basophils (%) (Auto) 0.7 0.0-2.0 % Neutrophils # (Auto) 5.7 1.6-8.6 10 ^3/uL Lymphocytes # (Auto) 1.0 0.4-5.4 10 ^3/uL Monocytes # (Auto) 0.5 0-1.3 10 ^3/uL Eosinophils # (Auto) 0.3 0-0.8 10 ^3/uL Basophils # (Auto) 0 0-0.2 10 ^3/uL Nucleated Red Blood Cells 0.0 % Sodium Level 140 136-145 mmol/L Potassium Level 4.6 3.5-5.1 mmol/L Chloride Level 97 L 98-107 mmol/L Carbon Dioxide Level 37 H 20-31 mmol/L Anion Gap 6 5-15 Blood Urea Nitrogen 10 9-23 mg/dL Creatinine 0.71 0.550-1.02 mg/dL Glomerular Filtration Rate Calc 98 >90 mL/min BUN/Creatinine Ratio 14.1 10.0-20.0 Serum Glucose 101 74-106 mg/dL Calcium Level 8.8 8.7-10.4 mg/dL Magnesium Level 2.0 1.6-2.6 mg/dL Total Bilirubin 0.3 0.2-1.0 mg/dL Aspartate Amino Transferase (AST) 22 13-40 U/L Alanine Aminotransferase (ALT) 34 7-40 U/L Alkaline Phosphatase 96 46-116 U/L B-Type Natriuretic Peptide 32.16 0-100 pg/mL Total Protein 6.4 5.7-8.2 g/dL Albumin 4.3 3.2-4.8 g/dL Assessment/Plan Assessment/Plan Assessment: # History of asthma # COPD on 34 L/min home oxygen # Heart failure with preserved ejection fraction, HFpEF, Left ventricular function is preserved at 65% with normal RV function in 03/22 # possible community-acquired pneumonia with gram positives/Gram- negative/atypical pathogen # Acute hypoxic/hypercapnic respiratory failure # Acute on chronic exacerbation of COPD # Yet to rule out Acute cardiogenic pulmonary edema # Yet to rule out exacerbation of chronic diastolic heart failure # Possible Gram-positive/Gram-negative pneumonia, resolving # History of obstructive sleep apnea and on CPAP/BIPAP at home # Less likely pulmonary embolism # Methamphetamine abuse disorder, active # Vitamin D deficiency # Scabies, previously treated with ivermectin # Chronic hypothyroidism # Marijuana abuse # Mild normocytic anemia, rule out iron deficiency # Grade III obesity # moderate tricuspid regurgitation # Mild pulmonary hypertension # mild mitral annular calcification # essential hypertension # hyperlipidemia # hypothyroidism # major depressive disorder, mild to moderate # Generalized anxiety disorder # poor medication adherence # Surgical history of Appendectomy # Surgical history of # Nicotine abuse, active # Extensive list of Allergy- amoxicillin, aspirin, bupropion, codeine, Darvocet, ibuprofen, morphine, penicillin, piperacillin/tazobactam Plan: # Continue nasal cannula oxygen, target SpO2 88 to 92% , avoid overnight oxygenating, titrate as tolerated. daily iv methylprednisolone bid with eventual transition to oral prednisone 40 mg daily for 5-7 day # check for COVID, influenza, sputum culture to rule out possible infectious pathology in the background of partially completed of levofloxacin regimen for CAP # CPAP/ BiPAP as night as needed ABG # HFPEF Control blood pressure with continue diuresis, unremarkable BNP # Nebs albuterol ipratropium scheduled dose to continuele # Possible Gram-positive/Gram-negative pneumonia, resolving # History of obstructive sleep apnea and on CPAP/BIPAP at home # abstinence and cessation counseling done at bedside for Methamphetamine abuse disorder, avoid beta blockers for unopposed alpha 1 activity. # Vitamin D supplemental continue # Scabies, previously treated with ivermectin oral +Permethrin Cream , universal precautions to continue # Chronic hypothyroidism, check TSH, continue medication # abstinence and cessation counseling done at bedside for Marijuana abuse # 11 minutes smoking cessation counseling done at bedside, daily nicotine patch for craving management # daily CBC, CMP, check iron panel to rule out iron-deficiency # weight loss counseling # started on blood pressure To keep BP 140/90 or below. strictly avoid beta blockers # continue statin hyperlipidemia # continue home medications for anxiety and depression # counseling regarding medication adherence, needs outpatient close follow up with the PCP # DVT prophylaxis with Lovenox & IV PPI daily for GI prophylaxis Code status: Full code, goals of care discussion 37 minutes along with plan of care. Patient is agreeable. Patient is admitted inpatient for further management of COPD exacerbation/dyspnea/acute on chronic hypoxic hypercapnic respiratory failure. Discussed with Dr. Greenwood. Plan discussed with: Patient My Orders Orders - CAROL ANN KHALIL RESIDENT Procedure Category Date Status Time Admit ADMIT 04/04/25 Transmitted 02:31 Allergies ZULEIKA 04/04/25 In Process 02:31 Code Status CODE 04/04/25 Transmitted 02:31 Oxygen Per Hour RT 04/04/25 Transmitted 02:31 Ondansetron Hcl PHA 04/04/25 In Process (Zofran) 02:45 Docusate Sodium PHA 04/04/25 In Process Capsule (Colace 02:45 Complete Blood Count LAB 04/05/25 Verified 04:00 Comprehensive LAB 04/05/25 Verified Metabolic Panel 04:00 Npo (Nothing By DIET 04/04/25 Transmitted Mouth) Diet Breakfast Condition: Serious ZULEIKA 04/04/25 In Process 02:31 Enoxaparin Sodium PHA 04/04/25 In Process (Lovenox) 02:45 Nitroglycerin PHA 04/04/25 In Process Sublingual (Ntrostat 02:45 Morphine Sulfate PHA 04/04/25 Pending Injection 02:45 Oxygen By Nasal RT 04/04/25 Transmitted Cannula 02:31 Stat Ekg For Chest ZULEIKA 04/04/25 In Process Pain 02:31 Notify Of Changes ZULEIKA 04/04/25 In Process From Base 02:31 Varitype Operator For [facility] 04/04/25 In Process 24 Hours 02:31 Emergency Dysrhythmia ZULEIKA 04/04/25 In Process Protocol 02:31 Rhythm Strips Once [facility] 04/04/25 In Process Every Shift 02:31 Drug Screen LAB 04/04/25 Logged 02:36 Date of Service: Apr 04, 2025 Billing Provider: DEEDEE GREENWOOD MD Common Visit Codes: [id number] INP/OBS CARE (HIGH) Secondary Visit Codes: [id number] CARE PLAN 30 MINUTES SIMRAN,CAROL ANN RESIDENT Apr 04, 2025 03:23 DEEDEE GREENWOOD MD Apr 05, 2025 22:21
[2025-04-04] MEDS: PANTOPRAZOLE 40 MG/10 ML VIAL INJ IV ONE (03:45)
[2025-04-04] MEDS: FUROSEMIDE 40 MG/4 ML VIAL IV ONE (03:45)
[2025-04-04 03:50] LABS: Base Excess 9.2 mmol/L (-2.0-3.0)
[2025-04-04 05:06] LABS: % Iron Saturation 12.8 % (15-50)
[2025-04-04] MEDS: levoFLOXacin 500MG 100 ML IV ONE (05:27)
[2025-04-04] MEDS: MAGNESIUM SULFATE 1GM/100ML 100 ML IV ONE (05:28)
[2025-04-04] MEDS: ATORVASTATIN 20 MG TAB PO ONE (05:28)
[2025-04-04] MEDS: ALBUTEROL SULF 2.5 MG/0.5ML(0.5%) NEB SOLN NEB SCH (07:08)
[2025-04-04] MEDS: IPRATROPIUM BROM 0.5 MG/2.5ML INH SOL NEB SCH (07:08)
[2025-04-04 07:24] LABS: Free T3 2.69 pg/mL (2.3-4.2)
[2025-04-04 07:25] LABS: Free T4 (Free Thyroxine) 0.98 ng/dL (0.89-1.76)
[2025-04-04 08:49] LABS: Base Excess 8.5 mmol/L (-2.0-3.0)
[2025-04-04] MEDS: ERGOCALCIFEROL 50,000 UNIT(1.25MG) CAP PO SCH (09:24)
[2025-04-04] MEDS: LEVOTHYROXINE SODIUM 100 MCG TAB PO SCH (09:25)
[2025-04-04] MEDS: methylPREDNISolone SOD SUCC 125 MG/2 ML VL IV SCH (10:37)
[2025-04-04] MEDS: FUROSEMIDE 40 MG/4 ML VIAL IV SCH (10:38)
[2025-04-04] MEDS: CITALOPRAM HYDROBR 20 MG TAB PO SCH (10:38)
[2025-04-04] MEDS: PANTOPRAZOLE 40 MG/10 ML VIAL INJ IV SCH (10:38)
[2025-04-04 11:14] LABS: Urine Bacteria None Seen /hpf (None Seen)
[2025-04-04 11:24] LABS: Urine Blood Negative /uL (Negative); Urine Clarity Clear (Clear); Urine Color Light-Yellow (Yellow); Urine Protein, UAD Negative (Negative); Urine Specific Gravity 1.009 (1.001-1.035); Urine Squamous Epithelial Cell FEW /hpf (<5); Urine Urobilinogen Normal (Negative); Urine WBC < 1 /HPF (0-5); Urine pH 7.5 (5.0-9.0)
[2025-04-04 11:41] LABS: Amphetamine Screen, Urine Pos (NEGATIVE); Barbiturate Scree,Urine Neg (NEGATIVE); Benzodiazephine Screen, Urine Neg (NEGATIVE); Cannabinoid Screen, Urine Pos (NEGATIVE); Cocaine Screen, Urine Neg (NEGATIVE); Opiate Scree,Urine Neg (NEGATIVE); Phencyclidine Screen, Urine Neg (NEGATIVE)
[2025-04-04] MEDS: IRON SUCROSE COMPLEX 110 ML IV SCH (13:10)
--- NOTE | 2025-04-04 18:12 | DVHINCON2 ---
Date of service: Apr 04, [address] Reina Reason for Consultation Acute hypoxic/hypercarbic respiratory failure and COPD exacerbation. History of Present Illness A 60-year-old woman with past medical history of COPD on 34 L/min home oxygen, asthma, HFpEF, hypertension, hyperlipidemia, hypothyroidism, and VIC who presents to ED via EMS with c/o 3 days of worsening exertional dyspnea. She reports poor medication adherence, including missing her levofloxacin dose today, and recent use of methamphetamine and marijuana. She used her inhaler without significant relief. The patient was discharged 1 week ago for a similar episode. She is chronically oxygen-dependent and currently experiencing acute hypoxic/hypercapnic respiratory failure. Patient was admitted for further care, and pulmonary consultation is requested for evaluation and management of acute hypoxic/hypercarbic respiratory failure and COPD exacerbation. Review of Systems: 14-point review of systems negative unless otherwise noted above. Past Medical History: COPD NC O2 3-4 L/min, asthma, HFpEF, hypertension, hyperlipidemia, hypothyroidism, sleep apnea, depression, anxiety Past Surgical History: Appendectomy, Medications: Reviewed. Allergies: Piperacillin/tazobactam. Amoxicillin Aspirin Bupropion Codeine Ibuprofen Morphine Penicillins Darvocet Family History: Hypertension, [place], stroke. Social History: Smoke: Smoker. Smokes 1 pack per day Alcohol: occasional Drugs: Marijuana, methamphetamine Family History: FH: heart attack G8 FATHER FH: stroke G8 FATHER Hypertension G8 FATHER Allergies: Coded Allergies: Piperacillin (Verified Allergy, Intermediate, Rash in the chest and face, 08/16/24) Per Anu Montez RN shift endorsement, and MD Pierson notes 08/15/24, pt had a rash in the chest and face during the 1st dose of Zosyn Iv dosage, therefore it was d/c 08/15/24. Tazobactam (Verified Allergy, Intermediate, Rash in the chest and face, 08/16/24) Per Anu Montez RN shift endorsement, and MD Pierson notes 08/15/24, pt had a rash in the chest and face during the 1st dose of Zosyn Iv dosage, therefore it was d/c 08/15/24. Amoxicillin (Verified Allergy, Unknown, 08/02/24) allergy, per the family. Aspirin (Verified Allergy, Unknown, 10/31/14) Bupropion (Verified Allergy, Unknown, 10/31/14) Codeine (Verified Allergy, Unknown, 10/31/14) RASH Ibuprofen (Verified Allergy, Unknown, 10/31/14) Morphine (Verified Allergy, Unknown, 03/06/14) "I HAVE AN ALLERGY TO MORPHINE IN PILL FORM" Penicillins (Verified Allergy, Unknown, 08/02/24) allergy, per the family. Uncoded Allergies: DARVOCET (Allergy, Unknown, 03/06/14) Home Meds Active Scripts Ergocalciferol (VITAMIN D 07373 UNIT) 50,000 [place], [address] UNIT PO weekly for 12 Days, #12 CAP Prov:ALEXEI QUANBRYN [facility] 03/19/25 Ivermectin (Ivermectin) 3 Mg Tab, 3 MG PO DAILY for 1 Day, #1 TAB [facility] 03/19/25 Permethrin (Elimite) 5 % Cre, 1 APPLIC TOP ONCE for 1 Day, #60 GRAMS 1 Refill [facility] 03/19/25 Levofloxacin Hemihydrate (LEVOFLOXACIN) 750 Mg Tab, 1 TAB PO DAILY for 5 Days, #5 TAB [facility] 03/19/25 Prednisone (Prednisone) 20 Mg Tab, 20 MG PO QAM for 7 Days, #7 MG [facility] 03/19/25 Albuterol Sulfate (VENTOLIN MDI) 90 Mcg Ih, 90 MCG IN Q6HPRN PRN, #1 INH Prov:ARIEL REINA MD 12/14/22 Reported Medications Urznophduq-Xclqgliaouqcgx-Xwkl (Breztri Aerosphere 160-9-4.8 Mcg/Act) 1 Aer Aer, 1 AER IN, AER 08/15/24 Citalopram Hydrobromide (Citalopram Hydrobromide) 40 Mg Tab, 40 MG PO DAILY for 30 Days, MG 08/15/24 Celecoxib (Celebrex) 100 Mg Cap, 40 MG PO DAILY, % 08/02/24 Aripiprazole (Abilify) 20 Mg Tab, 20 MG PO DAILY, TAB 08/02/24 Furosemide (Furosemide) 40 Mg Tab, 40 MG PO 08/01/24 Atorvastatin Calcium (ATORVASTATIN CALCIUM) 10 Mg Tab, 1 TAB PO DAILY, TAB 08/01/24 Levothyroxine Sodium (SYNTHROID TABLET) 100 Mcg Tb, 1 TAB PO DAILY, #30 TAB 5 Refills 12/14/22 Discontinued Reported Medications Hydrochlorothiazide (Hydrochlorothiazide) 25 Mg Tab, 1 TAB PO DAILY, #30 TAB 5 Refills 12/14/22 Lisinopril (Lisinopril) 20 Mg Tab, 1 TAB PO DAILY, #30 TAB 5 Refills 12/14/22 Current Medications Current Medications Medications (Trade) Dose Ordered Sig/Jorge Route PRN Reason Start Time Stop Time Status Last Admin Ondansetron HCl (Zofran) 4 mg Q4HP PRN IV NAUSEA / VOMITING 04/04/25 02:45 Docusate Sodium (Colace Capsule) 100 mg BIDPRN PRN PO FOR CONSTIPATION 04/04/25 02:45 Enoxaparin Sodium (Lovenox) 40 mg DAILY SC 04/04/25 02:45 04/04/25 10:38 Nitroglycerin (Ntrostat Sublingual) 0.4 mg Q5MINP PRN SL FOR CHEST PAIN 04/04/25 02:45 Morphine Sulfate 2 mg Q30M PRN IV FOR CHEST PAIN 04/04/25 02:45 Hold Albuterol (Ventolin Medneb) 2.5 mg Q4HWA [facility] 04/04/25 06:00 04/04/25 14:13 Ipratropium [place] (Atrovent Medneb) 0.5 mg Q4HWA [facility] 04/04/25 06:00 04/04/25 14:13 Levofloxacin/ Dextrose 100 ml @ 100 mls/hr DAILY IV 04/05/25 10:00 Atorvastatin Calcium (Lipitor) 10 mg HS PO 04/04/25 22:00 Citalopram Hydrobromide (CeleXA TABLET) 40 mg DAILY PO 04/04/25 10:00 04/04/25 10:38 Ergocalciferol (Vitamin D 50,000 Unit) 50,000 unit Q7D PO 04/04/25 09:00 04/04/25 09:24 Furosemide (Lasix Injection) 40 mg DAILY IV 04/04/25 10:00 04/04/25 10:38 Levothyroxine Sodium (Synthroid Tablet) 100 mcg QAM@0600 PO 04/04/25 06:00 04/04/25 09:25 Pantoprazole Sodium (Protonix) 40 mg DAILY IV 04/04/25 10:00 04/04/25 10:38 Methylprednisolone Sodium Succinate (Solu Medrol) 125 mg BID IV 04/04/25 10:00 04/04/25 10:37 Iron Sucrose 110 ml @ 110 mls/hr DAILY@1200 IV 04/04/25 12:00 04/08/25 12:59 04/04/25 13:10 Vital Signs Vital Signs Date Time Temp Pulse Resp B/P (MAP) Pulse Ox O2 Delivery O2 Flow Rate FiO2 04/04/25 17:01 98.2 76 17 131/56 (81) 90 98.2 04/04/25 16:11 Nasal Cannula* 2 28 Physical Exam Gen.: Patient lying in bed in no apparent distress. On BiPAP Head: Normocephalic, atraumatic. Eyes: EOMI/PERRLA. Ears: Normal hearing. Normal anatomy. Neck/trachea: Trachea midline, supple. Nose: Normal external anatomy. Mouth: Moist mucous membranes. Chest: Decreased air entry bilaterally. No wheezing or rhonchi. Cardiovascular: Positive S1, positive S2. Regular rate and rhythm. Abdomen: Positive bowel sounds in all 4 quadrants. Soft, non-tender, non- distended. : Deferred. Rectal: Deferred. Skin: Warm, dry. Intact. Extremities: 2+ radial pulses bilaterally. No lower extremity edema. Neuro: Awake, altered. No gross motor or sensory deficits. Cranial nerves II through XII intact. Gait not assessed. Labs/Diagnostic Data Labs Test 04/04/25 10:46 04/04/25 08:40 04/04/25 04:08 04/04/25 01:01 Range/Units Urine Color Light-yellow Yellow Urine Clarity Clear Clear Urine pH 7.5 5.0-9.0 Urine Specific [place] 1.009 1.001-1.035 Urine Protein Negative Negative Urine Ketones Negative Negative Urine Blood Negative Negative /uL Urine Nitrite Negative Negative Urine Bilirubin Negative Negative Urine Urobilinogen Normal Negative mg/dL Urine Leukocyte Esterase Negative Negative /uL Urine RBC <1 0 - 4 /hpf Urine Microscopic WBC < 1 0-5 /HPF Urine Squamous Epithelial Cells Few <5 /hpf Urine Bacteria None seen None Seen /hpf Urine Glucose Normal Normal mg/dL Urine Opiates Screen Neg NEGATIVE Urine Fentanyl Screen Neg NEGATIVE Urine Barbiturates Screen Neg NEGATIVE Urine Phencyclidine Screen Neg NEGATIVE Urine Amphetamines Screen Pos NEGATIVE Urine Benzodiazepines Screen Neg NEGATIVE Urine Cocaine Screen Neg NEGATIVE Urine Cannabinoids Screen Pos NEGATIVE Blood Gas Specimen Type Arterial Blood Gas Sample Site Left radial Blood Gas Patient Temperature 37.0 Arterial Blood Date Drawn [id number] Arterial Blood pH 7.321 L 7.350-7.450 Arterial Blood Partial Pressure CO2 74.3 *H 32.0-45.0 mmHg Arterial Blood Partial Pressure O2 76.9 L 83.0-108.0 mmHg Arterial Blood HCO3 37.5 H 21.0-28.0 mmol/L Arterial Blood Oxygen Saturation 94.1 94.0-98.0 % Arterial Blood Base Excess 8.5 H -2.0-3.0 mmol/L Arterial Blood Oxyhemoglobin 92.2 L 94.0-98.0 % Arterial Blood Carboxyhemoglobin 1.6 H 0.5-1.5 % Arterial Blood Methemoglobin 0.4 0.0-1.5 % Dago Test Yes Blood Gas Total Hemoglobin 13.90 12.0-16.0 g/dL Blood Gas Modality Mask - bipap FiO2 % 35.0 Blood Gas Spontaneous Tidal Volume 541 Blood Gas EPAP 5 Blood Gas IPAP 15 Blood Gas Comments I-time 0.9 sec. Blood Gas Critical Value Read Back yes Blood Gas Notified Whom Blood Gas Notified Time [id number] Blood Gas Notified By Abbie chavez Iron Level 43 L 50-170 ug/dL Total Iron Binding Capacity 336 250-425 ug/dL Percent Iron Saturation 12.8 L 15-50 % Ferritin 44.6 10-291 ng/mL Free Thyroxine (T4) Calculated 0.98 0.89-1.76 ng/dL Free Triiodothyronine (T3) pg/mL 2.69 2.3-4.2 pg/mL Capillary Blood pH 7.321 L 7.350-7.450 Capillary Blood PCO2 74.5 H 32.0-45.0 mmHg Capillary Blood PO2 57.8 L 83.0-108.0 mmHg Capillary Blood HCO3 37.6 H 21.0-28.0 mmol/L Capillary Blood Base Excess 8.6 H -2.0-3.0 mmol/L Capillary Blood Oxygen Saturation 90.6 L 94.0-98.0 % Capillary Blood Oxyhemoglobin 88.6 L 94.0-98.0 % Capillary Blood Carboxyhemoglobin 1.7 H 0.5-1.5 % Capillary Blood Methemoglobin 0.5 0.0-1.5 % Capillary Blood Hemoglobin 13.6 12.0-16.0 g/dL Blood Gas Liter Flow 3.00 Test 04/03/25 20:45 04/03/25 19:52 Range/Units Lactic Acid Level 0.7 0.4-2.0 mmol/L Magnesium Level 2.2 1.6-2.6 mg/dL Troponin I High Sensitivity 6 </=34 ng/L Thyroid Stimulating Hormone (TSH) 11.07 H 0.55-4.78 uIU/mL White Blood Count 7.5 4.4-10.8 10^3/uL Red Blood Count 4.22 4.0-5.20 10^6/uL Hemoglobin 12.0 L 12.2-16.2 g/dL Hematocrit 38.6 36.0-46.0 % Mean Corpuscular Volume 91.4 80.0-100.0 fL Mean Corpuscular Hemoglobin 28.4 28.0-32.0 pg Mean Corpuscular Hemoglobin Concent 31.0 L 32.0-36.0 g/dL Red Cell Distribution Width 15.8 H 11.8-14.3 % Platelet Count 181 140-450 10^3/uL Mean Platelet Volume 8.7 6.9-10.8 fL Neutrophils (%) (Auto) 76.0 37.0-80.0 % Lymphocytes (%) (Auto) 13.6 10.0-50.0 % Monocytes (%) (Auto) 6.1 0.0-12.0 % Eosinophils (%) (Auto) 3.6 0.0-7.0 % Basophils (%) (Auto) 0.7 0.0-2.0 % Neutrophils # (Auto) 5.7 1.6-8.6 10 ^3/uL Lymphocytes # (Auto) 1.0 0.4-5.4 10 ^3/uL Monocytes # (Auto) 0.5 0-1.3 10 ^3/uL Eosinophils # (Auto) 0.3 0-0.8 10 ^3/uL Basophils # (Auto) 0 0-0.2 10 ^3/uL Nucleated Red Blood Cells 0.0 % Sodium Level 140 136-145 mmol/L Potassium Level 4.6 3.5-5.1 mmol/L Chloride Level 97 L 98-107 mmol/L Carbon Dioxide Level 37 H 20-31 mmol/L Anion Gap 6 5-15 Blood Urea Nitrogen 10 9-23 mg/dL Creatinine 0.71 0.550-1.02 mg/dL Glomerular Filtration Rate Calc 98 >90 mL/min BUN/Creatinine Ratio 14.1 10.0-20.0 Serum Glucose 101 74-106 mg/dL Calcium Level 8.8 8.7-10.4 mg/dL Total Bilirubin 0.3 0.2-1.0 mg/dL Aspartate Amino Transferase (AST) 22 13-40 U/L Alanine Aminotransferase (ALT) 34 7-40 U/L Alkaline Phosphatase 96 46-116 U/L B-Type Natriuretic Peptide 32.16 0-100 pg/mL Total Protein 6.4 5.7-8.2 g/dL Albumin 4.3 3.2-4.8 g/dL Assessment Impression: Acute hypoxic respiratory failure 2/2 COPD exacerbation Acute on chronic hypercarbic respiratory failure On NIPPV Acute exacerbation of COPD Nicotine dependence Methamphetamine abuse Marijuana use Anemia Obesity BMI 39 Plan: On BiPAP with IPAP 15, EPAP 5, FiO2 40% Titrate to keep O2 sats above 92%. Taper FiO2 as tolerated. Monitor respiratory status closely CXR on 04/03/25 demonstrated no acute cardiopulmonary disease. Continue bronchodilators. Continue antibiotics IV steroids Monitor hemoglobin Monitor renal function. Monitor electrolytes. Supplement as necessary. Monitor ins and outs. GI prophylaxis - Protonix DVT prophylaxis - Lovenox Prognosis: Poor given patient's multiple co-morbidities. Rest of plan per hospitalist and other consultants. Thank you Dr. Reina for allowing me to participate in this patient's care. Further recommendations will depend on the patient's clinical course. Please do not hesitate to contact me if you have any questions or concerns. This medical document was created using an electronic medical record system with [employer] system. Although these documentations are being carefully reviewed, there may still be some phonetic and typographical changes. The errors are purely typographical, due to imperfection on the software program, and do not reflect any compromise in the patient's medical care. Plan discussed with: Other (RN/Dr. Elias) VIVIANE ARRIAGA MD Apr 04, 2025 18:12
[2025-04-04] MEDS: ATORVASTATIN 20 MG TAB PO SCH (22:38)
[2025-04-04] MEDS: ACETAMINOPHEN 500 MG TAB or CAP PO PRN (22:39)
[2025-04-05] VITALS (19 sets, daily range): BP systolic 106–126; BP diastolic 43–87; PULSE 70–100; RESP 16–27; TEMP 96.9–99.2; O2SAT 79–98
[2025-04-05 05:17] LABS: Basophils # (auto) 0 10 ^3/uL (0-0.2); Basophils % (auto) 0.2 % (0.0-2.0); Eosinophils # (auto) 0 10 ^3/uL (0-0.8); Hematocrit 40.2 % (36.0-46.0); Hemoglobin 12.9 g/dL (12.2-16.2); Lymphocytes # (auto) 0.3 10 ^3/uL (0.4-5.4); Lymphocytes % (auto) 4.1 % (10.0-50.0); Mean Corpuscular Hemoglobin 28.4 pg (28.0-32.0); Mean Corpuscular Hgb Conc. 32.1 g/dL (32.0-36.0); Mean Corpuscular Volume 88.5 fL (80.0-100.0); Monocytes # (auto) 0.1 10 ^3/uL (0-1.3); Monocytes % (auto) 2.1 % (0.0-12.0); Neutrophils # (auto) 6.5 10 ^3/uL (1.6-8.6); Neutrophils % (auto) 93.6 % (37.0-80.0); Platelet Count (auto) 179 10^3/uL (140-450); Red Blood Cells 4.54 10^6/uL (4.0-5.20); Red Cell Distribution Width 15.6 % (11.8-14.3); White Blood Cell 6.9 10^3/uL (4.4-10.8)
[2025-04-05 05:39] LABS: Alanine Aminotransferase 24 U/L (7-40); Albumin 4.5 g/dL (3.2-4.8); Alkaline Phosphatase 95 U/L (46-116); BUN/Creatinine Ratio 25.7 (10.0-20.0); Bilirubin, Total 0.3 mg/dL (0.2-1.0); Blood Urea Nitrogen 18 mg/dL (9-23); Calcium 10.2 mg/dL (8.7-10.4); Potassium 4.5 mmol/L (3.5-5.1); Sodium 141 mmol/L (136-145); Total Protein 6.9 g/dL (5.7-8.2)
[2025-04-05 05:45] LABS: Anion Gap 6.99999 (5-15); Aspartate Aminotransferase < 8 U/L (13-40); Chloride 94 mmol/L (98-107); Glucose 139 mg/dL (74-106)
[2025-04-05 05:47] LABS: Carbon Dioxide > 40 mmol/L (20-31)
[2025-04-05] MEDS: levoFLOXacin 500MG 100 ML IV SCH (09:01)
--- NOTE | 2025-04-05 18:40 | DVHPN2 ---
Subjective I am assuming the care of the patient from today onwards who was under the care of the hospitalist team. Detailed sign out obtained. Patient is currently on BiPAP support. Changes from previous H/P or p: No Changes Eyes: No Pain, No Vision change, No Conjunctivae inflammation, No Eyelid inflammation, No Other, No Redness ENT: No Ear pain, No Ear discharge, No Nose pain, No Nose discharge, No Nose congestion, No Mouth pain, No Mouth swelling, No Throat pain, No Throat swelling, No Other Cardiovascular: No Chest Pain, No Palpitations, No Orthopnea, No Paroxysmal Noc. Dyspnea; Edema; No Lt Headedness, No Other Respiratory: Cough; No Dry; Shortness of breath, SOB with excertion, Wheezing; No Hemoptysis, No Pleuritic Pain; Sputum; No Other Gastrointestinal: No Nausea, No Vomiting, No Abdominal Pain, No Diarrhea, No Constipation, No Melena, No Hematochezia, No Other Genitourinary: No Dysuria, No Frequency, No Incontinence, No Hematuria, No Retention, No Other Musculoskeletal: No other, No neck pain, No shoulder pain, No arm pain, No back pain, No hand pain, No leg pain, No foot pain Skin: No Rash, No Lesions, No Jaundice, No Bruising, No Other Objective Vitals Vital Signs Date Time Temp Pulse Resp B/P (MAP) Pulse Ox O2 Delivery O2 Flow Rate FiO2 04/05/25 16:44 99.2 87 18 106/60 (75) 95 99.2 04/05/25 13:54 Facial BiPAP Mask 50 04/05/25 10:26 2 Intake/Output Intake and Output 04/05/25 07:00 Intake Total 0 ml Output Total 2 ml Balance -2 ml Intake Oral 0 ml Output Urine Total 2 ml Exam HEENT pupils are reactive Neck is supple CV is S1-S2 regular rate and rhythm Respiratory bilateral expiratory rhonchi GI positive bowel sound Extremity no edema [employer] THER[employer] no motor deficit Medications Current Medications Medications Dose Ordered Sig/Jorge Route Start Time Stop Time Status Last Admin Dose Admin Ondansetron HCl 4 mg Q4HP PRN IV 04/04/25 02:45 Docusate Sodium 100 mg BIDPRN PRN PO 04/04/25 02:45 Enoxaparin Sodium 40 mg DAILY SC 04/04/25 02:45 04/05/25 09:00 40 MG Nitroglycerin 0.4 mg Q5MINP PRN SL 04/04/25 02:45 Morphine Sulfate 2 mg Q30M PRN IV 04/04/25 02:45 Hold Albuterol 2.5 mg Q4HWA [facility] 04/04/25 06:00 04/05/25 13:54 2.5 MG Ipratropium [place] 0.5 mg Q4HWA [facility] 04/04/25 06:00 04/05/25 13:54 0.5 MG Levofloxacin/ Dextrose 100 ml @ 100 mls/hr DAILY IV 04/05/25 10:00 04/05/25 09:01 100 MLS/HR Atorvastatin Calcium 10 mg HS PO 04/04/25 22:00 04/04/25 22:38 10 MG Citalopram Hydrobromide 40 mg DAILY PO 04/04/25 10:00 04/05/25 09:01 40 MG Ergocalciferol 50,000 unit Q7D PO 04/04/25 09:00 04/04/25 09:24 50,000 UNIT Furosemide 40 mg DAILY IV 04/04/25 10:00 04/05/25 09:04 40 MG Levothyroxine Sodium 100 mcg QAM@0600 PO 04/04/25 06:00 04/04/25 09:25 100 MCG Pantoprazole Sodium 40 mg DAILY IV 04/04/25 10:00 04/05/25 09:00 40 MG Methylprednisolone Sodium Succinate 125 mg BID IV 04/04/25 10:00 04/05/25 09:03 125 MG Iron Sucrose 110 ml @ 110 mls/hr DAILY@1200 IV 04/04/25 12:00 04/08/25 12:59 04/05/25 12:11 110 MLS/HR Acetaminophen 650 mg Q6HP PRN PO 04/04/25 22:30 04/04/25 22:39 650 MG Laboratory Results Laboratory Tests 04/05/25 04:50 Chemistry Test 04/05/25 04:50 Albumin 4.5 g/dL (3.2-4.8) Calcium Level 10.2 mg/dL (8.7-10.4) Total Protein 6.9 g/dL (5.7-8.2) LFT Test 04/05/25 04:50 Alanine Aminotransferase (ALT) 24 U/L (7-40) Alkaline Phosphatase 95 U/L (46-116) Aspartate Amino Transferase (AST) < 8 U/L (13-40) L Total Bilirubin 0.3 mg/dL (0.2-1.0) Urinalysis Test 04/04/25 10:46 Urine Color Light-yellow (Yellow) Urine Clarity Clear (Clear) Urine pH 7.5 (5.0-9.0) Urine Specific [place] 1.009 (1.001-1.035) Urine Protein Negative (Negative) Urine Ketones Negative (Negative) Urine Blood Negative /uL (Negative) Urine Nitrite Negative (Negative) Urine Bilirubin Negative (Negative) Urine Urobilinogen Normal mg/dL (Negative) Urine Leukocyte Esterase Negative /uL (Negative) Urine RBC <1 /hpf (0 - 4) Urine Microscopic WBC < 1 /HPF (0-5) Urine Squamous Epithelial Cells Few /hpf (<5) Urine Bacteria None seen /hpf (None Seen) Urine Glucose Normal mg/dL (Normal) Assessment/Plan Assessment/Plan 60-year-old female with a known history of chronic respiratory failure on home O2, COPD, asthma, hypertension, hypothyroidism, obesity hypoventilation syndrome, sleep apnea presented to the hospital with the increasing shortness a breath found to have 1. Acute on chronic hypoxic and hypercapnic respiratory failure secondary to acute COPD exacerbation 2. Acute COPD exacerbation 3. Obesity hypoventilation syndrome/sleep apnea currently on BiPAP 4. Previous history of chronic tobacco use disorder 5. Chronic marijuana use 6. Hypertension 7. Hypothyroidism -O2 supplementation, med nebs, Solu-Medrol, BiPAP support as needed. - Therapy evaluation and treatment. Plan discussed with: Patient, Other My Orders Orders - ARIEL REINA MD Procedure Category Date Status Time Communication Order ORDERS 04/04/25 Transmitted 18:55 Cardiac DIET 04/05/25 Transmitted Diet-2gna,Lofat,Lochol Breakfast Date of Service: Apr 05, 2025 Billing Provider: ARIEL REINA MD Common Visit Codes: [id number] INP/OBS CARE(MOD) ARIEL REINA MD Apr 05, 2025 18:40
--- NOTE | 2025-04-05 20:29 | DVHPN2 ---
Progress Note - Dictate Date Seen: Apr 05, 2025 Medical Necessity Reason Pt with a Central, PICC or Fol: No Subjective Patient seen and examined at bedside. On supplemental oxygen Overnight events reviewed. vital signs Vital Sign Date Time Temp Pulse Resp B/P (MAP) Pulse Ox O2 Delivery O2 Flow Rate FiO2 04/05/25 19:11 93 95 Facial BiPAP Mask 50 04/05/25 16:44 99.2 18 106/60 (75) 99.2 04/05/25 10:26 2 Total Intake and Output 04/04/25 04/04/25 04/05/25 15:00 23:00 07:00 Intake Total 0 ml Output Total 2 ml Balance 0 ml -2 ml medications Current Medications Medications Dose Ordered Sig/Jorge Route Start Time Stop Time Status Last Admin Dose Admin Ondansetron HCl 4 mg Q4HP PRN IV 04/04/25 02:45 Docusate Sodium 100 mg BIDPRN PRN PO 04/04/25 02:45 Enoxaparin Sodium 40 mg DAILY SC 04/04/25 02:45 04/05/25 09:00 40 MG Nitroglycerin 0.4 mg Q5MINP PRN SL 04/04/25 02:45 Morphine Sulfate 2 mg Q30M PRN IV 04/04/25 02:45 Hold Albuterol 2.5 mg Q4HWA [facility] 04/04/25 06:00 04/05/25 19:09 2.5 MG Ipratropium [place] 0.5 mg Q4HWA [facility] 04/04/25 06:00 04/05/25 19:09 0.5 MG Levofloxacin/ Dextrose 100 ml @ 100 mls/hr DAILY IV 04/05/25 10:00 04/05/25 09:01 100 MLS/HR Atorvastatin Calcium 10 mg HS PO 04/04/25 22:00 04/04/25 22:38 10 MG Citalopram Hydrobromide 40 mg DAILY PO 04/04/25 10:00 04/05/25 09:01 40 MG Ergocalciferol 50,000 unit Q7D PO 04/04/25 09:00 04/04/25 09:24 50,000 UNIT Furosemide 40 mg DAILY IV 04/04/25 10:00 04/05/25 09:04 40 MG Levothyroxine Sodium 100 mcg QAM@0600 PO 04/04/25 06:00 04/04/25 09:25 100 MCG Pantoprazole Sodium 40 mg DAILY IV 04/04/25 10:00 04/05/25 09:00 40 MG Methylprednisolone Sodium Succinate 125 mg BID IV 04/04/25 10:00 04/05/25 09:03 125 MG Iron Sucrose 110 ml @ 110 mls/hr DAILY@1200 IV 04/04/25 12:00 04/08/25 12:59 04/05/25 12:11 110 MLS/HR Acetaminophen 650 mg Q6HP PRN PO 04/04/25 22:30 04/04/25 22:39 650 MG objective Gen.: Patient lying in bed in no apparent distress. On supplemental oxygen Head: Normocephalic, atraumatic. Eyes: EOMI/PERRLA. Ears: Normal hearing. Normal anatomy. Neck/trachea: Trachea midline, supple. Nose: Normal external anatomy. Mouth: Moist mucous membranes. Chest: Decreased air entry bilaterally. No wheezing or rhonchi. Cardiovascular: Positive S1, positive S2. Regular rate and rhythm. Abdomen: Positive bowel sounds in all 4 quadrants. Soft, non-tender, non- distended. : Deferred. Rectal: Deferred. Skin: Warm, dry. Intact. Extremities: 2+ radial pulses bilaterally. No lower extremity edema. Neuro: Awake, altered. No gross motor or sensory deficits. Cranial nerves II through XII intact. Gait not assessed. laboratory and microbiology Laboratory Tests 04/05/25 04:50 Test 04/05/25 04:50 Range/Units Serum Glucose 139 H 74-106 mg/dL Assessment/Plan Impression: Acute hypoxic respiratory failure 2/2 COPD exacerbation Acute on chronic hypercarbic respiratory failure Acute exacerbation of COPD Nicotine dependence Methamphetamine abuse Marijuana use Anemia Events: Currently on supplemental oxygen, 3 LPM NC Taper O2 as tolerated BiPAP PRN. Continue bronchodilators Continue IV steroids Continue antibiotics Incentive spirometry GI prophylaxis - Protonix DVT prophylaxis - Lovenox Labs and imaging reviewed. Rest of plan as noted below. Plan: Supplemental oxygen BiPAP PRN Titrate to keep O2 sats above 92%. CXR on 04/03/25 demonstrated no acute cardiopulmonary disease. Continue bronchodilators. Continue antibiotics IV steroids Monitor hemoglobin Monitor renal function. Monitor electrolytes. Supplement as necessary. Monitor ins and outs. GI prophylaxis - Protonix DVT prophylaxis - Lovenox Prognosis: Guarded given patient's multiple co-morbidities. Rest of plan per hospitalist and other consultants. Thank you Dr. Elias, for allowing me to participate in this patient's care. Further recommendations will depend on the patient's clinical course. Please do not hesitate to contact me if you have any questions or concerns. This medical document was created using an electronic medical record system with [employer] dictation system. Although these documentations are being carefully reviewed, there may still be some phonetic and typographical changes. The errors are purely typographical, due to imperfection on the software program, and do not reflect any compromise in the patient's medical care. Plan discussed with: Patient, Other (TEE Hooks) VIVIANE ARRIAGA MD Apr 05, 2025 20:29
[2025-04-06] VITALS (17 sets, daily range): BP systolic 111–130; BP diastolic 56–77; PULSE 69–89; RESP 16–22; TEMP 97.1–98.5; O2SAT 90–98
--- NOTE | 2025-04-06 12:16 | ECG ---
[facility] Test Date: 2025-04-03 Test Time: 19:45:23 Pat Name: CARMELO HARDIN Department: ED Room: [facility]9T B Gender: F Researcher: TOMAS : 1965 Requested By: JOEY VELASQUEZ Order Number: [id number] Reading MD: Epi Avila Measurements Intervals [place] Rate: 90 P: 81 MS: 142 QRS: 43 QRSD: 129 T: 71 QT: 415 QTc: 508 Interpretive Statements Sinus rhythm Nonspecific intraventricular conduction delay Borderline ST elevation, anterolateral leads Baseline wander in lead(s) II,aVF,V2,V3,V4,V5,V6 Electronically Signed On 04-08-2025 20:44:12 PDT by Epi Avila Please click the below link to view image of tracing.
--- NOTE | 2025-04-06 14:35 | DVHINCON2 ---
Family History: FH: heart attack G8 FATHER FH: stroke G8 FATHER Hypertension G8 FATHER Allergies: Coded Allergies: Piperacillin (Verified Allergy, Intermediate, Rash in the chest and face, 08/16/24) Per Anu Montez RN shift endorsement, and MD Pierson notes 08/15/24, pt had a rash in the chest and face during the 1st dose of Zosyn Iv dosage, therefore it was d/c 08/15/24. Tazobactam (Verified Allergy, Intermediate, Rash in the chest and face, 08/16/24) Per Anu Montez RN shift endorsement, and MD Pierson notes 08/15/24, pt had a rash in the chest and face during the 1st dose of Zosyn Iv dosage, therefore it was d/c 08/15/24. Amoxicillin (Verified Allergy, Unknown, 08/02/24) allergy, per the family. Aspirin (Verified Allergy, Unknown, 10/31/14) Bupropion (Verified Allergy, Unknown, 10/31/14) Codeine (Verified Allergy, Unknown, 10/31/14) RASH Ibuprofen (Verified Allergy, Unknown, 10/31/14) Morphine (Verified Allergy, Unknown, 03/06/14) "I HAVE AN ALLERGY TO MORPHINE IN PILL FORM" Penicillins (Verified Allergy, Unknown, 08/02/24) allergy, per the family. Uncoded Allergies: DARVOCET (Allergy, Unknown, 03/06/14) Home Meds Active Scripts Ergocalciferol (VITAMIN D 41125 UNIT) 50,[address] [place], [address] UNIT PO weekly for 12 Days, #12 CAP [facility] Ivermectin (Ivermectin) 3 Mg Tab, 3 MG PO DAILY for 1 Day, #1 TAB [facility] 03/19/25 Permethrin (Elimite) 5 % Cre, 1 APPLIC TOP ONCE for 1 Day, #60 GRAMS 1 [facility]ill [facility] 03/19/25 Levofloxacin Hemihydrate (LEVOFLOXACIN) 750 Mg Tab, 1 TAB PO DAILY for 5 Days, #5 TAB [facility] 03/19/25 Prednisone (Prednisone) 20 Mg Tab, 20 MG PO QAM for 7 Days, #7 MG Prov:LASHELL QUAN [facility]IDENT 03/19/25 Albuterol Sulfate (VENTOLIN MDI) 90 Mcg Ih, 90 MCG IN Q6HPRN PRN, #1 INH Prov:ARIEL REINA MD 12/14/22 Reported Medications Gccteklxzr-Rklbkndgaddfdu-Ykpa (Breztri Aerosphere 160-9-4.8 Mcg/Act) 1 Aer Aer, 1 AER IN, AER 08/15/24 Citalopram Hydrobromide (Citalopram Hydrobromide) 40 Mg Tab, 40 MG PO DAILY for 30 Days, MG 08/15/24 Celecoxib (Celebrex) 100 Mg Cap, 40 MG PO DAILY, % 08/02/24 Aripiprazole (Abilify) 20 Mg Tab, 20 MG PO DAILY, TAB 08/02/24 Furosemide (Furosemide) 40 Mg Tab, 40 MG PO 08/01/24 Atorvastatin Calcium (ATORVASTATIN CALCIUM) 10 Mg Tab, 1 TAB PO DAILY, TAB 08/01/24 Levothyroxine Sodium (SYNTHROID TABLET) 100 Mcg Tb, 1 TAB PO DAILY, #30 TAB 5 Refills 12/14/22 Vital Signs Vital Signs Date Time Temp Pulse Resp B/P (MAP) Pulse Ox O2 Delivery O2 Flow Rate FiO2 04/06/25 13:53 82 93 Facial BiPAP Mask 50 04/06/25 10:57 19 04/06/25 10:49 4 04/06/25 09:00 98.2 130/77 (94) 98.2 Labs/Diagnostic Data Labs Test 04/06/25 13:43 04/05/25 04:50 04/04/25 10:46 04/04/25 08:40 Range/Units Troponin I High Sensitivity 4 </=34 ng/L White Blood Count 6.9 4.4-10.8 10^3/uL Red Blood Count 4.54 4.0-5.20 10^6/uL Hemoglobin 12.9 12.2-16.2 g/dL Hematocrit 40.2 36.0-46.0 % Mean Corpuscular Volume 88.5 80.0-100.0 fL Mean Corpuscular Hemoglobin 28.4 28.0-32.0 pg Mean Corpuscular Hemoglobin Concent 32.1 32.0-36.0 g/dL Red Cell Distribution Width 15.6 H 11.8-14.3 % Platelet Count 179 140-450 10^3/uL Mean Platelet Volume 8.6 6.9-10.8 fL Neutrophils (%) (Auto) 93.6 H 37.0-80.0 % Lymphocytes (%) (Auto) 4.1 L 10.0-50.0 % Monocytes (%) (Auto) 2.1 0.0-12.0 % Eosinophils (%) (Auto) 0.0 0.0-7.0 % Basophils (%) (Auto) 0.2 0.0-2.0 % Neutrophils # (Auto) 6.5 1.6-8.6 10 ^3/uL Lymphocytes # (Auto) 0.3 L 0.4-5.4 10 ^3/uL Monocytes # (Auto) 0.1 0-1.3 10 ^3/uL Eosinophils # (Auto) 0 0-0.8 10 ^3/uL Basophils # (Auto) 0 0-0.2 10 ^3/uL Nucleated Red Blood Cells 0.0 % Sodium Level 141 136-145 mmol/L Potassium Level 4.5 3.5-5.1 mmol/L Chloride Level 94 L 98-107 mmol/L Carbon Dioxide Level > 40 *H 20-31 mmol/L Anion Gap 6.45757 5-15 Blood Urea Nitrogen 18 9-23 mg/dL Creatinine 0.70 0.550-1.02 mg/dL Glomerular Filtration Rate Calc 100 >90 mL/min BUN/Creatinine Ratio 25.7 H 10.0-20.0 Serum Glucose 139 H 74-106 mg/dL Calcium Level 10.2 8.7-10.4 mg/dL Total Bilirubin 0.3 0.2-1.0 mg/dL Aspartate Amino Transferase (AST) < 8 L 13-40 U/L Alanine Aminotransferase (ALT) 24 7-40 U/L Alkaline Phosphatase 95 46-116 U/L Total Protein 6.9 5.7-8.2 g/dL Albumin 4.5 3.2-4.8 g/dL Urine Color Light-yellow Yellow Urine Clarity Clear Clear Urine pH 7.5 5.0-9.0 Urine Specific [place] 1.009 1.001-1.035 Urine Protein Negative Negative Urine Ketones Negative Negative Urine Blood Negative Negative /uL Urine Nitrite Negative Negative Urine Bilirubin Negative Negative Urine Urobilinogen Normal Negative mg/dL Urine Leukocyte Esterase Negative Negative /uL Urine RBC <1 0 - 4 /hpf Urine Microscopic WBC < 1 0-5 /HPF Urine Squamous Epithelial Cells Few <5 /hpf Urine Bacteria None seen None Seen /hpf Urine Glucose Normal Normal mg/dL Urine Opiates Screen Neg NEGATIVE Urine Fentanyl Screen Neg NEGATIVE Urine Barbiturates Screen Neg NEGATIVE Urine Phencyclidine Screen Neg NEGATIVE Urine Amphetamines Screen Pos NEGATIVE Urine Benzodiazepines Screen Neg NEGATIVE Urine Cocaine Screen Neg NEGATIVE Urine Cannabinoids Screen Pos NEGATIVE Blood Gas Specimen Type Arterial Blood Gas Sample Site Left radial Blood Gas Patient Temperature 37.0 Arterial Blood Date Drawn [id number] Arterial Blood pH 7.321 L 7.350-7.450 Arterial Blood Partial Pressure CO2 74.3 *H 32.0-45.0 mmHg Arterial Blood Partial Pressure O2 76.9 L 83.0-108.0 mmHg Arterial Blood HCO3 37.5 H 21.0-28.0 mmol/L Arterial Blood Oxygen Saturation 94.1 94.0-98.0 % Arterial Blood Base Excess 8.5 H -2.0-3.0 mmol/L Arterial Blood Oxyhemoglobin 92.2 L 94.0-98.0 % Arterial Blood Carboxyhemoglobin 1.6 H 0.5-1.5 % Arterial Blood Methemoglobin 0.4 0.0-1.5 % Dago Test Yes Blood Gas Total Hemoglobin 13.90 12.0-16.0 g/dL Blood Gas Modality Mask - bipap FiO2 % 35.0 Blood Gas Spontaneous Tidal Volume 541 Blood Gas EPAP 5 Blood Gas IPAP 15 Blood Gas Comments I-time 0.9 sec. Blood Gas Critical Value Read Back yes Blood Gas Notified Whom Blood Gas Notified Time [id number] Blood Gas Notified By Abbie nix rt Test 04/04/25 04:08 04/04/25 01:01 04/03/25 20:45 04/03/25 19:52 Range/Units Iron Level 43 L 50-170 ug/dL Total Iron Binding Capacity 336 250-425 ug/dL Percent Iron Saturation 12.8 L 15-50 % Ferritin 44.6 10-291 ng/mL Free Thyroxine (T4) Calculated 0.98 0.89-1.76 ng/dL Free Triiodothyronine (T3) pg/mL 2.69 2.3-4.2 pg/mL Capillary Blood pH 7.321 L 7.350-7.450 Capillary Blood PCO2 74.5 H 32.0-45.0 mmHg Capillary Blood PO2 57.8 L 83.0-108.0 mmHg Capillary Blood HCO3 37.6 H 21.0-28.0 mmol/L Capillary Blood Base Excess 8.6 H -2.0-3.0 mmol/L Capillary Blood Oxygen Saturation 90.6 L 94.0-98.0 % Capillary Blood Oxyhemoglobin 88.6 L 94.0-98.0 % Capillary Blood Carboxyhemoglobin 1.7 H 0.5-1.5 % Capillary Blood Methemoglobin 0.5 0.0-1.5 % Capillary Blood Hemoglobin 13.6 12.0-16.0 g/dL Blood Gas Liter Flow 3.00 Lactic Acid Level 0.7 0.4-2.0 mmol/L Magnesium Level 2.2 1.6-2.6 mg/dL Thyroid Stimulating Hormone (TSH) 11.07 H 0.55-4.78 uIU/mL B-Type Natriuretic Peptide 32.16 0-100 pg/mL IDALIA MCCLENDON MD Apr 06, 2025 14:35
--- NOTE | 2025-04-06 15:12 | ECG ---
[facility] Test Date: 2025-04-06 Test Time: 12:45:20 Pat Name: CARMELO HARDIN Department: Room: 0279T B Gender: F [employer] Supervisor: mariam gurrola : 1965 Requested By: ARIEL REINA Order Number: [id number] Reading MD: Epi Avila Measurements Intervals [place] Rate: 77 P: 48 WV: 132 QRS: 34 QRSD: 89 T: 64 QT: 418 QTc: 474 Interpretive Statements Sinus rhythm Multiform ventricular premature complexes Electronically Signed On 04-08-2025 20:21:18 PDT by Epi Avila Please click the below link to view image of tracing.
--- NOTE | 2025-04-06 15:13 | ECG ---
[facility] Test Date: 2025-04-06 Test Time: 12:44:01 Pat Name: CARMELO HARDIN Department: Room: [facility]9T B Gender: F [employer] Assistant Principal: mariam gurrola : 1965 Requested By: ARIEL REINA Order Number: [id number] Reading MD: Epi Avila Measurements Intervals [place] Rate: 81 P: 29 NM: 126 QRS: 33 QRSD: 85 T: 63 QT: 408 QTc: 474 Interpretive Statements Sinus rhythm Ventricular premature complex ST elevation, consider inferior injury Electronically Signed On 04-08-2025 20:21:11 PDT by Epi Avila Please click the below link to view image of tracing.
--- NOTE | 2025-04-06 16:45 | DVHDS2 ---
Discharge Summary Date of Admission Apr 04, 2025 at 02:31 Date of Discharge: Apr 06, 2025 Labs/Diagnostic Data: Laboratory Results Test 04/06/25 14:36 04/05/25 04:50 04/04/25 10:46 04/04/25 08:40 Troponin I High Sensitivity 4 ng/L (</=34) White Blood Count 6.9 10^3/uL (4.4-10.8) Red Blood Count 4.54 10^6/uL (4.0-5.20) Hemoglobin 12.9 g/dL (12.2-16.2) Hematocrit 40.2 % (36.0-46.0) Mean Corpuscular Volume 88.5 fL (80.0-100.0) Mean Corpuscular Hemoglobin 28.4 pg (28.0-32.0) Mean Corpuscular Hemoglobin Concent 32.1 g/dL (32.0-36.0) Red Cell Distribution Width 15.6 % (11.8-14.3) Platelet Count 179 10^3/uL (140-450) Mean Platelet Volume 8.6 fL (6.9-10.8) Neutrophils (%) (Auto) 93.6 % (37.0-80.0) Lymphocytes (%) (Auto) 4.1 % (10.0-50.0) Monocytes (%) (Auto) 2.1 % (0.0-12.0) Eosinophils (%) (Auto) 0.0 % (0.0-7.0) Basophils (%) (Auto) 0.2 % (0.0-2.0) Neutrophils # (Auto) 6.5 10 ^3/uL (1.6-8.6) Lymphocytes # (Auto) 0.3 10 ^3/uL (0.4-5.4) Monocytes # (Auto) 0.1 10 ^3/uL (0-1.3) Eosinophils # (Auto) 0 10 ^3/uL (0-0.8) Basophils # (Auto) 0 10 ^3/uL (0-0.2) Nucleated Red Blood Cells 0.0 % Sodium Level 141 mmol/L (136-145) Potassium Level 4.5 mmol/L (3.5-5.1) Chloride Level 94 mmol/L (98-107) Carbon Dioxide Level > 40 mmol/L (20-31) Anion Gap 6.90550 (5-15) Blood Urea Nitrogen 18 mg/dL (9-23) Creatinine 0.70 mg/dL (0.550-1.02) Glomerular Filtration Rate Calc 100 mL/min (>90) BUN/Creatinine Ratio 25.7 (10.0-20.0) Serum Glucose 139 mg/dL (74-106) Calcium Level 10.2 mg/dL (8.7-10.4) Total Bilirubin 0.3 mg/dL (0.2-1.0) Aspartate Amino Transferase (AST) < 8 U/L (13-40) Alanine Aminotransferase (ALT) 24 U/L (7-40) Alkaline Phosphatase 95 U/L (46-116) Total Protein 6.9 g/dL (5.7-8.2) Albumin 4.5 g/dL (3.2-4.8) Urine Color Light-yellow (Yellow) Urine Clarity Clear (Clear) Urine pH 7.5 (5.0-9.0) Urine Specific [place] 1.009 (1.001-1.035) Urine Protein Negative (Negative) Urine Ketones Negative (Negative) Urine Blood Negative /uL (Negative) Urine Nitrite Negative (Negative) Urine Bilirubin Negative (Negative) Urine Urobilinogen Normal mg/dL (Negative) Urine Leukocyte Esterase Negative /uL (Negative) Urine RBC <1 /hpf (0 - 4) Urine Microscopic WBC < 1 /HPF (0-5) Urine Squamous Epithelial Cells Few /hpf (<5) Urine Bacteria None seen /hpf (None Seen) Urine Glucose Normal mg/dL (Normal) Urine Opiates Screen Neg (NEGATIVE) Urine Fentanyl Screen Neg (NEGATIVE) Urine Barbiturates Screen Neg (NEGATIVE) Urine Phencyclidine Screen Neg (NEGATIVE) Urine Amphetamines Screen Pos (NEGATIVE) Urine Benzodiazepines Screen Neg (NEGATIVE) Urine Cocaine Screen Neg (NEGATIVE) Urine Cannabinoids Screen Pos (NEGATIVE) Blood Gas Specimen Type Arterial Blood Gas Sample Site Left radial Blood Gas Patient Temperature 37.0 Arterial Blood Date Drawn [id number] Arterial Blood pH 7.321 (7.350-7.450) Arterial Blood Partial Pressure CO2 74.3 mmHg (32.0-45.0) Arterial Blood Partial Pressure O2 76.9 mmHg (83.0-108.0) Arterial Blood HCO3 37.5 mmol/L (21.0-28.0) Arterial Blood Oxygen Saturation 94.1 % (94.0-98.0) Arterial Blood Base Excess 8.5 mmol/L (-2.0-3.0) Arterial Blood Oxyhemoglobin 92.2 % (94.0-98.0) Arterial Blood Carboxyhemoglobin 1.6 % (0.5-1.5) Arterial Blood Methemoglobin 0.4 % (0.0-1.5) Dago Test Yes Blood Gas Total Hemoglobin 13.90 g/dL (12.0-16.0) Blood Gas Modality Mask - bipap FiO2 % 35.0 Blood Gas Spontaneous Tidal Volume 541 Blood Gas EPAP 5 Blood Gas IPAP 15 Blood Gas Comments I-time 0.9 sec. Blood Gas Critical Value Read Back yes Blood Gas Notified Whom Blood Gas Notified Time [id number] Blood Gas Notified By Abbie nix rt Test 04/04/25 04:08 04/04/25 01:01 04/03/25 20:45 04/03/25 19:52 Iron Level 43 ug/dL (50-170) Total Iron Binding Capacity 336 ug/dL (250-425) Percent Iron Saturation 12.8 % (15-50) Ferritin 44.6 ng/mL (10-291) Free Thyroxine (T4) Calculated 0.98 ng/dL (0.89-1.76) Free Triiodothyronine (T3) pg/mL 2.69 pg/mL (2.3-4.2) Capillary Blood pH 7.321 (7.350-7.450) Capillary Blood PCO2 74.5 mmHg (32.0-45.0) Capillary Blood PO2 57.8 mmHg (83.0-108.0) Capillary Blood HCO3 37.6 mmol/L (21.0-28.0) Capillary Blood Base Excess 8.6 mmol/L (-2.0-3.0) Capillary Blood Oxygen Saturation 90.6 % (94.0-98.0) Capillary Blood Oxyhemoglobin 88.6 % (94.0-98.0) Capillary Blood Carboxyhemoglobin 1.7 % (0.5-1.5) Capillary Blood Methemoglobin 0.5 % (0.0-1.5) Capillary Blood Hemoglobin 13.6 g/dL (12.0-16.0) Blood Gas Liter Flow 3.00 Lactic Acid Level 0.7 mmol/L (0.4-2.0) Magnesium Level 2.2 mg/dL (1.6-2.6) Thyroid Stimulating Hormone (TSH) 11.07 uIU/mL (0.55-4.78) B-Type Natriuretic Peptide 32.16 pg/mL (0-100) Other Laboratory Tests 04/05/25 04:50 Brief Hx & Hospital Course: 60-year-old female with a known history of chronic respiratory failure on home O2, COPD, asthma, hypertension, hypothyroidism, obesity hypoventilation syndrome, sleep apnea presented to the hospital with the increasing shortness a breath found to have acute on chronic hypoxic and hypercapnic respiratory failure secondary to acute COPD exacerbation. Patient also has a obesity hypoventilation syndrome and sleep apnea currently on BiPAP while she sleeps. Patient was treated with the med nebs O2 supplementation and Solu-Medrol. Patient is currently requesting to go home and patient is stable to be discharged home. Condition at Discharge: Stable Final Diagnosis/Problems List 60-year-old female with a known history of chronic respiratory failure on home O2, COPD, asthma, hypertension, hypothyroidism, obesity hypoventilation syndrome, sleep apnea presented to the hospital with the increasing shortness a breath found to have 1. Acute on chronic hypoxic and hypercapnic respiratory failure secondary to acute COPD exacerbation 2. Acute COPD exacerbation 3. Obesity hypoventilation syndrome/sleep apnea currently on BiPAP 4. Previous history of chronic tobacco use disorder 5. Chronic marijuana use 6. Hypertension 7. Hypothyroidism Discharge Disposition: Home SNF Discharge Will this Physician continue t: No Discharge Instruct/Medications Diet: Cardiac 2g Na,low cholest Activity: No Restrictions, As Tolerated Follow Up/Referral: Follow up with the PCP in 1-2 weeks Follow up with the Pulmonary Dr. Lopez in 1-2 weeks Medications: Resume home medications Discharge Statement: "Patient was advised to return to the ER or call 911 if any headaches, dizziness, shortness of breath, chest pain, abdominal pain, bleeding, fevers, or worsening of medical condition. Patient was counseled about treatment plan, medications, possible side effects, patientverbalized understanding. All questions were answered to the best of my ability. This discharge took greater then 30 minutes in planning, reviewing documentation, counseling the patient, and discussing with other team members." ASSESSMENT ASSESSMENT Assessment 60-year-old female with a known history of chronic respiratory failure on home O2, COPD, asthma, hypertension, hypothyroidism, obesity hypoventilation syndrome, sleep apnea presented to the hospital with the increasing shortness a breath found to have 1. Acute on chronic hypoxic and hypercapnic respiratory failure secondary to acute COPD exacerbation 2. Acute COPD exacerbation 3. Obesity hypoventilation syndrome/sleep apnea currently on BiPAP 4. Previous history of chronic tobacco use disorder 5. Chronic marijuana use 6. Hypertension 7. Hypothyroidism Date of Service: Apr 06, 2025 Billing Provider: ARIEL REINA MD Common Visit Codes: 32349-JOW/OBS DISCH DAY >30min ARIEL REINA MD Apr 06, 2025 16:45
--- NOTE | 2025-04-06 21:53 | DVHPN2 ---
Progress Note - Dictate Date Seen: Apr 06, 2025 Medical Necessity Reason Pt with a Central, PICC or Fol: No Subjective Patient seen and examined at bedside. On supplemental oxygen Overnight events reviewed. vital signs Vital Sign Date Time Temp Pulse Resp B/P (MAP) Pulse Ox O2 Delivery O2 Flow Rate FiO2 04/06/25 17:47 98.4 69 16 94 04/06/25 16:47 124/69 (87) 04/06/25 13:53 Facial BiPAP Mask 50 04/06/25 10:49 4 Total Intake and Output 04/05/25 04/05/25 04/06/25 15:00 23:00 07:00 Intake Total 210 ml 1200 ml 930 ml Balance 210 ml 1200 ml 930 ml objective Gen.: Patient lying in bed in no apparent distress. On supplemental oxygen Head: Normocephalic, atraumatic. Eyes: EOMI/PERRLA. Ears: Normal hearing. Normal anatomy. Neck/trachea: Trachea midline, supple. Nose: Normal external anatomy. Mouth: Moist mucous membranes. Chest: Decreased air entry bilaterally. No wheezing or rhonchi. Cardiovascular: Positive S1, positive S2. Regular rate and rhythm. Abdomen: Positive bowel sounds in all 4 quadrants. Soft, non-tender, non- distended. : Deferred. Rectal: Deferred. Skin: Warm, dry. Intact. Extremities: 2+ radial pulses bilaterally. No lower extremity edema. Neuro: Awake, altered. No gross motor or sensory deficits. Cranial nerves II through XII intact. Gait not assessed. laboratory and microbiology Laboratory Tests 04/05/25 04:50 Test 04/05/25 04:50 Range/Units Serum Glucose 139 H 74-106 mg/dL Assessment/Plan Impression: Acute hypoxic respiratory failure 2/2 COPD exacerbation Acute on chronic hypercarbic respiratory failure On NIPPV Acute exacerbation of COPD Nicotine dependence Methamphetamine abuse Marijuana use Anemia Obesity BMI 39 Events: Currently on supplemental oxygen, 4 LPM NC Taper O2 as tolerated BiPAP PRN. Continue bronchodilators Continue IV steroids Continue antibiotics Monitor hemoglobin Iron supplementation Diurese as tolerated with Lasix Monitor renal function. Monitor electrolytes. Supplement as necessary. Monitor ins and outs. GI prophylaxis - Protonix DVT prophylaxis - Lovenox Labs and imaging reviewed. Rest of plan as noted below. Plan: Continue supplemental oxygen Titrate to keep O2 sats between 88-94%. Taper O2 as tolerated. BiPAP PRN CXR on 04/03/25 demonstrated no acute cardiopulmonary disease. Continue bronchodilators. Continue antibiotics IV steroids Monitor hemoglobin Monitor renal function. Monitor electrolytes. Supplement as necessary. Monitor ins and outs. Counseled against meth and cannabis abuse. GI prophylaxis - Protonix DVT prophylaxis - Lovenox Prognosis: Guarded given patient's multiple co-morbidities. Rest of plan per hospitalist and other consultants. Thank you Dr. Franco for allowing me to participate in this patient's care. Further recommendations will depend on the patient's clinical course. Please do not hesitate to contact me if you have any questions or concerns. This medical document was created using an electronic medical record system with [employer] dictation system. Although these documentations are being carefully reviewed, there may still be some phonetic and typographical changes. The errors are purely typographical, due to imperfection on the software program, and do not reflect any compromise in the patient's medical care. Plan discussed with: Patient, Other (RN Ty) VIVIANE ARRIAGA MD Apr 06, 2025 21:53
== END 2025-04-06 18:20 | disposition home or self-care (01) | DRG 133 ==
LOC: EDUNIT# 19:35 → EDBD 19:35 → ER 19:35 → OVERFLOW 04-04 02:31 → TELE-WESTW 04-04 16:00
PROVIDERS: ADMIT Internal Medicine; ATTEND Internal Medicine
PROC: 5A09357 Assistance with Respiratory Ventilation, Less than 24 Consecutive Hours, Continuous Positive Airway Pressure (ICD-10-PCS; principal; 2025-04-04)
PROC: 5A09357 Assistance with Respiratory Ventilation, Less than 24 Consecutive Hours, Continuous Positive Airway Pressure (ICD-10-PCS; 2025-04-05)
PROC: 5A09357 Assistance with Respiratory Ventilation, Less than 24 Consecutive Hours, Continuous Positive Airway Pressure (ICD-10-PCS; 2025-04-06)
DX: J96.22 Acute and chronic respiratory failure with hypercapnia (principal); I50.33 Acute on chronic diastolic (congestive) heart failure; I27.20 Pulmonary hypertension, unspecified; E66.2 Morbid (severe) obesity with alveolar hypoventilation; F33.1 Major depressive disorder, recurrent, moderate; Z99.81 Dependence on supplemental oxygen; I11.0 Hypertensive heart disease with heart failure; J96.21 Acute and chronic respiratory failure with hypoxia; J44.1 Chronic obstructive pulmonary disease with (acute) exacerbation; F15.10 Other stimulant abuse, uncomplicated; D64.9 Anemia, unspecified; F41.1 Generalized anxiety disorder; F17.210 Nicotine dependence, cigarettes, uncomplicated; E03.9 Hypothyroidism, unspecified; E78.5 Hyperlipidemia, unspecified; E55.9 Vitamin D deficiency, unspecified; F12.90 Cannabis use, unspecified, uncomplicated; Z68.39 Body mass index [BMI] 39.0-39.9, adult; Z90.49 Acquired absence of other specified parts of digestive tract; Z82.3 Family history of stroke; Z82.49 Family history of ischemic heart disease and other diseases of the circulatory system; Z88.0 Allergy status to penicillin; Z88.5 Allergy status to narcotic agent
CPT/HCPCS: 36415; 36600; 71045; 80053; 80307; 81001; 82728; 82805; 83540; 83550; 83605; 83735; 83880; 84439; 84443; 84481; 84484; 85025; 93005; 94640; 94660; 96374; G0378; J1756; J1956; J2470

== ENCOUNTER 2025-10-04 20:43 | Inpatient (IN) | payer MEDICAID ==
[~2025-10-04] VITALS: Ht 167.6 cm; Wt 116.7 kg
[~2025-10-04 20:43] MED LIST changes: -HYDR25TA4 PO; -LISI20TA56 PO
[2025-10-04 21:05] VITALS: PULSE 163; RESP 15; O2SAT 100
[2025-10-04 21:10] VITALS: PULSE 159; RESP 18; O2SAT 96
--- NOTE | 2025-10-04 21:14 | ED.PDOC ---
History of Present Illness HPI Comments 60-year-old, morbidly obese female presents with chief complaint of palpitations and chest pain. Significant history for COPD - on 2 LPM home O2, apnea -on BiPAP, hyperventilation syndrome,HLD, HTN, hypothyroidism, sinus tachycardia, PVCs, PACs, and tobacco cigarettes and marijuana use. Patient reports sudden and unprovoked onset of symptoms, while at rest, lying in her bed, 45 minutes ago prior to ED arrival. She denies on having any shortness of breath, nausea, vomiting, or further acute symptoms. Patient denies any previous history of similar symptoms in the past. No endorsed history of CO or cardiac stents. Chief Complaint: Chest Pain Time Seen by MD: 20:50 Primary Care Provider: DR FERNANDEZ Reviewed Notes: Nurses Notes, Medications, Allergies Allergies: Coded Allergies: Piperacillin (Verified Allergy, Intermediate, Rash in the chest and face, 08/16/24) Per Anu Montez RN shift endorsement, and MD Pierson notes 08/15/24, pt had a rash in the chest and face during the 1st dose of Zosyn Iv dosage, therefore it was d/c 08/15/24. Tazobactam (Verified Allergy, Intermediate, Rash in the chest and face, 08/16/24) Per Anu Montez RN shift endorsement, and MD Pierson notes 08/15/24, pt had a rash in the chest and face during the 1st dose of Zosyn Iv dosage, therefore it was d/c 08/15/24. Amoxicillin (Verified Allergy, Unknown, 08/02/24) allergy, per the family. Aspirin (Verified Allergy, Unknown, 10/31/14) Bupropion (Verified Allergy, Unknown, 10/31/14) Codeine (Verified Allergy, Unknown, 10/31/14) RASH Ibuprofen (Verified Allergy, Unknown, 10/31/14) Morphine (Verified Allergy, Unknown, 03/06/14) "I HAVE AN ALLERGY TO MORPHINE IN PILL FORM" Penicillins (Verified Allergy, Unknown, 08/02/24) allergy, per the family. Uncoded Allergies: DARVOCET (Allergy, Unknown, 03/06/14) Home Meds Active Scripts Ergocalciferol (VITAMIN D 26585 UNIT) 50,[address] [place], [address] UNIT PO weekly for 12 Days, #12 CAP Prov:LASHELL QUAN 03/19/25 Ivermectin (Ivermectin) 3 Mg Tab, 3 MG PO DAILY for 1 Day, #1 TAB Prov:LASHELL QUAN 03/19/25 Permethrin (Elimite) 5 % Cre, 1 APPLIC TOP ONCE for 1 Day, #60 GRAMS 1 Refill Prov:LASHELL QUAN 03/19/25 Levofloxacin Hemihydrate (LEVOFLOXACIN) 750 Mg Tab, 1 TAB PO DAILY for 5 Days, #5 TAB Prov:LASHELL QUAN 03/19/25 Prednisone (Prednisone) 20 Mg Tab, 20 MG PO QAM for 7 Days, #7 MG Prov:LASHELL QUAN 03/19/25 Albuterol Sulfate (VENTOLIN MDI) 90 Mcg Ih, 90 MCG IN Q6HPRN PRN, #1 INH Prov:ARIEL REINA MD 12/14/22 Reported Medications Zuapbkjpzh-Rerxptpznpmyap-Argw (Breztri Aerosphere 160-9-4.8 Mcg/Act) 1 Aer Aer, 1 AER IN, AER 08/15/24 Citalopram Hydrobromide (Citalopram Hydrobromide) 40 Mg Tab, 40 MG PO DAILY for 30 Days, MG 08/15/24 Celecoxib (Celebrex) 100 Mg Cap, 40 MG PO DAILY, % 08/02/24 Aripiprazole (Abilify) 20 Mg Tab, 20 MG PO DAILY, TAB 08/02/24 Furosemide (Furosemide) 40 Mg Tab, 40 MG PO 08/01/24 Atorvastatin Calcium (ATORVASTATIN CALCIUM) 10 Mg Tab, 1 TAB PO DAILY, TAB 08/01/24 Levothyroxine Sodium (SYNTHROID TABLET) 100 Mcg Tb, 1 TAB PO DAILY, #30 TAB 5 Refills 12/14/22 Information Source: Patient Mode of Arrival: EMS Severity: Moderate Timing: Minutes Duration: Since onset Prehospital treatment: None Past Medical History PAST MEDICAL HISTORY: COPD (2 LPM home O2 use), Depression, High Lipids, HTN, Thyroid (Hypothyroidism) Past Medical History (Other): History of sinus tachycardia History of PVCs History of PACs Hypoventilation syndrome Sleep apnea-on BiPAP Surgical History: Appendectomy, Family History Family History: Reviewed,noncontributory to illness Social History Smoker: Cigarettes Alcohol: Denies ETOH Use Drugs: Marijuana Lives In: Home All Other Systems: Reviewed and Negative (Comprehensive review of systems are negative unless stated in HPI) Physical Exam General Appearance: No Apparent Distress, Obese HEENT: Normal ENT Inspection, Pharynx Normal, TMs Normal Neck: Full Range of Motion, Non-Tender, Normal, Normal Inspection Respiratory: Chest Non-Tender, Lungs Clear, No Accessory Muscle Use, No Respiratory Distress, Normal Breath Sounds Cardiovascular: Irregular (Irregular rhythm), No Edema, No JVD, No Murmur, No Gallop, Normal Peripheral Pulses, Tachycardia Breast Exam: Deferred Gastrointestinal: No Organomegaly, Non Tender, No Pulsatile Mass, Normal Bowel Sounds, Soft Genitalia: Deferred Pelvic: Deferred Rectal: Deferred Extremities: No calf tenderness, Normal capillary refill, Normal inspection, Normal range of motion, Non-tender, No pedal edema Musculoskeletal : Apperance: Normal Neurologic: Alert, 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 Was a procedure done?: No EKG EKG : Pulse Rate (adult): 161 [place]: Normal Cardiac Rhythm: ST (Irregular rhythm) Block: None Hypertrophy: None ST: Normal Differential Dx Considerations may include: Arrhythmia, AFib-new onset, CO, PE, ACS, URI, pneumonia, angina, viral, among others X-Ray, Labs, Meds, VS Vital Signs Date Time Temp Pulse Resp B/P (MAP) Pulse Ox O2 Delivery O2 Flow Rate FiO2 10/04/25 21:52 161 10/04/25 21:23 155 10/04/25 20:47 161 10/04/25 20:46 98.2 166 18 145/82 97 98.2 Lab Test 10/04/25 21:56 10/04/25 21:07 Range/Units Troponin I High Sensitivity Pending 13 </=34 ng/L White Blood Count 6.7 4.4-10.8 10^3/uL Red Blood Count 4.16 4.0-5.20 10^6/uL Hemoglobin 12.6 12.2-16.2 g/dL Hematocrit 38.9 36.0-46.0 % Mean Corpuscular Volume 93.5 80.0-100.0 fL Mean Corpuscular Hemoglobin 30.4 28.0-32.0 pg Mean Corpuscular Hemoglobin Concent 32.5 32.0-36.0 g/dL Red Cell Distribution Width 14.5 H 11.8-14.3 % Platelet Count 160 140-450 10^3/uL Mean Platelet Volume 9.5 6.9-10.8 fL Neutrophils (%) (Auto) 77.6 37.0-80.0 % Lymphocytes (%) (Auto) 14.9 10.0-50.0 % Monocytes (%) (Auto) 6.1 0.0-12.0 % Eosinophils (%) (Auto) 1.0 0.0-7.0 % Basophils (%) (Auto) 0.4 0.0-2.0 % Neutrophils # (Auto) 5.2 1.6-8.6 10 ^3/uL Lymphocytes # (Auto) 1.0 0.4-5.4 10 ^3/uL Monocytes # (Auto) 0.4 0-1.3 10 ^3/uL Eosinophils # (Auto) 0.1 0-0.8 10 ^3/uL Basophils # (Auto) 0 0-0.2 10 ^3/uL Nucleated Red Blood Cells 0.1 % Sodium Level 146 H 136-145 mmol/L Potassium Level 3.3 L 3.5-5.1 mmol/L Chloride Level 103 98-107 mmol/L Carbon Dioxide Level 35 H 20-31 mmol/L Anion Gap 8 5-15 Blood Urea Nitrogen 21 9-23 mg/dL Creatinine 1.00 0.550-1.02 mg/dL Glomerular Filtration Rate Calc 65 >90 mL/min BUN/Creatinine Ratio 21.0 H 10.0-20.0 Serum Glucose 154 H 74-106 mg/dL Calcium Level 9.2 8.7-10.4 mg/dL Total Bilirubin 0.5 0.2-1.0 mg/dL Aspartate Amino Transferase (AST) 13 13-40 U/L Alanine Aminotransferase (ALT) 41 H 7-40 U/L Alkaline Phosphatase 89 46-116 U/L Total Protein 6.6 5.7-8.2 g/dL Albumin 4.3 3.2-4.8 g/dL Thyroid Stimulating Hormone (TSH) 3.67 0.55-4.78 uIU/mL Current Medications Medications (Trade) Dose Ordered Sig/Jorge Route Start Time Stop Time Status Last Admin Amiodarone HCl 100 ml @ 600 mls/hr ONCE ONCE IV 10/04/25 21:00 10/04/25 21:09 DC 10/04/25 21:20 Amiodarone HCl 250 ml @ 33.33 mls/ hr Q7H31M ONCE IV 10/04/25 21:15 10/05/25 04:45 10/04/25 21:58 Time of 1ST Reevaluation: 21:20 Reevaluation 1ST: Unchanged Patient Education/Counseling: Diagnosis, Treatment, Other (Need for hospital admission) Family Education/Counseling: No Family Present Comments This is a patient who presents to the emergency room complained about palpitation and chest pain. Patient has history of COPD chronic respiratory failure on 2 L oxygen at home but never had atrial fibrillation in the past. Initial EKG shows tachycardia in the rate of 160s and the rhythm appears to be atrial fibrillation irregularly irregular. Patient is given amiodarone we will be put on amiodarone drip evidence from the lab does not support CO or significant electrolyte imbalance. She has x-ray is unremarkable. Patient will be admitted for new onset atrial fibrillation with rapid ventricular response Additional Information Previous visits reviewed: November 22, 2024, March 17, 2025, and April 04, 2025 encounters Labs ordered: EKG, troponin, TSH levels, CMP, CBC Images reviewed: Chest x-ray Additional historian is interviewed: EMS personnel SEPSIS Sepsis Screen Physician Orders Chest Portable (10/04/25 20:59) Electrocardigram (10/04/25 20:59) Troponin-I Hs (10/04/25 21:59) Troponin-I Hs (10/04/25 23:59) Electrocardigram (10/04/25 21:59) Electrocardigram (10/04/25 23:59) Amiodarone 450mg/250ml Ae (Cordarone) (10/04/25 21:15) Amiodarone 450mg/250ml Ae (Cordarone) (10/05/25 03:15) Vital Signs Date Time Temp Pulse Resp B/P (MAP) Pulse Ox O2 Delivery O2 Flow Rate FiO2 10/04/25 21:52 161 10/04/25 21:23 155 10/04/25 20:47 161 12/7/25 20:46 98.2 166 18 145/82 97 98.2 Laboratory Tests Test 10/04/25 21:07 White Blood Count 6.7 10^3/uL (4.4-10.8) Medications Medications Dose Ordered Sig/Jorge Route Start Time Stop Time Status Last Admin Dose Admin Amiodarone HCl 100 ml @ 600 mls/hr ONCE ONCE IV 10/04/25 21:00 10/04/25 21:09 DC 10/04/25 21:20 Amiodarone HCl 250 ml @ 33.33 mls/ hr Q7H31M ONCE IV 10/04/25 21:15 10/05/25 04:45 10/04/25 21:58 Departure 1 Departure Time of Disposition: 22:22 Impression: Primary Impression: Atrial fibrillation with tachycardic ventricular rate Additional Impressions: Chest pain Chronic respiratory failure Tobacco abuse Disposition: ADMITTED INPATIENT Admit to: Tele Condition: Serious Discharged With: Self Critical Care Note Critical Care Time?: Yes (55 min-critical care time only) Critical care comment: Due to concerns for patients condition deteriorating, the care required my highest level of attention and readiness to intervene. I assessed the patient, reviewed the medical records, ordered the appropriate tests and treatments, then reassessed for results and responsiveness. I communicated with medical personnel and consultants and formulated a plan of care. Total critical care time excludes any procedures Stability Stability form required: No Heart Score Heart Score: Heart Score Response (Comments) Value History Highly Suspicious 2 EKG Repolarization Disturb 1 Age 45-64 1 Risk Factors >3 or Hx ASHD 2 Troponin Normal limit 0 Total 6 I personally scribed for LOS COLEY MD ([email or web address]) on 10/04/25 at 21:13. Electronically submitted by Josué Frias ([email or web address]). I personally scribed for LOS COLEY MD ([email or web address]) on 10/04/25 at 21:52. Electronically submitted by Josué Frias [email or web address]). LOS COLEY MD Oct 04, 2025 21:13
[2025-10-04] MEDS: AMIODARONE BOLUS KIT 100 ML IV ONE (21:20)
[2025-10-04 21:53] LABS: Hematocrit 38.9 % (36.0-46.0); Hemoglobin 12.6 g/dL (12.2-16.2); Mean Corpuscular Hemoglobin 30.4 pg (28.0-32.0); Mean Corpuscular Volume 93.5 fL (80.0-100.0); Nucleated Red Blood Cells % 0.1 %
[2025-10-04 22:01] LABS: Albumin 4.3 g/dL (3.2-4.8); Alkaline Phosphatase 89 U/L (46-116); Anion Gap 8 (5-15); BUN/Creatinine Ratio 21.0 (10.0-20.0); Bilirubin, Total 0.5 mg/dL (0.2-1.0); Blood Urea Nitrogen 21 mg/dL (9-23); Calcium 9.2 mg/dL (8.7-10.4); Chloride 103 mmol/L (98-107); Total Protein 6.6 g/dL (5.7-8.2)
[2025-10-04 22:04] LABS: Alanine Aminotransferase 41 U/L (7-40); Carbon Dioxide 35 mmol/L (20-31); Glucose 154 mg/dL (74-106); Potassium 3.3 mmol/L (3.5-5.1); Sodium 146 mmol/L (136-145)
[2025-10-04 22:23] VITALS: PULSE 167
--- NOTE | 2025-10-04 23:01 | DVH ---
INDICATION: cp TECHNIQUE: Frontal view of the chest. COMPARISON: XY CHEST PORTABLE on DOS: 04/03/25, XY CHEST PORTABLE on DOS: 03/18/25, XY CHEST PORTABLE on DOS: 03/17/25, XY CHEST PORTABLE on DOS: 03/16/25, XY CHEST TWO VIEWS ROUTINE on DOS: 11/22/24 FINDINGS/IMPRESSION: Mild haziness overlying the lung bases, at least partially attributable to overlying soft tissue attenuation. Unchanged cardiomediastinal silhouette. No pleural effusion or pneumothorax. Unchanged osseous structures.
[2025-10-04] MEDS ORDERED: MORPHINE SULFATE INJ 2 MG/ml SYRG IV PRN (23:15)
[2025-10-04] MEDS ORDERED: NITROGLYCERIN 0.4 MG SL TAB SL PRN (23:15)
--- NOTE | 2025-10-04 23:27 | DVHHPRES ---
History of Present Illness Resident Creating Document: SINCERE DANGELO RESIDENT History of Present Illness This is a 60-year-old female with past medical history of morbid obesity, COPD with 2 L home oxygen,VIC, heart failure, hypertension, hyperlipidemia, bipolar disorder, hypothyroidism came to the hospital with a complaint of sudden onset of palpitation around 8:00 p.m. associated with SOB. Patient increase her oxygen level but not improved and decided to come ER. Patient also feeling chest chest pain same time which is 3/10 intensity, localized, no aggravating or relieving factors, no radiation. Patient current symptoms associated with sweating, feeling fatigue. Denies any fall trauma or recent sick contacts. Currently denies any fever, chest pain, abdominal pain, dysuria or any focal weakness. Past medical history: As above Past surgical history: Nothing contributory Family history: Father-colon cancer Personal history: Ex-smoker, used marijuana and meth use 1 year ago Allergy: Amoxicillin, aspirin, bupropion, codeine, Darvocet, ibuprofen, metformin, penicillin PCP: Unable to recall name Home medication: Furosemide, lisinopril, albuterol inhaler, albuterol, aripiprazole, citalopram, levothyroxine. Review of Systems Constitutional: Yes: Malaise; No: Fever, Chills, Sweats, Weakness, Other Eyes: No: Pain, Vision change, Conjunctivae inflammation, Eyelid inflammation, Other, Redness ENT: No: Ear pain, Ear discharge, Nose pain, Nose discharge, Nose congestion, Mouth pain, Mouth swelling, Throat pain, Throat swelling, Other Respiratory: Shortness of breath; No: Cough, Dry, SOB with excertion, Wheezing, Hemoptysis, Pleuritic Pain, Sputum, Wheezing, Other Cardiovascular: Chest Pain, Palpitations; No: Orthopnea, Paroxysmal Noc. Dyspnea, Edema, Lt Headedness, Other Gastrointestinal: No: Nausea, Vomiting, Abdominal Pain, Diarrhea, Constipation, Melena, Hematochezia, Other Genitourinary: No Dysuria, No Frequency, No Incontinence, No Hematuria, No Retention, No Other Musculoskeletal: No: other, neck pain, shoulder pain, arm pain, back pain, hand pain, leg pain, foot pain Skin: No: Rash, Lesions, Jaundice, Bruising, Other Neurological: No: Weakness, Numbness, Incoordination, Change in speech, Confusion, Seizures, Other Allergies: Coded Allergies: Piperacillin (Verified Allergy, Intermediate, Rash in the chest and face, 08/16/24) Per Anu Montez RN shift endorsement, and MD Pierson notes 08/15/24, pt had a rash in the chest and face during the 1st dose of Zosyn Iv dosage, therefore it was d/c 08/15/24. Tazobactam (Verified Allergy, Intermediate, Rash in the chest and face, 08/16/24) Per Anu Montez RN shift endorsement, and MD Pierson notes 08/15/24, pt had a rash in the chest and face during the 1st dose of Zosyn Iv dosage, therefore it was d/c 08/15/24. Amoxicillin (Verified Allergy, Unknown, 08/02/24) allergy, per the family. Aspirin (Verified Allergy, Unknown, 10/31/14) Bupropion (Verified Allergy, Unknown, 10/31/14) Codeine (Verified Allergy, Unknown, 10/31/14) RASH Ibuprofen (Verified Allergy, Unknown, 10/31/14) Morphine (Verified Allergy, Unknown, 03/06/14) "I HAVE AN ALLERGY TO MORPHINE IN PILL FORM" Penicillins (Verified Allergy, Unknown, 08/02/24) allergy, per the family. Uncoded Allergies: DARVOCET (Allergy, Unknown, 03/06/14) Medications Current Medications Medications Dose Ordered Sig/Jorge Route Start Time Stop Time Status Last Admin Dose Admin Amiodarone HCl 250 ml @ 16.66 mls/ hr Q15H1M IV 10/05/25 03:15 Exam Vital Signs Vital Signs Date Time Temp Pulse Resp B/P (MAP) Pulse Ox O2 Delivery O2 Flow Rate FiO2 10/04/25 22:23 167 10/04/25 21:10 18 96 Nasal Cannula* 2 28 10/04/25 20:57 98.3 102/46 (64) 98.3 General Appearance: Alert, Oriented X3, Cooperative, No acute distress HEENT: EOMI, Mucous membr. moist/pink Respiratory: Clear to auscultation, Normal air movement Cardiovascular: Regular rate, Normal S1, Normal S2 Abdominal: Normal bowel sounds, Soft, No tenderness Extremities: No clubbing, No cyanosis, No edema, Normal pulses Skin: No rashes, No breakdown Neuro: Normal speech, Strength at 5/5 X4 ext, Sensation intact, Cranial nerves 3-12 NL Psych/Mental Status: Mental status NL, Mood NL Labs/Xrays Labs Test 10/04/25 21:56 10/04/25 21:07 Range/Units Troponin I High Sensitivity 15 </=34 ng/L White Blood Count 6.7 4.4-10.8 10^3/uL Red Blood Count 4.16 4.0-5.20 10^6/uL Hemoglobin 12.6 12.2-16.2 g/dL Hematocrit 38.9 36.0-46.0 % Mean Corpuscular Volume 93.5 80.0-100.0 fL Mean Corpuscular Hemoglobin 30.4 28.0-32.0 pg Mean Corpuscular Hemoglobin Concent 32.5 32.0-36.0 g/dL Red Cell Distribution Width 14.5 H 11.8-14.3 % Platelet Count 160 140-450 10^3/uL Mean Platelet Volume 9.5 6.9-10.8 fL Neutrophils (%) (Auto) 77.6 37.0-80.0 % Lymphocytes (%) (Auto) 14.9 10.0-50.0 % Monocytes (%) (Auto) 6.1 0.0-12.0 % Eosinophils (%) (Auto) 1.0 0.0-7.0 % Basophils (%) (Auto) 0.4 0.0-2.0 % Neutrophils # (Auto) 5.2 1.6-8.6 10 ^3/uL Lymphocytes # (Auto) 1.0 0.4-5.4 10 ^3/uL Monocytes # (Auto) 0.4 0-1.3 10 ^3/uL Eosinophils # (Auto) 0.1 0-0.8 10 ^3/uL Basophils # (Auto) 0 0-0.2 10 ^3/uL Nucleated Red Blood Cells 0.1 % Sodium Level 146 H 136-145 mmol/L Potassium Level 3.3 L 3.5-5.1 mmol/L Chloride Level 103 98-107 mmol/L Carbon Dioxide Level 35 H 20-31 mmol/L Anion Gap 8 5-15 Blood Urea Nitrogen 21 9-23 mg/dL Creatinine 1.00 0.550-1.02 mg/dL Glomerular Filtration Rate Calc 65 >90 mL/min BUN/Creatinine Ratio 21.0 H 10.0-20.0 Serum Glucose 154 H 74-106 mg/dL Calcium Level 9.2 8.7-10.4 mg/dL Total Bilirubin 0.5 0.2-1.0 mg/dL Aspartate Amino Transferase (AST) 13 13-40 U/L Alanine Aminotransferase (ALT) 41 H 7-40 U/L Alkaline Phosphatase 89 46-116 U/L Total Protein 6.6 5.7-8.2 g/dL Albumin 4.3 3.2-4.8 g/dL Thyroid Stimulating Hormone (TSH) 3.67 0.55-4.78 uIU/mL SEPSIS Sepsis Screen Date sepsis recognized/suspect: Oct 04, 2025 Time Sepsis recognized/suspect: 2045 Recent Procedure: No On Antibiotic Therapy: No Respiratory Rate >20: No Heart Rate >90: Yes Temp<36 C (96.8 F) or >38.3 C: No SBP <90 or MAP <65 mmHG: No New Acute Mental Status Change: No Is the patient on CPAP, BIPAP,: No Physician Orders Chest Portable (10/04/25 20:59) Electrocardigram (10/04/25 20:59) Troponin-I Hs (10/04/25 23:59) Electrocardigram (10/04/25 21:59) Electrocardigram (10/04/25 23:59) Amiodarone 450mg/250ml Ae (Cordarone) (10/04/25 21:15) Amiodarone 450mg/250ml Ae (Cordarone) (10/05/25 03:15) Admit (10/04/25 23:14) Code Status (10/04/25 23:14) Cardiac Diet-2gna,Lofat,Lochol (10/05/25 Breakfast) Echo 2d Mode Cardiac Dop (10/04/25 23:14) Nitroglycerin Sublingual (Ntrostat Subli (10/04/25 23:15) Morphine Sulfate Injection (10/04/25 23:15) Oxygen By Nasal Cannula (10/04/25 23:14) Stat Ekg For Chest Pain (10/04/25 23:14) Notify Md Of Changes From Base (10/04/25 23:14) Galvanometer Assembler For 24 Hours (10/04/25 23:14) Emergency Dysrhythmia Protocol (10/04/25 23:14) Rhythm Strips Once Every Shift (10/04/25 23:14) Enoxaparin Sodium (Lovenox) (10/05/25 10:00) Furosemide Tablet (Lasix Tablet) (10/05/25 10:00) Levalbuterol Hcl (Xopenex Medneb) (10/05/25 00:00) Vital Signs Date Time Temp Pulse Resp B/P (MAP) Pulse Ox O2 Delivery O2 Flow Rate FiO2 10/04/25 22:23 167 10/04/25 21:52 161 10/04/25 21:23 155 10/04/25 21:10 159 18 96 Nasal Cannula* 2 28 10/04/25 21:05 163 15 100 Nasal Cannula* 2 28 10/04/25 20:57 98.3 172 13 102/46 (64) 98 98.3 10/04/25 20:47 161 10/04/25 20:46 98.2 166 18 145/82 97 98.2 Laboratory Tests Test 10/04/25 21:07 White Blood Count 6.7 10^3/uL (4.4-10.8) Medications Medications Dose Ordered Sig/Jorge Route Start Time Stop Time Status Last Admin Dose Admin Amiodarone HCl 100 ml @ 600 mls/hr ONCE ONCE IV 10/04/25 21:00 10/04/25 21:09 DC 10/04/25 21:20 600 MLS/HR Amiodarone HCl 250 ml @ 33.33 mls/ hr Q7H31M ONCE IV 10/04/25 21:15 10/05/25 04:45 10/04/25 21:58 33.33 MLS/HR Assessment/Plan Assessment/Plan New onset AFib with RVR Chronic diastolic heart failure with LVp EF Hypertensive heart disease Mixed hyperlipidemia Sudden onset of unprovoked symptoms-palpitation During admission patient become tachycardic, 2 L home oxygen via nasal cannula In ER patient started amiodarone drip. EKG: Atrial fibrillation with RVR, HR 155, QTC 527 Echo on 02/2025-Left ventricular function is preserved at 65% with normal RV function. Troponin: 13, repeat troponin 15 [id number],-VASc score : 3 Started amiodarone drip in ER Furosemide Atorvastatin Lisinopril Therapeutic Lovenox Monitor rn patient services labs Cardiology consult as per primary team Asthma/COPD without exacerbation X-ray chest shows mild haziness overlying the lung bases. Continue oxygen 2 L via nasal cannula-home dose Doxycycline Breathing treatment Hypokalemia Hypernatremia Potassium level 3.3, supplemented and repeat potassium 3 .5 BMP Hypothyroidism Levothyroxine TSH: 3.69 Bipolar disorder/depression Aripiprazole-home medication Citalopram Morbid obesity, BMI 41.7 Obstructive sleep apnea Lifestyle modification BiPAP Diet :cardiac GI prophylaxis: Pantoprazole DVT prophylaxis: Lovenox More than 29 minute spent with patient. Goals of care discussion. Full code status. Case discussed with Dr. Greenwood Plan discussed with: Patient, Other (Nurse) My Orders Orders - SINCERE DANGELO Procedure Category Date Status Time Admit ADMIT 10/04/25 Verified 23:14 Code Status CODE 10/04/25 Verified 23:14 Cardiac DIET 10/05/25 Verified Diet-2gna,Lofat,Lochol Breakfast Echo 2d Mode Cardiac US 10/04/25 Verified DOP 23:14 Nitroglycerin PHA 10/04/25 Verified Sublingual (Ntrostat 23:15 Morphine Sulfate PHA 10/04/25 Verified Injection 23:15 Oxygen By Nasal RT 10/04/25 Verified Cannula 23:14 Stat Ekg For Chest [facility] 10/04/25 Verified Pain 23:14 Notify Md Of Changes [facility] 10/04/25 Verified From Base 23:14 Galvanometer Assembler For [facility] 10/04/25 Verified 24 Hours 23:14 Emergency Dysrhythmia [facility] 10/04/25 Verified Protocol 23:14 Rhythm Strips Once [facility] 10/04/25 Verified Every Shift 23:14 Enoxaparin Sodium PHA 10/05/25 Verified (Lovenox) 10:00 Furosemide Tablet PHA 10/05/25 Verified (Lasix Tablet) 10:00 Levalbuterol Hcl PHA 10/05/25 Verified (Xopenex Medneb) 00:00 Visit Coding STANDARD RES Billing Provider: DEEDEE GREENWOOD MD Date of Service if different f: Oct 04, 2025 Common Visit Codes: 97363-WVOWFFB INP/OBS CARE (HIGH) Secondary Visit Codes: [id number] CARE PLAN 30 MINUTES SINCERE DANGELO Oct 04, 2025 23:27
[2025-10-04 23:35] VITALS: BP 102/46; PULSE 167; RESP 18; TEMP 98.3; O2SAT 96
[2025-10-04] MEDS: ENOXAPARIN SOD 100 MG/1 ML SYRINGE SC ONE (23:45)
[2025-10-05] VITALS (18 sets, daily range): BP systolic 83–116; BP diastolic 53–65; PULSE 65–166; RESP 11–20; TEMP 97.5–98; O2SAT 94–100
[2025-10-05] MEDS: LEVALBUTEROL HCL 1.25 MG/3 ML NEB NEB SCH (00:20)
[2025-10-05] MEDS: IPRATROPIUM BROM 0.5 MG/2.5ML INH SOL NEB SCH (00:21)
[2025-10-05] MEDS: POTASSIUM CHL 20 Meq TABLET PO ONE (01:53)
[2025-10-05 03:24] LABS: Hematocrit 38.3 % (36.0-46.0); Hemoglobin 12.5 g/dL (12.2-16.2); Mean Corpuscular Hemoglobin 30.7 pg (28.0-32.0); Mean Corpuscular Volume 94.4 fL (80.0-100.0); Nucleated Red Blood Cells % 0.1 %
[2025-10-05 03:32] LABS: Chloride 102 mmol/L (98-107)
[2025-10-05 03:33] LABS: Anion Gap 8 (5-15)
[2025-10-05 03:36] LABS: Calcium 8.6 mg/dL (8.7-10.4); Carbon Dioxide 36 mmol/L (20-31); Potassium 3.5 mmol/L (3.5-5.1); Sodium 146 mmol/L (136-145)
[2025-10-05 03:38] LABS: BUN/Creatinine Ratio 21.3 (10.0-20.0); Blood Urea Nitrogen 20 mg/dL (9-23)
[2025-10-05 03:57] LABS: Glucose 107 mg/dL (74-106)
[2025-10-05] MEDS: LEVOTHYROXINE SODIUM 100 MCG TAB PO SCH (05:57)
--- NOTE | 2025-10-05 06:42 | ECG ---
[facility] Test Date: 2025-10-04 Test Time: 20:47:45 Pat Name: CARMELO HARDIN Department: Room: 0278T Gender: F Fur Trimmer: : 1965 Requested By: LOS COLEY Order Number: [id number] Reading MD: Epi Avila Measurements Intervals [place] Rate: 161 P: 0 [place]: 74 QRS: 49 QRSD: 91 T: 131 QT: 310 QTc: 508 Interpretive Statements Sinus tachycardia Multiple premature complexes, vent & supraven Probable left atrial enlargement Repolarization abnormality, prob rate related Electronically Signed On 10-08-2025 19:15:34 PST by Epi Avila Please click the below link to view image of tracing.
[2025-10-05] MEDS: SODIUM CHLORIDE 0.9% 500 ML IV ONE (08:30)
--- NOTE | 2025-10-05 09:16 | ECG ---
[facility] Test Date: 2025-10-04 Test Time: 21:43:35 Pat Name: CARMELO HARDIN Department: Room: 0278T Gender: F Doctor Of Dental Medicine: : 1965 Requested By: LOS COLEY Order Number: [id number] Reading MD: Epi Avila Measurements Intervals [place] Rate: 155 P: 0 [place]: 0 QRS: 68 QRSD: 119 T: 45 QT: 328 QTc: 527 Interpretive Statements Atrial fibrillation Nonspecific intraventricular conduction delay Low voltage, precordial leads Repolarization abnormality, prob rate related Borderline ST elevation, anterior leads Baseline wander in lead(s) I,II,III,aVR,aVL,aVF,V1,V2,V3,V4 Electronically Signed On 10-08-2025 19:16:08 PST by Epi Avila Please click the below link to view image of tracing.
--- NOTE | 2025-10-05 09:17 | ECG ---
[facility] Test Date: 2025-10-04 Test Time: 23:53:43 Pat Name: CARMELO HARDIN Department: Room: 0278T Gender: F Infertility Medical Assistant: : 1965 Requested By: LOS COLEY Order Number: [id number] Reading MD: Epi Avila Measurements Intervals [place] Rate: 145 P: 0 [place]: 0 QRS: 54 QRSD: 94 T: 0 QT: 335 QTc: 521 Interpretive Statements Atrial fibrillation, rapid ventricular response Paired ventricular premature complexes Nonspecific repol abnormality, diffuse leads Prolonged QT interval Baseline wander in lead(s) II,aVR Electronically Signed On 10-08-2025 19:18:32 PST by Epi Avila Please click the below link to view image of tracing.
[2025-10-05] MEDS: DOXYCYCLINE 100 MG TAB/CAP PO SCH (10:36)
[2025-10-05] MEDS: POTASSIUM EFFERVESENT TAB 25 MEQ PO ONE (10:38)
[2025-10-05] MEDS: CITALOPRAM HYDROBR 20 MG TAB PO SCH (10:38)
[2025-10-05] MEDS: FUROSEMIDE 40 MG TAB PO SCH (10:39)
[2025-10-05 11:15] LABS: INR 1.02 (0.9-1.15); Partial Thromboplastin Time 25.1 SEC (24.5-34.5); Prothrombin Time 10.8 sec (9.3-11.8)
--- NOTE | 2025-10-05 16:10 | DVHSR ---
APPROVED REPORT EXAM: Two-dimensional and M-mode echocardiogram with Doppler and color Doppler. Blood Pressure: 90/52 mmHg INDICATION Heart Failure RISK FACTORS Height: 5'5, Weight: 250 DIMENSIONS LVDd 5.5 (3.8-5.7cm) LA (2D) (1.9-4.0cm) Aortic Root 2.2 (2.0-3.7cm) LVDs 4.1 (2.5-4.0cm) LA (MM) (1.9-4.0cm) Aortic Cusp Exc 1.7 (1.5-2.0cm) EF (%) 49.0 (55-70%) Rt. Atrium (1.9-4.0cm) Asc. Aorta 2.7 cm IVSd 1.0 (0.7-1.1cm) RV (D) (1.8-2.4cm) PWd 1.2 (0.7-1.1cm) Mitral Valve Mitral Mitral Stenosis E wave 1.04m/s MV Mean GR. mmHg A wave 0.69m/s MV Peak GR. 68mmHg E/A ratio 1.5 2D MVA cm2 DECEL Time 241ms PRESS 1/2 Time ms Aortic Valve Aortic Valve Aortic Stenosis V1 1.19m/s AO Mean GR. 6mmHg V2 1.60m/s AO Peak GR. 10mmHg LVOT Diameter 1.8 (1.8-2.4cm) Doppler GE 1.89cm2 Pulmonic Valve V2 1.33m/s Tricuspid Valve TR Velocity 2.58m/s RVSP 27mmHg Other Information Technically limited study due to body habitus and patient position. Conclusion lvef 50% mild to moderate LVH left atrium enlarged
--- NOTE | 2025-10-05 16:32 | DVHINCON2 ---
Date of service: Oct 05, 2025 History of Present Illness This is a 60-year-old female with past medical history of morbid obesity, COPD with 2 L home oxygen,VIC, heart failure, hypertension, hyperlipidemia, bipolar disorder, hypothyroidism came to the hospital with a complaint of sudden onset of palpitation around 8:00 p.m. associated with SOB. Patient increase her oxygen level but not improved and decided to come ER. Patient also feeling chest chest pain same time which is 3/10 intensity, localized, no aggravating or relieving factors, no radiation. Patient current symptoms associated with sweating, feeling fatigue. Denies any fall trauma or recent sick contacts. Currently denies any fever, chest pain, abdominal pain, dysuria or any focal weakness. Past medical history: As above Past surgical history: Nothing contributory Family history: Father-colon cancer Personal history: Ex-smoker, used marijuana and meth use 1 year ago Allergy: Amoxicillin, aspirin, bupropion, codeine, Darvocet, ibuprofen, metformin, penicillin PCP: Unable to recall name Home medication: Furosemide, lisinopril, albuterol inhaler, albuterol, aripiprazole, citalopram, levothyroxine. Past Medical History reviewed Family History: FH: heart attack G8 FATHER FH: stroke G8 FATHER Hypertension G8 FATHER Allergies: Coded Allergies: Piperacillin (Verified Allergy, Intermediate, Rash in the chest and face, 08/16/24) Per Anu Montez RN shift endorsement, and MD Pierson notes 08/15/24, pt had a rash in the chest and face during the 1st dose of Zosyn Iv dosage, therefore it was d/c 08/15/24. Tazobactam (Verified Allergy, Intermediate, Rash in the chest and face, 08/16/24) Per Anu Montez RN shift endorsement, and MD Pierson notes 08/15/24, pt had a rash in the chest and face during the 1st dose of Zosyn Iv dosage, therefore it was d/c 08/15/24. Amoxicillin (Verified Allergy, Unknown, 08/02/24) allergy, per the family. Aspirin (Verified Allergy, Unknown, 10/31/14) Bupropion (Verified Allergy, Unknown, 10/31/14) Codeine (Verified Allergy, Unknown, 10/31/14) RASH Ibuprofen (Verified Allergy, Unknown, 10/31/14) Morphine (Verified Allergy, Unknown, 03/06/14) "I HAVE AN ALLERGY TO MORPHINE IN PILL FORM" Penicillins (Verified Allergy, Unknown, 08/02/24) allergy, per the family. Uncoded Allergies: DARVOCET (Allergy, Unknown, 03/06/14) Home Meds Active Scripts Ergocalciferol (VITAMIN D 47598 UNIT) 50,[address] [place], [address] UNIT PO weekly for 12 Days, #12 CAP [facility]25 Ivermectin (Ivermectin) 3 Mg Tab, 3 MG PO DAILY for 1 Day, #1 TAB [facility] 03/19/25 Permethrin (Elimite) 5 % Cre, 1 APPLIC TOP ONCE for 1 Day, #60 GRAMS 1 Refill [facility] 03/19/25 Levofloxacin Hemihydrate (LEVOFLOXACIN) 750 Mg Tab, 1 TAB PO DAILY for 5 Days, #5 TAB [facility] 03/19/25 Prednisone (Prednisone) 20 Mg Tab, 20 MG PO QAM for 7 Days, #7 MG Prov[facility] 03/19/25 Albuterol Sulfate (VENTOLIN MDI) 90 Mcg Ih, 90 MCG IN Q6HPRN PRN, #1 INH Prov:ARIEL REINA MD 12/14/22 Reported Medications Uxgxopzpsv-Wfbitcsjbnzxix-Rgco (Breztri Aerosphere 160-9-4.8 Mcg/Act) 1 Aer Aer, 1 AER IN, AER 08/15/24 Citalopram Hydrobromide (Citalopram Hydrobromide) 40 Mg Tab, 40 MG PO DAILY for 30 Days, MG 08/15/24 Celecoxib (Celebrex) 100 Mg Cap, 40 MG PO DAILY, % 08/02/24 Aripiprazole (Abilify) 20 Mg Tab, 20 MG PO DAILY, TAB 08/02/24 Furosemide (Furosemide) 40 Mg Tab, 40 MG PO 08/01/24 Atorvastatin Calcium (ATORVASTATIN CALCIUM) 10 Mg Tab, 1 TAB PO DAILY, TAB 08/01/24 Levothyroxine Sodium (SYNTHROID TABLET) 100 Mcg Tb, 1 TAB PO DAILY, #30 TAB 5 Refills 12/14/22 Current Medications Current Medications Medications (Trade) Dose Ordered Sig/Jorge Route PRN Reason Start Time Stop Time Status Last Admin Amiodarone HCl 250 ml @ 16.66 mls/ hr Q15H1M IV 10/05/25 03:15 10/05/25 03:39 Nitroglycerin (Ntrostat Sublingual) 0.4 mg Q5MINP PRN SL FOR CHEST PAIN 10/04/25 23:15 Morphine Sulfate 2 mg Q30M PRN IV FOR CHEST PAIN 10/04/25 23:15 10/05/25 09:13 DC Furosemide (Lasix Tablet) 40 mg DAILY PO 10/05/25 10:00 Levalbuterol HCl (Xopenex Medneb) 0.625 mg Q6HR NEB 10/05/25 00:00 10/05/25 10:03 Ipratropium [place] (Atrovent Medneb) 0.5 mg Q6HR NEB 10/05/25 00:00 10/05/25 10:00 Atorvastatin Calcium (Lipitor) 20 mg HS PO 10/05/25 22:00 Citalopram Hydrobromide (CeleXA TABLET) 20 mg DAILY PO 10/05/25 10:00 10/05/25 10:38 Levothyroxine Sodium (Synthroid Tablet) 100 mcg QAM@0600 PO 10/05/25 06:00 10/05/25 05:57 Doxycycline Monohydrate (Vibramycin Tablet) 100 mg Q12HR PO 10/05/25 10:00 10/05/25 10:36 Enoxaparin Sodium (Lovenox) 120 mg Q12HR SC 10/05/25 22:00 Review of Systems 10 pt ros otherwise negative Vital Signs Vital Signs Date Time Temp Pulse Resp B/P (MAP) Pulse Ox O2 Delivery O2 Flow Rate FiO2 10/05/25 14:02 61 14 123/51 (75) 97 10/05/25 10:03 Nasal Cannula* 2 28 10/05/25 08:09 98.3 98.3 Physical Exam nad s1 s2 rrr ctab soft obese Labs/Diagnostic Data Labs Test 10/05/25 10:38 10/05/25 02:41 10/04/25 21:56 10/04/25 21:07 Range/Units Prothrombin Time 10.8 9.3-11.8 sec Prothrombin Time INR 1.02 0.9-1.15 Activated Partial Thromboplast Time 25.1 24.5-34.5 SEC Magnesium Level 1.9 1.6-2.6 mg/dL Plasma/Serum Blood Alcohol < 3.0 <10 mg/dL White Blood Count 7.1 4.4-10.8 10^3/uL Red Blood Count 4.06 4.0-5.20 10^6/uL Hemoglobin 12.5 12.2-16.2 g/dL Hematocrit 38.3 36.0-46.0 % Mean Corpuscular Volume 94.4 80.0-100.0 fL Mean Corpuscular Hemoglobin 30.7 28.0-32.0 pg Mean Corpuscular Hemoglobin Concent 32.5 32.0-36.0 g/dL Red Cell Distribution Width 14.8 H 11.8-14.3 % Platelet Count 169 140-450 10^3/uL Mean Platelet Volume 9.3 6.9-10.8 fL Neutrophils (%) (Auto) 71.1 37.0-80.0 % Lymphocytes (%) (Auto) 18.6 10.0-50.0 % Monocytes (%) (Auto) 7.4 0.0-12.0 % Eosinophils (%) (Auto) 2.1 0.0-7.0 % Basophils (%) (Auto) 0.8 0.0-2.0 % Neutrophils # (Auto) 5.0 1.6-8.6 10 ^3/uL Lymphocytes # (Auto) 1.3 0.4-5.4 10 ^3/uL Monocytes # (Auto) 0.5 0-1.3 10 ^3/uL Eosinophils # (Auto) 0.2 0-0.8 10 ^3/uL Basophils # (Auto) 0.1 0-0.2 10 ^3/uL Nucleated Red Blood Cells 0.1 % Sodium Level 146 H 136-145 mmol/L Potassium Level 3.5 3.5-5.1 mmol/L Chloride Level 102 98-107 mmol/L Carbon Dioxide Level 36 H 20-31 mmol/L Anion Gap 8 5-15 Blood Urea Nitrogen 20 9-23 mg/dL Creatinine 0.94 0.550-1.02 mg/dL Glomerular Filtration Rate Calc 70 >90 mL/min BUN/Creatinine Ratio 21.3 H 10.0-20.0 Serum Glucose 107 H 74-106 mg/dL Calcium Level 8.6 L 8.7-10.4 mg/dL B-Type Natriuretic Peptide 66.61 0-100 pg/mL Vitamin D 25-Hydroxy 31.2 30.0-100 ng/mL Troponin I High Sensitivity 15 </=34 ng/L Total Bilirubin 0.5 0.2-1.0 mg/dL Aspartate Amino Transferase (AST) 13 13-40 U/L Alanine Aminotransferase (ALT) 41 H 7-40 U/L Alkaline Phosphatase 89 46-116 U/L Total Protein 6.6 5.7-8.2 g/dL Albumin 4.3 3.2-4.8 g/dL Thyroid Stimulating Hormone (TSH) 3.67 0.55-4.78 uIU/mL Assessment afib rvr obesity morbid htn hl Plan/Recommendation change amio to po start doac, eliquis 5 mg po bid on dc toprol xl 25 mg preserved lvef needs health insurance or will do poorly, readmit again, signing off Plan discussed with: Patient IDALIA MCCLENDON MD Oct 05, 2025 16:32
--- NOTE | 2025-10-05 16:35 | DVHPNRES ---
Progress Note Date Seen: Oct 05, 2025 Resident Creating Document: BARBARA SRIVASTAVA RESIDENT Medical Necessity Reason Pt with a Central, PICC or Fol: No Subjective Review of Systems Beth Dennison is a 60-year-old female with past medical history of diastolic heart failure, COPD, asthma, lumbar sacral radiculopathy, osteoarthritis of hip , obstructive sleep apnea, bipolar disorder, hypothyroidism who presented to the hospital with complains of palpitation, chest pain, dizziness on lying down, shortness of breath since 1 day. Patient reports that these problems are new for her and has never experienced them before. She also complains of associated hoarseness and sweating all around the body. She denies any fever, chills, urinary symptoms or chest pain. Patient states that she was admitted in the hospital 1 week back with pneumonia. she uses a BiPAP machine at night at home while sleeping. PMHx:diastolic heart failure, COPD, asthma, lumbar sacral radiculopathy, osteoarthritis of hip , obstructive sleep apnea, bipolar disorder, hypothyroidism PSHx: Nonrelevant Family history: history of colon cancer in grandfather and father Social history: patient is an ex-smoker, 30 pack year smoking history. 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 Home medication: furosemide, lisinopril, albuterol, aripiprazole, citalopram, levothyroxine Allergic history: amoxicillin, aspirin, bupropion, codeine, ibuprofen, morphine, penicillin, piperacillin tazobactam General: patient denies fever, fatigue, weaknes, sweating, any recent changes in appetite and weight HEENT: No headaches, visiual changes, hearing loss, tinnitus, nasal congestion and discharge, and sore throat. Cardiovascular: complains of palpitation, chest pain and dizziness Respiratory: No cough, and wheezing. Gastrointestinal: Denies nausea, vomiting, dysphagia, odynophagia, heartburn, abdominal pain, flatulence, bloating, diarrhea, constipation, change in stool, or blood in stool. Genitourinary: No dysuria, hematuria, discharge, frequency, urgency, nocturia, incontinence, and urinary retention. Endocrine: No heat or cold intolerance, polydipsia, polyuria, and polyphagia. Neurological: No dizziness, extremity weakness and numbness, tremors, gait disturbance, seizures, and memory impairment. Psychiatric: Denies depression, anxiety,or insomnia. Musculoskeletal: Denies neck pain, stiffness and swelling, back pain, muscle weakness, joint pain, stiffness, swelling, or limited range of motion. Skin: No rashes, itching, skin lesion, changes in hair, nail, skin texture and breast. Hematologic/Lymphatic: Denies easy bruising, bleeding tendencies, or lymph node enlargement. Objective vital signs Vital Sign Date Time Temp Pulse Resp B/P (MAP) Pulse Ox O2 Delivery O2 Flow Rate FiO2 10/05/25 14:02 61 14 123/51 (75) 97 10/05/25 10:03 Nasal Cannula* 2 28 10/05/25 08:09 98.3 98.3 Total Intake and Output 10/04/25 10/04/25 10/05/25 15:00 23:00 07:00 Intake Total 100 ml 250 ml Balance 100 ml 250 ml medications Current Medications Medications Dose Ordered Sig/Jorge Route Start Time Stop Time Status Last Admin Dose Admin Amiodarone HCl 250 ml @ 16.66 mls/ hr Q15H1M IV 10/05/25 03:15 10/05/25 03:39 16.66 MLS/HR Nitroglycerin 0.4 mg Q5MINP PRN SL 10/04/25 23:15 Furosemide 40 mg DAILY PO 10/05/25 10:00 Levalbuterol HCl 0.625 mg Q6HR NEB 10/05/25 00:00 10/05/25 10:03 0.625 MG Ipratropium [place] 0.5 mg Q6HR NEB 10/05/25 00:00 10/05/25 10:00 0.5 MG Atorvastatin Calcium 20 mg HS PO 10/05/25 22:00 Citalopram Hydrobromide 20 mg DAILY PO 10/05/25 10:00 10/05/25 10:38 20 MG Levothyroxine Sodium 100 mcg QAM@0600 PO 10/05/25 06:00 10/05/25 05:57 100 MCG Doxycycline Monohydrate 100 mg Q12HR PO 10/05/25 10:00 10/05/25 10:36 100 MG Enoxaparin Sodium 120 mg Q12HR SC 10/05/25 22:00 Examination General Appearance: Alert, Oriented X3, Cooperative, No acute distress HEENT: Atraumatic, PERRLA, EOMI, Mucous membrane moist/pink Respiratory: Clear to auscultation, Normal air movement Cardiovascular: irregularly irregular rate, Normal S1, Normal S2, No murmurs, no chest wall tenderness Abdominal: Normal bowel sounds, Soft, No tenderness, No hepatospenomegaly, No masses Extremities: No clubbing, No cyanosis, No edema, Normal pulses, No tenderness/swelling Skin: No rashes, No breakdown, No significant lesion Neuro: Normal gait, Normal speech, Strength at 5/5 X4 ext, Normal tone, Sensation intact, Cranial nerves 3-12 NL, Reflexes 2+ Psych/Mental Status: Mental status NL, Mood NL laboratory and microbiology Laboratory Tests 10/05/25 02:41 Test 10/05/25 02:41 Range/Units Serum Glucose 107 H 74-106 mg/dL Problem List/Assessment/Plan Problem List/Assessment/Plan Assessment/Plan New onset AFib with RVR HFpEF, chronic Hypertensive heart disease Mixed hyperlipidemia Sudden onset of unprovoked symptoms-palpitation During admission patient become tachycardic, 2 L home oxygen via nasal cannula In ER patient started amiodarone drip. EKG: Atrial fibrillation with RVR, HR 155, QTC 527 Echo on 02/2025-Left ventricular function is preserved at 65% with normal RV function. 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 Continue oxygen 2 L via nasal cannula-home dose Doxycycline Breathing treatment Hypokalemia Hypernatremia Potassium level 3.3, supplemented and repeat potassium 3 .5 BMP Hypothyroidism Levothyroxine TSH: 3.69 Bipolar disorder/depression Aripiprazole-home medication Citalopram Morbid obesity, BMI 41.7 Obstructive sleep apnea Lifestyle modification BiPAP Osteoarthritis of the hip Follow up with PCP on discharge History of Lumbosacral radiculopathy Follow up with PCP on discharge Diet :cardiac GI prophylaxis: Pantoprazole DVT prophylaxis: Lovenox Full code status. Case discussed with Dr. Johnson Plan discussed with: Patient My Orders My Orders Orders - BARBARA SRIVASTAVA RESIDENT Procedure Category Date Status Time * Cardiology Consult CONS 10/05/25 Transmitted 11:57 Enoxaparin Sodium PHA 10/05/25 In Process (Lovenox) 22:00 Complete Blood Count LAB 10/06/25 Verified 04:00 Comprehensive LAB 10/06/25 Verified Metabolic Panel 04:00 Date of Service: Oct 05, 2025 Billing Provider: LINDA DIAZ MD Common Visit Codes: [id number] INP/OBS CARE(HIGH) BARBARA SRIVASTAVA RESIDENT Oct 05, 2025 16:35
[2025-10-05] MEDS: ATORVASTATIN 20 MG TAB PO SCH (23:17)
[2025-10-05] MEDS: ENOXAPARIN SOD 120 MG/0.8 ML SYRINGE SC SCH (23:17)
[2025-10-06] VITALS (20 sets, daily range): BP systolic 99–123; BP diastolic 53–81; PULSE 59–93; RESP 16–21; TEMP 96–98.4; O2SAT 94–100
[2025-10-06 02:12] LABS: Cannabinoid Screen, Urine Pos (NEGATIVE)
[2025-10-06 02:15] LABS: Amphetamine Screen, Urine Neg (NEGATIVE); Barbiturate Scree,Urine Neg (NEGATIVE); Benzodiazephine Screen, Urine Neg (NEGATIVE); Cocaine Screen, Urine Neg (NEGATIVE); Phencyclidine Screen, Urine Neg (NEGATIVE)
[2025-10-06 03:44] LABS: Opiate Scree,Urine Neg (NEGATIVE)
[2025-10-06 06:01] LABS: Hematocrit 33.4 % (36.0-46.0); Hemoglobin 10.7 g/dL (12.2-16.2); Mean Corpuscular Hemoglobin 30.5 pg (28.0-32.0); Mean Corpuscular Volume 95.3 fL (80.0-100.0); Nucleated Red Blood Cells % 0.1 %
[2025-10-06 06:02] LABS: Alanine Aminotransferase 32 U/L (7-40); Alkaline Phosphatase 72 U/L (46-116); Anion Gap 6 (5-15); BUN/Creatinine Ratio 21.5 (10.0-20.0); Blood Urea Nitrogen 20 mg/dL (9-23); Chloride 103 mmol/L (98-107); Potassium 3.7 mmol/L (3.5-5.1); Sodium 145 mmol/L (136-145)
[2025-10-06 06:03] LABS: Albumin 3.6 g/dL (3.2-4.8); Bilirubin, Total 0.6 mg/dL (0.2-1.0)
[2025-10-06 06:04] LABS: Calcium 8.6 mg/dL (8.7-10.4); Carbon Dioxide 36 mmol/L (20-31); Glucose 164 mg/dL (74-106); Total Protein 5.5 g/dL (5.7-8.2)
[2025-10-06] MEDS: AMIODARONE HCL 200 MG TAB PO SCH (10:20)
--- NOTE | 2025-10-06 17:01 | DVHPNRES ---
Progress Note Date Seen: Oct 06, 2025 Resident Creating Document: BARBARA SRIVASTAVA RESIDENT Medical Necessity Reason Pt with a Central, PICC or Fol: No Subjective Review of Systems Patient seen at bedside. Converted to sinus. Started on p.o. amiodarone. Blood pressure stable. Beth Dennison is a 60-year-old female with past medical history of diastolic heart failure, COPD, asthma, lumbar sacral radiculopathy, osteoarthritis of hip , obstructive sleep apnea, bipolar disorder, hypothyroidism who presented to the hospital with complains of palpitation, chest pain, dizziness on lying down, shortness of breath since 1 day. Patient reports that these problems are new for her and has never experienced them before. She also complains of associated hoarseness and sweating all around the body. She denies any fever, chills, urinary symptoms or chest pain. Patient states that she was admitted in the hospital 1 week back with pneumonia. she uses a BiPAP machine at night at home while sleeping. PMHx:diastolic heart failure, COPD, asthma, lumbar sacral radiculopathy, osteoarthritis of hip , obstructive sleep apnea, bipolar disorder, hypothyroidism PSHx: Nonrelevant Family history: history of colon cancer in grandfather and father Social history: patient is an ex-smoker, 30 pack year smoking history. 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 Home medication: furosemide, lisinopril, albuterol, aripiprazole, citalopram, levothyroxine Allergic history: amoxicillin, aspirin, bupropion, codeine, ibuprofen, morphine, penicillin, piperacillin tazobactam General: patient denies fever, fatigue, weaknes, sweating, any recent changes in appetite and weight HEENT: No headaches, visiual changes, hearing loss, tinnitus, nasal congestion and discharge, and sore throat. Cardiovascular: complains of palpitation, chest pain and dizziness Respiratory: No cough, and wheezing. Gastrointestinal: Denies nausea, vomiting, dysphagia, odynophagia, heartburn, abdominal pain, flatulence, bloating, diarrhea, constipation, change in stool, or blood in stool. Genitourinary: No dysuria, hematuria, discharge, frequency, urgency, nocturia, incontinence, and urinary retention. Endocrine: No heat or cold intolerance, polydipsia, polyuria, and polyphagia. Neurological: No dizziness, extremity weakness and numbness, tremors, gait disturbance, seizures, and memory impairment. Psychiatric: Denies depression, anxiety,or insomnia. Musculoskeletal: Denies neck pain, stiffness and swelling, back pain, muscle weakness, joint pain, stiffness, swelling, or limited range of motion. Skin: No rashes, itching, skin lesion, changes in hair, nail, skin texture and breast. Hematologic/Lymphatic: Denies easy bruising, bleeding tendencies, or lymph node enlargement. Objective vital signs Vital Sign Date Time Temp Pulse Resp B/P (MAP) Pulse Ox O2 Delivery O2 Flow Rate FiO2 10/06/25 15:20 66 95 Facial BiPAP Mask 30 10/06/25 13:00 97.6 16 119/73 (88) 97.6 10/06/25 11:46 2.0 Total Intake and Output 10/05/25 10/05/25 10/06/25 15:00 23:00 07:00 Intake Total 616.62 ml 33.32 ml 700 ml Balance 616.62 ml 33.32 ml 700 ml medications Current Medications Medications Dose Ordered Sig/Jorge Route Start Time Stop Time Status Last Admin Dose Admin Nitroglycerin 0.4 mg Q5MINP PRN SL 10/04/25 23:15 Furosemide 40 mg DAILY PO 10/05/25 10:00 10/06/25 10:20 40 MG Levalbuterol HCl 0.625 mg Q6HR NEB 10/05/25 00:00 10/06/25 11:42 0.625 MG Ipratropium [place] 0.5 mg Q6HR NEB 10/05/25 00:00 10/06/25 11:43 0.5 MG Atorvastatin Calcium 20 mg HS PO 10/05/25 22:00 10/05/25 23:17 20 MG Citalopram Hydrobromide 20 mg DAILY PO 10/05/25 10:00 10/06/25 10:20 20 MG Levothyroxine Sodium 100 mcg QAM@0600 PO 10/05/25 06:00 10/06/25 06:10 100 MCG Doxycycline Monohydrate 100 mg Q12HR PO 10/05/25 10:00 10/06/25 10:20 100 MG Enoxaparin Sodium 120 mg Q12HR SC 10/05/25 22:00 10/06/25 10:20 120 MG Amiodarone HCl 200 mg Q12HR PO 10/06/25 10:00 10/06/25 10:20 200 MG Examination General Appearance: Alert, Oriented X3, Cooperative, No acute distress HEENT: Atraumatic, PERRLA, EOMI, Mucous membrane moist/pink Respiratory: Clear to auscultation, Normal air movement Cardiovascular: irregularly irregular rate, Normal S1, Normal S2, No murmurs, no chest wall tenderness Abdominal: Normal bowel sounds, Soft, No tenderness, No hepatospenomegaly, No masses Extremities: No clubbing, No cyanosis, No edema, Normal pulses, No tenderness/swelling Skin: No rashes, No breakdown, No significant lesion Neuro: Normal gait, Normal speech, Strength at 5/5 X4 ext, Normal tone, Sensation intact, Cranial nerves 3-12 NL, Reflexes 2+ Psych/Mental Status: Mental status NL, Mood NL laboratory and microbiology Laboratory Tests 10/06/25 05:13 Test 10/06/25 05:13 Range/Units Serum Glucose 164 H 74-106 mg/dL Problem List/Assessment/Plan Problem List/Assessment/Plan Assessment/Plan New onset AFib with RVR HFpEF, chronic Hypertensive heart disease Mixed hyperlipidemia Sudden onset of unprovoked symptoms-palpitation During admission patient become tachycardic, 2 L home oxygen via nasal cannula In ER patient started amiodarone drip. EKG: Atrial fibrillation with RVR, HR 155, QTC 527 Echo on 02/2025-Left ventricular function is preserved at 65% with normal RV function. Troponin: 13, repeat troponin 15 [id number],-VASc score : 3 Started amiodarone drip in ER Furosemide Atorvastatin Lisinopril Therapeutic Lovenox Monitor post form remover labs Cardiology consult as per primary team Toprol XL 25 Planning for Eliquis 5 mg b.i.d. on discharge Asthma/COPD without exacerbation X-ray chest shows mild haziness overlying the lung bases. Continue oxygen 2 L via nasal cannula-home dose Doxycycline Breathing treatment Hypokalemia Hypernatremia Potassium level 3.3, supplemented and repeat potassium 3 .5 BMP Hypothyroidism Levothyroxine TSH: 3.69 Bipolar disorder/depression Aripiprazole-home medication Citalopram Morbid obesity, BMI 41.7 Obstructive sleep apnea Lifestyle modification BiPAP Osteoarthritis of the hip Follow up with PCP on discharge History of Lumbosacral radiculopathy Follow up with PCP on discharge Diet :cardiac GI prophylaxis: Pantoprazole DVT prophylaxis: Lovenox Full code status. Case discussed with Dr. Johnson Plan discussed with: Patient Date of Service: Oct 06, 2025 Billing Provider: LINDA DIAZ MD Common Visit Codes: [id number] INP/OBS CARE(HIGH) BARBARA SRIVASTAVA RESIDENT Oct 06, 2025 17:01
[2025-10-06] MEDS: FUROSEMIDE 40 MG/4 ML VIAL IV ONE (18:30)
[2025-10-07] VITALS (11 sets, daily range): BP systolic 98–123; BP diastolic 47–71; PULSE 66–101; RESP 16–20; TEMP 98–98.2; O2SAT 96–100
[2025-10-07 07:47] LABS: Hematocrit 34.3 % (36.0-46.0); Hemoglobin 11.3 g/dL (12.2-16.2); Mean Corpuscular Hemoglobin 30.8 pg (28.0-32.0); Mean Corpuscular Volume 93.8 fL (80.0-100.0); Nucleated Red Blood Cells % 0.0 %
[2025-10-07 07:52] LABS: Alanine Aminotransferase 32 U/L (7-40); Albumin 3.9 g/dL (3.2-4.8); Alkaline Phosphatase 79 U/L (46-116); Anion Gap 8 (5-15); Calcium 8.9 mg/dL (8.7-10.4); Potassium 3.7 mmol/L (3.5-5.1); Sodium 142 mmol/L (136-145)
[2025-10-07 07:56] LABS: Carbon Dioxide 38 mmol/L (20-31); Chloride 96 mmol/L (98-107); Glucose 197 mg/dL (74-106)
[2025-10-07 07:57] LABS: BUN/Creatinine Ratio 17.3 (10.0-20.0); Blood Urea Nitrogen 17 mg/dL (9-23)
[2025-10-07 07:58] LABS: Total Protein 6.0 g/dL (5.7-8.2)
[2025-10-07 07:59] LABS: Bilirubin, Total 0.6 mg/dL (0.2-1.0)
[2025-10-07] MEDS ORDERED: AMIO200T33 PO (11:30)
[2025-10-07] MEDS ORDERED: METO25TA93 PO (11:30)
[2025-10-07] MEDS ORDERED: APIX5TAB PO (11:30)
[2025-10-07] MEDS ORDERED: PANT40TA2 PO (11:30)
[2025-10-07] MEDS ORDERED: LORA-474 PO (11:30)
--- NOTE | 2025-10-07 14:56 | DVHDSRES ---
Discharge Summary Date of Admission Resident Creating Document: BARBARA SRIVASTAVA RESIDENT Oct 04, 2025 at 23:14 Date of Discharge: Oct 07, 2025 Labs/Diagnostic Data: Laboratory Results Test 10/07/25 06:49 10/06/25 01:00 10/05/25 10:38 10/05/25 02:41 White Blood Count 4.2 10^3/uL (4.4-10.8) Red Blood Count 3.66 10^6/uL (4.0-5.20) Hemoglobin 11.3 g/dL (12.2-16.2) Hematocrit 34.3 % (36.0-46.0) Mean Corpuscular Volume 93.8 fL (80.0-100.0) Mean Corpuscular Hemoglobin 30.8 pg (28.0-32.0) Mean Corpuscular Hemoglobin Concent 32.9 g/dL (32.0-36.0) Red Cell Distribution Width 14.0 % (11.8-14.3) Platelet Count 130 10^3/uL (140-450) Mean Platelet Volume 9.4 fL (6.9-10.8) Neutrophils (%) (Auto) 71.3 % (37.0-80.0) Lymphocytes (%) (Auto) 19.0 % (10.0-50.0) Monocytes (%) (Auto) 7.3 % (0.0-12.0) Eosinophils (%) (Auto) 2.0 % (0.0-7.0) Basophils (%) (Auto) 0.4 % (0.0-2.0) Neutrophils # (Auto) 3.0 10 ^3/uL (1.6-8.6) Lymphocytes # (Auto) 0.8 10 ^3/uL (0.4-5.4) Monocytes # (Auto) 0.3 10 ^3/uL (0-1.3) Eosinophils # (Auto) 0.1 10 ^3/uL (0-0.8) Basophils # (Auto) 0 10 ^3/uL (0-0.2) Nucleated Red Blood Cells 0.0 % Sodium Level 142 mmol/L (136-145) Potassium Level 3.7 mmol/L (3.5-5.1) Chloride Level 96 mmol/L (98-107) Carbon Dioxide Level 38 mmol/L (20-31) Anion Gap 8 (5-15) Blood Urea Nitrogen 17 mg/dL (9-23) Creatinine 0.98 mg/dL (0.550-1.02) Glomerular Filtration Rate Calc 66 mL/min (>90) BUN/Creatinine Ratio 17.3 (10.0-20.0) Serum Glucose 197 mg/dL (74-106) Calcium Level 8.9 mg/dL (8.7-10.4) Total Bilirubin 0.6 mg/dL (0.2-1.0) Aspartate Amino Transferase (AST) 13 U/L (13-40) Alanine Aminotransferase (ALT) 32 U/L (7-40) Alkaline Phosphatase 79 U/L (46-116) Total Protein 6.0 g/dL (5.7-8.2) Albumin 3.9 g/dL (3.2-4.8) Urine Opiates Screen Neg (NEGATIVE) Urine Fentanyl Screen Neg (NEGATIVE) Urine Barbiturates Screen Neg (NEGATIVE) Urine Phencyclidine Screen Neg (NEGATIVE) Urine Amphetamines Screen Neg (NEGATIVE) Urine Benzodiazepines Screen Neg (NEGATIVE) Urine Cocaine Screen Neg (NEGATIVE) Urine Cannabinoids Screen Pos (NEGATIVE) Prothrombin Time 10.8 sec (9.3-11.8) Prothrombin Time INR 1.02 (0.9-1.15) Activated Partial Thromboplast Time 25.1 SEC (24.5-34.5) Magnesium Level 1.9 mg/dL (1.6-2.6) Plasma/Serum Blood Alcohol < 3.0 mg/dL (<10) B-Type Natriuretic Peptide 66.61 pg/mL (0-100) Vitamin D 25-Hydroxy 31.2 ng/mL (30.0-100) Test 10/04/25 21:56 10/04/25 21:07 Troponin I High Sensitivity 15 ng/L (</=34) Thyroid Stimulating Hormone (TSH) 3.67 uIU/mL (0.55-4.78) Other Laboratory Tests 10/07/25 06:49 Brief Hx & Hospital Course: Beth Dennison is a 60-year-old female with past medical history of diastolic heart failure, COPD, asthma, lumbar sacral radiculopathy, osteoarthritis of hip , obstructive sleep apnea, bipolar disorder, hypothyroidism who presented to the hospital with complains of palpitation, chest pain, dizziness on lying down, shortness of breath since 1 day. Patient reports that these problems are new for her and has never experienced them before. She also complains of associated hoarseness and sweating all around the body. She denies any fever, chills, urinary symptoms or chest pain. Patient states that she was admitted in the hospital 1 week back with pneumonia. she uses a BiPAP machine at night at home while sleeping. EKG evealed AFib with RVR. She was admitted to telemetry. Patient was started on amiodarone drip later converted to p.o. amiodarone. She converted to sinus rhythm, blood pressure was soft initially. Cardiology was consulted. Started on metoprolol and Eliquis at discharge. During the course of hospitalization, the patient improved clinically and is hence being discharged. Discharge plan Follow up with PCP in 7 days Follow up with Cardiology in 7 days Continue home medications New medication: Eliquis, metoprolol, amiodarone Condition at Discharge: Fair Final Diagnosis/Problems List New onset AFib with RVR HFpEF, chronic Hypertensive heart disease Mixed hyperlipidemia Morbid obesity, BMI 41.7 Asthma/COPD without exacerbation Hypokalemia Hypernatremia Hypothyroidism Bipolar disorder/depression Osteoarthritis of the hip History of Lumbosacral radiculopathy Discharge Disposition: Home Discharge Instruct/Medications Diet: Cardiac 2g Na,low cholest Activity: No Restrictions, As Tolerated Follow Up/Referral: Follow up with PCP in 7 days Medications: As per EHR Scheduled Amiodarone Hcl (Amiodarone Hcl), 200 MG PO BID Apixaban Base (Eliquis), 5 MG PO BID Aripiprazole (Abilify), 20 MG PO DAILY, (Reported) Atorvastatin Calcium (Atorvastatin Calcium), 1 TAB PO DAILY, (Reported) Celecoxib (Celebrex), 40 MG PO DAILY, (Reported) Citalopram Hydrobromide (Citalopram Hydrobromide), 40 MG PO DAILY, (Reported) Ergocalciferol (Vitamin D 54884 Unit), 50,000 UNIT PO weekly Levothyroxine Sodium (Synthroid Tablet), 1 TAB PO DAILY, (Reported) Metoprolol Succinate (Metoprolol Succinate Er), 1 TAB PO DAILY Permethrin (Elimite), 1 APPLIC TOP ONCE Scheduled PRN Albuterol Sulfate (Ventolin Mdi), 90 MCG IN Q6HPRN PRN Miscellaneous Medications Wiujzwzjpi-Cvqarltmnfoill-Djro (Breztri Aerosphere 160-9-4.8 Mcg/Act), 1 AER IN, (Reported) Furosemide (Furosemide), 40 MG PO, (Reported) Discontinued Medications Ivermectin (Ivermectin), 3 MG PO DAILY Levofloxacin Hemihydrate (Levofloxacin), 1 TAB PO DAILY Prednisone (Prednisone), 20 MG PO QAM Discharge Statement: "Patient was advised to return to the ER or call 911 if any headaches, dizziness, shortness of breath, chest pain, abdominal pain, bleeding, fevers, or worsening of medical condition. Patient was counseled about treatment plan, medications, possible side effects, patientverbalized understanding. All questions were answered to the best of my ability. This discharge took greater then 30 minutes in planning, reviewing documentation, counseling the patient, and discussing with other team members." ASSESSMENT ASSESSMENT Assessment AFib with RVR Visit Coding STANDARD RES Billing Provider: LINDA DIAZ MD Date of Service if different f: Oct 07, 2025 Common Visit Codes: 57486-EWI/OBS DISCH DAY >30min BARBARA SRIVASTAVA RESIDENT Oct 07, 2025 14:56
== END 2025-10-07 13:45 | disposition home or self-care (01) | DRG 201 ==
LOC: EDBD 20:43 → ER 20:43 → OVERFLOW 23:14 → TELE-WESTW 10-05 17:49
PROVIDERS: ADMIT Student in an Organized Health Care Education/Training Program; ATTEND Student in an Organized Health Care Education/Training Program
PROC: 5A09357 Assistance with Respiratory Ventilation, Less than 24 Consecutive Hours, Continuous Positive Airway Pressure (ICD-10-PCS; principal; 2025-10-05)
PROC: 5A09357 Assistance with Respiratory Ventilation, Less than 24 Consecutive Hours, Continuous Positive Airway Pressure (ICD-10-PCS; 2025-10-06)
PROC: 5A09357 Assistance with Respiratory Ventilation, Less than 24 Consecutive Hours, Continuous Positive Airway Pressure (ICD-10-PCS; 2025-10-07)
DX: I48.91 Unspecified atrial fibrillation (principal); E87.0 Hyperosmolality and hypernatremia; I11.0 Hypertensive heart disease with heart failure; J96.10 Chronic respiratory failure, unspecified whether with hypoxia or hypercapnia; Z79.01 Long term (current) use of anticoagulants; E03.9 Hypothyroidism, unspecified; J44.9 Chronic obstructive pulmonary disease, unspecified; F31.9 Bipolar disorder, unspecified; E66.01 Morbid (severe) obesity due to excess calories; Z68.41 Body mass index [BMI] 40.0-44.9, adult; I50.32 Chronic diastolic (congestive) heart failure; E78.5 Hyperlipidemia, unspecified; M54.17 Radiculopathy, lumbosacral region; J45.909 Unspecified asthma, uncomplicated; E87.6 Hypokalemia; M16.10 Unilateral primary osteoarthritis, unspecified hip; G47.33 Obstructive sleep apnea (adult) (pediatric); F17.210 Nicotine dependence, cigarettes, uncomplicated; Z80.0 Family history of malignant neoplasm of digestive organs; Z82.3 Family history of stroke; Z82.49 Family history of ischemic heart disease and other diseases of the circulatory system; Z88.5 Allergy status to narcotic agent; Z88.0 Allergy status to penicillin; Z88.8 Allergy status to other drugs, medicaments and biological substances; Z79.899 Other long term (current) drug therapy; Z90.49 Acquired absence of other specified parts of digestive tract
CPT/HCPCS: 36415; 71045; 80048; 80053; 80307; 80320; 82306; 83735; 83880; 84443; 84484; 85025; 85610; 85730; 93005; 93306; 94640; 94660; 96365; 96372; 99291; G0378